=== PATIENT | male | born 1980 | race Caucasian/White ===

== ENCOUNTER → 2017-04-30 | Outpatient (CLI) | payer BC ==
[~2017-04-30] MED LIST: ACHD5005 PO; CEPH500C PO; CLIN-62 PO; CLIN300C3 PO; DOXY-233 PO; DOXY100C2 PO; HYDR-3816 PO; IBUP800T26 PO; NAPR-243 PO; SULF1TAB38 PO; TRM50T PO
== END ==
LOC: LAB 10:46
PROVIDERS: ATTEND Internal Medicine
DX: R07.9 Chest pain, unspecified (principal); R06.02 Shortness of breath
CPT/HCPCS: 36415; 84484; 85379

== ENCOUNTER 2017-05-08 15:02 | Inpatient (IN) | payer BC ==
[~2017-05-08] VITALS: Ht 182.9 cm; Wt 131.1 kg
--- OUTSIDE RECORDS SUMMARY | 2017-05-08 15:08 | XMS REPORT | Continuity of Care Document ---
Author Author [facility] Organization [facility] Address [address] [place] [address] Phone Unavailable Care Team Providers Care Core Maker Helper Name Role Phone SYLVIA MURRIETA COMMUNITY SERVICE TECHNICIAN PCP Unavailable Insurance Providers Guarantor Jos Shields Address [address] [place] [id number] Email NONE Payer [facility] Policy Number [id number] Subscriber's Name Jos Shields Relationship 18 Self / Same As Patient Group Number [id number] Effective Date 16 Advance Directives Directive Response Recorded Date/Time Advance Directives No 04/28/17 2:04pm Advance Directive on File No 04/28/17 1:55pm Durable POA for HC No 04/28/17 1:55pm Power of Spraying Machine Operator No 04/28/17 1:55pm Organ Donor Yes 04/28/17 2:04pm Living Will No 04/28/17 1:55pm Chief Complaint and Reason for Visit Chief Complaint Chest Pain Reason for Visit [id number] Problems Active ProblemsNo active problem information available. Past Problems Medical Problem Onset Date Status Caffeine adverse reaction Unknown Acute Chest pain, non-cardiac Unknown Acute Medications No known medications. Social History Social History Problem Response Recorded Date/Time Onset Date Status Alcohol Use none 04/28/2017 2:16pm Not Applicable Not Applicable Drug Use none 04/28/2017 2:16pm Not Applicable Not Applicable Smoking Status Current every day smoker 04/28/2017 1:59pm Not Applicable Not Applicable Smoked in the last 12 months? Yes 04/28/2017 1:59pm Not Applicable Not Applicable Do you dip or chew tobacco? No 04/28/2017 1:59pm Not Applicable Not Applicable Approx how many cigs per day? 20 04/28/2017 1:59pm Not Applicable Not Applicable Level of Dependence High 04/28/2017 1:59pm Not Applicable Not Applicable Former smoker, last day smoked? TODAY 04/28/2017 1:59pm Not Applicable Not Applicable Smoking Status Start Date Stop Date Current every day smoker Hospital Discharge Instructions No hospital discharge instruction information available. Plan of Care Discharge Date 04/28/17 3:35pm Disposition 01 D/C HOME Condition at Discharge Stable and Improved Instructions/Education Provided Chest Pain (ED) Forms Provided ER Discharge Phone Call Check Prescriptions See Medication Section Referrals SYLVIA MURRIETA APRN Address: [address] [place] [address] Additional Instructions/Education Rest. Stop smoking. Avoid caffeine. Do stress reduction techniques like deep breathing. Follow up with primary care provider regarding possible referral to cosmetics presser for further evaluation and high blood pressure. Return to ER if worsening symptoms, chest pain, shortness of breath, change in symptoms. Reference Links caffeine Functional Status Query Response Date Recorded Activities of Daily Living Performs w/o Assistance April 28, 2017 2:00pm Cognitive Function Intact April 28, 2017 2:00pm Allergies, Adverse Reactions, Alerts No known allergies. Immunizations Query Response on File Recorded Date/Time Hx Influenza Vaccination Y - UNK 04/28/17 2:13pm Hx Pneumococcal Vaccination No 04/28/17 2:13pm Hx Tetanus, Diphtheria Vaccination Y - UNK 04/28/17 2:13pm Vital Signs Acute Vital Signs Vital Response Date/Time Temperature (Fahrenheit) 99.3 degrees F (97.6 - 99.5) 04/28/2017 3:30pm Temperature (Calculated Celsius) 37.08203 degrees C (36.4 - 37.5) 04/28/2017 3:30pm Temperature Source Temporal Artery Scan 04/28/2017 3:30pm Pulse Pulse Ox Pulse Rate (adult) 73 beats per minute (60 - 90) 04/28/2017 3:30pm Pulse Location Modifier Left 04/28/2017 3:30pm Oxygen Saturation Respiratory Rate 16 breaths per minute (12 - 24) 04/28/2017 3:30pm O2 Sat by Pulse Oximetry 96 % (90 - 100) 04/28/2017 3:30pm Blood Pressure 158/69 mm Hg 04/28/2017 3:30pm Blood Pressure Mean 98 mm Hg 04/28/2017 3:30pm Height 6 ft 0 in 04/28/2017 1:51pm Weight 284 lb 04/28/2017 1:51pm Body Mass Index 38.5 kg/m^2 04/28/2017 1:51pm Results Laboratory Results Test Name Result Units Flags Reference Collection Date/Time Result Date/ Time Comments White Blood Count 7.6 x10^3/uL 4.0-11.0 04/28/2017 2:00pm 04/28/2017 2: 03pm Red Blood Count 4.93 10^6/uL 4.50-6.50 04/28/2017 2:00pm 04/28/2017 2: 03pm Hematocrit 44.2 % 40.0-54.0 04/28/2017 2:00pm 04/28/2017 2:03pm Mean Corpuscular Volume 90 fl 76-96 04/28/2017 2:00pm 04/28/2017 2: 03pm Mean Corpuscular Hemoglobin 31.8 pg 27.0-32.0 04/28/2017 2:00pm 2016 2:03pm Mean Corpuscular Hemoglobin Concent 35.5 g/dl H 31.0-35.0 04/28/2017 2: 00pm 04/28/2017 2:03pm Red Cell Distribution Width 14.7 % 11.0-16.0 04/28/2017 2:00pm 2016 2:03pm Platelet Count 265 10^3/uL 150-400 04/28/2017 2:00pm 04/28/2017 2:03pm Mean Platelet Volume 9.3 fl 6.0-10.0 04/28/2017 2:00pm 04/28/2017 2: 03pm Neutrophils (%) (Auto) 47.0 % 45.0-70.0 04/28/2017 2:00pm 04/28/2017 2: 03pm Lymphocytes (%) (Auto) 32.5 % 20.0-40.0 04/28/2017 2:00pm 04/28/2017 2: 03pm Monocytes (%) (Auto) 13.8 % *H 3.0-10.0 04/28/2017 2:00pm 04/28/2017 2: 03pm Eosinophils (%) (Auto) 5.5 % H 1.0-5.0 04/28/2017 2:00pm 04/28/2017 2: 03pm Basophils (%) (Auto) 1.2 % H 0.0-0.5 04/28/2017 2:00pm 04/28/2017 2: 03pm Neutrophils # (Auto) 3.58 x10^3/uL 2.00-7.50 04/28/2017 2:00pm 2016 2:03pm Lymphocytes # (Auto) 2.48 x10^3/uL 1.50-4.00 04/28/2017 2:00pm 2016 2:03pm Monocytes # (Auto) 1.05 x10^3/uL H 0.20-0.80 04/28/2017 2:00pm 2016 2:03pm Eosinophils # (Auto) 0.42 x10^3/uL H 0.04-0.40 04/28/2017 2:00pm 2016 2:03pm Basophils # (Auto) 0.09 x10^3/uL 0.02-0.10 04/28/2017 2:00pm 2016 2:03pm Sodium Level 142 mmol/L 137-145 04/28/2017 2:00pm 04/28/2017 2:27pm Potassium Level 4.1 mmol/L 3.5-5.1 04/28/2017 2:00pm 04/28/2017 2:27pm Carbon Dioxide Level 26.8 mmol/L 22-04/28/2017 2:00pm 04/28/2017 2: 27pm Anion Gap 17.3 mEq/L H 8-16 04/28/2017 2:00pm 04/28/2017 2:27pm Blood Urea Nitrogen 7 mg/dL L 9-04/28/2017 2:00pm 04/28/2017 2:27pm Creatinine 0.87 mg/dl 0.66-1.25 04/28/2017 2:00pm 04/28/2017 2:27pm Est Glomerular Filtrat Rate mL/min > 90.00 04/28/2017 2:00pm 2016 2:27pm GFR NORMALS: Stage I: GFR >90 Stage II GFR 60-89 Stage III GFR 30-60 Stage IV: GFR 15-29 Stage V: GFR <15 BUN/Creatinine Ratio 8.04 04/28/2017 2:00pm 04/28/2017 2:27pm Glucose Level 98 mg/dL 74-106 04/28/2017 2:00pm 04/28/2017 2:27pm Calculated Osmolality 291.5 mosm/kg 273-304 04/28/2017 2:00pm 2016 2:27pm Calcium Level 8.8 mg/dL 8.4-10.2 04/28/2017 2:00pm 04/28/2017 2:27pm Total Bilirubin 0.8 mg/dL 0.2-1.3 04/28/2017 2:00pm 04/28/2017 2:27pm Aspartate Amino Transf (AST/SGOT) 26 U/L 17-59 04/28/2017 2:00pm 2016 2:27pm Alanine Aminotransferase (ALT/SGPT) 24 U/L 21-72 04/28/2017 2:00pm 2:27pm Alkaline Phosphatase 47 U/L 38-126 04/28/2017 2:00pm 04/28/2017 2:27pm Total Creatine Kinase 60 U/L 55-170 04/28/2017 2:00pm 04/28/2017 2: 27pm Troponin < 0.05 mg/mL 0-0.056 04/28/2017 2:00pm 04/28/2017 2:27pm Creatine Kinase MB 0 ng/mL 0-3.6 04/28/2017 2:00pm 04/28/2017 2:27pm Total Protein 8.4 g/dL 6.4-8.4 04/28/2017 2:00pm 04/28/2017 2:27pm Albumin 4.1 g/dL 3.4-5.5 04/28/2017 2:00pm 04/28/2017 2:27pm Globulin 4.3 H 2.3-3.5 04/28/2017 2:00pm 04/28/2017 2:27pm Albumin/Globulin Ratio 0.953 04/28/2017 2:00pm 04/28/2017 2:27pm Procedures Procedure Status Date Provider(s) Cardiac event monitoring Active 04/28/17 JOVANA NICOLE APRN X-ray of chest, PA and lateral views Completed 04/28/17 JOVANA NICOLE APRN Insertion of intravenous saline lock Active 04/28/17 JOVANA NICOLE APRN Encounters Encounter Location Arrival/Admit Date Discharge/Depart Date Attending Provider Departed Emergency Room [facility] 04/28/17 1:40pm 04/28/17 3: 35pm JOVANA NICOLE APRN Recent Diagnosis
[2017-05-08 15:27] LABS: BASOPHILS # (AUTO) 0.1 10^3/uL (0.0-0.1); BASOPHILS % (AUTO) 1 % (0-10); EOSINOPHILS # (AUTO) 0.4 10^3/uL (0.0-0.3); EOSINOPHILS % (AUTO) 4 % (0-10); LYMPHOCYTES # (AUTO) 1.8 X 10^3 (1.0-4.0); LYMPHOCYTES % (AUTO) 23 % (12-44); MEAN CORPUSCULAR HEMOGLOBIN 31 PG (25-34); MEAN CORPUSCULAR HGB CONC 35 G/DL (32-36); MEAN CORPUSCULAR VOLUME 90 FL (80-99); MEAN PLATELET VOLUME 9.8 FL (7.4-10.4); MONOCYTES # (AUTO) 1.1 X 10^3 (0.0-1.0); MONOCYTES % (AUTO) 14 % (0-12); NEUTROPHILS # (AUTO) 4.6 X 10^3 (1.8-7.8); NEUTROPHILS % (AUTO) 58 % (42-75); PLATELET COUNT 275 10^3/uL (130-400); RED BLOOD COUNT 5.15 10^6/uL (4.35-5.85); RED CELL DISTRIBUTION WIDTH 14.3 % (10.0-14.5); WHITE BLOOD COUNT 7.9 10^3/uL (4.3-11.0)
[2017-05-08] MEDS ORDERED: NS IV 1000 ML 1,000 ML IV ONE (15:27)
[2017-05-08] MEDS ORDERED: meTOprolol 5 MG/5 ML (LOPRESSOR) VIAL IV ONE ×2 (15:30→21:30)
--- NOTE | 2017-05-08 15:38 | ED Respiratory ---
General Chief Complaint: Respiratory Problems Stated Complaint: SOB Nursing Triage Note: ARRIVED VIA AMB TO ROOM 09 WITH COMPLAINTS OF SOA WITH CHEST TIGHTNESS STARTING YESTERDAY. STATES HE HAS HAD A NON PRODUCTIVE COUGH. Source: patient, family Exam Limitations: no limitations History of Present Illness Time seen by provider: 15:10 Initial Comments 36 yo male patient presents to the ED with c/o shortness of breath and chest tightness beginning yesterday. Was seen yesterday by Dr. Tsang on 05/01/17 and is scheduled for stress test and Holter monitor. Patient was seen at [place] ED on 04/28/17 for similar complaints. Patient denies aggravating or relieving factors. Denies a h/o heart or lung problems. Patient does state he has been worked up for blood clot in the RLE previously, but all tests were negative. States he does have chronic swelling in the RLE. Patient does report a dry cough. Timing/Duration: yesterday Prior Episodes/Possible Cause: occasional episodes Modifying Factors: Worse With Other (denies modifying factors) Associated Symptoms: No cough, No dizziness, No earache, No facial pain, No fever/chills, No headache, No lightheadedness, shortness of breath, No wheezing Allergies and Home Medications Allergies Coded Allergies: morphine (Unverified Allergy, Unknown, 05/08/17) penicillin G (Verified Allergy, Unknown, 08/04/06) Home Medications No Active Prescriptions or Reported Meds Constitutional: No chills, No diaphoresis, No dizziness, No fever, malaise, other (fatigue) EENTM: no symptoms reported Respiratory: cough, No dyspnea on exertion, No orthopnea, No phlegm, short of breath, No stridor, No wheezing Cardiovascular: see HPI, No chest pain, edema (chronic RLE swelling.), No palpitations, No syncope, other (reports chest tightness) Gastrointestinal: No abdominal pain, No constipation, No diarrhea, No nausea, No vomiting Genitourinary: no symptoms reported Musculoskeletal: no symptoms reported Skin: no symptoms reported Psychiatric/Neurological: No Symptoms Reported All Other Systems Reviewed Negative Unless Noted: Yes (Negative excepted noted.) Past Ffdpwmq-Lwwvnp-Ckuvsm Hx Patient Social History Alcohol Use: Occasionally Uses Recreational Drug Use: No Smoking Status: Never a Smoker Recent Foreign Travel: No Contact w/Someone Who Travel: No Recent Infectious Disease Expo: No Physical Abuse: No Sexual Abuse: No Immunizations Up To Date Tetanus Booster (TDap): Unknown Surgeries History of Surgeries: Yes (LAP BAND, MINI GASTRIC BYPASS) Surgeries: Appendectomy, Gallbladder, Tonsillectomy Respiratory History of Respiratory Disorde: No Cardiovascular History of Cardiac Disorders: Yes Cardiac Disorders: Angina, Hypertension Neurological History of Neurological Disord: No Genitourinary History of Genitourinary Disor: No Gastrointestinal History of Gastrointestinal Di: No Musculoskeletal History of Musculoskeletal Dis: No Endocrine History of Endocrine Disorders: No HEENT History of HEENT Disorders: No Cancer History of Cancer: No Psychosocial History of Psychiatric Problem: Yes Behavioral Health Disorders: Anxiety Suicide Risk Score: 0 Integumentary History of Skin or Integumenta: Yes (CELLULITIS--LEGS) Blood Transfusions History of Blood Disorders: No Reviewed Nursing Assessment Reviewed/Agree w Nursing PMH: Yes Family Medical History Significant Family History: Heart Disease, Hypertension Physical Exam Vital Signs Vital Sign - Last 12Hours 05/08/17 15:05 Temp 98.0 Pulse 134 Resp 18 B/P (MAP) 114/94 Pulse Ox 98 Capillary Refill : Less Than 3 Seconds General Appearance: WD/WN, no apparent distress HEENT: PERRL/EOMI, pharynx normal Neck: supple, normal inspection Respiratory: lungs clear, normal breath sounds, no respiratory distress, no accessory muscle use Cardiovascular: normal peripheral pulses, no murmur, irregularly irregular Gastrointestinal: normal bowel sounds, non tender, soft, no organomegaly, No distended Extremities: no calf tenderness, normal capillary refill, pedal edema ( bilateral 2+ pedal edema to the level of the mid to proximal tibia (R>L)) Neurologic/Psychiatric: scout leaser II-XII nml as tested, no motor/sensory deficits, alert, normal mood/affect, oriented x 3 Skin: normal color, warm/dry, No cyanosis, No cool, No diaphoresis Progress/Results/Core Measures Results/Orders Lab Results Laboratory Tests Test 05/08/17 15:20 Range/Units White Blood Count 7.9 4.3-11.0 10^3/uL Red Blood Count 5.15 4.35-5.85 10^6/uL Hemoglobin 16.0 13.3-17.7 G/DL Hematocrit 46 40-54 % Mean Corpuscular Volume 90 80-99 FL Mean Corpuscular Hemoglobin 31 25-34 PG Mean Corpuscular Hemoglobin Concent 35 32-36 G/DL Red Cell Distribution Width 14.3 10.0-14.5 % Platelet Count 275 130-400 10^3/uL Mean Platelet Volume 9.8 7.4-10.4 FL Neutrophils (%) (Auto) 58 42-75 % Lymphocytes (%) (Auto) 23 12-44 % Monocytes (%) (Auto) 14 H 0-12 % Eosinophils (%) (Auto) 4 0-10 % Basophils (%) (Auto) 1 0-10 % Neutrophils # (Auto) 4.6 1.8-7.8 X 10^3 Lymphocytes # (Auto) 1.8 1.0-4.0 X 10^3 Monocytes # (Auto) 1.1 H 0.0-1.0 X 10^3 Eosinophils # (Auto) 0.4 H 0.0-0.3 10^3/uL Basophils # (Auto) 0.1 0.0-0.1 10^3/uL Prothrombin Time 12.4 12.2-14.7 SEC INR Comment 0.9 0.8-1.4 Activated Partial Thromboplast Time 26 24-35 SEC D-Dimer < 0.27 0.00-0.49 UG/ML Sodium Level 138 135-145 MMOL/L Potassium Level 4.3 3.6-5.0 MMOL/L Chloride Level 101 98-107 MMOL/L Carbon Dioxide Level 27 21-32 MMOL/L Anion Gap 10 5-14 MMOL/L Blood Urea Nitrogen 7 7-18 MG/DL Creatinine 0.95 0.60-1.30 MG/DL Estimat Glomerular Filtration Rate > 60 BUN/Creatinine Ratio 7 Glucose Level 163 H 70-105 MG/DL Calcium Level 9.5 8.5-10.1 MG/DL Magnesium Level 2.2 1.8-2.4 MG/DL Total Bilirubin 1.9 H 0.1-1.0 MG/DL Aspartate Amino Transf (AST/SGOT) 34 5-34 U/L Alanine Aminotransferase (ALT/SGPT) 33 0-55 U/L Alkaline Phosphatase 42 40-136 U/L Total Creatine Kinase 73 30-200 U/L Creatine Kinase MB 0.5 <6.6 NG/ML Troponin I < 0.30 <0.30 NG/ML Total Protein 8.0 6.4-8.2 GM/DL Albumin 4.3 3.2-4.5 GM/DL TSH [place] Testing 1.34 0.35-4.94 UIU/ML My Orders Orders - NIC KNIGHT PA Ekg Tracing (05/08/17 15:14) Chest 1 View, Ap/Pa Only (05/08/17 15:17) Cbc With Automated Diff (05/08/17 15:17) Comprehensive Metabolic Panel (05/08/17 15:17) Creatine Kinase (05/08/17 15:17) Creatine Kinase Mb (05/08/17 15:17) Fibrin Degradation Products (05/08/17 15:17) Magnesium (05/08/17 15:17) Protime With Inr (05/08/17 15:17) Partial Thromboplastin Time (05/08/17 15:17) Thyroid Analyzer (05/08/17 15:17) Troponin I (05/08/17 15:17) Saline Lock/Iv-Start (05/08/17 15:17) Monitor-Rhythm Ecg Trace Only (05/08/17 15:17) Metoprolol Tartrate Injection (Lopressor (05/08/17 15:30) Ns Iv 1000 Ml (Sodium Chloride 0.9%) (05/08/17 15:27) Amiodarone For Bolus (Cordarone Bolus) (05/08/17 16:30) Sodium Chloride (Ad... W/Diltiazem Drip (05/08/17 16:45) Apixaban Tablet (Eliquis Tablet) (05/08/17 16:45) Medications Given in ED Current Medications Medications Dose Ordered Sig/Elijah Route Start Time Stop Time Status Last Admin Dose Admin Apixaban 5 mg ONCE ONCE PO 05/08/17 16:45 05/08/17 16:46 DC 05/08/17 17:02 5 MG Metoprolol Tartrate 5 mg ONCE ONCE IV 05/08/17 15:30 05/08/17 15:31 DC 05/08/17 15:33 5 MG Sodium Chloride 1,000 ml @ 0 mls/hr Q0M ONCE IV 05/08/17 15:27 05/08/17 15:28 DC 05/08/17 15:33 1,000 MLS/HR Vital Signs/I&O Vital Sign - Last 12Hours 05/08/17 05/08/17 15:05 16:51 Temp 98.0 98.0 Pulse 134 120 Resp 18 16 B/P (MAP) 114/94 127/114 Pulse Ox 98 99 Blood Pressure Mean: 101 ECG Initial ECG Impression Date: May 08, 2017 Initial ECG Impression Time: 15:15 Initial ECG Rate: 178 Initial ECG Rhythm: A Fib/Flutter Initial ECG Impression: Atrial Fibrillation w/RVR Initial ECG Comparisson: Changed (ECG compared to [facility] ED records from 04/28/17.) Comment Atrial fibrillation with RVR. ECG reviewed and discussed with Dr. Soriano. Diagnostic Imaging Diagonstic Imaging: Xray Plain Films/CT/US/NM/MRI: chest Comments FINDINGS: This study is less than optimal as the patient is rotated. Allowing for this technical factor, the heart size is within normal limits and stable when compared to 02/21/07. The perihilar markings on the right do seem prominent but this is probably secondary to the rotation. The lungs are generally clear. There is no evidence for failure, pneumonia or for a pleural effusion. The mediastinum is not widened. The osseous structures are intact. IMPRESSION: 1. There is no evidence for an acute cardiopulmonary abnormality on this suboptimal exam. 2. If clinical concern regarding an underlying abnormality persists, then a followup PA and lateral chest would be recommended for further study. Dictated on workstation # [id number] Reviewed: Reviewed by Me (radiology report reviewed by me) Departure Communication (Admissions) Time/Spoke to Admitting Phy: 16:[address] Tsang accepts patient to his cardiology service for IV cardizem, eliquis, and further evaluation. Progress Notes Patient seen and evaluated. Patient was given metoprolol 5 mg IV 1 dose with improved heart rate ranging between 115- 140 bpm. patient onset of symptoms were yesterday at 1830. Initially amiodarone was ordered; however, at Dr. Tsang's request amiodarone order was changed to a Cardizem drip. Dr. Tsang requests patient to be started on Eliquis in the ED and for patient to be admitted to ICU for continued cardizem IV. All laboratory findings, diagnostic study findings, and plan for admission discussed with the patient. Patient voices understanding and agrees with the treatment plan. Patient case discussed with Dr. Soriano, he agrees with the plan of care. Impression Impression: Primary Impression: New onset atrial fibrillation Additional Impression: Shortness of breath Disposition: ADMITTED INPATIENT Condition: Stable Admissions Decision to Admit Reason: Admit from ER (General) Decision to Admit/Date: May 08, 2017 Time/Decision to Admit Time: 16:20 Departure-Patient Inst. Referrals: DON HATFIELD MD (PCP/Family) Primary Care Physician Scripts No Active Prescriptions or Reported Meds NIC KNIGHT May 08, 2017 15:38
[2017-05-08 15:41] LABS: INR 0.9 (0.8-1.4); PARTIAL THROMBOPLASTIN TIME 26 SEC (24-35); PROTHROMBIN TIME PATIENT 12.4 SEC (12.2-14.7)
[2017-05-08 15:49] LABS: ALANINE AMINOTRANSFERASE 33 U/L (0-55); ALBUMIN 4.3 GM/DL (3.2-4.5); ANION GAP 10 MMOL/L (5-14); ASPARTATE AMINO TRANSFERASE 34 U/L (5-34); BILIRUBIN,TOTAL 1.9 MG/DL (0.1-1.0); BLOOD UREA NITROGEN 7 MG/DL (7-18); BUN/CREATININE RATIO 7; CALCIUM 9.5 MG/DL (8.5-10.1); CARBON DIOXIDE 27 MMOL/L (21-32); CHLORIDE 101 MMOL/L (98-107); CREATINE KINASE 73 U/L (30-200); CREATININE SERUM 0.95 MG/DL (0.60-1.30); GFR ESTIMATED > 60; GLUCOSE 163 MG/DL (70-105); MAGNESIUM 2.2 MG/DL (1.8-2.4); POTASSIUM 4.3 MMOL/L (3.6-5.0); SODIUM 138 MMOL/L (135-145)
--- NOTE | 2017-05-08 15:49 | Diagnostic Imaging Report ---
INDICATION: Shortness of breath. EXAMINATION: Portable erect AP chest at 3:33 p.m. FINDINGS: This study is less than optimal as the patient is rotated. Allowing for this technical factor, the heart size is within normal limits and stable when compared to 02/21/07. The perihilar markings on the right do seem prominent but this is probably secondary to the rotation. The lungs are generally clear. There is no evidence for failure, pneumonia or for a pleural effusion. The mediastinum is not widened. The osseous structures are intact. IMPRESSION: 1. There is no evidence for an acute cardiopulmonary abnormality on this suboptimal exam. 2. If clinical concern regarding an underlying abnormality persists, then a followup PA and lateral chest would be recommended for further study. Dictated by: Dictated on workstation # [id number]
[2017-05-08 16:08] LABS: TROPONIN I < 0.30 NG/ML (<0.30)
[2017-05-08] MEDS ORDERED: AMIODARONE FOR BOLUS 150 MG in D5W 100 ML IVPB 100 ML IV ONE (16:30)
[2017-05-08] MEDS ORDERED: APIXABAN 5 MG (ELIQUIS) TABLET PO ONE (16:45)
[2017-05-08] MEDS: DILTIAZEM DRIP 100 MG in SODIUM CHLORIDE (ADD-VANTAGE) 100 ML IV SCH (16:51)
[2017-05-08 18:00] VITALS: BP 124/88
[2017-05-08] MEDS ORDERED: ACETAMINOPHEN 500 MG TAB (TYLENOL) PO PRN (18:00)
[2017-05-08] MEDS ORDERED: ONDANSETRON 4 MG/2 ML (SDV) Z0FRAN IV PRN (18:00)
[2017-05-08] MEDS ORDERED: CATHETER FLUSH 10 ML SYR IV PRN (18:00)
[2017-05-08] MEDS: DILTIAZEM DRIP 100 MG/NS 100 ML IV SCH ×4 (18:24→23:42)
[2017-05-08] MEDS: NS IV 1000 ML 1,000 ML IV SCH (18:56)
[2017-05-08 19:00] VITALS: BP 136/98
[2017-05-08 20:00] VITALS: BP 156/101
[2017-05-08 21:00] VITALS: BP 137/90
[2017-05-08] MEDS ORDERED: TEMAZEPAM 15 MG (RESTORIL) CAP PO PRN (21:00)
[2017-05-08] MEDS ORDERED: APIXABAN 5 MG (ELIQUIS) TABLET PO SCH (21:00)
[2017-05-08] MEDS: meTOprolol 5 MG/5 ML (LOPRESSOR) VIAL IV SCH ×2 (21:00→21:07)
[2017-05-08] MEDS ORDERED: DIAZEPAM INJ 10 MG/2 ML (VALIUM) SYR ONE (21:15)
[2017-05-08] MEDS: DIAZEPAM INJ 10 MG/2 ML (VALIUM) SYR IV ONE ×2 (21:30→21:31)
[2017-05-08 22:00] VITALS: BP 129/91
[2017-05-08 23:00] VITALS: BP 142/97
[2017-05-09] VITALS (13 sets, daily range): BP systolic 111–135; BP diastolic 63–90
[2017-05-09] MEDS: meTOprolol 5 MG/5 ML (LOPRESSOR) VIAL IV SCH ×4 (00:33→09:14)
[2017-05-09] MEDS: NS IV 1000 ML 1,000 ML IV SCH (03:37)
[2017-05-09 05:05] LABS: BASOPHILS # (AUTO) 0.1 10^3/uL (0.0-0.1); BASOPHILS % (AUTO) 1 % (0-10); EOSINOPHILS # (AUTO) 0.2 10^3/uL (0.0-0.3); EOSINOPHILS % (AUTO) 3 % (0-10); LYMPHOCYTES # (AUTO) 1.8 X 10^3 (1.0-4.0); LYMPHOCYTES % (AUTO) 23 % (12-44); MEAN CORPUSCULAR HEMOGLOBIN 31 PG (25-34); MEAN CORPUSCULAR HGB CONC 34 G/DL (32-36); MEAN CORPUSCULAR VOLUME 91 FL (80-99); MEAN PLATELET VOLUME 10.1 FL (7.4-10.4); MONOCYTES # (AUTO) 1.3 X 10^3 (0.0-1.0); MONOCYTES % (AUTO) 17 % (0-12); NEUTROPHILS # (AUTO) 4.5 X 10^3 (1.8-7.8); NEUTROPHILS % (AUTO) 57 % (42-75); PLATELET COUNT 247 10^3/uL (130-400); RED BLOOD COUNT 4.66 10^6/uL (4.35-5.85); RED CELL DISTRIBUTION WIDTH 14.3 % (10.0-14.5); WHITE BLOOD COUNT 7.9 10^3/uL (4.3-11.0)
[2017-05-09 05:26] LABS: ALANINE AMINOTRANSFERASE 26 U/L (0-55); ALBUMIN 3.7 GM/DL (3.2-4.5); ANION GAP 13 MMOL/L (5-14); ASPARTATE AMINO TRANSFERASE 22 U/L (5-34); BILIRUBIN,TOTAL 2.7 MG/DL (0.1-1.0); BLOOD UREA NITROGEN 10 MG/DL (7-18); BUN/CREATININE RATIO 14; CALCIUM 8.8 MG/DL (8.5-10.1); CARBON DIOXIDE 23 MMOL/L (21-32); CHLORIDE 105 MMOL/L (98-107); CREATININE SERUM 0.73 MG/DL (0.60-1.30); GFR ESTIMATED > 60; GLUCOSE 95 MG/DL (70-105); MAGNESIUM 2.1 MG/DL (1.8-2.4); POTASSIUM 3.5 MMOL/L (3.6-5.0); SODIUM 141 MMOL/L (135-145); TOTAL PROTEIN 6.6 GM/DL (6.4-8.2)
[2017-05-09] MEDS ORDERED: POTASSIUM CL 10MEQ/50ML IVPB 50 ML IV SCH (06:00)
[2017-05-09] MEDS ORDERED: KCL 20 MEQ TAB (K-DUR) PO ONE (06:00)
[2017-05-09] MEDS ORDERED: MAGNESIUM 1 GM/100 ML IVPB 100 ML IV SCH (06:00)
[2017-05-09] MEDS ORDERED: APIXABAN 5 MG (ELIQUIS) TABLET PO SCH (06:00)
[2017-05-09] MEDS ORDERED: KCL 20 MEQ TAB (K-DUR) PO SCH (06:00)
--- NOTE | 2017-05-09 08:15 | Consultation-Cardiology ---
HPI-Cardiology Cardiology Consultation: Date of Consultation 05/09/17 Date of Admission Attending Physician Nunu Tsang MD Facp Fac Ccds Admitting Physician Baldev Velasquez MD Consulting Physician SARBJIT RICHMOND Review of Systems-Cardiology All Other Systems Reviewed Negative Unless Noted: Yes (Negative excepted noted.) CWA-Jrwblj-Dkmwzo Hx Patient Social History Alcohol Use: Regular Use Recreational Drug Use: No Smoking Status: Former Smoker Type Used: Cigarettes Recent Foreign Travel: No Recent Infectious Disease Expo: No Physical Abuse Screen: No Sexual Abuse: No Immunizations Up To Date Tetanus Booster (TDap): Unknown Past Medical History PMH As described under Assessment. Family Medical History Family History: Cardiovascular disease 19 FATHER 19 MOTHER Allergies and Home Medications Allergies Coded Allergies: morphine (Unverified Allergy, Unknown, 05/08/17) penicillin G (Verified Allergy, Unknown, 08/04/06) Home Medications Apixaban 5 Mg Tablet, 5 MG PO Q12H for 30 Days, #60 Ref 5 Prescribed by: NUNU TSANG on 05/09/17 0957 Metoprolol Succinate 100 Mg Tab.er.24h, 100 MG PO DAILY for 30 Days, #30 Ref 5 Prescribed by: NUNU TSANG on 05/09/17 0957 Physical Exam-Cardiology Physical Exam Vital Signs/I&O Vital Sign - Last 12Hours 05/08/17 05/08/17 05/08/17 05/08/17 22:00 22:30 23:00 23:42 Pulse 84 82 80 87 Resp 19 11 14 B/P (MAP) 129/91 147/92 142/97 128/84 Pulse Ox 95 100 98 O2 Delivery Room Air Room Air 05/09/17 05/09/17 05/09/17 05/09/17 00:00 00:00 00:00 01:00 Temp 98.6 Pulse 82 82 Resp 12 B/P (MAP) 130/63 Pulse Ox 99 98 O2 Delivery Room Air Room Air 05/09/17 05/09/17 05/09/17 05/09/17 01:00 02:00 03:00 03:43 Pulse 73 80 73 69 Resp 16 20 14 B/P (MAP) 123/71 117/81 111/81 115/83 Pulse Ox 96 97 98 O2 Delivery Room Air Room Air Room Air 05/09/17 05/09/17 05/09/17 05/09/17 04:00 04:00 04:00 04:38 Temp 97.8 Pulse 64 70 Resp 19 B/P (MAP) 125/80 117/83 Pulse Ox 96 99 O2 Delivery Nasal Cannula Room Air 05/09/17 05/09/17 05/09/17 05/09/17 05:00 06:00 07:00 07:55 Temp 98.3 Pulse 77 77 77 Resp 11 23 B/P (MAP) 128/85 126/80 Pulse Ox 100 96 O2 Delivery Room Air Room Air 05/09/17 09:12 Pulse 77 Capillary Refill : Less Than 3 SecondsLess Than 3 Seconds Data Review Labs Laboratory Tests 05/08/17 15:20: White Blood Count 7.9, Red Blood Count 5.15, Hemoglobin 16.0, Hematocrit 46, Mean Corpuscular Volume 90, Mean Corpuscular Hemoglobin 31, Mean Corpuscular Hemoglobin Concent 35, Red Cell Distribution Width 14.3, Platelet Count 275, Mean Platelet Volume 9.8, Neutrophils (%) (Auto) 58, Lymphocytes (%) (Auto) 23, Monocytes (%) (Auto) 14H, Eosinophils (%) (Auto) 4, Basophils (%) (Auto) 1, Neutrophils # (Auto) 4.6, Lymphocytes # (Auto) 1.8, Monocytes # (Auto) 1.1H, Eosinophils # (Auto) 0.4H, Basophils # (Auto) 0.1, Prothrombin Time 12.4, INR Comment 0.9, Activated Partial Thromboplast Time 26, D-Dimer < 0.27, Sodium Level 138, Potassium Level 4.3, Chloride Level 101, Carbon Dioxide Level 27, Anion Gap 10, Blood Urea Nitrogen 7, Creatinine 0.95, Estimat Glomerular Filtration Rate > 60, BUN/Creatinine Ratio 7, Glucose Level 163H, Calcium Level 9.5, Magnesium Level 2.2, Total Bilirubin 1.9H, Aspartate Amino Transf (AST/SGOT ) 34, Alanine Aminotransferase (ALT/SGPT) 33, Alkaline Phosphatase 42, Total Creatine Kinase 73, Creatine Kinase MB 0.5, Troponin I < 0.30, Total Protein 8.0 , Albumin 4.3, TSH [place] Testing 1.34 05/08/17 21:35: Troponin I < 0.30 05/09/17 04:45: White Blood Count 7.9, Red Blood Count 4.66, Hemoglobin 14.5, Hematocrit 42, Mean Corpuscular Volume 91, Mean Corpuscular Hemoglobin 31, Mean Corpuscular Hemoglobin Concent 34, Red Cell Distribution Width 14.3, Platelet Count 247, Mean Platelet Volume 10.1, Neutrophils (%) (Auto) 57, Lymphocytes (%) (Auto) 23 , Monocytes (%) (Auto) 17H, Eosinophils (%) (Auto) 3, Basophils (%) (Auto) 1, Neutrophils # (Auto) 4.5, Lymphocytes # (Auto) 1.8, Monocytes # (Auto) 1.3H, Eosinophils # (Auto) 0.2, Basophils # (Auto) 0.1, Sodium Level 141, Potassium Level 3.5L, Chloride Level 105, Carbon Dioxide Level 23, Anion Gap 13, Blood Urea Nitrogen 10, Creatinine 0.73, Estimat Glomerular Filtration Rate > 60, BUN/ Creatinine Ratio 14, Glucose Level 95, Calcium Level 8.8, Magnesium Level 2.1, Total Bilirubin 2.7H, Aspartate Amino Transf (AST/SGOT) 22, Alanine Aminotransferase (ALT/SGPT) 26, Alkaline Phosphatase 35L, Total Protein 6.6, Albumin 3.7 A/P-Cardiology Assessment/Admission Diagnosis A-fib with RVR OAC with Eliquis Chest discomfort Chronic tobacco use (states quit on 04/30/17) Obesity. S/p gastric bypass in 2008 ([place] [facility]) Hypertension, borderline Bilat leg swelling, more on the R, chronic Bilat varicose veins of the legs Clinical Quality Measures DVT/VTE Risk/Contraindication: Risk Factor Score Per Nursin RFS Level Per Nursing on Admit: 2=Moderate SARBJIT BLACK May 09, 2017 08:15
[2017-05-09] MEDS: DILTIAZEM DRIP 100 MG in SODIUM CHLORIDE (ADD-VANTAGE) 100 ML IV SCH (09:12)
[2017-05-09] MEDS ORDERED: meTOprolol SUCCINATE 100 MG (TOPROL XL) TAB PO NR (09:45)
[2017-05-09] MEDS ORDERED: KCL 20 MEQ TAB (K-DUR) PO NR (09:45)
--- NOTE | 2017-05-09 09:48 | Cardiology History & Physical ---
HPI-Cardiology Cardiology H&P Date of Admission Primary Care Physician Baldev Velasquez MD Attending Physician Nunu Tsang MD, MA FACP [facility] CCDS Consulting Physician TAYLOR CC: Palpitations, dizziness HPI: 36 yo man who was recently seen at our office for eval of an episode of dizziness for which he had gone to [facility] and was not found to have any significant cardiac issues. A cardiac w/u was initiated at our office. He presented last evening with similar dizziness and palp and shortness of breath and feeling vague chest discomfort (that came on all of sudden approx 21 hours prior to presentation) and was diagnosed with A Fib with RVR. He denies syncope. Has also has chronic mild shortness of breath and chronic bilat leg swelling (more on the R). He denies recent fever or chills. He has been treated with dilt and beta-jennyfer. He has not converted but vent rate is controlled and he feels better. He has been put on oral anticoag during this hosp Review of Systems-Cardiology Review of Systems Constitutional: malaise, tiredness Eyes: No vision change Ears/Nose/Throat: No ear discharge, No recent hearing loss Respiratory: As described under HPI Cardiovascular: As described under HPI Gastrointestinal: No constipation, No diarrhea, No nausea, No vomiting Genitourinary: No dysuria, No urine frequency changes Musculoskeletal: No back pain, joint pain (chronic knee pain) Skin: No rash, No ulcerations Psychiatric/Neurological: No seizure, No focal weakness, No syncope Hematologic: No bleeding abnormalities All Other Systems Reviewed Negative Unless Noted: Yes (Negative excepted noted.) PYC-Sihcjs-Vjflez Hx Patient Social History Alcohol Use: Regular Use Recreational Drug Use: No Smoking Status: Former Smoker Type Used: Cigarettes Recent Foreign Travel: No Recent Infectious Disease Expo: No Physical Abuse Screen: No Sexual Abuse: No Immunizations Up To Date Tetanus Booster (TDap): Unknown Past Medical History PMH As described under Assessment. Family Medical History Family History: Cardiovascular disease 19 FATHER 19 MOTHER Allergies and Home Medications Allergies Coded Allergies: morphine (Unverified Allergy, Unknown, 05/08/17) penicillin G (Verified Allergy, Unknown, 08/04/06) Home Medications No Active Prescriptions or Reported Meds Physical Exam-Cardiology Physical Exam Vital Signs/I&O Vital Sign - Last 12Hours 9/6/17 05/08/17 05/08/17 05/08/17 22:00 22:30 23:00 23:42 Pulse 84 82 80 87 Resp 19 11 14 B/P (MAP) 129/91 147/92 142/97 128/84 Pulse Ox 95 100 98 O2 Delivery Room Air Room Air 05/09/17 05/09/17 05/09/17 05/09/17 00:00 00:00 00:00 01:00 Temp 98.6 Pulse 82 82 Resp 12 B/P (MAP) 130/63 Pulse Ox 99 98 O2 Delivery Room Air Room Air 05/09/17 05/09/17 05/09/17 05/09/17 01:00 02:00 03:00 03:43 Pulse 73 80 73 69 Resp 16 20 14 B/P (MAP) 123/71 117/81 111/81 115/83 Pulse Ox 96 97 98 O2 Delivery Room Air Room Air Room Air 05/09/17 05/09/17 05/09/17 05/09/17 04:00 04:00 04:00 04:38 Temp 97.8 Pulse 64 70 Resp 19 B/P (MAP) 125/80 117/83 Pulse Ox 96 99 O2 Delivery Nasal Cannula Room Air 05/09/17 05/09/17 05/09/17 05/09/17 05:00 06:00 07:00 07:55 Temp 98.3 Pulse 77 77 77 Resp 11 23 B/P (MAP) 128/85 126/80 Pulse Ox 100 96 O2 Delivery Room Air Room Air 05/09/17 09:12 Pulse 77 Capillary Refill : Less Than 3 SecondsLess Than 3 Seconds Constitutional: AAO x 3, well-developed, well-nourished HEENT: PERRL, EOMI, hearing is well preserved, No xanthelasmas are seen Neck: carotid pulses are 2 + bilaterally, with good upstrokes Respiratory: No accessory muscle use, lungs clear to percussion, lungs clear to auscultation Cardiovascular: irregularly irregular, S1 and S2, systolic murmur (faint GAYLE at card base) Gastrointestinal: No tender, No guarding, No rebound, audible bowel sounds Extremities: swelling (mild bilat leg swelling, more on the R), No clubbing, No cyanosis Neurologic/Psychiatric: oriented x 3, grossly intact, power is 5/5 both on sides Skin: No rash on exposed areas, No ulcerations on exposed areas Data Review Labs Laboratory Tests 05/08/17 15:20: White Blood Count 7.9, Red Blood Count 5.15, Hemoglobin 16.0, Hematocrit 46, Mean Corpuscular Volume 90, Mean Corpuscular Hemoglobin 31, Mean Corpuscular Hemoglobin Concent 35, Red Cell Distribution Width 14.3, Platelet Count 275, Mean Platelet Volume 9.8, Neutrophils (%) (Auto) 58, Lymphocytes (%) (Auto) 23, Monocytes (%) (Auto) 14H, Eosinophils (%) (Auto) 4, Basophils (%) (Auto) 1, Neutrophils # (Auto) 4.6, Lymphocytes # (Auto) 1.8, Monocytes # (Auto) 1.1H, Eosinophils # (Auto) 0.4H, Basophils # (Auto) 0.1, Prothrombin Time 12.4, INR Comment 0.9, Activated Partial Thromboplast Time 26, D-Dimer < 0.27, Sodium Level 138, Potassium Level 4.3, Chloride Level 101, Carbon Dioxide Level 27, Anion Gap 10, Blood Urea Nitrogen 7, Creatinine 0.95, Estimat Glomerular Filtration Rate > 60, BUN/Creatinine Ratio 7, Glucose Level 163H, Calcium Level 9.5, Magnesium Level 2.2, Total Bilirubin 1.9H, Aspartate Amino Transf (AST/SGOT ) 34, Alanine Aminotransferase (ALT/SGPT) 33, Alkaline Phosphatase 42, Total Creatine Kinase 73, Creatine Kinase MB 0.5, Troponin I < 0.30, Total Protein 8.0 , Albumin 4.3, TSH [place] Testing 1.34 05/08/17 21:35: Troponin I < 0.30 05/09/17 04:45: White Blood Count 7.9, Red Blood Count 4.66, Hemoglobin 14.5, Hematocrit 42, Mean Corpuscular Volume 91, Mean Corpuscular Hemoglobin 31, Mean Corpuscular Hemoglobin Concent 34, Red Cell Distribution Width 14.3, Platelet Count 247, Mean Platelet Volume 10.1, Neutrophils (%) (Auto) 57, Lymphocytes (%) (Auto) 23 , Monocytes (%) (Auto) 17H, Eosinophils (%) (Auto) 3, Basophils (%) (Auto) 1, Neutrophils # (Auto) 4.5, Lymphocytes # (Auto) 1.8, Monocytes # (Auto) 1.3H, Eosinophils # (Auto) 0.2, Basophils # (Auto) 0.1, Sodium Level 141, Potassium Level 3.5L, Chloride Level 105, Carbon Dioxide Level 23, Anion Gap 13, Blood Urea Nitrogen 10, Creatinine 0.73, Estimat Glomerular Filtration Rate > 60, BUN/ Creatinine Ratio 14, Glucose Level 95, Calcium Level 8.8, Magnesium Level 2.1, Total Bilirubin 2.7H, Aspartate Amino Transf (AST/SGOT) 22, Alanine Aminotransferase (ALT/SGPT) 26, Alkaline Phosphatase 35L, Total Protein 6.6, Albumin 3.7 Laboratory Tests 05/08/17 15:20 05/09/17 04:45 A/P-Cardiology Assessment/Admission Diagnosis PAF with RVR first documented on 05/08/17 (onset approx 21 hours prior to presentation, going by history) OAC with Eliquis initiated on 05/08/17 No evidence of acute cor syndrome Chronic tobacco use (states quit on 04/30/17) Obesity. S/p gastric bypass in 2008 ([place]) Hypertension, borderline Bilat leg swelling, more on the R, chronic Bilat varicose veins of the legs Suspected sleep apnea Mild hypokalemia Discussion and Recomendations * Rate control with bb * Avoid CCB, if possible, because they might aggravate chronic leg swelling * Apixaban for stroke prophylaxis * Correct lytes * Close outpatient f/u * Consider elec CV if remains in a fib * Sleep studies advised Clinical Quality Measures DVT/VTE Risk/Contraindication: Risk Factor Score Per Nursin RFS Level Per Nursing on Admit: 2=Moderate NUNU TSANG MD FACP FAC CCDS May 09, 2017 09:48
[2017-05-09] MEDS ORDERED: APIX5TAB PO (09:57)
[2017-05-09] MEDS ORDERED: METO-274 PO (09:57)
--- NOTE | 2017-05-09 09:59 | Discharge Inst-Cardiology ---
Discharge Inst-Cardiac Discharge Medications New Medications: Apixaban (Eliquis) 5 Mg Tablet 5 MG PO Q12H for 30 Days, #60 TAB 5 Refills Metoprolol Succinate (Metoprolol Succinate) 100 Mg Tab.er.24h 100 MG PO DAILY for 30 Days, #30 TAB 5 Refills Patient Instructions Patient Instructions: F/u with Dr Tsang next week Activity as tolerated Activity & Diet Discharge Diet: Cardiac Diet DAISY TSANG MD FACP FAC CCDS May 09, 2017 09:59
--- NOTE | 2017-05-09 10:01 | Cardiology Discharge Summary ---
Diagnosis/Chief Complaint Date of Admission May 08, 2017 at 17:10 Date of Discharge 05/09/17 Final/Discharge Diagnosis PAF with RVR first documented on 05/08/17 (onset approx 21 hours prior to presentation, going by history) OAC with Eliquis initiated on 05/08/17 No evidence of acute cor syndrome Chronic tobacco use (states quit on 04/30/17) Obesity. S/p gastric bypass in 2008 ([place]) Hypertension, borderline Bilat leg swelling, more on the R, chronic Bilat varicose veins of the legs Suspected sleep apnea Mild hypokalemia TSH normal on 05/08/17 (1.34) Chief Complaint/HPI Chief Complaint/HPI CC: Palpitations, dizziness HPI: 36 yo man who was recently seen at our office for eval of an episode of dizziness for which he had gone to [place] [facility] and was not found to have any significant cardiac issues. A cardiac w/u was initiated at our office. He presented last evening with similar dizziness and palp and shortness of breath and feeling vague chest discomfort (that came on all of sudden approx 21 hours prior to presentation) and was diagnosed with A Fib with RVR. He denies syncope. Has also has chronic mild shortness of breath and chronic bilat leg swelling (more on the R). He denies recent fever or chills. He has been treated with dilt and beta-jennyfer. He has not converted but vent rate is controlled and he feels better. He has been put on oral anticoag during this hosp Discharge Summary Procedures None. Hospital Course Pending Labs Laboratory Tests 05/09/17 04:45: White Blood Count 7.9, Red Blood Count 4.66, Hemoglobin 14.5, Hematocrit 42, Mean Corpuscular Volume 91, Mean Corpuscular Hemoglobin 31, Mean Corpuscular Hemoglobin Concent 34, Red Cell Distribution Width 14.3, Platelet Count 247, Mean Platelet Volume 10.1, Neutrophils (%) (Auto) 57, Lymphocytes (%) (Auto) 23 , Monocytes (%) (Auto) 17, Eosinophils (%) (Auto) 3, Basophils (%) (Auto) 1, Neutrophils # (Auto) 4.5, Lymphocytes # (Auto) 1.8, Monocytes # (Auto) 1.3, Eosinophils # (Auto) 0.2, Basophils # (Auto) 0.1, Sodium Level 141, Potassium Level 3.5, Chloride Level 105, Carbon Dioxide Level 23, Anion Gap 13, Blood Urea Nitrogen 10, Creatinine 0.73, Estimat Glomerular Filtration Rate > 60, BUN/ Creatinine Ratio 14, Glucose Level 95, Calcium Level 8.8, Magnesium Level 2.1, Total Bilirubin 2.7, Aspartate Amino Transf (AST/SGOT) 22, Alanine Aminotransferase (ALT/SGPT) 26, Alkaline Phosphatase 35, Total Protein 6.6, Albumin 3.7 Discussion & Recommendations Home Medications Reviewed patient Home Medication Reconciliation Form Discharge Home Medications: Reviewed and agree with Discharge Medication list on patient's Discharge Instruction sheet Clinical Quality Measures DVT/VTE Risk/Contraindication: Risk Factor Score Per Nursin RFS Level Per Nursing on Admit: 2=Moderate DAISY DUMONT MD FACP FAC CCDS May 09, 2017 10:01
[2017-05-10] MEDS ORDERED: meTOprolol SUCCINATE 100 MG (TOPROL XL) TAB PO SCH (09:00)
== END 2017-05-09 12:00 | disposition home or self-care (01) | DRG 310 ==
LOC: EDUNIT# 15:02 → ER 15:04 → ICU 17:10
PROVIDERS: ADMIT Internal Medicine Cardiovascular Disease; ATTEND Internal Medicine Cardiovascular Disease
DX: I48.0 Paroxysmal atrial fibrillation (principal); I10 Essential (primary) hypertension; E87.6 Hypokalemia; G47.30 Sleep apnea, unspecified; E66.9 Obesity, unspecified; Z68.39 Body mass index [BMI] 39.0-39.9, adult; I83.899 Varicose veins of unspecified lower extremity with other complications; Z87.891 Personal history of nicotine dependence; Z79.01 Long term (current) use of anticoagulants
CPT/HCPCS: 36415; 71010; 80053; 82550; 82553; 83735; 84443; 84484; 85025; 85379; 85610; 85730; 87081; 93005; 93041; 93306; 96361; 96374; 96375

== ENCOUNTER → 2017-05-14 | Outpatient (CLI) | payer BC ==
[~2017-05-14] VITALS: Ht 182.9 cm; Wt 132.0 kg
[~2017-05-14] MED LIST changes: +APIX5TAB PO; +METO-274 PO; +REGADENOSON 0.4 MG/5 ML SYR (LEXISCAN) IV ONE
[2017-05-14] MEDS: CATHETER FLUSH 10 ML SYR IV PRN ×2 (08:21→09:33)
[2017-05-14 09:30] VITALS: BP 150/77
== END ==
LOC: CARD 08:08
PROVIDERS: ATTEND Internal Medicine Cardiovascular Disease
DX: M79.89 Other specified soft tissue disorders (principal); E66.09 Other obesity due to excess calories; R07.89 Other chest pain
CPT/HCPCS: 78452; 93017

== ENCOUNTER 2017-06-10 11:58 | Emergency (ER) | payer BC ==
[~2017-06-10] VITALS: Ht 182.9 cm; Wt 132.0 kg
[~2017-06-10 11:58] MED LIST changes: -REGADENOSON 0.4 MG/5 ML SYR (LEXISCAN) IV ONE
[2017-06-10] MEDS ORDERED: ASPIRIN 81 MG CHEW (CHILDREN'S ASA) PO ONE (12:30)
[2017-06-10 12:36] LABS: BASOPHILS # (AUTO) 0.1 10^3/uL (0.0-0.1); BASOPHILS % (AUTO) 1 % (0-10); EOSINOPHILS # (AUTO) 0.3 10^3/uL (0.0-0.3); EOSINOPHILS % (AUTO) 4 % (0-10); LYMPHOCYTES # (AUTO) 1.9 X 10^3 (1.0-4.0); LYMPHOCYTES % (AUTO) 26 % (12-44); MEAN CORPUSCULAR HEMOGLOBIN 31 PG (25-34); MEAN CORPUSCULAR HGB CONC 34 G/DL (32-36); MEAN CORPUSCULAR VOLUME 90 FL (80-99); MEAN PLATELET VOLUME 10.3 FL (7.4-10.4); MONOCYTES # (AUTO) 0.8 X 10^3 (0.0-1.0); MONOCYTES % (AUTO) 11 % (0-12); NEUTROPHILS # (AUTO) 4.4 X 10^3 (1.8-7.8); NEUTROPHILS % (AUTO) 59 % (42-75); PLATELET COUNT 240 10^3/uL (130-400); RED BLOOD COUNT 4.79 10^6/uL (4.35-5.85); RED CELL DISTRIBUTION WIDTH 13.6 % (10.0-14.5); WHITE BLOOD COUNT 7.5 10^3/uL (4.3-11.0)
[2017-06-10 12:43] LABS: PROTHROMBIN TIME PATIENT 13.1 SEC (12.2-14.7)
[2017-06-10 12:51] LABS: ALANINE AMINOTRANSFERASE 20 U/L (0-55); ANION GAP 6 MMOL/L (5-14); ASPARTATE AMINO TRANSFERASE 19 U/L (5-34); BILIRUBIN,TOTAL 0.9 MG/DL (0.1-1.0); BLOOD UREA NITROGEN 12 MG/DL (7-18); BUN/CREATININE RATIO 15; CALCIUM 8.8 MG/DL (8.5-10.1); CARBON DIOXIDE 27 MMOL/L (21-32); CHLORIDE 104 MMOL/L (98-107); CREATININE SERUM 0.82 MG/DL (0.60-1.30); GFR ESTIMATED > 60; GLUCOSE 143 MG/DL (70-105); SODIUM 137 MMOL/L (135-145); TOTAL PROTEIN 7.4 GM/DL (6.4-8.2)
[2017-06-10 12:58] LABS: MYOGLOBIN SERUM 19.8 NG/ML (10.0-92.0)
--- NOTE | 2017-06-10 13:00 | Diagnostic Imaging Report ---
EXAMINATION: Portable upright radiograph of the chest. INDICATION: Chest pain and shortness of breath. FINDINGS: The lungs are clear. The heart size is normal. No effusion or pneumothorax. The mediastinum and dena appear unremarkable. IMPRESSION: Unremarkable exam. Dictated by: Dictated on workstation # [id number]
--- NOTE | 2017-06-10 13:14 | ED Chest Pain ---
General Chief Complaint: Chest Pain Stated Complaint: LIGHT-HEADED,SOB,CHEST TIGHTNESS Nursing Triage Note: PT C/O CHEST PAIN, L ARM NUMBNESS, DYSPNEA, AND LIGHT HEADEDNESS. HE REPORTS HX OF AFIB. HE STATES HE RECENTLY STOPPED TAKING HIS MEDICATIONS PRESCRIBED. Nursing Sepsis Screen: No Definite Risk Source: patient Exam Limitations: no limitations History of Present Illness Time seen by provider: 12:21 Initial Comments This 36 gentleman presents to the emergency room with complaints of 2 episodes of chest tightness, shortness of breath, left arm numbness, and lightheadedness. He had one episode around 09:00. Second episode started around 12:00. Pain at its worst was 6/10. Discomfort is now rated as 2/10. Patient has history of atrial fibrillation. He was previously on metoprolol and Eliquis. He discontinued those medications on his own about 2-3 weeks ago. He did this without consulting with Dr. Shraan lopez. Patient denies any drug use but did drink alcohol last night during the football game. He recently quit tobacco about 3 weeks ago. He is in sinus rhythm on the monitor at this time. Allergies and Home Medications Allergies Coded Allergies: morphine (Unverified Allergy, Unknown, 05/08/17) penicillin G (Verified Allergy, Unknown, 08/04/06) Home Medications Apixaban 5 Mg Tablet, 5 MG PO Q12H for 30 Days, #60 Ref 5 Prescribed by: DAISY TSANG on 05/09/17 0957 Metoprolol Succinate 100 Mg Tab.er.24h, 100 MG PO DAILY for 30 Days, #30 Ref 5 Prescribed by: DAISY TSANG on 05/09/17 0957 Review of Systems Constitutional: no symptoms reported EENTM: No Symptoms Reported Respiratory: See HPI Cardiovascular: See HPI Gastrointestinal: No Symptoms Reported Genitourinary: No Symptoms Reported Musculoskeletal: no symptoms reported Skin: no symptoms reported Psychiatric/Neurological: No Symptoms Reported Endocrine: No Symptoms Reported Hematologic/Lymphatic: No Symptoms Reported Past Kgfbmph-Euadiu-Wqslqj Hx Patient Social History Alcohol Use: Occasionally Uses Number of Drinks Today: AA Alcohol Beverage of Choice: Beer Recreational Drug Use: No Smoking Status: Current Everyday Smoker Type Used: Cigarettes Former Smoker, Quit: Apr 03, 2017 2nd Hand Smoke Exposure: Yes Recent Foreign Travel: No Contact w/Someone Who Travel: No Recent Infectious Disease Expo: No Recent Hopitalizations: No Physical Abuse: No Sexual Abuse: No Immunizations Up To Date Tetanus Booster (TDap): Unknown Seasonal Allergies Seasonal Allergies: No Surgeries History of Surgeries: Yes (LAP BAND, MINI GASTRIC BYPASS) Surgeries: Appendectomy, Gallbladder, Tonsillectomy Respiratory History of Respiratory Disorde: No Cardiovascular History of Cardiac Disorders: Yes (new onset afib 05/08/17) Cardiac Disorders: Atrial Fibrillation, Hypertension Neurological History of Neurological Disord: No Reproductive System Hx Reproductive Disorders: No Genitourinary History of Genitourinary Disor: No Gastrointestinal History of Gastrointestinal Di: No Musculoskeletal History of Musculoskeletal Dis: No Endocrine History of Endocrine Disorders: No HEENT History of HEENT Disorders: No Cancer History of Cancer: No Psychosocial History of Psychiatric Problem: Yes Behavioral Health Disorders: Anxiety Suicide Risk Score: 0 Integumentary History of Skin or Integumenta: Yes (CELLULITIS--LEGS) Blood Transfusions History of Blood Disorders: No Family Medical History Significant Family History: Heart Disease, Hypertension Family Medial History: Cardiovascular disease 19 FATHER 19 MOTHER Physical Exam Vital Signs Vital Sign - Last 12Hours 06/10/17 12:05 Temp 97.9 Pulse 72 Resp 20 B/P (MAP) 146/79 Pulse Ox 98 O2 Delivery Room Air Capillary Refill : Less Than 3 Seconds General Appearance: No Apparent Distress, WD/WN, Obese HEENT: PERRL/EOMI, Normal ENT Inspection Neck: Normal Inspection Respiratory: Lungs Clear, Normal Breath Sounds, No Accessory Muscle Use, No Respiratory Distress Cardiovascular: Regular Rate, Rhythm, No Edema, No Murmur Gastrointestinal: Non Tender, Soft Extremity: Normal Inspection, No Pedal Edema Neurologic/Psychiatric: Alert, Oriented x3, No Motor/Sensory Deficits, Normal Mood/Affect, outcomes manager II-XII Norm as Tested Skin: Normal Color, Warm/Dry Progress/Results/Core Measures Results/Orders Lab Results Laboratory Tests Test 06/10/17 12:25 06/10/17 16:20 Range/Units White Blood Count 7.5 4.3-11.0 10^3/uL Red Blood Count 4.79 4.35-5.85 10^6/uL Hemoglobin 14.7 13.3-17.7 G/DL Hematocrit 43 40-54 % Mean Corpuscular Volume 90 80-99 FL Mean Corpuscular Hemoglobin 31 25-34 PG Mean Corpuscular Hemoglobin Concent 34 32-36 G/DL Red Cell Distribution Width 13.6 10.0-14.5 % Platelet Count 240 130-400 10^3/uL Mean Platelet Volume 10.3 7.4-10.4 FL Neutrophils (%) (Auto) 59 42-75 % Lymphocytes (%) (Auto) 26 12-44 % Monocytes (%) (Auto) 11 0-12 % Eosinophils (%) (Auto) 4 0-10 % Basophils (%) (Auto) 1 0-10 % Neutrophils # (Auto) 4.4 1.8-7.8 X 10^3 Lymphocytes # (Auto) 1.9 1.0-4.0 X 10^3 Monocytes # (Auto) 0.8 0.0-1.0 X 10^3 Eosinophils # (Auto) 0.3 0.0-0.3 10^3/uL Basophils # (Auto) 0.1 0.0-0.1 10^3/uL Prothrombin Time 13.1 12.2-14.7 SEC INR Comment 1.0 0.8-1.4 Activated Partial Thromboplast Time 27 24-35 SEC Sodium Level 137 135-145 MMOL/L Potassium Level 4.0 3.6-5.0 MMOL/L Chloride Level 104 98-107 MMOL/L Carbon Dioxide Level 27 21-32 MMOL/L Anion Gap 6 5-14 MMOL/L Blood Urea Nitrogen 12 7-18 MG/DL Creatinine 0.82 0.60-1.30 MG/DL Estimat Glomerular Filtration Rate > 60 BUN/Creatinine Ratio 15 Glucose Level 143 H 70-105 MG/DL Calcium Level 8.8 8.5-10.1 MG/DL Magnesium Level 2.0 1.8-2.4 MG/DL Total Bilirubin 0.9 0.1-1.0 MG/DL Aspartate Amino Transf (AST/SGOT) 19 5-34 U/L Alanine Aminotransferase (ALT/SGPT) 20 0-55 U/L Alkaline Phosphatase 34 L 40-136 U/L Myoglobin 19.8 10.0-92.0 NG/ML Troponin I < 0.30 < 0.30 <0.30 NG/ML Total Protein 7.4 6.4-8.2 GM/DL Albumin 4.0 3.2-4.5 GM/DL TSH [place] Testing 1.32 0.35-4.94 UIU/ML My Orders Orders - JOSE MIKE MD Cbc With Automated Diff (06/10/17 12:29) Magnesium (06/10/17 12:29) Chest 1 View, Ap/Pa Only (06/10/17 12:29) Ekg Tracing (06/10/17 12:29) Cardiac Profile 1 (06/10/17 12:29) Comprehensive Metabolic Panel (06/10/17 12:29) Myoglobin Serum (06/10/17:29) Protime With Inr (06/10/17:) Partial Thromboplastin Time (06/10/17 12:) O2 (06/10/17:29) Monitor-Rhythm Ecg Trace Only (06/10/17:) Lipid Panel (06/11/17 06:00) Aspirin Chewable Tablet (Baby Aspirin Ch (06/10/17 12:30) Saline Lock/Iv-Start (06/10/17 12:29) Thyroid Analyzer (06/10/17 12:29) Metoprolol Succinate (Xl) Tab (Toprol Xl (06/10/17 13:30) Troponin I (06/10/17 13:23) Medications Given in ED Current Medications Medications Dose Ordered Sig/Elijah Route Start Time Stop Time Status Last Admin Dose Admin Aspirin 324 mg ONCE ONCE PO 06/10/17 12:30 06/10/17 12:31 DC 06/10/17 12:40 324 MG Vital Signs/I&O Vital Sign - Last 12Hours 06/10/17 06/10/17 12:05 12:05 Temp 97.9 Pulse 72 Resp 20 B/P (MAP) 146/79 Pulse Ox 98 O2 Delivery Room Air Room Air Blood Pressure Mean: 101 Progress Note : Progress Note Patient was in sinus rhythm. Symptoms had improved from his prehospital state. I discussed the case with Dr. Tsang after workup was complete. He requested the patient be restarted on his medications. He also requested a 4 hour troponin rule out. Patient is agreeable to this plan. Toprol-XL 100 mg was given in the emergency room. ECG Initial ECG Impression Date: Jun 10, 2017 Initial ECG Impression Time: 12:05 Initial ECG Rate: 82 Initial ECG Rhythm: Normal Sinus Initial ECG Intervals: Normal Initial ECG Impression: Normal Comment Normal sinus rhythm with no ST elevation or depression. No abnormal intervals or axis deviation. Diagnostic Imaging Diagonstic Imaging: Xray Plain Films/CT/US/NM/MRI: chest Comments Chest x-ray viewed by me and report reviewed. See report below: NAME: SHARATH PORRAS [facility] REC#: [id number] PT STATUS: REG ER : 1980 PHYSICIAN: JOSE MIKE MD ADMIT DATE: 06/10/17/ER Signed Date of Exam: 06/10/17 CHEST 1 VIEW, AP/PA ONLY EXAMINATION: Portable upright radiograph of the chest. INDICATION: Chest pain and shortness of breath. FINDINGS: The lungs are clear. The heart size is normal. No effusion or pneumothorax. The mediastinum and dena appear unremarkable. IMPRESSION: Unremarkable exam. Dictated by: Dictated on workstation # [id number] Dict: 06/10/17 1249 Trans: 06/10/17 1301 Interpreted by: CLOVIS LAMAR MD Electronically signed by: CLOVIS LAMAR MD 06/10/17 1301 Departure Impression Impression: Primary Impression: Chest tightness Additional Impression: Paroxysmal atrial fibrillation Disposition: 01 HOME, SELF-CARE Condition: Improved Departure-Patient Inst. Referrals: DON HATFIELD MD (PCP/Family) Primary Care Physician Patient Instructions: Atrial Fibrillation (DC) Add. Discharge Instructions: Resume taking Toprol XL 100 mg daily and Eliquis as previously prescribed. Follow-up with Dr. Tsang as soon as possible. Return to the ER if symptoms worsen again. All discharge instructions reviewed with patient and/or family. Voiced understanding. JOSE MIKE MD Jun 10, 2017 13:14
[2017-06-10] MEDS ORDERED: meTOproloL SUCCINATE 50 MG (TOPROL XL) TAB PO SCH (13:30)
[2017-06-10 17:10] VITALS: BP 138/76
== END 2017-06-10 17:10 | disposition home or self-care (01) ==
LOC: EDUNIT# 11:58 → ER 12:00
DX: R07.89 Other chest pain (principal); I48.0 Paroxysmal atrial fibrillation; I10 Essential (primary) hypertension; F41.9 Anxiety disorder, unspecified; F17.210 Nicotine dependence, cigarettes, uncomplicated; Z90.49 Acquired absence of other specified parts of digestive tract; Z98.84 Bariatric surgery status; Z82.49 Family history of ischemic heart disease and other diseases of the circulatory system; Z79.01 Long term (current) use of anticoagulants
CPT/HCPCS: 36415; 71010; 80053; 83735; 83874; 84443; 84484; 85025; 85610; 85730; 93005; 93041

== ENCOUNTER 2017-06-28 23:16 | Emergency (ER) | payer BC ==
[~2017-06-28] VITALS: Ht 182.9 cm; Wt 131.1 kg
[2017-06-28 23:45] LABS: BASOPHILS # (AUTO) 0.1 10^3/uL (0.0-0.1); BASOPHILS % (AUTO) 1 % (0-10); EOSINOPHILS # (AUTO) 0.8 10^3/uL (0.0-0.3); EOSINOPHILS % (AUTO) 8 % (0-10); LYMPHOCYTES # (AUTO) 2.7 X 10^3 (1.0-4.0); LYMPHOCYTES % (AUTO) 27 % (12-44); MEAN CORPUSCULAR HEMOGLOBIN 31 PG (25-34); MEAN CORPUSCULAR HGB CONC 34 G/DL (32-36); MEAN CORPUSCULAR VOLUME 91 FL (80-99); MEAN PLATELET VOLUME 9.9 FL (7.4-10.4); MONOCYTES # (AUTO) 1.2 X 10^3 (0.0-1.0); MONOCYTES % (AUTO) 13 % (0-12); NEUTROPHILS # (AUTO) 5.1 X 10^3 (1.8-7.8); NEUTROPHILS % (AUTO) 52 % (42-75); PLATELET COUNT 315 10^3/uL (130-400); RED BLOOD COUNT 4.63 10^6/uL (4.35-5.85); RED CELL DISTRIBUTION WIDTH 13.2 % (10.0-14.5); WHITE BLOOD COUNT 9.8 10^3/uL (4.3-11.0)
[2017-06-28] MEDS ORDERED: ASPIRIN 81 MG CHEW (CHILDREN'S ASA) PO ONE (23:45)
[2017-06-28 23:50] LABS: PROTHROMBIN TIME PATIENT 13.3 SEC (12.2-14.7)
[2017-06-29 00:08] LABS: ALANINE AMINOTRANSFERASE 15 U/L (0-55); ALBUMIN 4.1 GM/DL (3.2-4.5); AMYLASE 34 U/L (25-125); ANION GAP 11 MMOL/L (5-14); ASPARTATE AMINO TRANSFERASE 15 U/L (5-34); BILIRUBIN,TOTAL 0.7 MG/DL (0.1-1.0); BLOOD UREA NITROGEN 14 MG/DL (7-18); BUN/CREATININE RATIO 17; CALCIUM 8.8 MG/DL (8.5-10.1); CARBON DIOXIDE 23 MMOL/L (21-32); CHLORIDE 104 MMOL/L (98-107); CREATINE KINASE 57 U/L (30-200); CREATININE SERUM 0.83 MG/DL (0.60-1.30); GFR ESTIMATED > 60; GLUCOSE 105 MG/DL (70-105); LIPASE 30 U/L (8-78); POTASSIUM 3.7 MMOL/L (3.6-5.0); SODIUM 138 MMOL/L (135-145); TOTAL PROTEIN 7.5 GM/DL (6.4-8.2)
[2017-06-29 00:16] LABS: TROPONIN I < 0.30 NG/ML (<0.30)
[2017-06-29] MEDS ORDERED: NS 100 ML (IVPB) BAG IV ONE (00:30)
[2017-06-29] MEDS ORDERED: IOHEXOL 350 MG/ML 150 ML (OMNIPAQUE 350) VIAL IV ONE (00:30)
--- NOTE | 2017-06-29 00:58 | ED Cardiac General ---
History of Present Illness General Chief Complaint: Chest Pain Stated Complaint: POSS A-FIB,CP Nursing Triage Note: PT REPORTS DEVELOPING CP AROUND 2230 WHILE AT REST TONIGHT. SUBSTERNAL REGION CP WITH PAIN INTO LEFT ARM. DESCRIBES SQUEEZING AND FEELING COLD SWEATS AND SOA. PT IS ON BLOOD THINNER TWICE A DAY FOR A FIB Source: patient History of Present Illness Time seen by provider: 23:20 Initial Comments PT ARRIVES VIA POV FROM HOME C/O CHEST PAIN WHICH BEGAN 45 MINUTES AGO WHILE SITTING ON COUCH STATES PAIN WAS 7/10, RATES 3-4/10 ON ARRIVAL + SHORTNESS OF BREATH FELT REALLY SHAKEY HAD "COLD SWEATS" FELT LIKE HIS HEART WAS "FLUTTERING" AND BEATING HARD 10 MINUTES PRIOR TO ARRIVAL AND IS NOW RESOLVED PT HAS HISTORY OF ATRIAL FIBRILLATION, DX APPROXIMATELY 1 1/2 MONTHS AGO --SELF -CONVERTED/CONVERTED WITH MEDICATIONS. PT IS FOLLOWED BY DR. DUMONT. HAS HAD A STRESS TEST, AND WAS SCHEDULED TO HAVE A HOLTER MONITOR AND SLEEP STUDY RECENTLY , BUT COULD NOT KEEP APPOINTMENTS AND HAS NOT RESCHEDULED THEM. HAD AN ROUTINE FOLLOW UP APPOINTMENT WITH DR. DUMONT YESTERDAY 06/27/17, BUT COULD NOT KEEP APPOINTMENT AND HAS NOT ATTEMPTED TO RESCHEDULE PT SEEN HERE IN ER 06/10/17 FOR C/O CHEST TIGHTNESS, SHORTNESS OF BREATH, LIGHTHEADEDNESS. PT HAD QUIT TAKING HIS ELIQUIS AND METOPROLOL 2-3 WEEKS PRIOR, ON HIS OWN WITHOUT DISCUSSING WITH DR. DUMONT. PT STATES HE IS TAKING THEM BOTH NOW. PT WORKED ALL DAY WITHOUT PROBLEMS AND GOT HOME AROUND 1730 --[employer]. MODERATE ACTIVITY--MODERATE AMOUNT OF WALKING, LIFTS NO MORE THAN 30-40 LBS NTG SL [employer]IFTER [employer] MILLER: No ASA po SIFTER [employer] MILLER: No PCP: DR. HATFIELD SENIOR OPERATIONS ANALYST: DR. DUMONT Allergies and Home Medications Allergies Coded Allergies: morphine (Unverified Allergy, Unknown, 05/08/17) penicillin G (Verified Allergy, Unknown, 08/04/06) Home Medications Apixaban 5 Mg Tablet, 5 MG PO Q12H for 30 Days, #60 Ref 5 Prescribed by: DAISY DUMONT on 05/09/17 0957 Metoprolol Succinate 100 Mg Tab.er.24h, 100 MG PO DAILY for 30 Days, #30 Ref 5 Prescribed by: DAISY DUMONT on 05/09/17 0957 Review of Systems Constitutional: no symptoms reported Respiratory: See HPI, Shortness of Air Cardiovascular: See HPI, Chest Pain, Edema (CHRONIC LEG EDEMA / STABLE), Denies Lightheadedness, Palpitations, Denies Syncope Gastrointestinal: No Symptoms Reported Genitourinary: No Symptoms Reported Musculoskeletal: no symptoms reported Skin: no symptoms reported Psychiatric/Neurological: No Symptoms Reported Endocrine: No Symptoms Reported Hematologic/Lymphatic: No Symptoms Reported Past Uotrdyf-Uvncuf-Aidmxu Hx Patient Social History Alcohol Use: Occasionally Uses Number of Drinks Today: AA Alcohol Beverage of Choice: Beer Recreational Drug Use: No Smoking Status: Former Smoker (1 PPD) Type Used: Cigarettes Former Smoker, Quit: Apr 03, 2017 2nd Hand Smoke Exposure: Yes Recent Foreign Travel: No Contact w/Someone Who Travel: No Recent Infectious Disease Expo: No Recent Hopitalizations: No Immunizations Up To Date Tetanus Booster (TDap): Unknown Seasonal Allergies Seasonal Allergies: No Surgeries History of Surgeries: Yes (LAP BAND, MINI GASTRIC BYPASS, PELLET REMOVED FROM LEFT HAND AGE 12) Surgeries: Adenoidectomy, Appendectomy, Gallbladder, Tonsillectomy Respiratory History of Respiratory Disorde: No Cardiovascular History of Cardiac Disorders: Yes (ONSET A FIB 05/08/17) Cardiac Disorders: Atrial Fibrillation, Hypertension Neurological History of Neurological Disord: No Reproductive System Hx Reproductive Disorders: No Genitourinary History of Genitourinary Disor: No Gastrointestinal History of Gastrointestinal Di: No Musculoskeletal History of Musculoskeletal Dis: No Endocrine History of Endocrine Disorders: No (OBESITY) HEENT History of HEENT Disorders: No Cancer History of Cancer: No Psychosocial History of Psychiatric Problem: Yes Behavioral Health Disorders: Anxiety Integumentary History of Skin or Integumenta: Yes (CELLULITIS--LEGS) Blood Transfusions History of Blood Disorders: No Family Medical History Significant Family History: Heart Disease, Hypertension Family Medial History: Cardiovascular disease 19 FATHER 19 MOTHER Physical Exam Vital Signs Vital Sign - Last 12Hours Capillary Refill : Less Than 3 Seconds General Appearance: No Apparent Distress, WD/WN, Obese, Other (MALODOROUS) Neck: Normal Inspection Respiratory: Chest Non Tender, Normal Breath Sounds, No Accessory Muscle Use, No Respiratory Distress Cardiovascular: Regular Rate, Rhythm, No JVD, No Murmur, Normal Peripheral Pulses Gastrointestinal: Non Tender, Soft Extremity: Normal Range of Motion, Non Tender, No Calf Tenderness, Pedal Edema (1+ BILATERALLY, VARICOSE VEINS BILATERALLY) Neurologic/Psychiatric: Alert, Oriented x3, No Motor/Sensory Deficits, Normal 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/Affect, 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 as Tested Skin: Normal Color, Warm/Dry, Tattoos/Piercings (TATTOOS) Progress/Results/Core Measures Results/Orders Lab Results Laboratory Tests Test 06/28/17 23:30 Range/Units White Blood Count 9.8 4.3-11.0 10^3/uL Red Blood Count 4.63 4.35-5.85 10^6/uL Hemoglobin 14.3 13.3-17.7 G/DL Hematocrit 42 40-54 % Mean Corpuscular Volume 91 80-99 FL Mean Corpuscular Hemoglobin 31 25-34 PG Mean Corpuscular Hemoglobin Concent 34 32-36 G/DL Red Cell Distribution Width 13.2 10.0-14.5 % Platelet Count 315 130-400 10^3/uL Mean Platelet Volume 9.9 7.4-10.4 FL Neutrophils (%) (Auto) 52 42-75 % Lymphocytes (%) (Auto) 27 12-44 % Monocytes (%) (Auto) 13 H 0-12 % Eosinophils (%) (Auto) 8 0-10 % Basophils (%) (Auto) 1 0-10 % Neutrophils # (Auto) 5.1 1.8-7.8 X 10^3 Lymphocytes # (Auto) 2.7 1.0-4.0 X 10^3 Monocytes # (Auto) 1.2 H 0.0-1.0 X 10^3 Eosinophils # (Auto) 0.8 H 0.0-0.3 10^3/uL Basophils # (Auto) 0.1 0.0-0.1 10^3/uL Prothrombin Time 13.3 12.2-14.7 SEC INR Comment 1.0 0.8-1.4 Activated Partial Thromboplast Time 31 24-35 SEC Sodium Level 138 135-145 MMOL/L Potassium Level 3.7 3.6-5.0 MMOL/L Chloride Level 104 98-107 MMOL/L Carbon Dioxide Level 23 21-32 MMOL/L Anion Gap 11 5-14 MMOL/L Blood Urea Nitrogen 14 7-18 MG/DL Creatinine 0.83 0.60-1.30 MG/DL Estimat Glomerular Filtration Rate > 60 BUN/Creatinine Ratio 17 Glucose Level 105 70-105 MG/DL Calcium Level 8.8 8.5-10.1 MG/DL Total Bilirubin 0.7 0.1-1.0 MG/DL Aspartate Amino Transf (AST/SGOT) 15 5-34 U/L Alanine Aminotransferase (ALT/SGPT) 15 0-55 U/L Alkaline Phosphatase 40 40-136 U/L Total Creatine Kinase 57 30-200 U/L Creatine Kinase MB 0.6 <6.6 NG/ML Troponin I < 0.30 <0.30 NG/ML B-Type Natriuretic Peptide 82.8 <100.0 PG/ML Total Protein 7.5 6.4-8.2 GM/DL Albumin 4.1 3.2-4.5 GM/DL Amylase Level 34 25-125 U/L Lipase 30 8-78 U/L My Orders Orders - LAURIE SANTIAGO DO Amylase (06/28/17 23:32) Cbc With Automated Diff (06/28/17 23:32) Comprehensive Metabolic Panel (06/28/17 23:32) Creatine Kinase (06/28/17 23:32) Creatine Kinase Mb (06/28/17 23:32) Lipase (06/28/17 23:32) Partial Thromboplastin Time (06/28/17 23:32) Protime With Inr (06/28/17 23:32) Troponin I (06/28/17 23:32) Chest 1 View, Ap/Pa Only (06/28/17 23:32) Ekg Tracing (06/28/17 23:32) Aspirin Chewable Tablet (Baby Aspirin Ch (06/28/17 23:45) BNP (06/28/17 23:32) Monitor-Rhythm Ecg Trace Only (06/28/17 23:32) Ct Angio Chest W (06/29/17 00:25) Iohexol Injection (Omnipaque 350 Mg/Ml 1 (06/29/17 00:30) Ns (Ivpb) (Sodium Chloride 0.9% Ivpb Bag (06/29/17 00:30) Medications Given in ED Current Medications Medications Dose Ordered Sig/Elijah Route Start Time Stop Time Status Last Admin Dose Admin Aspirin 324 mg ONCE ONCE PO 06/28/17 23:45 06/28/17 23:47 DC 06/28/17 23:53 324 MG Iohexol 150 ml ONCE ONCE IV 06/29/17 00:30 06/29/17 02:00 DC 06/29/17 00:54 125 ML Sodium Chloride 100 ml ONCE ONCE IV 06/29/17 00:30 06/29/17 02:00 DC 06/29/17 00:54 80 ML Vital Signs/I&O Vital Sign - Last 12Hours 06/28/17 06/28/17 06/28/17 06/29/17 23:21 23:21 23:53 02:00 Temp 97.7 97.7 97.7 Pulse 64 51 Resp 28 24 B/P (MAP) 145/79 Pulse Ox 100 98 O2 Delivery Room Air Room Air Room Air Blood Pressure Mean: 101 Progress Note : Progress Note ALL SYMPTOMS RESOLVED ON ARRIVAL AND PT SLEPT FOR REMAINDER OF ER STAY PT COMPLETELY SYMPTOM-FREE DURING ENTIRE ER STAY AND STILL SYMPTOM-FREE AT DISMISSAL STRONGLY ADVISED PT TO RESCHEDULE APPOINTMENT WITH DR. DUMONT, AND OUTPATIENT TESTS--HOLTER MONITOR AND SLEEP STUDY ECG Initial ECG Impression Time: 23:19 Initial ECG Rate: 63 Initial ECG Rhythm: Normal Sinus Initial ECG Impression: Normal Diagnostic Imaging Comments CXR-- PROMINENCE OF VASCULATURE ON RIGHT, PENDING RADIOLOGIST REVIEW CT CHEST ANGIOGRAM--SUBOPTIMAL BOLUS, NO EVIDENCE OF P.E. ATELECTASIS VS CONSOLIDATION OF RML. MOSAIC APPEARANCE OF LUNGS, POSSIBLE AIR TRAPPING. OTHERWISE NO ACUTE PROCESS--PER [facility] VIA FAX @ [phone] Reviewed: Reviewed by Me Departure Impression Impression: Primary Impression: CHEST PAIN RESOLVED Additional Impression: PALPITATIONS RESOLVED Disposition: HOME, SELF-CARE Condition: Improved Departure-Patient Inst. Referrals: DON HATFIELD MD (PCP/Family) Primary Care Physician ADISY DUMONT MD FACP FAC CCDS Patient Instructions: Chest Pain (DC), Palpitations (DC) Add. Discharge Instructions: CONTINUE YOUR REGULAR MEDICATIONS PRESCRIBED FOLLOW UP WITH DR BURTON ON SATURDAY RETURN TO ER IF WORSE All discharge instructions reviewed with patient and/or family. Voiced understanding. LAURIE SANTIAGO DO Jun 29, 2017 00:58
[2017-06-29 02:00] VITALS: BP 111/83
--- NOTE | 2017-06-29 07:21 | Diagnostic Imaging Report ---
INDICATION: Chest pain COMPARISON: June 10, 2017 TECHNIQUE: Single frontal radiograph view of the chest dated June 28, 2017. FINDINGS: The cardiac silhouette is within normal limits in size. Borderline central pulmonary vascular congestion. The lungs are clear of focal pulmonary opacity. No pleural effusion. No pneumothorax. No acute osseous abnormality. IMPRESSION: Borderline pulmonary vascular congestion. Dictated by: Dictated on workstation # [id number]
--- NOTE | 2017-06-29 08:54 | Diagnostic Imaging Report ---
PROCEDURE: CT angiography of the chest with contrast. TECHNIQUE: Multiple contiguous axial images were obtained through the chest after uneventful bolus administration of intravenous contrast. Reconstructed CTA MIP acquisitions were also performed. INDICATION: Chest pain. COMPARISON: Radiograph of the chest dated June 28, 2017. FINDINGS: No significant adenopathy within the chest. No aneurysmal dilatation of the thoracic aorta. No pericardial or pleural effusion. Heart is within normal limits in size. No pneumothorax. Minimal background geographic groundglass opacities. These are greatest within the lung bases. 2.3 x 1.9 cm focal nodular density is identified within the right middle lobe. Otherwise, the lungs appear clear. Evaluation for pulmonary emboli is limited secondary to suboptimal contrast bolus timing. No saddle pulmonary embolus. Evaluation of the segmental and subsegmental pulmonary arteries is significantly limited. Postsurgical changes of a gastric bypass. Cholecystectomy. Visualized upper abdomen is otherwise unremarkable. No acute osseous abnormality. IMPRESSION: Evaluation for pulmonary emboli is significantly limited secondary to contrast bolus timing. No large saddle pulmonary embolus identified. Focal opacity within the right middle lobe. This may relate to plate-like atelectasis versus focal infiltrate versus underlying pulmonary nodule. A follow-up CT of the chest is recommended in three months to reevaluate. Additional postsurgical and chronic findings as above. Mild geographic groundglass mosaic attenuation within the lung bases, likely related to hypoventilation. Agree with preliminary interpretation. Dictated by: Dictated on workstation # [id number]
== END 2017-06-29 02:00 | disposition home or self-care (01) ==
LOC: EDUNIT# 23:16 → ER 23:18
DX: R07.2 Precordial pain (principal); R00.2 Palpitations; I48.91 Unspecified atrial fibrillation; I10 Essential (primary) hypertension; F41.9 Anxiety disorder, unspecified; E66.9 Obesity, unspecified; Z82.49 Family history of ischemic heart disease and other diseases of the circulatory system; Z79.01 Long term (current) use of anticoagulants; Z87.891 Personal history of nicotine dependence; Z90.49 Acquired absence of other specified parts of digestive tract; Z90.89 Acquired absence of other organs
CPT/HCPCS: 36415; 71010; 71275; 80053; 82150; 82550; 82553; 83690; 83880; 84484; 85025; 85610; 85730; 93005; 93041

== ENCOUNTER 2017-08-14 16:49 | Emergency (ER) | payer BC ==
[~2017-08-14] VITALS: Ht 182.9 cm; Wt 129.7 kg
[~2017-08-14 16:49] MED LIST changes: -METO-274 PO; +METO-395 PO
[2017-08-14] MEDS ORDERED: ASPIRIN 81 MG CHEW (CHILDREN'S ASA) PO ONE (17:15)
[2017-08-14 17:29] LABS: BASOPHILS # (AUTO) 0.1 10^3/uL (0.0-0.1); BASOPHILS % (AUTO) 1 % (0-10); EOSINOPHILS # (AUTO) 0.2 10^3/uL (0.0-0.3); EOSINOPHILS % (AUTO) 3 % (0-10); LYMPHOCYTES # (AUTO) 2.4 X 10^3 (1.0-4.0); LYMPHOCYTES % (AUTO) 33 % (12-44); MEAN CORPUSCULAR HEMOGLOBIN 31 PG (25-34); MEAN CORPUSCULAR HGB CONC 34 G/DL (32-36); MEAN CORPUSCULAR VOLUME 89 FL (80-99); MEAN PLATELET VOLUME 10.1 FL (7.4-10.4); MONOCYTES # (AUTO) 1.1 X 10^3 (0.0-1.0); MONOCYTES % (AUTO) 14 % (0-12); NEUTROPHILS # (AUTO) 3.6 X 10^3 (1.8-7.8); NEUTROPHILS % (AUTO) 50 % (42-75); PLATELET COUNT 268 10^3/uL (130-400); RED BLOOD COUNT 4.75 10^6/uL (4.35-5.85); RED CELL DISTRIBUTION WIDTH 13.7 % (10.0-14.5); WHITE BLOOD COUNT 7.3 10^3/uL (4.3-11.0)
[2017-08-14 17:33] LABS: INR 1.1 (0.8-1.4); PROTHROMBIN TIME PATIENT 14.1 SEC (12.2-14.7)
[2017-08-14 17:42] LABS: ALANINE AMINOTRANSFERASE 25 U/L (0-55); ALBUMIN 4.3 GM/DL (3.2-4.5); ANION GAP 10 MMOL/L (5-14); ASPARTATE AMINO TRANSFERASE 19 U/L (5-34); BLOOD UREA NITROGEN 12 MG/DL (7-18); BUN/CREATININE RATIO 14; CALCIUM 9.2 MG/DL (8.5-10.1); CARBON DIOXIDE 28 MMOL/L (21-32); CHLORIDE 98 MMOL/L (98-107); CREATININE SERUM 0.86 MG/DL (0.60-1.30); GFR ESTIMATED > 60; GLUCOSE 108 MG/DL (70-105); MAGNESIUM 2.2 MG/DL (1.8-2.4); POTASSIUM 3.9 MMOL/L (3.6-5.0); SODIUM 136 MMOL/L (135-145); TOTAL PROTEIN 7.9 GM/DL (6.4-8.2)
[2017-08-14 17:45] LABS: MYOGLOBIN SERUM 23.3 NG/ML (10.0-92.0)
[2017-08-14] MEDS ORDERED: ONDANSETRON 4 MG/2 ML (SDV) Z0FRAN IVP ONE (17:45)
--- NOTE | 2017-08-14 18:30 | Diagnostic Imaging Report ---
PATIENT HISTORY: Chest pain. TECHNIQUE: Two views of the chest. COMPARISON: 06/28/2017 FINDINGS: The lung volumes are normal. No focal consolidation is seen. No large pleural effusion or pneumothorax is seen. The cardiomediastinal silhouette is normal in size and contour. No acute osseous abnormality is seen. IMPRESSION: No acute pulmonary abnormality seen. Dictated by: Dictated on workstation # [id number]
[2017-08-14 18:36] LABS: BILIRUBIN,URINE NEGATIVE (NEGATIVE); KETONES,URINE NEGATIVE (NEGATIVE); LEUKOCYTE ESTERASE ,URINE 1+ (NEGATIVE); NITRITE,URINE NEGATIVE (NEGATIVE); PH,URINE 6 (5-9); PROTEIN,URINE NEGATIVE (NEGATIVE); UROBILINOGEN,URINE NORMAL (NORMAL)
[2017-08-14 18:49] LABS: WBC,URINE 0-2 /HPF
[2017-08-14 18:50] LABS: SQUAMOUS EPITHELIAL CELL,UR 0-2 /HPF
--- NOTE | 2017-08-14 19:28 | ED Chest Pain ---
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 NO PAIN ON ADMIT. Nursing Sepsis Screen: No Definite Risk Source: patient Exam Limitations: no limitations History of Present Illness Time seen by provider: 16:52 Initial Comments This 36-year-old young man presents to the emergency room with complaints of left upper chest pain, lightheadedness, shortness of air, and facial flushing that started while he was driving about 16:15. The episode of pain lasted about 5 minutes. The pain has improved but he still intermittently feels short of breath and flushed. Patient has a history of atrial fibrillation for which she takes Eliquis and metoprolol. He is presently in sinus rhythm. He also complains of a discomfort in the right arm throughout the day. He denies nausea , vomiting, fever. He does have a little bit of cough and chills. Patient occasionally smokes. He reports drinking beer yesterday but none today. He denies any drug use. Dr. Tsang is his chief medical officer. Patient had a negative stress test performed in May of this month. Echocardiogram showed an EF of 50 percent with cardiomegaly. Allergies and Home Medications Allergies Coded Allergies: morphine (Unverified Allergy, Unknown, 05/08/17) penicillin G (Verified Allergy, Unknown, 08/04/06) Home Medications Apixaban 5 Mg Tablet, 5 MG PO Q12H for 30 Days, #60 Ref 5 Prescribed by: DAISY TSANG on 05/09/17 0957 Metoprolol Succinate 100 Mg Tab.er.24h, 100 MG PO DAILY for 30 Days, #30 Ref 5 Prescribed by: DAISY TSANG on 05/09/17 0957 Review of Systems Constitutional: see HPI, chills EENTM: No Symptoms Reported Respiratory: See HPI Cardiovascular: See HPI Gastrointestinal: No Symptoms Reported Genitourinary: No Symptoms Reported Musculoskeletal: see HPI Skin: no symptoms reported Psychiatric/Neurological: No Symptoms Reported Endocrine: No Symptoms Reported Past Gokmhdl-Wjohnm-Qbjakx Hx Patient Social History Alcohol Use: Occasionally Uses Number of Drinks Today: AA Alcohol Beverage of Choice: Beer Recreational Drug Use: Yes (tobacco, etoh ) Smoking Status: Former Smoker Type Used: Cigarettes Former Smoker, Quit: Apr 03, 2017 2nd Hand Smoke Exposure: Yes Recent Foreign Travel: No Contact w/Someone Who Travel: No Recent Infectious Disease Expo: No Recent Hopitalizations: No Immunizations Up To Date Tetanus Booster (TDap): Unknown Seasonal Allergies Seasonal Allergies: No Surgeries History of Surgeries: Yes (LAP BAND, MINI GASTRIC BYPASS, PELLET REMOVED FROM LEFT HAND AGE 12) Surgeries: Adenoidectomy, Appendectomy, Gallbladder, Tonsillectomy Respiratory History of Respiratory Disorde: No Cardiovascular History of Cardiac Disorders: Yes (ONSET A FIB 05/08/17) Cardiac Disorders: Atrial Fibrillation (paroxysmal), Hypertension Neurological History of Neurological Disord: No Reproductive System Hx Reproductive Disorders: No Genitourinary History of Genitourinary Disor: No Gastrointestinal History of Gastrointestinal Di: No Musculoskeletal History of Musculoskeletal Dis: No Endocrine History of Endocrine Disorders: No (OBESITY) HEENT History of HEENT Disorders: No Cancer History of Cancer: No Psychosocial History of Psychiatric Problem: Yes Behavioral Health Disorders: Anxiety Integumentary History of Skin or Integumenta: Yes (CELLULITIS--LEGS) Blood Transfusions History of Blood Disorders: No Family Medical History Significant Family History: Heart Disease, Hypertension Family Medial History: Cardiovascular disease 19 FATHER 19 MOTHER Physical Exam Vital Signs Vital Sign - Last 12Hours 08/14/17 16:49 Temp 99.0 Pulse 79 Resp 18 B/P (MAP) 160/91 (114) Pulse Ox 100 O2 Delivery Room Air Capillary Refill : Less Than 3 Seconds General Appearance: WD/WN, Mild Distress (appears chilled and uncomfortable) HEENT: PERRL/EOMI, Normal ENT Inspection, Pharynx Normal Neck: Normal Inspection Respiratory: Chest Non Tender, Lungs Clear, Normal Breath Sounds, No Accessory Muscle Use, No Respiratory Distress Cardiovascular: Regular Rate, Rhythm, No Edema, No Murmur Gastrointestinal: Normal Bowel Sounds, Non Tender, Soft Extremity: Normal Capillary Refill, Normal Inspection, No Calf Tenderness Neurologic/Psychiatric: Alert, Oriented x3, No Motor/Sensory Deficits, Normal 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, 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 as Tested Skin: Normal Color, Warm/Dry Progress/Results/Core Measures Results/Orders Lab Results Laboratory Tests Test 08/14/17 17:06 08/14/17 17:53 Range/Units White Blood Count 7.3 4.3-11.0 10^3/uL Red Blood Count 4.75 4.35-5.85 10^6/uL Hemoglobin 14.5 13.3-17.7 G/DL Hematocrit 42 40-54 % Mean Corpuscular Volume 89 80-99 FL Mean Corpuscular Hemoglobin 31 25-34 PG Mean Corpuscular Hemoglobin Concent 34 32-36 G/DL Red Cell Distribution Width 13.7 10.0-14.5 % Platelet Count 268 130-400 10^3/uL Mean Platelet Volume 10.1 7.4-10.4 FL Neutrophils (%) (Auto) 50 42-75 % Lymphocytes (%) (Auto) 33 12-44 % Monocytes (%) (Auto) 14 H 0-12 % Eosinophils (%) (Auto) 3 0-10 % Basophils (%) (Auto) 1 0-10 % Neutrophils # (Auto) 3.6 1.8-7.8 X 10^3 Lymphocytes # (Auto) 2.4 1.0-4.0 X 10^3 Monocytes # (Auto) 1.1 H 0.0-1.0 X 10^3 Eosinophils # (Auto) 0.2 0.0-0.3 10^3/uL Basophils # (Auto) 0.1 0.0-0.1 10^3/uL Prothrombin Time 14.1 12.2-14.7 SEC INR Comment 1.1 0.8-1.4 Activated Partial Thromboplast Time 30 24-35 SEC Sodium Level 136 135-145 MMOL/L Potassium Level 3.9 3.6-5.0 MMOL/L Chloride Level 98 98-107 MMOL/L Carbon Dioxide Level 28 21-32 MMOL/L Anion Gap 10 5-14 MMOL/L Blood Urea Nitrogen 12 7-18 MG/DL Creatinine 0.86 0.60-1.30 MG/DL Estimat Glomerular Filtration Rate > 60 BUN/Creatinine Ratio 14 Glucose Level 108 H 70-105 MG/DL Calcium Level 9.2 8.5-10.1 MG/DL Magnesium Level 2.2 1.8-2.4 MG/DL Total Bilirubin 1.0 0.1-1.0 MG/DL Aspartate Amino Transf (AST/SGOT) 19 5-34 U/L Alanine Aminotransferase (ALT/SGPT) 25 0-55 U/L Alkaline Phosphatase 41 40-136 U/L Myoglobin 23.3 10.0-92.0 NG/ML Troponin I < 0.30 <0.30 NG/ML C-Reactive Protein High Sensitivity 0.08 0.00-0.50 MG/DL Total Protein 7.9 6.4-8.2 GM/DL Albumin 4.3 3.2-4.5 GM/DL Urine Color YELLOW Urine Clarity CLEAR Urine pH 6 5-9 Urine Specific [place] 1.015 L 1.016-1.022 Urine Protein NEGATIVE NEGATIVE Urine Glucose (UA) NEGATIVE NEGATIVE Urine Ketones NEGATIVE NEGATIVE Urine Nitrite NEGATIVE NEGATIVE Urine Bilirubin NEGATIVE NEGATIVE Urine Urobilinogen NORMAL NORMAL MG/DL Urine Leukocyte Esterase 1+ H NEGATIVE Urine RBC (Auto) NEGATIVE NEGATIVE Urine RBC NONE /HPF Urine WBC 0-2 /HPF Urine Squamous Epithelial Cells 0-2 /HPF Urine Crystals NONE /LPF Urine Bacteria NONE /HPF Urine Casts NONE /LPF Urine Mucus NEGATIVE /LPF Urine Culture Indicated NO Micro Results Microbiology 08/14/17 Influenza Types A,B Antigen (LAKISHA) - Final, Complete My Orders Orders - JOSE MIKE MD Ekg Tracing (08/14/17 16:53) Cbc With Automated Diff (08/14/17 17:15) Magnesium (08/14/17 17:15) Cardiac Profile 1 (08/14/17 17:15) Comprehensive Metabolic Panel (08/14/17 17:15) Myoglobin Serum (08/14/17 17:15) Protime With Inr (08/14/17 17:15) Partial Thromboplastin Time (08/14/17 17:15) O2 (08/14/17 17:15) Monitor-Rhythm Ecg Trace Only (08/14/17 17:15) Aspirin Chewable Tablet (Baby Aspirin Ch (08/14/17 17:15) Saline Lock/Iv-Start (08/14/17 17:15) Chest Pa/Lat (2 View) (08/14/17 17:25) Influenza A And B Antigens (08/14/17 17:26) Ondansetron Injection (Zofran Injectio (08/14/17 17:45) Ua Culture If Indicated (08/14/17 17:47) Hs C Reactive Protein (08/14/17 17:49) Medications Given in ED Vital Signs/I&O Vital Sign - Last 12Hours 12/13/17 12/13/17 12/13/17 16:49 16:55 19:36 Temp 99.0 99.0 Pulse 79 79 Resp 18 18 B/P (MAP) 160/91 (114) Pulse Ox 100 100 O2 Delivery Room Air Room Air Room Air Blood Pressure Mean: 114 Progress Note : Time: 19:27 Progress Note Workup was unremarkable. Patient's pain resolved without any treatment other than aspirin. Case was reviewed with Dr. Beckham who agrees that patient can be safely dismissed home from a cardiac perspective with having had a recent negative stress test and a negative workup in the ER. He remained in sinus rhythm. I suspect patient's chills and discomfort are related to an impending viral illness. He was advised to take Tylenol at home and return if symptoms worsen. Chills and pain resolved with nothing more than aspirin. ECG Initial ECG Impression Date: Aug 14, 2017 Initial ECG Impression Time: 16:52 Initial ECG Rate: 71 Initial ECG Rhythm: Normal Sinus Initial ECG Intervals: Normal Initial ECG Impression: Normal Comment Normal sinus rhythm with no ST elevation or depression. No abnormal intervals or axis deviation. Diagnostic Imaging Diagonstic Imaging: Xray Plain Films/CT/US/NM/MRI: chest Comments NAME: SHARATH PORRAS [facility] REC#: [id number] PT STATUS: DEP ER : 1980 PHYSICIAN: JOSE MIKE MD ADMIT DATE: 08/14/17/ER Signed Date of Exam: 08/14/17 CHEST PA/LAT (2 VIEW) PATIENT HISTORY: Chest pain. TECHNIQUE: Two views of the chest. COMPARISON: 06/28/2017 FINDINGS: The lung volumes are normal. No focal consolidation is seen. No large pleural effusion or pneumothorax is seen. The cardiomediastinal silhouette is normal in size and contour. No acute osseous abnormality is seen. IMPRESSION: No acute pulmonary abnormality seen. Dictated by: Dictated on workstation # [id number] Dict: 08/14/171826 Trans: 08/14/172241 Interpreted by: ALETHEA BORDEN MD Electronically signed by: ALETHEA BORDEN MD 08/14/172241 Departure Impression Impression: Primary Impression: Atypical chest pain Additional Impressions: Shortness of breath Chills Disposition: 01 HOME, SELF-CARE Condition: Improved Departure-Patient Inst. Decision time for Depature: 19:20 Referrals: DON HATFIELD MD (PCP/Family) Primary Care Physician Patient Instructions: Chest Pain That Is Not Caused by the Heart (DC) Add. Discharge Instructions: Drink plenty of clear liquids. Take Tylenol (acetaminophen) up to 1000 mg every 6 hours as needed for chills or pain. Return to care if symptoms worsen. Follow up with your primary care provider soon as possible. You with your home medications as previously prescribed. All discharge instructions reviewed with patient and/or family. Voiced understanding. Copy Copies To 1: DAISY TSANG MD FACP FACC CCDS JOSE MIKE MD Aug 14, 2017 19:28
[2017-08-14 19:36] VITALS: BP 160/91
== END 2017-08-14 19:37 | disposition home or self-care (01) ==
LOC: EDUNIT# 16:49 → ER 16:50
DX: R07.89 Other chest pain (principal); R06.02 Shortness of breath; R68.83 Chills (without fever); I48.91 Unspecified atrial fibrillation; I10 Essential (primary) hypertension; E66.9 Obesity, unspecified; F41.9 Anxiety disorder, unspecified; Z82.49 Family history of ischemic heart disease and other diseases of the circulatory system; Z98.84 Bariatric surgery status; Z90.49 Acquired absence of other specified parts of digestive tract; Z90.89 Acquired absence of other organs; Z87.891 Personal history of nicotine dependence; Z79.01 Long term (current) use of anticoagulants
CPT/HCPCS: 36415; 71020; 80053; 81000; 83735; 83874; 84484; 85025; 85610; 85730; 86141; 87804; 93005; 93041

== ENCOUNTER 2017-10-25 18:58 | Emergency (ER) | payer BC ==
[~2017-10-25] VITALS: Ht 182.9 cm; Wt 140.2 kg
--- NOTE | 2017-10-25 19:12 | ED Chest Pain ---
General Chief Complaint: Chest Pain Stated Complaint: FEVER/CP Source: patient Exam Limitations: no limitations History of Present Illness Date Seen by Provider: Oct 25, 2017 Time Seen by Provider: 19:09 Initial Comments To ER with reports of fever and chest pain. This began yesterday with a toothache. He took an Ultram in that tooth ache went away. Last night and this morning he developed a fever up to 102 max. He has sharp central chest pain and sharp left arm pain described as needles. This pain has been intermittent since last night and is not present currently. He does not have shortness of breath. He does report runny nose and sore throat and cough all week however. He does have a history of paroxysmal atrial fibrillation managed with metoprolol and liquids. He is status post gastric bypass. He was admitted in May 2017 for atrial fibrillation with rapid ventricular response and at that time he was started on the Eliquis and metoprolol. He had a stress test showing no ischemia , mild cardiomegaly and an ejection fraction of 50%. He denies any palpitations , syncope or near syncope with this episode of chest pain today. Timing/Duration: 1-2 days Severity/Quality: moderate, sharp Location: central Radiation: no radiation Activities at Onset: none Allergies and Home Medications Allergies Coded Allergies: morphine (Unverified Allergy, Unknown, 05/08/17) penicillin G (Verified Allergy, Unknown, 08/04/06) Home Medications Apixaban 5 Mg Tablet, 5 MG PO Q12H Prescribed by: DAISY DUMONT on 05/09/17 0957 Metoprolol Succinate 100 Mg Tab.er.24h, 100 MG PO DAILY Prescribed by: DAISY DUMONT on 05/09/17 0957 Review of Systems Constitutional: see HPI, chills, fever EENTM: No Symptoms Reported Respiratory: See HPI, Cough, Denies Shortness of Air, Denies Wheezing Cardiovascular: See HPI, Chest Pain, Denies Edema, Denies Irregular Heart Rate , Denies Lightheadedness, Denies Palpitations, Denies Syncope Gastrointestinal: See HPI, Denies Diarrhea, Denies Nausea Genitourinary: No Symptoms Reported Musculoskeletal: no symptoms reported Skin: no symptoms reported Psychiatric/Neurological: No Symptoms Reported Endocrine: No Symptoms Reported Hematologic/Lymphatic: No Symptoms Reported Past Hytxdox-Qhjlvx-Nwbvwb Hx Patient Social History Alcohol Beverage of Choice: Beer Type Used: Cigarettes Former Smoker, Quit: Apr 03, 2017 2nd Hand Smoke Exposure: Yes Recent Foreign Travel: No Contact w/Someone Who Travel: No Recent Hopitalizations: No Immunizations Up To Date Tetanus Booster (TDap): Unknown Seasonal Allergies Seasonal Allergies: No Surgeries History of Surgeries: Yes (LAP BAND, MINI GASTRIC BYPASS, PELLET REMOVED FROM LEFT HAND AGE 12) Surgeries: Adenoidectomy, Appendectomy, Gallbladder, Tonsillectomy Respiratory History of Respiratory Disorde: No Cardiovascular History of Cardiac Disorders: Yes (ONSET A FIB 05/08/17) Cardiac Disorders: Atrial Fibrillation, Hypertension Neurological History of Neurological Disord: No Reproductive System Hx Reproductive Disorders: No Genitourinary History of Genitourinary Disor: No Gastrointestinal History of Gastrointestinal Di: No Musculoskeletal History of Musculoskeletal Dis: No Endocrine History of Endocrine Disorders: No (OBESITY) HEENT History of HEENT Disorders: No Cancer History of Cancer: No Psychosocial History of Psychiatric Problem: Yes Behavioral Health Disorders: Anxiety Integumentary History of Skin or Integumenta: Yes (CELLULITIS--LEGS) Blood Transfusions History of Blood Disorders: No Family Medical History Significant Family History: Heart Disease, Hypertension Family Medial History: Cardiovascular disease 19 FATHER 19 MOTHER Physical Exam Vital Signs Vital Signs - First Documented 10/25/17 10/25/17 19:00 19:05 Temp 98.6 Pulse 60 Resp 20 B/P (MAP) 152/90 (110) Pulse Ox 99 O2 Delivery Nasal Cannula O2 Flow Rate 2.00 Capillary Refill : General Appearance: No Apparent Distress, WD/WN HEENT: PERRL/EOMI, TMs Normal Neck: Full Range of Motion, Normal Inspection Respiratory: Lungs Clear, Normal Breath Sounds, No Accessory Muscle Use, No Respiratory Distress Cardiovascular: Regular Rate, Rhythm, Normal Peripheral Pulses Gastrointestinal: Normal Bowel Sounds, Non Tender, Soft Extremity: Normal Capillary Refill, Normal Inspection Neurologic/Psychiatric: Alert, Oriented x3, No Motor/Sensory Deficits Skin: Normal Color, Warm/Dry Progress/Results/Core Measures Results/Orders Lab Results Laboratory Tests Test 10/25/17 19:11 Range/Units White Blood Count 8.3 4.3-11.0 10^3/uL Red Blood Count 5.00 4.35-5.85 10^6/uL Hemoglobin 14.9 13.3-17.7 G/DL Hematocrit 44 40-54 % Mean Corpuscular Volume 89 80-99 FL Mean Corpuscular Hemoglobin 30 25-34 PG Mean Corpuscular Hemoglobin Concent 34 32-36 G/DL Red Cell Distribution Width 14.0 10.0-14.5 % Platelet Count 289 130-400 10^3/uL Mean Platelet Volume 9.7 7.4-10.4 FL Neutrophils (%) (Auto) 55 42-75 % Lymphocytes (%) (Auto) 26 12-44 % Monocytes (%) (Auto) 12 0-12 % Eosinophils (%) (Auto) 5 0-10 % Basophils (%) (Auto) 1 0-10 % Neutrophils # (Auto) 4.6 1.8-7.8 X 10^3 Lymphocytes # (Auto) 2.2 1.0-4.0 X 10^3 Monocytes # (Auto) 1.0 0.0-1.0 X 10^3 Eosinophils # (Auto) 0.4 H 0.0-0.3 10^3/uL Basophils # (Auto) 0.1 0.0-0.1 10^3/uL Erythrocyte Sedimentation Rate 1 0-15 MM/HR Prothrombin Time 13.8 12.2-14.7 SEC INR Comment 1.1 0.8-1.4 Activated Partial Thromboplast Time 27 24-35 SEC Sodium Level 139 135-145 MMOL/L Potassium Level 4.1 3.6-5.0 MMOL/L Chloride Level 106 98-107 MMOL/L Carbon Dioxide Level 22 21-32 MMOL/L Anion Gap 11 5-14 MMOL/L Blood Urea Nitrogen 12 7-18 MG/DL Creatinine 0.88 0.60-1.30 MG/DL Estimat Glomerular Filtration Rate > 60 BUN/Creatinine Ratio 14 Glucose Level 58 *L 70-105 MG/DL Calcium Level 8.8 8.5-10.1 MG/DL Magnesium Level 2.3 1.8-2.4 MG/DL Total Bilirubin 0.9 0.1-1.0 MG/DL Aspartate Amino Transf (AST/SGOT) 12 5-34 U/L Alanine Aminotransferase (ALT/SGPT) 12 0-55 U/L Alkaline Phosphatase 49 40-136 U/L Myoglobin 18.6 10.0-92.0 NG/ML Troponin I < 0.30 <0.30 NG/ML C-Reactive Protein High Sensitivity 0.04 0.00-0.50 MG/DL B-Type Natriuretic Peptide 58.4 <100.0 PG/ML Total Protein 7.7 6.4-8.2 GM/DL Albumin 4.1 3.2-4.5 GM/DL Micro Results Microbiology 10/25/17 Influenza Types A,B Antigen (LAKISHA) - Final, Complete My Orders Orders - NATHAN VILLEGAS STAIN SPRAYER Cbc With Automated Diff (10/25/17 19:04) Magnesium (10/25/17 19:04) Chest 1 View, Ap/Pa Only (10/25/17 19:04) Ekg Tracing (10/25/17 19:04) Cardiac Profile 1 (10/25/17 19:04) Comprehensive Metabolic Panel (10/25/17 19:04) Myoglobin Serum (10/25/17 19:04) Protime With Inr (10/25/17 19:04) Partial Thromboplastin Time (10/25/17 19:04) O2 (10/25/17 19:04) Monitor-Rhythm Ecg Trace Only (10/25/17 19:04) Lipid Panel (10/26/17 06:00) Aspirin Chewable Tablet (Baby Aspirin Ch (10/25/17 19:15) Saline Lock/Iv-Start (10/25/17 19:04) BNP (10/25/17 19:04) Erythrocyte Sedimentation Rate (10/25/17 19:13) Hs C Reactive Protein (10/25/17 19:13) Influenza A And B Antigens (10/25/17 19:46) D50w (Emergency) Syringe (Dextrose 50% 5 (10/25/17 20:15) Medications Given in ED Current Medications Medications Dose Ordered Sig/Elijah Route Start Time Stop Time Status Last Admin Dose Admin Aspirin 324 mg ONCE ONCE PO 10/25/17 19:15 10/25/17 19:16 DC 10/25/17 19:12 324 MG Dextrose 25 ml ONCE ONCE IV 10/25/17 20:15 10/25/17 20:16 DC 10/25/17 20:21 25 ML Vital Signs/I&O Vital Sign - Last 12Hours 10/25/17 10/25/17 10/25/17 19:00 19:05 19:22 Temp 98.6 Pulse 60 Resp 20 B/P (MAP) 152/90 (110) Pulse Ox 99 100 O2 Delivery Nasal Cannula Nasal Cannula O2 Flow Rate 2.00 2.0 Progress Note : Progress Note NAME: SHARATH PORRAS [facility] REC#: [id number] PT STATUS: REG ER : 1980 PHYSICIAN: NATHAN VILLEGAS APRN ADMIT DATE: 10/25/17/ER Draft Date of Exam:10/25/17 CHEST 1 VIEW, AP/PA ONLY EXAMINATION: Chest radiograph, portable AP view. DATE: 10/25/2017 at 1956 hours. INDICATION: 37-year-old male, chest pain. COMPARISON: 08/14/2017. FINDINGS: Stable overall appearance of the cardiomediastinal silhouette. There is no identified pneumothorax. There is no large pleural effusion. Streaky bilateral parahilar opacities appear unchanged since 08/14/2017. There is no identified interval focal airspace consolidation. There is a nodular opacity in the right middle lobe seen on comparison CT chest of 06/29/2017 which is not well seen radiographically. IMPRESSION: 1. No radiographically apparent acute cardiopulmonary abnormality. 2. Previously noted nodular opacity in the right middle lobe on prior CT chest of 06/29/2017 not well seen radiographically. Followup CT chest is recommended to evaluate this previously noted potential nodule more optimally. Dictated on workstation # [id number] Dict: 10/25/171956 Trans: 10/25/172002 CLARI [id number] Interpreted by: ROSIE VEGA MD Electronically signed by: Departure Communication (Admissions) Progress Notes 2019-blood glucose from lab draw is 38. Patient has no history of diabetes or insulin use. He will be given a half an amp of D50 and a meal tray. If his sugar comes up and states that we will then discharge to home. I do not see any evidence of acute coronary syndrome and I do not believe his chest pain to be anginal. We will have him follow-up with Dr. eVlasquez. I did mention to the patient that he should discuss with Dr. Velasquez having a repeat chest CT in the upcoming few weeks to reevaluate the nodule previously seen on the chest CT. He is comforted knowing that his chest pain tonight does not appear to represent a cardiac issue. He does seem to have a viral syndrome evidenced by his fever and pleuritic chest pain. However he reported to me that his symptoms began yesterday evening so it would be within the 48 hour timeframe required to see benefit from Tamiflu so I will put him on Tamiflu for influenza-like illness. Impression Impression: Primary Impression: Pleuritic chest pain Additional Impression: Influenza-like illness Disposition: 01 HOME, SELF-CARE Condition: Stable Departure-Patient Inst. Decision time for Depature: 20:23 Referrals: DON VELASQUEZ MD (PCP/Family) Primary Care Physician Patient Instructions: Chest Pain That Is Not Caused by the Heart (DC) Copy Copies To 1: DON VELASQUEZ MD, PETER J APRN Oct 25, 2017 19:12
[2017-10-25] MEDS ORDERED: ASPIRIN 81 MG CHEW (CHILDREN'S ASA) PO ONE (19:15)
[2017-10-25 19:20] LABS: BASOPHILS # (AUTO) 0.1 10^3/uL (0.0-0.1); BASOPHILS % (AUTO) 1 % (0-10); EOSINOPHILS # (AUTO) 0.4 10^3/uL (0.0-0.3); EOSINOPHILS % (AUTO) 5 % (0-10); HEMATOCRIT 44 % (40-54); HEMOGLOBIN 14.9 G/DL (13.3-17.7); LYMPHOCYTES # (AUTO) 2.2 X 10^3 (1.0-4.0); LYMPHOCYTES % (AUTO) 26 % (12-44); MEAN CORPUSCULAR HEMOGLOBIN 30 PG (25-34); MEAN CORPUSCULAR HGB CONC 34 G/DL (32-36); MEAN CORPUSCULAR VOLUME 89 FL (80-99); MEAN PLATELET VOLUME 9.7 FL (7.4-10.4); MONOCYTES % (AUTO) 12 % (0-12); NEUTROPHILS # (AUTO) 4.6 X 10^3 (1.8-7.8); NEUTROPHILS % (AUTO) 55 % (42-75); PLATELET COUNT 289 10^3/uL (130-400); WHITE BLOOD COUNT 8.3 10^3/uL (4.3-11.0)
[2017-10-25 19:29] LABS: INR 1.1 (0.8-1.4); PROTHROMBIN TIME PATIENT 13.8 SEC (12.2-14.7)
[2017-10-25 19:49] LABS: ALANINE AMINOTRANSFERASE 12 U/L (0-55); ALBUMIN 4.1 GM/DL (3.2-4.5); ALKALINE PHOSPHATASE 49 U/L (40-136); BILIRUBIN,TOTAL 0.9 MG/DL (0.1-1.0); BUN/CREATININE RATIO 14; CALCIUM 8.8 MG/DL (8.5-10.1); CARBON DIOXIDE 22 MMOL/L (21-32); CHLORIDE 106 MMOL/L (98-107); CREATININE SERUM 0.88 MG/DL (0.60-1.30); GFR ESTIMATED > 60; MAGNESIUM 2.3 MG/DL (1.8-2.4); POTASSIUM 4.1 MMOL/L (3.6-5.0); SODIUM 139 MMOL/L (135-145); TOTAL PROTEIN 7.7 GM/DL (6.4-8.2)
[2017-10-25 19:56] LABS: MYOGLOBIN SERUM 18.6 NG/ML (10.0-92.0)
--- NOTE | 2017-10-25 20:03 | Diagnostic Imaging Report ---
EXAMINATION: Chest radiograph, portable AP view. DATE: 10/25/2017 at 1956 hours. INDICATION: 37-year-old male, chest pain. COMPARISON: 08/14/2017. FINDINGS: Stable overall appearance of the cardiomediastinal silhouette. There is no identified pneumothorax. There is no large pleural effusion. Streaky bilateral parahilar opacities appear unchanged since 08/14/2017. There is no identified interval focal airspace consolidation. There is a nodular opacity in the right middle lobe seen on comparison CT chest of 06/29/2017 which is not well seen radiographically. IMPRESSION: 1. No radiographically apparent acute cardiopulmonary abnormality. 2. Previously noted nodular opacity in the right middle lobe on prior CT chest of 06/29/2017 not well seen radiographically. Followup CT chest is recommended to evaluate this previously noted potential nodule more optimally. Dictated by: Dictated on workstation # [id number]
[2017-10-25 20:14] LABS: GLUCOSE 58 MG/DL (70-105)
[2017-10-25] MEDS ORDERED: DEXTROSE 50% 50 ML (IMS) SYR IV ONE (20:15)
[2017-10-25] MEDS ORDERED: RX-OSELTAMIVIR 75 MG (TAMIFLU) BOX OF 10 PO STA (20:35)
[2017-10-25 20:47] VITALS: BP 152/90
== END 2017-10-25 20:52 | disposition home or self-care (01) ==
LOC: EDUNIT# 18:58 → ER 18:59
DX: R07.81 Pleurodynia (principal); J11.1 Influenza due to unidentified influenza virus with other respiratory manifestations; I48.0 Paroxysmal atrial fibrillation; I10 Essential (primary) hypertension; E66.9 Obesity, unspecified; Z82.49 Family history of ischemic heart disease and other diseases of the circulatory system; Z88.5 Allergy status to narcotic agent; Z88.0 Allergy status to penicillin; Z79.01 Long term (current) use of anticoagulants; Z87.891 Personal history of nicotine dependence; Z90.89 Acquired absence of other organs; Z90.49 Acquired absence of other specified parts of digestive tract; Z98.84 Bariatric surgery status
CPT/HCPCS: 36415; 71045; 80053; 82962; 83735; 83874; 83880; 84484; 85025; 85610; 85652; 85730; 86141; 87804; 93005; 93041; 96374

== ENCOUNTER → 2017-11-11 | Outpatient (CLI) | payer BC ==
[~2017-11-11] MED LIST changes: +IOHEXOL 350 MG/ML 100 ML (OMNIPAQUE 350) VIAL IV ONE; +NS 250 ML (IVPB) BAG IV ONE
--- NOTE | 2017-11-11 09:30 | Diagnostic Imaging Report ---
PROCEDURE: CT chest with contrast only. TECHNIQUE: Multiple contiguous axial images were obtained through the chest after administration of intravenous contrast. INDICATION: Followup abnormal parenchymal density. FINDINGS: The CTA chest exam performed on 06/29/2017 noted a focal opacity within the right middle lobe. It was not certain whether this was secondary to atelectasis/pneumonia or to an underlying neoplastic process. On this exam, the abnormal parenchymal density in the right middle lobe has resolved. I do suspect that it was indeed related to pneumonia/atelectasis. The lungs are otherwise clear. The heart is stable in size. The aorta is not abnormally dilated and there is no sign of a dissection. There is no defect within the pulmonary arteries to indicate a pulmonary embolus. There is no mediastinal or hilar adenopathy. The thyroid gland, where visualized, is unremarkable. The sections through the upper abdomen show the gallbladder to be surgically absent. There also appear to be surgical sutures about the stomach. Bone windows show no sign of a fracture or destructive lesion. IMPRESSION: 1. The appearance of the chest has improved since the prior exam as the abnormal parenchymal density in the right middle lobe seen previously has resolved. 2. There is no acute cardiopulmonary abnormality identified. Dictated by: Dictated on workstation # [id number]
== END ==
LOC: RAD 07:33
PROVIDERS: ATTEND Internal Medicine
DX: R91.8 Other nonspecific abnormal finding of lung field (principal)
CPT/HCPCS: 71260

== ENCOUNTER 2017-11-27 15:43 | Emergency (ER) | payer BC ==
[~2017-11-27] VITALS: Ht 182.9 cm; Wt 135.2 kg
[~2017-11-27 15:43] MED LIST changes: -IOHEXOL 350 MG/ML 100 ML (OMNIPAQUE 350) VIAL IV ONE; -NS 250 ML (IVPB) BAG IV ONE
[2017-11-27] MEDS ORDERED: ASPIRIN 81 MG CHEW (CHILDREN'S ASA) PO ONE (16:45)
--- NOTE | 2017-11-27 16:50 | Diagnostic Imaging Report ---
Indication: Chest pain. Procedure: Frontal chest obtained at 4:40 hours p.m. Findings: Heart is normal in size. There is mild central vascular congestion which appears similar to the prior study of 10/25/2017. There is no new consolidation or pneumothorax or pleural fluid. Impression: Mild central vascular congestion, appearing similar to 10/25/2017. No new consolidation or pleural fluid. Dictated by: Dictated on workstation # [id number]
[2017-11-27 17:03] LABS: BASOPHILS # (AUTO) 0.1 10^3/uL (0.0-0.1); BASOPHILS % (AUTO) 1 % (0-10); EOSINOPHILS # (AUTO) 0.2 10^3/uL (0.0-0.3); EOSINOPHILS % (AUTO) 3 % (0-10); HEMATOCRIT 40 % (40-54); HEMOGLOBIN 13.7 G/DL (13.3-17.7); LYMPHOCYTES # (AUTO) 1.7 X 10^3 (1.0-4.0); LYMPHOCYTES % (AUTO) 26 % (12-44); MEAN CORPUSCULAR HEMOGLOBIN 30 PG (25-34); MEAN CORPUSCULAR HGB CONC 34 G/DL (32-36); MEAN CORPUSCULAR VOLUME 88 FL (80-99); MEAN PLATELET VOLUME 9.3 FL (7.4-10.4); MONOCYTES # (AUTO) 0.8 X 10^3 (0.0-1.0); MONOCYTES % (AUTO) 12 % (0-12); NEUTROPHILS # (AUTO) 3.7 X 10^3 (1.8-7.8); NEUTROPHILS % (AUTO) 58 % (42-75); PLATELET COUNT 307 10^3/uL (130-400); WHITE BLOOD COUNT 6.4 10^3/uL (4.3-11.0)
--- NOTE | 2017-11-27 17:12 | ED Chest Pain ---
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 Nursing Sepsis Screen: No Definite Risk Source: patient Exam Limitations: no limitations (ALVIN DANGELO MD) History of Present Illness Date Seen by Provider: Nov 27, 2017 Time Seen by Provider: 16:25 Initial Comments Here with report of chest pain that started about 45 minutes prior to arrival. Does have history of atrial fibrillation. States the pain was burning and pressure to the center of his chest and radiated to his left shoulder. Overall better now. This occurred while he was at work. Does take oral anticoagulants. Denies vomiting but did have nausea. Denies weakness and sweating. Timing/Duration: 1 hour, changing over time Severity/Quality: moderate, severe, burning, pressure Location: central Radiation: shoulders (left) Prior CP/Workup: stress test Modifying Factors: worse with exercise ASA po SUPERVISOR JOINERS: No NTG SL SUPERVISOR JOINERS: No Associated Symptoms: No abdominal pain, No back pain, nausea/vomiting, No shortness of breath, No weakness (ALVIN DANGELO MD) Allergies and Home Medications Allergies Coded Allergies: morphine (Unverified Allergy, Unknown, 05/08/17) penicillin G (Verified Allergy, Unknown, 08/04/06) Home Medications Apixaban 5 Mg Tablet, 5 MG PO Q12H Prescribed by: DAISY TSANG on 05/09/17 0957 Metoprolol Succinate 100 Mg Tab.er.24h, 100 MG PO DAILY Prescribed by: DAISY TSANG on 05/09/17 0957 Patient Home Medication List Home Medication List Reviewed: Yes (ALVIN DANGELO MD) Home Medication List Reviewed: Yes (MAYRA DONAHUE) Review of Systems Constitutional: see HPI, No chills, No fever EENTM: No Symptoms Reported Respiratory: Denies Cough, Denies Shortness of Air Cardiovascular: Chest Pain, Denies Edema Gastrointestinal: Nausea, Denies Vomiting Genitourinary: No Symptoms Reported Musculoskeletal: no symptoms reported Skin: no symptoms reported (ALVIN DANGELO MD) All Other Systems Reviewed Negative Unless Noted: Yes (ALVIN DANGELO MD) Past Umbxbuh-Xpjiuf-Rfjkqp Hx Patient Social History Alcohol Use: Denies Use Number of Drinks Today: AA Alcohol Beverage of Choice: Beer Recreational Drug Use: Yes (tobacco, etoh ) Smoking Status: Current Someday Smoker Type Used: Cigarettes Former Smoker, Quit: Apr 03, 2017 2nd Hand Smoke Exposure: Yes Recent Foreign Travel: No Contact w/Someone Who Travel: No Recent Infectious Disease Expo: No Recent Hopitalizations: No (ALVIN DANGELO MD) Immunizations Up To Date Tetanus Booster (TDap): Unknown (ALVIN DANGELO MD) Seasonal Allergies Seasonal Allergies: No (ALVIN DANGELO MD) Surgeries History of Surgeries: Yes (LAP BAND, MINI GASTRIC BYPASS, PELLET REMOVED FROM LEFT HAND AGE 12) Surgeries: Adenoidectomy, Appendectomy, Gallbladder, Tonsillectomy (ALVIN DANGELO MD) Respiratory History of Respiratory Disorde: No (ALVIN DANGELO MD) Cardiovascular History of Cardiac Disorders: Yes (ONSET A FIB 05/08/17) Cardiac Disorders: Atrial Fibrillation, Hypertension (ALVIN DANGELO MD) Neurological History of Neurological Disord: No (ALVIN DANGELO MD) Reproductive System Hx Reproductive Disorders: No (ALVIN DANGELO MD) Genitourinary History of Genitourinary Disor: No (ALVIN DANGELO MD) Gastrointestinal History of Gastrointestinal Di: No (ALVIN DANGELO MD) Musculoskeletal History of Musculoskeletal Dis: No (ALVIN DANGELO MD) Endocrine History of Endocrine Disorders: No (OBESITY) (ALVIN DANGELO MD) HEENT History of HEENT Disorders: No (ALVIN DANGELO MD) Cancer History of Cancer: No (ALVIN DANGELO MD) Psychosocial History of Psychiatric Problem: Yes Behavioral Health Disorders: Anxiety (ALVIN DANGELO MD) Integumentary History of Skin or Integumenta: Yes (CELLULITIS--LEGS) (ALVIN DANGELO MD) Blood Transfusions History of Blood Disorders: No (ALVIN DANGELO MD) Reviewed Nursing Assessment Reviewed/Agree w Nursing PMH: Yes (ALVIN DANGELO MD) Family Medical History Significant Family History: Heart Disease, Hypertension Family Medial History: Cardiovascular disease 19 FATHER 19 MOTHER (ALVIN DANGELO MD) Family Medial History: Cardiovascular disease 19 FATHER 19 MOTHER (MAYRA DONAHUE) Physical Exam Vital Signs Vital Signs - First Documented 11/27/17 15:50 Temp 98.5 Pulse 60 B/P (MAP) 139/78 (98) O2 Delivery Room Air (MAYRA DONAHUE) Vital Signs Capillary Refill : Less Than 3 Seconds (ALVIN DANGELO MD) General Appearance: No Apparent Distress, WD/WN, Obese HEENT: PERRL/EOMI, Pharynx Normal Neck: Non Tender, Supple Respiratory: Lungs Clear, Normal Breath Sounds Cardiovascular: Regular Rate, Rhythm, No Murmur Gastrointestinal: Non Tender, Soft Extremity: Normal Range of Motion, Non Tender Neurologic/Psychiatric: Alert, Oriented x3 Skin: Normal Color, Warm/Dry (ALVIN DANGELO MD) Progress/Results/Core Measures Results/Orders Lab Results Laboratory Tests Test 11/27/17 16:55 11/27/17 20:50 Range/Units White Blood Count 6.4 4.3-11.0 10^3/uL Red Blood Count 4.50 4.35-5.85 10^6/uL Hemoglobin 13.7 13.3-17.7 G/DL Hematocrit 40 40-54 % Mean Corpuscular Volume 88 80-99 FL Mean Corpuscular Hemoglobin 30 25-34 PG Mean Corpuscular Hemoglobin Concent 34 32-36 G/DL Red Cell Distribution Width 15.0 H 10.0-14.5 % Platelet Count 307 130-400 10^3/uL Mean Platelet Volume 9.3 7.4-10.4 FL Neutrophils (%) (Auto) 58 42-75 % Lymphocytes (%) (Auto) 26 12-44 % Monocytes (%) (Auto) 12 0-12 % Eosinophils (%) (Auto) 3 0-10 % Basophils (%) (Auto) 1 0-10 % Neutrophils # (Auto) 3.7 1.8-7.8 X 10^3 Lymphocytes # (Auto) 1.7 1.0-4.0 X 10^3 Monocytes # (Auto) 0.8 0.0-1.0 X 10^3 Eosinophils # (Auto) 0.2 0.0-0.3 10^3/uL Basophils # (Auto) 0.1 0.0-0.1 10^3/uL Prothrombin Time 14.3 12.2-14.7 SEC INR Comment 1.1 0.8-1.4 Activated Partial Thromboplast Time 29 24-35 SEC D-Dimer < 0.27 0.00-0.49 UG/ML Sodium Level 136 135-145 MMOL/L Potassium Level 4.0 3.6-5.0 MMOL/L Chloride Level 103 98-107 MMOL/L Carbon Dioxide Level 28 21-32 MMOL/L Anion Gap 5 5-14 MMOL/L Blood Urea Nitrogen 12 7-18 MG/DL Creatinine 0.88 0.60-1.30 MG/DL Estimat Glomerular Filtration Rate > 60 BUN/Creatinine Ratio 14 Glucose Level 101 70-105 MG/DL Calcium Level 8.8 8.5-10.1 MG/DL Magnesium Level 2.2 1.8-2.4 MG/DL Total Bilirubin 0.9 0.1-1.0 MG/DL Aspartate Amino Transf (AST/SGOT) 14 5-34 U/L Alanine Aminotransferase (ALT/SGPT) 12 0-55 U/L Alkaline Phosphatase 47 40-136 U/L Myoglobin 17.9 10.0-92.0 NG/ML Troponin I < 0.30 < 0.30 <0.30 NG/ML Total Protein 7.2 6.4-8.2 GM/DL Albumin 4.0 3.2-4.5 GM/DL Amylase Level 32 25-125 U/L Lipase 26 8-78 U/L (MAYRA DONAHUE) My Orders Orders - MAYRA DONAHUE Troponin I (11/27/17 20:43) Ekg Tracing (11/27/17 20:43) (MAYRA DONAHUE) Medications Given in ED Current Medications Medications Dose Ordered Sig/Elijah Route Start Time Stop Time Status Last Admin Dose Admin Aspirin 324 mg ONCE ONCE PO 11/27/17 16:45 11/27/17 16:46 DC 11/27/17 17:02 324 MG (MAYRA DONAHUE) Vital Signs/I&O Vital Sign - Last 12Hours 11/27/17 11/27/17 15:50 17:02 Temp 98.5 98.5 Pulse 60 B/P (MAP) 139/78 (98) O2 Delivery Room Air (MAYRA DONAHUE) Blood Pressure Mean: 98 Progress Note : Progress Note Seen and evaluated. IV, labs, EKG and chest x-ray ordered. ASA 324 mg by mouth ordered. Patient is without pain currently so no nitroglycerin. Monitor patient. 1738: Labs reviewed. I discussed the case with Dr. Hardwick, patient's primary jig hand. He would like to do the rule out in the ED with follow- up tomorrow in his clinic. We will evaluate repeat troponin and EKG at about 8 p.m. and if they remain negative he can go home to call Dr. Tsang tomorrow morning for appointment tomorrow afternoon. If there is any changes in the EKG , troponin or if the patient has chest pain, he will need to be admitted. This was discussed with the patient who agrees. (ALVIN DANGELO MD) ECG Initial ECG Impression Date: Nov 27, 2017 Initial ECG Impression Time: 15:54 Initial ECG Rate: 59 Initial ECG Rhythm: Normal Sinus Initial ECG Intervals: Normal Initial ECG Comparisson: Unchanged Comment Eyes rhythm with left atrial abnormality. Normal axis. No evidence of ST elevation PA. Similar to previous of 10/25/17. Interpreted by me. (ALVIN DANGELO MD) EKG : EKG Time: 20:54 Rate: 55 Rhythm: Normal Sinus Intervals: Normal ECG Comparisson: Unchanged ECG Impression: Normal Comment No ST segment elevation or depression (MAYRA DONAHUE) Diagnostic Imaging Diagonstic Imaging: Xray Plain Films/CT/US/NM/MRI: chest Comments NAME: SHARATH PORRAS [facility] REC#: [id number] PT STATUS: REG ER : 1980 PHYSICIAN: ALVIN DANGELO MD ADMIT DATE: 11/27/17/ER Signed Date of Exam: 11/27/17 CHEST 1 VIEW, AP/PA ONLY Indication: Chest pain. Procedure: Frontal chest obtained at 4:40 hours p.m. Findings: Heart is normal in size. There is mild central vascular congestion which appears similar to the prior study of 10/25/2017. There is no new consolidation or pneumothorax or pleural fluid. Impression: Mild central vascular congestion, appearing similar to 10/25/2017. No new consolidation or pleural fluid. Dictated by: Dictated on workstation # [id number] Dict: 11/27/17 1644 Trans: 03/28/18 1704 Interpreted by: MORENA POOL MD Electronically signed by: MORENA POOL MD 11/27/171703 (ALVIN DANGELO MD) Departure Impression Impression: Primary Impression: Chest pain Qualified Codes: R07.9 - Chest pain, unspecified Disposition: 01 HOME, SELF-CARE Condition: Stable Departure-Patient Inst. Decision time for Depature: 21:38 (MAYRA DONAHUE) Referrals: DON HATFIELD MD (PCP/Family) Primary Care Physician Patient Instructions: Chest Pain (DC) Add. Discharge Instructions: All discharge instructions reviewed with patient and/or family. Voiced understanding. Call Dr. Tsang's office in the morning for appointment in the afternoon. [phone] It is very important that he make this appointment. Return for worse pain , fever, vomiting, weakness, breathing problems or other concerns as needed. Copy Copies To 1: DON HATFIELD MD; DAISY TSANG MD FACP FACC CCDS ALVIN DANGELO MD Nov 27, 2017 17:12 MAYRA DONAHUE Nov 27, 2017 21:39
[2017-11-27 17:13] LABS: INR 1.1 (0.8-1.4); PROTHROMBIN TIME PATIENT 14.3 SEC (12.2-14.7)
[2017-11-27 17:22] LABS: ALANINE AMINOTRANSFERASE 12 U/L (0-55); ALKALINE PHOSPHATASE 47 U/L (40-136); AMYLASE 32 U/L (25-125); BILIRUBIN,TOTAL 0.9 MG/DL (0.1-1.0); BUN/CREATININE RATIO 14; CALCIUM 8.8 MG/DL (8.5-10.1); CARBON DIOXIDE 28 MMOL/L (21-32); CHLORIDE 103 MMOL/L (98-107); CREATININE SERUM 0.88 MG/DL (0.60-1.30); GFR ESTIMATED > 60; GLUCOSE 101 MG/DL (70-105); LIPASE 26 U/L (8-78); MAGNESIUM 2.2 MG/DL (1.8-2.4); SODIUM 136 MMOL/L (135-145); TOTAL PROTEIN 7.2 GM/DL (6.4-8.2)
[2017-11-27 17:28] LABS: MYOGLOBIN SERUM 17.9 NG/ML (10.0-92.0)
[2017-11-27 21:43] VITALS: BP 153/89
== END 2017-11-27 21:45 | disposition home or self-care (01) ==
LOC: EDUNIT# 15:43 → ER 15:44
DX: R07.89 Other chest pain (principal); I48.91 Unspecified atrial fibrillation; I10 Essential (primary) hypertension; E66.9 Obesity, unspecified; F41.9 Anxiety disorder, unspecified; Z82.49 Family history of ischemic heart disease and other diseases of the circulatory system; Z87.891 Personal history of nicotine dependence; Z98.84 Bariatric surgery status; Z90.49 Acquired absence of other specified parts of digestive tract; Z90.89 Acquired absence of other organs; Z88.5 Allergy status to narcotic agent; Z88.0 Allergy status to penicillin; Z79.01 Long term (current) use of anticoagulants; Z68.41 Body mass index [BMI] 40.0-44.9, adult
CPT/HCPCS: 36415; 71045; 80053; 82150; 83690; 83735; 83874; 84484; 85025; 85379; 85610; 85730; 93005; 93041

== ENCOUNTER 2017-12-03 06:51 | Day surgery (SDC) | payer BC ==
[2017-12-03] VITALS (9 sets, daily range): BP systolic 129–147; BP diastolic 80–99
[~2017-12-03] VITALS: Ht 182.9 cm; Wt 142.9 kg
[2017-12-03] MEDS ORDERED: NS IV 1000 ML 1,000 ML ONE (06:55)
[2017-12-03] MEDS ORDERED: HEParin (CATH LAB) 2,000 ML IV ONE (06:55)
--- OUTSIDE RECORDS SUMMARY | 2017-12-03 06:57 | XMS REPORT | Continuity of Care Document ---
Author Author [facility] Organization [facility] Address Unknown Phone Unavailable Allergies Active Description Code Type Severity Reaction Onset Reported/Identified Relationship to Patient Clinical Status Yes penicillin G [id number] Drug Allergy Unknown N/A 08/04/2006 Yes No Known Allergies [id number] Drug Allergy Unknown N/A 04/28/2017 Yes morphine [id number] Drug Allergy Unknown N/A 05/08/2017 Medications There is no data. Problems Date Dx Coded Attending Type Code Diagnosis Diagnosed By 08/01/1601 ALYSIA HAQ, DON Jackson Ot I87.2 VENOUS INSUFFICIENCY (CHRONIC) (PERIPHER 03/04/2010 Ot 682.7 03/04/2010 Ot 729.5 05/20/2011 Ot 523.10 05/20/2011 Ot 525.9 05/07/2013 ALYSIA HAQ, DON Jackson Ot 276.1 05/07/2013 ALYSIA HAQ, DON Jackson Ot 276.8 05/07/2013 ALYSIA HAQ, DON Jackson Ot 278.00 05/07/2013 ALYSIA HAQ, DON Jackson Ot 305.1 05/07/2013 ALYSIA HAQ, DON Jackson Ot 682.6 05/07/2013 ALYSIA HAQ, DON Jackson Ot 692.9 05/07/2013 ALYSIA HAQ, DON Jackson Ot V85.41 06/16/2013 ARIANA SANTIAGO DOA Nida Ot 682.6 06/16/2013 PAMELA ACUNA LAURIE K Ot 729.81 12/01/2014 ANTOLIN HAQ, ALVIN Jackson Ot 682.6 12/01/2014 ANTOLIN HAQ, ALVIN Jackson Ot 729.5 02/23/2016 ALYSIA HAQ, DON Jackson Ot I87.2 VENOUS INSUFFICIENCY (CHRONIC) (PERIPHER 04/28/2017 JOVANA NICOLE APRN Other F17.210 NICOTINE DEPENDENCE, CIGARETTES, UNCOMPLICATED 04/28/2017 JOVANA NICOLE APRN Other R07.89 OTHER CHEST PAIN 04/28/2017 JOVANA NICOLE ALEXEY Other R42 DIZZINESS AND GIDDINESS 04/28/2017 JOVANA NICOLE ALEXEY Other R45.0 NERVOUSNESS 04/28/2017 JOVANA NICOLE ALEXEY Other T43.615A ADVERSE EFFECT OF CAFFEINE, INITIAL ENCOUNTER 05/09/2017 JULIA HAQ FACC, DAISY FACP CCDS Ot E66.9 OBESITY, UNSPECIFIED 05/09/2017 JULIA HAQ FACC, ALI FACP CCDS Ot E87.6 HYPOKALEMIA 05/09/2017 JULIA HAQ FACC, ALI FACP CCDS Ot G47.30 SLEEP APNEA, UNSPECIFIED 05/09/2017 JULAI HAQ FACC, ALI FACP CCDS Ot I10 ESSENTIAL (PRIMARY) HYPERTENSION 05/09/2017 JULIA HAQ FACC, DAISY FACP CCDS Ot I48.0 PAROXYSMAL ATRIAL FIBRILLATION 05/09/2017 JULIA HAQ FACC, ALI FACP CCDS Ot 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 05/09/2017 JULIA HAQ FACC, ALI FACP CCDS Ot I83.899 VARICOSE VEINS OF UNSP LOWER EXTREMITIES 05/09/2017 JULIA HAQ FACC, ALI FACP CCDS Ot Z68.39 BODY MASS INDEX (BMI) 39.0-39.9, ADULT 05/09/2017 JULIA HAQ FACC, ALI FACP CCDS Ot Z79.01 SKILLED NURSING (CURRENT) USE OF ANTICOAGULANT 05/09/2017 JULIA HAQ FACC, ALI FACP CCDS Ot Z87.891 PERSONAL HISTORY OF NICOTINE DEPENDENCE 05/23/2017 ALYSIA HAQ, DON Jackson Ot R06.02 SHORTNESS OF BREATH 05/23/2017 DON HATFIELD MD Ot R07.9 CHEST PAIN, UNSPECIFIED 06/10/2017 JOSE MIKE MD Ot F17.210 NICOTINE DEPENDENCE, CIGARETTES, UNCOMPL 06/10/2017 JOSE MIKE MD Ot F41.9 ANXIETY DISORDER, UNSPECIFIED 06/10/2017 JOSE MIKE MD Ot I10 ESSENTIAL (PRIMARY) HYPERTENSION 06/10/2017 JOSE MIKE MD Ot I48.0 PAROXYSMAL ATRIAL FIBRILLATION 06/10/2017 JOSE MIKE MD Ot R07.89 OTHER CHEST PAIN 06/10/2017 JOSE MIKE MD Ot Z79.01 MACHINIST BRAKE (CURRENT) USE OF ANTICOAGULANT 06/10/2017 JOSE MIKE MD Ot Z82.49 FAMILY HX OF ISCHEM HEART DIS AND OTH DI 06/10/2017 JOSE MIKE MD Ot Z90.49 ACQUIRED ABSENCE OF OTHER SPECIFIED PART 06/10/2017 JOSE MIKE MD Ot Z98.84 BARIATRIC SURGERY STATUS 06/12/2017 JULIA HAQ FAC, ALI FACP CCDS Ot E66.09 OTHER OBESITY DUE TO EXCESS CALORIES 06/12/2017 JULIA HAQ FAC, ALI FACP CCDS Ot M79.89 OTHER SPECIFIED SOFT TISSUE DISORDERS 06/12/2017 JULIA HAQ FAC, ALI FACP CCDS Ot R07.89 OTHER CHEST PAIN 06/29/2017 PAMELA DO, LAURIE K Ot E66.9 OBESITY, UNSPECIFIED 06/29/2017 PAMELA DO, LAURIE K Ot F41.9 ANXIETY DISORDER, UNSPECIFIED 06/29/2017 PAMELA DO, LAURIE K Ot I10 ESSENTIAL (PRIMARY) HYPERTENSION 06/29/2017 PAMELA DO, LAURIE K Ot I48.91 UNSPECIFIED ATRIAL FIBRILLATION 06/29/2017 PAMELA DO LAURIE K Ot R00.2 PALPITATIONS 06/29/2017 PAMELA DO LAURIE K Ot R07.2 PRECORDIAL PAIN 06/29/2017 PAMELA DO LAURIE K Ot Z79.01 MACHINIST BRAKE (CURRENT) USE OF ANTICOAGULANT 06/29/2017 PAMELA ACUNA LAURIE K Ot Z82.49 FAMILY HX OF ISCHEM HEART DIS AND OTH DI 06/29/2017 PAMELA DO, LAURIE K Ot Z87.891 PERSONAL HISTORY OF NICOTINE DEPENDENCE 06/29/2017 PAMELA DO LAURIE K Ot Z90.49 ACQUIRED ABSENCE OF OTHER SPECIFIED PART 06/29/2017 PAMELA DO, LAURIE K Ot Z90.89 ACQUIRED ABSENCE OF OTHER ORGANS 07/01/2017 PAMELA DO, LAURIE K Ot E66.9 OBESITY, UNSPECIFIED 07/01/2017 PAMELA DO, LAURIE K Ot F41.9 ANXIETY DISORDER, UNSPECIFIED 07/01/2017 PAMELA DO, LAURIE K Ot I10 ESSENTIAL (PRIMARY) HYPERTENSION 07/01/2017 ARIANA SANTIAGO DOA K Ot I48.91 UNSPECIFIED ATRIAL FIBRILLATION 07/01/2017 ARIANA SANTIAGO DOA K Ot R00.2 PALPITATIONS 07/01/2017 ARIANA SANTIAGO DOA K Ot R07.2 PRECORDIAL PAIN 07/01/2017 PAMELAARIANA Barr DOA K Ot Z79.01 SKILLED NURSING (CURRENT) USE OF ANTICOAGULANT 07/01/2017 ARIANA SANTIAGO DOA K Ot Z82.49 FAMILY HX OF ISCHEM HEART DIS AND OTH DI 07/01/2017 ARIANA SANTIAGO DOA K Ot Z87.891 PERSONAL HISTORY OF NICOTINE DEPENDENCE 07/01/2017 PAMELAARIANA Barr DOA K Ot Z90.49 ACQUIRED ABSENCE OF OTHER SPECIFIED PART 07/01/2017 ARIANA SANTIAGO DOA K Ot Z90.89 ACQUIRED ABSENCE OF OTHER ORGANS 08/14/2017 JOSE MIKE MD Ot E66.9 OBESITY, UNSPECIFIED 08/14/2017 JOSE MIKE MD Ot F41.9 ANXIETY DISORDER, UNSPECIFIED 08/14/2017 JOSE MIKE MD Ot I10 ESSENTIAL (PRIMARY) HYPERTENSION 08/14/2017 JOSE MIKE MD Ot I48.91 UNSPECIFIED ATRIAL FIBRILLATION 08/14/2017 JOSE MIKE MD Ot R06.02 SHORTNESS OF BREATH 08/14/2017 JOSE MIKE MD Ot R07.89 OTHER CHEST PAIN 08/14/2017 JOSE MIKE MD Ot R68.83 CHILLS (WITHOUT FEVER) 08/14/2017 JOSE MIKE MD Ot Z79.01 MACHINIST BRAKE (CURRENT) USE OF ANTICOAGULANT 08/14/2017 JOSE MIKE MD Ot Z82.49 FAMILY HX OF ISCHEM HEART DIS AND OTH DI 08/14/2017 JOSE MIKE MD Ot Z87.891 PERSONAL HISTORY OF NICOTINE DEPENDENCE 08/14/2017 JOSE MIKE MD Ot Z90.49 ACQUIRED ABSENCE OF OTHER SPECIFIED PART 08/14/2017 JOSE MIKE MD Ot Z90.89 ACQUIRED ABSENCE OF OTHER ORGANS 08/14/2017 JOSE MIKE MD Ot Z98.84 BARIATRIC SURGERY STATUS 10/25/2017 NATHAN VILLEGAS APRN Ot E66.9 OBESITY, UNSPECIFIED 10/25/2017 NATHAN VILLEGAS APRN Ot I10 ESSENTIAL (PRIMARY) HYPERTENSION 10/25/2017 NATHAN VILLEGAS APRN Ot I48.0 PAROXYSMAL ATRIAL FIBRILLATION 10/25/2017 NATHAN VILLEGAS APRN Ot J11.1 FLU DUE TO UNIDENTIFIED INFLUENZA VIRUS 10/25/2017 NATHAN VILLEGAS APRN Ot R07.81 PLEURODYNIA 10/25/2017 NATHAN VILLEGAS APRN Ot R50.9 FEVER, UNSPECIFIED 10/25/2017 NATHAN VILLEGAS APRN Ot Z79.01 MACHINIST BRAKE (CURRENT) USE OF ANTICOAGULANT 10/25/2017 NATHAN VILLEGAS APRN Ot Z82.49 FAMILY HX OF ISCHEM HEART DIS AND OTH DI 10/25/2017 NATHAN VILLEGAS APRN Ot Z87.891 PERSONAL HISTORY OF NICOTINE DEPENDENCE 10/25/2017 NATHAN VILLEGAS APRN Ot Z88.0 ALLERGY STATUS TO PENICILLIN 10/25/2017 NATHAN VILLEGAS APRN Ot Z88.5 ALLERGY STATUS TO NARCOTIC AGENT STATUS 10/25/2017 NATHAN VILLEGAS APRN Ot Z90.49 ACQUIRED ABSENCE OF OTHER SPECIFIED PART 10/25/2017 NATHAN VILLEGAS APRN Ot Z90.89 ACQUIRED ABSENCE OF OTHER ORGANS 10/25/2017 NATHAN VILLEGAS APRN Ot Z98.84 BARIATRIC SURGERY STATUS 10/28/2017 NAHTAN VILLEGAS APRN Ot E66.9 OBESITY, UNSPECIFIED 10/28/2017 NATHAN VILLEGAS APRN Ot I10 ESSENTIAL (PRIMARY) HYPERTENSION 10/28/2017 NATHAN VILLEGAS APRN Ot I48.0 PAROXYSMAL ATRIAL FIBRILLATION 10/28/2017 NATHAN VILLEGAS APRN Ot J11.1 FLU DUE TO UNIDENTIFIED INFLUENZA VIRUS 10/28/2017 NATHAN VILLEGAS APRN Ot R07.81 PLEURODYNIA 10/28/2017 NATHAN VILLEGAS APRN Ot R50.9 FEVER, UNSPECIFIED 10/28/2017 NATHAN VILLEGAS APRN Ot Z79.01 SKILLED NURSING (CURRENT) USE OF ANTICOAGULANT 10/28/2017 NATHAN VILLEGAS APRN Ot Z82.49 FAMILY HX OF ISCHEM HEART DIS AND OTH DI 10/28/2017 NATHAN VILLEGAS APRN Ot Z87.891 PERSONAL HISTORY OF NICOTINE DEPENDENCE 10/28/2017 NATHAN VILLEGAS APRN Ot Z88.0 ALLERGY STATUS TO PENICILLIN 10/28/2017 NATHAN VILLEGAS APRN Ot Z88.5 ALLERGY STATUS TO NARCOTIC AGENT STATUS 10/28/2017 NATHAN VILLEGAS APRN Ot Z90.49 ACQUIRED ABSENCE OF OTHER SPECIFIED PART 10/28/2017 NATHAN VILLEGAS APRN Ot Z90.89 ACQUIRED ABSENCE OF OTHER ORGANS 10/28/2017 NATHAN VILLEGAS APRN Ot Z98.84 BARIATRIC SURGERY STATUS 10/31/2017 NATHAN VILLEGAS APRN Ot E66.9 OBESITY, UNSPECIFIED 10/31/2017 NATHAN VILLEGAS APRN Ot I10 ESSENTIAL (PRIMARY) HYPERTENSION 10/31/2017 NATHAN VILLEGAS APRN Ot I48.0 PAROXYSMAL ATRIAL FIBRILLATION 10/31/2017 NATHAN VILLEGAS APRN Ot J11.1 FLU DUE TO UNIDENTIFIED INFLUENZA VIRUS 10/31/2017 NATHAN VILLEGAS APRN Ot R07.81 PLEURODYNIA 10/31/2017 NATHAN VILLEGAS APRN Ot R50.9 FEVER, UNSPECIFIED 10/31/2017 NATHAN VILLEGAS APRN Ot Z79.01 SKILLED NURSING (CURRENT) USE OF ANTICOAGULANT 10/31/2017 NATHAN VILLEGAS APRN Ot Z82.49 FAMILY HX OF ISCHEM HEART DIS AND OTH DI 10/31/2017 NATHAN VILLEGAS APRN Ot Z87.891 PERSONAL HISTORY OF NICOTINE DEPENDENCE 10/31/2017 NATHAN VILLEGAS APRN Ot Z88.0 ALLERGY STATUS TO PENICILLIN 10/31/2017 NATHAN VILLEGAS APRN Ot Z88.5 ALLERGY STATUS TO NARCOTIC AGENT STATUS 10/31/2017 NATHAN VILLEGAS APRN Ot Z90.49 ACQUIRED ABSENCE OF OTHER SPECIFIED PART 10/31/2017 NATHAN VILLEGAS APRN Ot Z90.89 ACQUIRED ABSENCE OF OTHER ORGANS 10/31/2017 NATHAN VILLEGAS APRN Ot Z98.84 BARIATRIC SURGERY STATUS 11/12/2017 DON HATFIELD MD Ot R91.8 OTHER NONSPECIFIC ABNORMAL FINDING OF CYNDY 11/17/2017 DON HATFIELD MD Ot R91.8 OTHER NONSPECIFIC ABNORMAL FINDING OF CYNDY Procedures There is no data. Results Test Result Range Fibrin D-dimer FEU measurement in platelet poor plasma (mass/volume) - 11:13 Fibrin D-dimer FEU measurement in platelet poor plasma (mass/volume) < ug/mL 0.00-0.49 Serum or plasma troponin i.cardiac measurement (mass/volume) - 04/30/17 11:13 Serum or plasma troponin i.cardiac measurement (mass/volume) < ng/ mL <0.30 Complete blood count (CBC) with automated white blood cell (WBC) differential - 05/08/17 15:20 Blood leukocytes automated count (number/volume) 7.9 10*3/uL 4.3-11.0 Blood erythrocytes automated count (number/volume) 5.15 10*6/uL 4.35-5.85 Venous blood hemoglobin measurement (mass/volume) 16.0 g/dL 13.3-17.7 Blood hematocrit (volume fraction) 46 % 40-54 Automated erythrocyte mean corpuscular volume 90 [foz_us] 80-99 Automated erythrocyte mean corpuscular hemoglobin (mass per erythrocyte) 31 pg 25-34 Automated erythrocyte mean corpuscular hemoglobin concentration measurement ( mass/volume) 35 g/dL 32-36 Automated erythrocyte distribution width ratio 14.3 % 10.0-14.5 Automated blood platelet count (count/volume) 275 10*3/uL 130-400 Automated blood platelet mean volume measurement 9.8 [foz_us] 7.4-10.4 Automated blood neutrophils/100 leukocytes 58 % 42-75 Automated blood lymphocytes/100 leukocytes 23 % 12-44 Blood monocytes/100 leukocytes 14 % 0-12 Automated blood eosinophils/100 leukocytes 4 % 0-10 Automated blood basophils/100 leukocytes 1 % 0-10 Blood neutrophils automated count (number/volume) 4.6 10*3 1.8-7.8 Blood lymphocytes automated count (number/volume) 1.8 10*3 1.0-4.0 Blood monocytes automated count (number/volume) 1.1 10*3 0.0-1.0 Automated eosinophil count 0.4 10*3/uL 0.0-0.3 Automated blood basophil count (count/volume) 0.1 10*3/uL 0.0-0.1 PT panel in platelet poor plasma by coagulation assay - 05/08/17 15:20 Prothrombin time (PT) in platelet poor plasma by coagulation assay 12.4 s 12.2-14.7 INR in platelet poor plasma or blood by coagulation assay 0.9 0.8-1.4 Activated partial thromboplastin time (aPTT) in platelet poor plasma bycoagulation assay - 05/08/17 15:20 Activated partial thromboplastin time (aPTT) in platelet poor plasma bycoagulation assay 26 s 24-35 Fibrin D-dimer FEU measurement in platelet poor plasma (mass/volume) - 15:20 Fibrin D-dimer FEU measurement in platelet poor plasma (mass/volume) < ug/mL 0.00-0.49 Comprehensive metabolic panel - 05/08/17 15:20 Serum or plasma sodium measurement (moles/volume) 138 mmol/L 135-145 Serum or plasma potassium measurement (moles/volume) 4.3 mmol/L 3.6-5.0 Serum or plasma chloride measurement (moles/volume) 101 mmol/L 98-107 Carbon dioxide 27 mmol/L 21-32 Serum or plasma anion gap determination (moles/volume) 10 mmol/L 5-14 Serum or plasma urea nitrogen measurement (mass/volume) 7 mg/dL 7-18 Serum or plasma creatinine measurement (mass/volume) 0.95 mg/dL 0.60-1.30 Serum or plasma urea nitrogen/creatinine mass ratio 7 NRG Serum or plasma creatinine measurement with calculation of estimated glomerular filtration rate > NRG Serum or plasma glucose measurement (mass/volume) 163 mg/dL 70-105 Serum or plasma calcium measurement (mass/volume) 9.5 mg/dL 8.5-10.1 Serum or plasma total bilirubin measurement (mass/volume) 1.9 mg/dL 0.1-1.0 Serum or plasma alkaline phosphatase measurement (enzymatic activity/volume) 42 U/L 40-136 Serum or plasma aspartate aminotransferase measurement (enzymatic activity/ volume) 34 U/L 5-34 Serum or plasma alanine aminotransferase measurement (enzymatic activity/volume ) 33 U/L 0-55 Serum or plasma protein measurement (mass/volume) 8.0 g/dL 6.4-8.2 Serum or plasma albumin measurement (mass/volume) 4.3 g/dL 3.2-4.5 Magnesium - 05/08/17 15:20 Magnesium 2.2 mg/dL 1.8-2.4 Serum or plasma creatine kinase measurement (enzymatic activity/volume) - 05/08 15:20 Serum or plasma creatine kinase measurement (enzymatic activity/volume) 73 U/L 30-200 Serum or plasma creatine kinase MB measurement (enzymatic activity/volume) - 15:20 Serum or plasma creatine kinase MB measurement (enzymatic activity/volume) 0.5 ng/mL <6.6 Serum or plasma troponin i.cardiac measurement (mass/volume) - 05/08/17 15:20 Serum or plasma troponin i.cardiac measurement (mass/volume) < ng/ mL <0.30 Serum or plasma thyrotropin measurement by detection limit <=0.05 miu/l (units/ volume) - 05/08/17 15:20 Serum or plasma thyrotropin measurement by detection limit <=0.05 miu/l (units/ volume) 1.34 u[iU]/mL 0.35-4.94 Serum or plasma troponin i.cardiac measurement (mass/volume) - 05/08/17 21:35 Serum or plasma troponin i.cardiac measurement (mass/volume) < ng/ mL <0.30 Complete blood count (CBC) with automated white blood cell (WBC) differential - 05/09/17 04:45 Blood leukocytes automated count (number/volume) 7.9 10*3/uL 4.3-11.0 Blood erythrocytes automated count (number/volume) 4.66 10*6/uL 4.35-5.85 Venous blood hemoglobin measurement (mass/volume) 14.5 g/dL 13.3-17.7 Blood hematocrit (volume fraction) 42 % 40-54 Automated erythrocyte mean corpuscular volume 91 [foz_us] 80-99 Automated erythrocyte mean corpuscular hemoglobin (mass per erythrocyte) 31 pg 25-34 Automated erythrocyte mean corpuscular hemoglobin concentration measurement ( mass/volume) 34 g/dL 32-36 Automated erythrocyte distribution width ratio 14.3 % 10.0-14.5 Automated blood platelet count (count/volume) 247 10*3/uL 130-400 Automated blood platelet mean volume measurement 10.1 [foz_us] 7.4-10.4 Automated blood neutrophils/100 leukocytes 57 % 42-75 Automated blood lymphocytes/100 leukocytes 23 % 12-44 Blood monocytes/100 leukocytes 17 % 0-12 Automated blood eosinophils/100 leukocytes 3 % 0-10 Automated blood basophils/100 leukocytes 1 % 0-10 Blood neutrophils automated count (number/volume) 4.5 10*3 1.8-7.8 Blood lymphocytes automated count (number/volume) 1.8 10*3 1.0-4.0 Blood monocytes automated count (number/volume) 1.3 10*3 0.0-1.0 Automated eosinophil count 0.2 10*3/uL 0.0-0.3 Automated blood basophil count (count/volume) 0.1 10*3/uL 0.0-0.1 Comprehensive metabolic panel - 05/09/17 04:45 Serum or plasma sodium measurement (moles/volume) 141 mmol/L 135-145 Serum or plasma potassium measurement (moles/volume) 3.5 mmol/L 3.6-5.0 Serum or plasma chloride measurement (moles/volume) 105 mmol/L 98-107 Carbon dioxide 23 mmol/L 21-32 Serum or plasma anion gap determination (moles/volume) 13 mmol/L 5-14 Serum or plasma urea nitrogen measurement (mass/volume) 10 mg/dL 7-18 Serum or plasma creatinine measurement (mass/volume) 0.73 mg/dL 0.60-1.30 Serum or plasma urea nitrogen/creatinine mass ratio 14 NRG Serum or plasma creatinine measurement with calculation of estimated glomerular filtration rate > NRG Serum or plasma glucose measurement (mass/volume) 95 mg/dL 70-105 Serum or plasma calcium measurement (mass/volume) 8.8 mg/dL 8.5-10.1 Serum or plasma total bilirubin measurement (mass/volume) 2.7 mg/dL 0.1-1.0 Serum or plasma alkaline phosphatase measurement (enzymatic activity/volume) 35 U/L 40-136 Serum or plasma aspartate aminotransferase measurement (enzymatic activity/ volume) 22 U/L 5-34 Serum or plasma alanine aminotransferase measurement (enzymatic activity/volume ) 26 U/L 0-55 Serum or plasma protein measurement (mass/volume) 6.6 g/dL 6.4-8.2 Serum or plasma albumin measurement (mass/volume) 3.7 g/dL 3.2-4.5 Magnesium - 05/09/17 04:45 Magnesium 2.1 mg/dL 1.8-2.4 Complete blood count (CBC) with automated white blood cell (WBC) differential - 06/10/17 12:25 Blood leukocytes automated count (number/volume) 7.5 10*3/uL 4.3-11.0 Blood erythrocytes automated count (number/volume) 4.79 10*6/uL 4.35-5.85 Venous blood hemoglobin measurement (mass/volume) 14.7 g/dL 13.3-17.7 Blood hematocrit (volume fraction) 43 % 40-54 Automated erythrocyte mean corpuscular volume 90 [foz_us] 80-99 Automated erythrocyte mean corpuscular hemoglobin (mass per erythrocyte) 31 pg 25-34 Automated erythrocyte mean corpuscular hemoglobin concentration measurement ( mass/volume) 34 g/dL 32-36 Automated erythrocyte distribution width ratio 13.6 % 10.0-14.5 Automated blood platelet count (count/volume) 240 10*3/uL 130-400 Automated blood platelet mean volume measurement 10.3 [foz_us] 7.4-10.4 Automated blood neutrophils/100 leukocytes 59 % 42-75 Automated blood lymphocytes/100 leukocytes 26 % 12-44 Blood monocytes/100 leukocytes 11 % 0-12 Automated blood eosinophils/100 leukocytes 4 % 0-10 Automated blood basophils/100 leukocytes 1 % 0-10 Blood neutrophils automated count (number/volume) 4.4 10*3 1.8-7.8 Blood lymphocytes automated count (number/volume) 1.9 10*3 1.0-4.0 Blood monocytes automated count (number/volume) 0.8 10*3 0.0-1.0 Automated eosinophil count 0.3 10*3/uL 0.0-0.3 Automated blood basophil count (count/volume) 0.1 10*3/uL 0.0-0.1 PT panel in platelet poor plasma by coagulation assay - 06/10/17 12:25 Prothrombin time (PT) in platelet poor plasma by coagulation assay 13.1 s 12.2-14.7 INR in platelet poor plasma or blood by coagulation assay 1.0 0.8-1.4 Activated partial thromboplastin time (aPTT) in platelet poor plasma bycoagulation assay - 06/10/17 12:25 Activated partial thromboplastin time (aPTT) in platelet poor plasma bycoagulation assay 27 s 24-35 Comprehensive metabolic panel - 06/10/17 12:25 Serum or plasma sodium measurement (moles/volume) 137 mmol/L 135-145 Serum or plasma potassium measurement (moles/volume) 4.0 mmol/L 3.6-5.0 Serum or plasma chloride measurement (moles/volume) 104 mmol/L 98-107 Carbon dioxide 27 mmol/L 21-32 Serum or plasma anion gap determination (moles/volume) 6 mmol/L 5-14 Serum or plasma urea nitrogen measurement (mass/volume) 12 mg/dL 7-18 Serum or plasma creatinine measurement (mass/volume) 0.82 mg/dL 0.60-1.30 Serum or plasma urea nitrogen/creatinine mass ratio 15 NRG Serum or plasma creatinine measurement with calculation of estimated glomerular filtration rate > NRG Serum or plasma glucose measurement (mass/volume) 143 mg/dL 70-105 Serum or plasma calcium measurement (mass/volume) 8.8 mg/dL 8.5-10.1 Serum or plasma total bilirubin measurement (mass/volume) 0.9 mg/dL 0.1-1.0 Serum or plasma alkaline phosphatase measurement (enzymatic activity/volume) 34 U/L 40-136 Serum or plasma aspartate aminotransferase measurement (enzymatic activity/ volume) 19 U/L 5-34 Serum or plasma alanine aminotransferase measurement (enzymatic activity/volume ) 20 U/L 0-55 Serum or plasma protein measurement (mass/volume) 7.4 g/dL 6.4-8.2 Serum or plasma albumin measurement (mass/volume) 4.0 g/dL 3.2-4.5 Magnesium - 06/10/17 12:25 Magnesium 2.0 mg/dL 1.8-2.4 Serum or plasma troponin i.cardiac measurement (mass/volume) - 06/10/17 12:25 Serum or plasma troponin i.cardiac measurement (mass/volume) < ng/ mL <0.30 Myoglobin, serum - 06/10/17 12:25 Myoglobin, serum 19.8 ng/mL 10.0-92.0 Serum or plasma thyrotropin measurement by detection limit <=0.05 miu/l (units/ volume) - 06/10/17 12:25 Serum or plasma thyrotropin measurement by detection limit <=0.05 miu/l (units/ volume) 1.32 u[iU]/mL 0.35-4.94 Serum or plasma troponin i.cardiac measurement (mass/volume) - 06/10/17 16:20 Serum or plasma troponin i.cardiac measurement (mass/volume) < ng/ mL <0.30 Complete blood count (CBC) with automated white blood cell (WBC) differential - 06/28/17 23:30 Blood leukocytes automated count (number/volume) 9.8 10*3/uL 4.3-11.0 Blood erythrocytes automated count (number/volume) 4.63 10*6/uL 4.35-5.85 Venous blood hemoglobin measurement (mass/volume) 14.3 g/dL 13.3-17.7 Blood hematocrit (volume fraction) 42 % 40-54 Automated erythrocyte mean corpuscular volume 91 [foz_us] 80-99 Automated erythrocyte mean corpuscular hemoglobin (mass per erythrocyte) 31 pg 25-34 Automated erythrocyte mean corpuscular hemoglobin concentration measurement ( mass/volume) 34 g/dL 32-36 Automated erythrocyte distribution width ratio 13.2 % 10.0-14.5 Automated blood platelet count (count/volume) 315 10*3/uL 130-400 Automated blood platelet mean volume measurement 9.9 [foz_us] 7.4-10.4 Automated blood neutrophils/100 leukocytes 52 % 42-75 Automated blood lymphocytes/100 leukocytes 27 % 12-44 Blood monocytes/100 leukocytes 13 % 0-12 Automated blood eosinophils/100 leukocytes 8 % 0-10 Automated blood basophils/100 leukocytes 1 % 0-10 Blood neutrophils automated count (number/volume) 5.1 10*3 1.8-7.8 Blood lymphocytes automated count (number/volume) 2.7 10*3 1.0-4.0 Blood monocytes automated count (number/volume) 1.2 10*3 0.0-1.0 Automated eosinophil count 0.8 10*3/uL 0.0-0.3 Automated blood basophil count (count/volume) 0.1 10*3/uL 0.0-0.1 PT panel in platelet poor plasma by coagulation assay - 06/28/17 23:30 Prothrombin time (PT) in platelet poor plasma by coagulation assay 13.3 s 12.2-14.7 INR in platelet poor plasma or blood by coagulation assay 1.0 0.8-1.4 Activated partial thromboplastin time (aPTT) in platelet poor plasma bycoagulation assay - 06/28/17 23:30 Activated partial thromboplastin time (aPTT) in platelet poor plasma bycoagulation assay 31 s 24-35 Comprehensive metabolic panel - 06/28/17 23:30 Serum or plasma sodium measurement (moles/volume) 138 mmol/L 135-145 Serum or plasma potassium measurement (moles/volume) 3.7 mmol/L 3.6-5.0 Serum or plasma chloride measurement (moles/volume) 104 mmol/L 98-107 Carbon dioxide 23 mmol/L 21-32 Serum or plasma anion gap determination (moles/volume) 11 mmol/L 5-14 Serum or plasma urea nitrogen measurement (mass/volume) 14 mg/dL 7-18 Serum or plasma creatinine measurement (mass/volume) 0.83 mg/dL 0.60-1.30 Serum or plasma urea nitrogen/creatinine mass ratio 17 NRG Serum or plasma creatinine measurement with calculation of estimated glomerular filtration rate > NRG Serum or plasma glucose measurement (mass/volume) 105 mg/dL 70-105 Serum or plasma calcium measurement (mass/volume) 8.8 mg/dL 8.5-10.1 Serum or plasma total bilirubin measurement (mass/volume) 0.7 mg/dL 0.1-1.0 Serum or plasma alkaline phosphatase measurement (enzymatic activity/volume) 40 U/L 40-136 Serum or plasma aspartate aminotransferase measurement (enzymatic activity/ volume) 15 U/L 5-34 Serum or plasma alanine aminotransferase measurement (enzymatic activity/volume ) 15 U/L 0-55 Serum or plasma protein measurement (mass/volume) 7.5 g/dL 6.4-8.2 Serum or plasma albumin measurement (mass/volume) 4.1 g/dL 3.2-4.5 Serum or plasma creatine kinase measurement (enzymatic activity/volume) - 06/28 23:30 Serum or plasma creatine kinase measurement (enzymatic activity/volume) 57 U/L 30-200 Serum or plasma creatine kinase MB measurement (enzymatic activity/volume) - 23:30 Serum or plasma creatine kinase MB measurement (enzymatic activity/volume) 0.6 ng/mL <6.6 Serum or plasma troponin i.cardiac measurement (mass/volume) - 06/28/17 23:30 Serum or plasma troponin i.cardiac measurement (mass/volume) < ng/ mL <0.30 Serum or plasma lithium measurement (moles/volume) - 06/28/17 23:30 BNP level 82.8 pg/mL <100.0 Serum or plasma amylase measurement (enzymatic activity/volume) - 06/28/17 23: 30 Serum or plasma amylase measurement (enzymatic activity/volume) 34 U /L 25-125 Lipase - 06/28/17 23:30 Lipase 30 U/L 8-78 Complete blood count (CBC) with automated white blood cell (WBC) differential - 08/14/17 17:06 Blood leukocytes automated count (number/volume) 7.3 10*3/uL 4.3-11.0 Blood erythrocytes automated count (number/volume) 4.75 10*6/uL 4.35-5.85 Venous blood hemoglobin measurement (mass/volume) 14.5 g/dL 13.3-17.7 Blood hematocrit (volume fraction) 42 % 40-54 Automated erythrocyte mean corpuscular volume 89 [foz_us] 80-99 Automated erythrocyte mean corpuscular hemoglobin (mass per erythrocyte) 31 pg 25-34 Automated erythrocyte mean corpuscular hemoglobin concentration measurement ( mass/volume) 34 g/dL 32-36 Automated erythrocyte distribution width ratio 13.7 % 10.0-14.5 Automated blood platelet count (count/volume) 268 10*3/uL 130-400 Automated blood platelet mean volume measurement 10.1 [foz_us] 7.4-10.4 Automated blood neutrophils/100 leukocytes 50 % 42-75 Automated blood lymphocytes/100 leukocytes 33 % 12-44 Blood monocytes/100 leukocytes 14 % 0-12 Automated blood eosinophils/100 leukocytes 3 % 0-10 Automated blood basophils/100 leukocytes 1 % 0-10 Blood neutrophils automated count (number/volume) 3.6 10*3 1.8-7.8 Blood lymphocytes automated count (number/volume) 2.4 10*3 1.0-4.0 Blood monocytes automated count (number/volume) 1.1 10*3 0.0-1.0 Automated eosinophil count 0.2 10*3/uL 0.0-0.3 Automated blood basophil count (count/volume) 0.1 10*3/uL 0.0-0.1 PT panel in platelet poor plasma by coagulation assay - 08/14/17 17:06 Prothrombin time (PT) in platelet poor plasma by coagulation assay 14.1 s 12.2-14.7 INR in platelet poor plasma or blood by coagulation assay 1.1 0.8-1.4 Activated partial thromboplastin time (aPTT) in platelet poor plasma bycoagulation assay - 08/14/17 17:06 Activated partial thromboplastin time (aPTT) in platelet poor plasma bycoagulation assay 30 s 24-35 Comprehensive metabolic panel - 08/14/17 17:06 Serum or plasma sodium measurement (moles/volume) 136 mmol/L 135-145 Serum or plasma potassium measurement (moles/volume) 3.9 mmol/L 3.6-5.0 Serum or plasma chloride measurement (moles/volume) 98 mmol/L 98-107 Carbon dioxide 28 mmol/L 21-32 Serum or plasma anion gap determination (moles/volume) 10 mmol/L 5-14 Serum or plasma urea nitrogen measurement (mass/volume) 12 mg/dL 7-18 Serum or plasma creatinine measurement (mass/volume) 0.86 mg/dL 0.60-1.30 Serum or plasma urea nitrogen/creatinine mass ratio 14 NRG Serum or plasma creatinine measurement with calculation of estimated glomerular filtration rate > NRG Serum or plasma glucose measurement (mass/volume) 108 mg/dL 70-105 Serum or plasma calcium measurement (mass/volume) 9.2 mg/dL 8.5-10.1 Serum or plasma total bilirubin measurement (mass/volume) 1.0 mg/dL 0.1-1.0 Serum or plasma alkaline phosphatase measurement (enzymatic activity/volume) 41 U/L 40-136 Serum or plasma aspartate aminotransferase measurement (enzymatic activity/ volume) 19 U/L 5-34 Serum or plasma alanine aminotransferase measurement (enzymatic activity/volume ) 25 U/L 0-55 Serum or plasma protein measurement (mass/volume) 7.9 g/dL 6.4-8.2 Serum or plasma albumin measurement (mass/volume) 4.3 g/dL 3.2-4.5 Magnesium - 08/14/17 17:06 Magnesium 2.2 mg/dL 1.8-2.4 Serum or plasma troponin i.cardiac measurement (mass/volume) - 08/14/17 17:06 Serum or plasma troponin i.cardiac measurement (mass/volume) < ng/ mL <0.30 Myoglobin, serum - 08/14/17 17:06 Myoglobin, serum 23.3 ng/mL 10.0-92.0 Serum or plasma C reactive protein measurement (mass/volume) - 08/14/17 17:06 Serum or plasma C reactive protein measurement (mass/volume) 0.08 mg /dL 0.00-0.50 Influenza virus A and B antigen detection - 08/14/17 17:35 FLU RESULT NEGATIVE FOR INFLUENZA A AND B ANTIGENS BY IA NRG Complete urinalysis with reflex to culture - 08/14/17 17:53 Urine color determination YELLOW NRG Urine clarity determination CLEAR NRG Urine pH measurement by test strip 6 5-9 Specific gravity of urine by test strip 1.015 1.016- 1.022 Urine protein assay by test strip, semi-quantitative NEGATIVE NEGATIVE Urine glucose detection by automated test strip NEGATIVE NEGATIVE Erythrocytes detection in urine sediment by light microscopy NEGATIVE NEGATIVE Urine ketones detection by automated test strip NEGATIVE NEGATIVE Urine nitrite detection by test strip NEGATIVE NEGATIVE Urine total bilirubin detection by test strip NEGATIVE NEGATIVE Urine urobilinogen measurement by automated test strip (mass/volume) NORMAL NORMAL Urine leukocyte esterase detection by dipstick 1+ NEGATIVE Automated urine sediment erythrocyte count by microscopy (number/high power field) NONE NRG Automated urine sediment leukocyte count by microscopy (number/high power field ) [HPF] NRG Bacteria detection in urine sediment by light microscopy NONE NRG Squamous epithelial cells detection in urine sediment by light microscopy 0-2 NRG Crystals detection in urine sediment by light microscopy NONE NRG Casts detection in urine sediment by light microscopy NONE NRG Mucus detection in urine sediment by light microscopy NEGATIVE NRG Complete urinalysis with reflex to culture NO NRG Influenza virus A and B antigen detection - 10/25/17 19:03 FLU RESULT NEGATIVE FOR INFLUENZA A AND B ANTIGENS BY IA NRG Complete blood count (CBC) with automated white blood cell (WBC) differential - 10/25/17 19:11 Blood leukocytes automated count (number/volume) 8.3 10*3/uL 4.3-11.0 Blood erythrocytes automated count (number/volume) 5.00 10*6/uL 4.35-5.85 Venous blood hemoglobin measurement (mass/volume) 14.9 g/dL 13.3-17.7 Blood hematocrit (volume fraction) 44 % 40-54 Automated erythrocyte mean corpuscular volume 89 [foz_us] 80-99 Automated erythrocyte mean corpuscular hemoglobin (mass per erythrocyte) 30 pg 25-34 Automated erythrocyte mean corpuscular hemoglobin concentration measurement ( mass/volume) 34 g/dL 32-36 Automated erythrocyte distribution width ratio 14.0 % 10.0-14.5 Automated blood platelet count (count/volume) 289 10*3/uL 130-400 Automated blood platelet mean volume measurement 9.7 [foz_us] 7.4-10.4 Automated blood neutrophils/100 leukocytes 55 % 42-75 Automated blood lymphocytes/100 leukocytes 26 % 12-44 Blood monocytes/100 leukocytes 12 % 0-12 Automated blood eosinophils/100 leukocytes 5 % 0-10 Automated blood basophils/100 leukocytes 1 % 0-10 Blood neutrophils automated count (number/volume) 4.6 10*3 1.8-7.8 Blood lymphocytes automated count (number/volume) 2.2 10*3 1.0-4.0 Blood monocytes automated count (number/volume) 1.0 10*3 0.0-1.0 Automated eosinophil count 0.4 10*3/uL 0.0-0.3 Automated blood basophil count (count/volume) 0.1 10*3/uL 0.0-0.1 PT panel in platelet poor plasma by coagulation assay - 10/25/17 19:11 Prothrombin time (PT) in platelet poor plasma by coagulation assay 13.8 s 12.2-14.7 INR in platelet poor plasma or blood by coagulation assay 1.1 0.8-1.4 Activated partial thromboplastin time (aPTT) in platelet poor plasma bycoagulation assay - 10/25/17 19:11 Activated partial thromboplastin time (aPTT) in platelet poor plasma bycoagulation assay 27 s 24-35 Erythrocyte sedimentation rate by westergren method - 10/25/17 19:11 Erythrocyte sedimentation rate by westergren method 1 mm 0-15 Comprehensive metabolic panel - 10/25/17 19:11 Serum or plasma sodium measurement (moles/volume) 139 mmol/L 135-145 Serum or plasma potassium measurement (moles/volume) 4.1 mmol/L 3.6-5.0 Serum or plasma chloride measurement (moles/volume) 106 mmol/L 98-107 Carbon dioxide 22 mmol/L 21-32 Serum or plasma anion gap determination (moles/volume) 11 mmol/L 5-14 Serum or plasma urea nitrogen measurement (mass/volume) 12 mg/dL 7-18 Serum or plasma creatinine measurement (mass/volume) 0.88 mg/dL 0.60-1.30 Serum or plasma urea nitrogen/creatinine mass ratio 14 NRG Serum or plasma creatinine measurement with calculation of estimated glomerular filtration rate > NRG Serum or plasma glucose measurement (mass/volume) 58 mg/dL 70-105 Serum or plasma calcium measurement (mass/volume) 8.8 mg/dL 8.5-10.1 Serum or plasma total bilirubin measurement (mass/volume) 0.9 mg/dL 0.1-1.0 Serum or plasma alkaline phosphatase measurement (enzymatic activity/volume) 49 U/L 40-136 Serum or plasma aspartate aminotransferase measurement (enzymatic activity/ volume) 12 U/L 5-34 Serum or plasma alanine aminotransferase measurement (enzymatic activity/volume ) 12 U/L 0-55 Serum or plasma protein measurement (mass/volume) 7.7 g/dL 6.4-8.2 Serum or plasma albumin measurement (mass/volume) 4.1 g/dL 3.2-4.5 Magnesium - 10/25/17 19:11 Magnesium 2.3 mg/dL 1.8-2.4 Serum or plasma troponin i.cardiac measurement (mass/volume) - 10/25/17 19:11 Serum or plasma troponin i.cardiac measurement (mass/volume) < ng/ mL <0.30 Serum or plasma lithium measurement (moles/volume) - 10/25/17 19:11 BNP level 58.4 pg/mL <100.0 Serum or plasma C reactive protein measurement (mass/volume) - 10/25/17 19:11 Serum or plasma C reactive protein measurement (mass/volume) 0.04 mg /dL 0.00-0.50 Myoglobin, serum - 10/25/17 19:11 Myoglobin, serum 18.6 ng/mL 10.0-92.0 Capillary blood glucose measurement by glucometer (mass/volume) - 10/25/17 20: 45 Capillary blood glucose measurement by glucometer (mass/volume) 133 mg/dL 70-110 Complete blood count (CBC) with automated white blood cell (WBC) differential - 11/27/17 16:55 Blood leukocytes automated count (number/volume) 6.4 10*3/uL 4.3-11.0 Blood erythrocytes automated count (number/volume) 4.50 10*6/uL 4.35-5.85 Venous blood hemoglobin measurement (mass/volume) 13.7 g/dL 13.3-17.7 Blood hematocrit (volume fraction) 40 % 40-54 Automated erythrocyte mean corpuscular volume 88 [foz_us] 80-99 Automated erythrocyte mean corpuscular hemoglobin (mass per erythrocyte) 30 pg 25-34 Automated erythrocyte mean corpuscular hemoglobin concentration measurement ( mass/volume) 34 g/dL 32-36 Automated erythrocyte distribution width ratio 15.0 % 10.0-14.5 Automated blood platelet count (count/volume) 307 10*3/uL 130-400 Automated blood platelet mean volume measurement 9.3 [foz_us] 7.4-10.4 Automated blood neutrophils/100 leukocytes 58 % 42-75 Automated blood lymphocytes/100 leukocytes 26 % 12-44 Blood monocytes/100 leukocytes 12 % 0-12 Automated blood eosinophils/100 leukocytes 3 % 0-10 Automated blood basophils/100 leukocytes 1 % 0-10 Blood neutrophils automated count (number/volume) 3.7 10*3 1.8-7.8 Blood lymphocytes automated count (number/volume) 1.7 10*3 1.0-4.0 Blood monocytes automated count (number/volume) 0.8 10*3 0.0-1.0 Automated eosinophil count 0.2 10*3/uL 0.0-0.3 Automated blood basophil count (count/volume) 0.1 10*3/uL 0.0-0.1 PT panel in platelet poor plasma by coagulation assay - 11/27/17 16:55 Prothrombin time (PT) in platelet poor plasma by coagulation assay 14.3 s 12.2-14.7 INR in platelet poor plasma or blood by coagulation assay 1.1 0.8-1.4 Activated partial thromboplastin time (aPTT) in platelet poor plasma bycoagulation assay - 11/27/17 16:55 Activated partial thromboplastin time (aPTT) in platelet poor plasma bycoagulation assay 29 s 24-35 Fibrin D-dimer FEU measurement in platelet poor plasma (mass/volume) - 16:55 Fibrin D-dimer FEU measurement in platelet poor plasma (mass/volume) < ug/mL 0.00-0.49 Comprehensive metabolic panel - 11/27/17 16:55 Serum or plasma sodium measurement (moles/volume) 136 mmol/L 135-145 Serum or plasma potassium measurement (moles/volume) 4.0 mmol/L 3.6-5.0 Serum or plasma chloride measurement (moles/volume) 103 mmol/L 98-107 Carbon dioxide 28 mmol/L 21-32 Serum or plasma anion gap determination (moles/volume) 5 mmol/L 5-14 Serum or plasma urea nitrogen measurement (mass/volume) 12 mg/dL 7-18 Serum or plasma creatinine measurement (mass/volume) 0.88 mg/dL 0.60-1.30 Serum or plasma urea nitrogen/creatinine mass ratio 14 NRG Serum or plasma creatinine measurement with calculation of estimated glomerular filtration rate > NRG Serum or plasma glucose measurement (mass/volume) 101 mg/dL 70-105 Serum or plasma calcium measurement (mass/volume) 8.8 mg/dL 8.5-10.1 Serum or plasma total bilirubin measurement (mass/volume) 0.9 mg/dL 0.1-1.0 Serum or plasma alkaline phosphatase measurement (enzymatic activity/volume) 47 U/L 40-136 Serum or plasma aspartate aminotransferase measurement (enzymatic activity/ volume) 14 U/L 5-34 Serum or plasma alanine aminotransferase measurement (enzymatic activity/volume ) 12 U/L 0-55 Serum or plasma protein measurement (mass/volume) 7.2 g/dL 6.4-8.2 Serum or plasma albumin measurement (mass/volume) 4.0 g/dL 3.2-4.5 Magnesium - 11/27/17 16:55 Magnesium 2.2 mg/dL 1.8-2.4 Serum or plasma troponin i.cardiac measurement (mass/volume) - 11/27/17 16:55 Serum or plasma troponin i.cardiac measurement (mass/volume) < ng/ mL <0.30 Myoglobin, serum - 11/27/17 16:55 Myoglobin, serum 17.9 ng/mL 10.0-92.0 Serum or plasma amylase measurement (enzymatic activity/volume) - 11/27/17 16: 55 Serum or plasma amylase measurement (enzymatic activity/volume) 32 U /L 25-125 Lipase - 11/27/17 16:55 Lipase 26 U/L 8-78 Serum or plasma troponin i.cardiac measurement (mass/volume) - 11/27/17 20:50 Serum or plasma troponin i.cardiac measurement (mass/volume) < ng/ mL <0.30 Encounters ACCT No. Visit Date/Time Discharge Status Pt. Type Provider Facility Loc./Unit Complaint [id number] 11/11/2017 07:33:00 11/11/2017 23:59:59 CLS Outpatient DON HATFIELD MD [facility] RAD F/U PULM NODULE [id number] 10/25/2017 18:59:00 10/25/2017 20:52:00 DIS Emergency NATHAN VILLEGAS APRN [facility] ER FEVER/CP [id number] 08/14/2017 16:50:00 08/14/2017 19:37:00 DIS Emergency JOSE MIKE MD [facility] ER CHEST PAIN [id number] 07/01/2017 10:30:00 07/01/2017 23:59:59 CLS Preadmit DAISY DUMONT MD, FACC, FACP CCDS [facility] CARD CHEST DISCOMFORT [id number] 06/28/2017 23:18:00 06/29/2017 02:00:00 DIS Emergency PAMELA DOLAURIE K [facility] ER POSS A-FIB,CP [id number] 06/10/2017 12:00:00 06/10/2017 17:10:00 DIS Emergency JOSE MIKE MD [facility] ER LIGHT-HEADED,SOB, CHEST TIGHTNESS [id number] 05/30/2017 20:00:00 05/30/2017 23:59:59 CLS Preadmit ROBINSON YA APRN [facility] SLEEP AFIB I48.91,ODALYS G47.33 [id number] 05/20/2017 12:00:00 05/20/2017 23:59:59 CLS Preadmit DAISY DUMONT MD, FACC FACP CCDS [facility] CARD CHEST DISCOMFORT [id number] 05/14/2017 08:08:00 05/14/2017 23:59:59 CLS Outpatient DAISY DUMONT MD, FACC FACP CCDS [facility] CARD CHEST DISCOMFORT [id number] 05/08/2017 17:10:00 05/09/2017 12:00:00 DIS Inpatient JULIA HAQ FACC ALI FACP CCDS [facility] ICU NEW ONSET AFIB; SOA [id number] 04/30/2017 10:46:00 04/30/2017 23:59:59 CLS Outpatient DON HATFIELD MD [facility] LAB CHEST PAIN,SOB [id number] 01/26/2016 10:37:00 02/22/2016 16:02:00 DIS Outpatient DON HATFIELD MD [facility] REHAB [id number] 11/30/2014 22:31:00 12/01/2014 00:45:00 DIS Emergency ALVIN DANGELO MD [facility] ER [id number] 06/16/2013 08:40:00 06/16/2013 11:01:00 DIS Emergency LAURIE SANTIAGO DO [facility] ER [id number] 05/05/2013 11:45:00 05/07/2013 10:00:00 DIS Inpatient DON HATFIELD MD [facility] SURGICAL [id number] 11/27/2017 17:04:00 Document Registration [id number] 05/20/2011 10:28:00 Document Registration [id number] 03/04/2010 00:29:00 Document Registration [id number] 04/28/2017 13:40:00 04/28/2017 15:35:00 DIS Emergency JOVANA NICOLE APRN [facility] ER CHEST PAIN
[2017-12-03] MEDS ORDERED: NS IV 1000 ML 1,000 ML IV SCH ×2 (07:00→09:32)
[2017-12-03] MEDS ORDERED: ASPI325T32 PO (07:23)
[2017-12-03] MEDS ORDERED: METO-395 PO (07:23)
[2017-12-03] MEDS ORDERED: APIX5TAB PO (07:23)
[2017-12-03 07:25] LABS: MEAN PLATELET VOLUME 10.1 FL (7.4-10.4); RED BLOOD COUNT 4.62 10^6/uL (4.35-5.85); WHITE BLOOD COUNT 6.5 10^3/uL (4.3-11.0)
[2017-12-03] MEDS ORDERED: CLIN150C17 PO (07:25)
[2017-12-03 07:37] LABS: PROTHROMBIN TIME PATIENT 13.4 SEC (12.2-14.7)
[2017-12-03] MEDS ORDERED: LIDOCAINE 1% INJ 50 ML (XYLOCAINE) VIAL ONE (07:45)
[2017-12-03] MEDS ORDERED: RECEIVED CONTRAST (Hold Metformin) IV SCH (07:45)
[2017-12-03 08:04] LABS: ALANINE AMINOTRANSFERASE 12 U/L (0-55); ALKALINE PHOSPHATASE 43 U/L (40-136); BILIRUBIN,TOTAL 1.2 MG/DL (0.1-1.0); BUN/CREATININE RATIO 11; CALCIUM 8.8 MG/DL (8.5-10.1); CARBON DIOXIDE 24 MMOL/L (21-32); CHLORIDE 104 MMOL/L (98-107); CHOLESTEROL 132 MG/DL (< 200); GFR ESTIMATED > 60; GLUCOSE 97 MG/DL (70-105); HDL CHOLESTEROL 52 MG/DL (40-60); POTASSIUM 3.6 MMOL/L (3.6-5.0); SODIUM 138 MMOL/L (135-145); TRIGLYCERIDES 55 MG/DL (<150); VLDL CHOLESTEROL 11 MG/DL (5-40)
[2017-12-03] MEDS ORDERED: MIDAZOLAM 5 MG/5 ML (VERSED) VIAL ONE (08:41)
[2017-12-03] MEDS ORDERED: diphenhydrAMINE 50 MG/ML INJ (BENADRYL) ONE (08:41)
[2017-12-03] MEDS ORDERED: fentaNYL INJECTION 100 MCG/2 ML AMP ONE (08:41)
--- NOTE | 2017-12-03 08:44 | Cardiac Procedure Note-CS/ASA ---
Pre-Procedure Note Pre-Op Procedure Note H&P Reviewed The H&P was reviewed, patient examined and no changes noted. Date H&P Reviewed: Dec 03, 2017 Time H&P Reviewed: 08:44 Conscious Sedation Pre-Proced Time Reviewed: 08:44 ASA Class: 3 Airway Mallampati Classification: ([place] appropriate class) I. II. III, IV Lungs Heart ASA score ASA 1: a normal healthy patient ASA 2: a patient with a mild systemic disease (mid diabetes, controlled hypertension, obesity ASA 3: a patient with a severe systemic disease that limits activity (angina , COPD, prior Myocardial infarction) ASA 4: a patient with an incapacitating disease that is a constant threat to life (CHF, renal failure) ASA 5: a moribund patient not expected to survive 24 hrs. (ruptured aneurysm) ASA 6: a declared brain patient whose organs are being harvested. For emergent operations, add the letter E after the classification Grade 3 Sedation Plan: Analgesia, Amnesia, Plan communicated to team members, Discussed options with patient/fam, Discussed risks with patient/fam Note The patient is an appropriate candidate to undergo the planned procedure, sedation, and anesthesia. The patient immediately re-assessed prior to indication. DAISY DUMONT MD FACP FAC CCDS Dec 03, 2017 08:44
--- NOTE | 2017-12-03 09:33 | Discharge Inst-Cardiology ---
Discharge Inst-Cardiac Discharge Medications Continued Medications: Apixaban (Eliquis) 5 Mg Tablet 5 MG PO BID, TAB Aspirin (Aspirin EC) 325 Mg Tablet.dr 162.5 MG PO DAILY, TAB Clindamycin HCl (Clindamycin HCl) 150 Mg Capsule 150 MG PO TID, CAP Metoprolol Succinate (Metoprolol Succinate) 100 Mg Tab.er.24h 100 MG PO DAILY, TAB Orders-Post D/C & Referrals Pneu Vac Indicated: Yes DAISY DUMONT MD FACP FACC CCDS Dec 03, 2017 09:33
--- NOTE | 2017-12-03 09:33 | Discharge Inst-Post CATH ---
Discharge Inst-CATH Post Cardiac Cath D/C Inst Follow Up/Plan F/u with Dr Tsang in 2 weeks CARDIAC CATH DISCHARGE INSTRUCTIONS *Hold Metformin for 48 hours post heart cath. ACTIVITY * Go Home directly and rest. * Limit activity of the leg (or wrist if it was used) for 7 days including aerobics, swimming, jogging, bicycling, etc. * Restrict stair-climbing for 7 days if possible, if not, climb up with your non -cath leg, then bring together on the same step. * Avoid lifting, pushing, pulling or excessive movement of the affected extremity for 7 days. * Customary sexual activity may be resumed after 2 days-use caution not to use a position that strains or causes pain to the affected extremity. * No driving for 24 hours. * NO SMOKING. * Avoid straining for bowel movements for 7 days. * Gentle walking on level ground is allowed. * Returning to work will depend on the type of procedure and the results. Your doctor will discuss this with you. CALL YOUR DOCTOR FOR ANY OF THE FOLLOWING: *If bleeding from the puncture site occurs- Apply gentle pressure to site with clean cloth and call your doctor or EMS. * If a knot or lump forms under the skin, increases in size, or causes pain. * If bruising appears to be worsening or moving further down your leg instead of disappearing. * Temperature above 101 F. CARE OF YOUR GROIN INCISION; * Bruising or purple discoloration of the skin near the puncture site is common. * You may shower only, no bathtub bathing for 5 days. Be careful to avoid slipping as your leg may feel stiff. * If a closure device was used on your femoral artery, please see the attached guide regarding care of the device and your leg. * REMOVE the dressing from your groin the next day after your procedure in the shower. CARE OF YOUR WRIST INCISION; * Bruising or purple discoloration of the skin near the puncture site is common. * You may shower. * DO NOT submerge wrist. * Remove dressing in 24 hours. DAISY TSANG MD [facility] CCDS Dec 03, 2017 09:33
[2017-12-03] MEDS ORDERED: PATIENT MAY USE OWN MEDS, ALL PO SCH (09:45)
--- NOTE | 2017-12-03 09:58 | CARDIAC CATHETERIZATION ---
DATE OF SERVICE: 12/03/2017 CATHETERIZATION REPORT INDICATIONS FOR THE PROCEDURE: The patient is a 37-year-old man, who has a prior history of cardiomegaly. He has coronary artery disease risk factors including a history of chronic tobacco use, obesity, and hypertension. He has been experiencing chest discomfort, suggestive of new onset angina. Cardiac catheterization was carried out today after having obtained an informed consent. DESCRIPTION OF PROCEDURE: He was brought to the cardiac catheterization laboratory in a fasting state. Right groin was prepared and draped in the usual sterile fashion. Lidocaine 1% was used for local anesthesia. Modified Seldinger technique was used to advance a 5-Kyrgyz sheath into the right femoral artery, 5-Kyrgyz JL4 catheter for left coronary angiography, 5-[place] JR4 catheter for right coronary angiography, 5-[place]yr[place]z pigtail catheter was used for left heart catheterization and left ventricular angiography. At the end of the procedure, angiography of the right femoral artery was carried out through the sheath and Mynx was used to achieve hemostasis. He tolerated the procedure well. HEMODYNAMICS: Left ventricular end-diastolic pressure following coronary angiography was 21 mmHg. There was no significant pressure gradient on pullback across the aortic valve. Ascending aortic pressure was 135/77 with a mean of 103 mmHg. CORONARY ANGIOGRAPHY: Left main coronary artery is very short. There is a side by side, " double barrel" origin of the left anterior descending and left circumflex arteries. They do not exhibit any angiographically significant obstructive disease. Left circumflex artery is dominant. Right coronary artery is small and nondominant and does not exhibit significant obstructive disease. LEFT VENTRICULAR ANGIOGRAPHY: Left ventricular angiography was carried out in the right anterior oblique projection. Global left ventricular systolic function is within normal limits. Left ventricular ejection fraction is 50-55%. There does not appear to be significant mitral regurgitation. CONCLUSIONS: 1. No angiographically significant coronary artery disease. 2. Well-preserved global left ventricular systolic function with ejection fraction of 50-55%. 3. Elevated left ventricular end diastolic pressure. 4. No significant mitral regurgitation. DISCUSSION AND RECOMMENDATIONS: Based on results of the study, it appears appropriate to continue a conservative approach. Risk factor modification has again been advised. Weight loss is advised. Outpatient followup is advised. Job ID: [id number] DocumentID: [id number] Dictated Date: 12/03/2017 09:27:34 Advertising Operations Manager Date: 12/03/2017 09:57:43 Dictated By: DAISY DUMONT MD, MA, FACP, FACC,
== END 2017-12-03 12:35 | disposition home or self-care (01) ==
LOC: CATH 06:51 → SURG 09:44 → CATH 12:35
PROVIDERS: ATTEND Nurse Practitioner Family
DX: R07.89 Other chest pain (principal); I10 Essential (primary) hypertension; I48.91 Unspecified atrial fibrillation; G47.33 Obstructive sleep apnea (adult) (pediatric); I83.93 Asymptomatic varicose veins of bilateral lower extremities; M79.89 Other specified soft tissue disorders; E66.9 Obesity, unspecified; Z68.41 Body mass index [BMI] 40.0-44.9, adult; Z79.01 Long term (current) use of anticoagulants; Z79.82 Long term (current) use of aspirin; Z79.899 Other long term (current) drug therapy; Z87.891 Personal history of nicotine dependence; Z98.84 Bariatric surgery status
CPT/HCPCS: 36415; 80053; 80061; 85027; 85610; 85730; 87081; 93458

== ENCOUNTER 2018-05-12 01:13 | Emergency (ER) | payer BC ==
[~2018-05-12] VITALS: Ht 182.9 cm; Wt 131.5 kg
[~2018-05-12 01:13] MED LIST changes: +ASPI325T32 PO; +CLIN150C17 PO
[2018-05-12] MEDS ORDERED: HYDROcodone/APAP 5 MG/325 MG (LORTAB) TAB PO ONE (04:00)
[2018-05-12] MEDS ORDERED: HYDR-3812 PO (04:18)
--- NOTE | 2018-05-12 04:18 | ED Fall/Injury ---
General Chief Complaint: Lower Extremity Stated Complaint: FALL, L ANKLE PAIN Nursing Triage Note: PT PRESENTS TO ER WITH COMPLAINT OF LEFT ANKLE PAIN. STATES HE STEPPED OUT OF THE SHOWER ONTO THE FLOOR AND SLIPPED. STATES HE HEARD POPPING IN HIS ANKLE. DENIES ANY OTHER INJURY. Source: patient Exam Limitations: no limitations History of Present Illness Date Seen by Provider: May 12, 2018 Time Seen by Provider: 02:30 Initial Comments This 37-year-old gentleman presents to the emergency room with a left ankle injury. He slipped getting out of the shower and heard a popping sound followed by pain in the left ankle and foot. He denies any other injuries. He has had difficulty bearing weight. Occurred: this evening Allergies and Home Medications Allergies Coded Allergies: morphine (Unverified Allergy, Unknown, 05/08/17) penicillin G (Verified Allergy, Unknown, 08/04/06) Home Medications Apixaban 5 Mg Tablet, 5 MG PO BID, (Reported) Aspirin 325 Mg Tablet.dr, 162.5 MG PO DAILY, (Reported) Clindamycin HCl 150 Mg Capsule, 150 MG PO TID, (Reported) Hydrocodone/Acetaminophen 1 Each Tablet, 1 EACH PO Q6H PRN for PAIN-MODERATE TO SEVERE Prescribed by: JOSE PIERRE on 05/12/18 0418 Metoprolol Succinate 100 Mg Tab.er.24h, 100 MG PO DAILY, (Reported) Patient Home Medication List Home Medication List Reviewed: Yes Review of Systems Review of Systems Constitutional: no symptoms reported Eyes: No Symptoms Reported Ears, Nose, Mouth, Throat: no symptoms reported Respiratory: no symptoms reported Cardiovascular: no symptoms reported Gastrointestinal: no symptoms reported Genitourinary: no symptoms reported Musculoskeletal: see HPI Skin: no symptoms reported Psychiatric/Neurological: No Symptoms Reported Past Ddgvugh-Cvrfub-Levlvv Hx Patient Social History Alcohol Use: Occasionally Uses Number of Drinks Today: AA Alcohol Beverage of Choice: Beer Recreational Drug Use: Yes (tobacco, etoh ) Type Used: Cigarettes Former Smoker, Quit: Apr 03, 2017 2nd Hand Smoke Exposure: Yes Recent Foreign Travel: No Contact w/Someone Who Travel: No Recent Infectious Disease Expo: No Recent Hopitalizations: No Immunizations Up To Date Tetanus Booster (TDap): Unknown Seasonal Allergies Seasonal Allergies: No Past Medical History Surgeries: Yes (LAP BAND, MINI GASTRIC BYPASS, PELLET REMOVED FROM LEFT HAND AGE 12) Adenoidectomy, Appendectomy, Gallbladder, Tonsillectomy Respiratory: No Cardiac: Yes (ONSET A FIB 05/08/17) Atrial Fibrillation, Hypertension Neurological: No Reproductive Disorders: No Genitourinary: No Gastrointestinal: Yes Gall Bladder Disease Musculoskeletal: No Endocrine: Yes (OBESITY) HEENT: No Cancer: No Psychosocial: Yes Anxiety Integumentary: Yes (CELLULITIS--LEGS) Blood Disorders: No Family Medical History Cardiovascular disease 19 FATHER 19 MOTHER Heart Disease, Hypertension Physical Exam Vital Signs Vital Signs - First Documented 05/12/18 01:51 Temp 98.0 Pulse 76 Resp 20 B/P (MAP) 145/84 (104) Pulse Ox 96 O2 Delivery Room Air Capillary Refill : Less Than 3 Seconds Height, Weight, BMI Height: 6'0" Weight: 290lbs. 0.0oz. 131.961375cm; 42.7 BMI Method:Stated General Appearance: WD/WN, mild distress HEENT: normal ENT inspection Neck: normal inspection Cardiovascular: regular rate, rhythm, no edema, no murmur Respiratory: lungs clear, normal breath sounds, no respiratory distress, no accessory muscle use Extremities: swelling, other (tenderness and swelling over the lateral malleolus and the left lateral foot. 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, no motor/sensory deficits, alert, normal mood/affect, oriented x 3 Skin: normal color, warm/dry Jayashree Coma Score Best Eye Response: (4) Open Spontaneously Best Verbal Response: (5) Oriented Best Motor Response: (6) Obeys Commands Jayashree Total: 15 Progress/Results/Core Measures Results/Orders My Orders Orders - JOSE MIKE MD Ankle, Left, 3 Views (05/12/18 02:36) Foot, Left, 3 Views (05/12/18 03:46) Hydrocodone/Apap 5/325 Tablet (Lortab 5 (05/12/18 04:00) Crutches (05/12/18 03:58) Nilson Bandage (05/12/18 03:59) Medications Given in ED Vital Signs/I&O 05/12/18 05/12/18 01:51 04:30 Temp 98.0 98.0 Pulse 76 76 Resp 20 20 B/P (MAP) 145/84 (104) 145/84 (104) Pulse Ox 96 96 O2 Delivery Room Air Blood Pressure Mean: 104 Progress Progress Note #1: Time: 07:59 Progress Note X-ray reports were reviewed. Questionable avulsion fracture of the foot was noted. Patient was updated with these findings and was advised to see an orthopedic doctor within the next week. Progress Note #2: Time: 07:08 Progress Note May 15, 2018 - official radiologist reports were reviewed. There is additional concern for an avulsion fracture around the midfoot. Patient was contacted by phone and notified of this additional concern. I advised him to follow-up with an orthopedic surgeon and contact his primary care provider if a referral as needed. Diagnostic Imaging Diagonstic Imaging: Xray Plain Films/CT/US/NM/MRI: ankle, other (Foot) Comments X-rays of the ankle and foot were reviewed by me. Report is not yet available. There is a questionable avulsion fracture at the lateral malleolus. Departure Impression Primary Impression: Left ankle sprain Qualified Codes: S93.402A - Sprain of unspecified ligament of left ankle, initial encounter Additional Impressions: Fall on same level from slipping as cause of accidental injury Avulsion fracture of left ankle Qualified Codes: S82.892A - Other fracture of left lower leg, initial encounter for closed fracture Disposition: 01 HOME, SELF-CARE Condition: Improved Departure-Patient Inst. Decision time for Depature: 04:14 Referrals: DON HATFIELD MD (PCP/Family) Primary Care Physician Patient Instructions: Ankle Sprain (DC) Add. Discharge Instructions: Rest, elevation, compressive wrapping, and icing in 20 minute intervals should help with pain and swelling. Use crutches as needed and gradually increase level of activity as pain allows. Wear a supportive ankle brace (Velcro or lace up) whenever active for the next 6 weeks. If not improving rapidly, follow-up with your primary care provider or an orthopedic provider as soon as possible. All discharge instructions reviewed with patient and/or family. Voiced understanding. Scripts Hydrocodone/Acetaminophen (Hydrocodone-Acetamin 5-325 mg) 1 Each Tablet 1 EACH PO Q6H PRN for PAIN-MODERATE TO SEVERE, #10 TAB Prov: JOSE MIKE MD 05/12/18 Work/School Note: Work Release Form Date Seen in the Emergency Department: May 12, 2018 Return to Work: May 13, 2018 Other Restrictions Listed Below: Gradually increase weightbearing and walking as tolerated. Restrictions: May need to rest and elevate frequently for the first week. Weak a brace. JOSE MIKE MD May 12, 2018 04:18
[2018-05-12 04:30] VITALS: BP 145/84
--- NOTE | 2018-05-12 06:58 | Diagnostic Imaging Report ---
Clinical indication: Patient with foot pain. Exam: X-ray of the left foot, 3 views. Comparison: X-ray of the left ankle dated 05/12/2018. Findings and impression: 1: There is a small area of slight increased density seen laterally adjacent to the talus on the AP view. This may represent the area of calcification seen on the AP view of the left ankle. Considerations may include an avulsion injury. Clinical correlation for pain in this region would better evaluate. 2: The area distal to the lateral malleolus on the ankle x-rays are not visualized on this exam and may be obscured. 3: Stable hypertrophic calcaneal spur at the plantar attachment. 4: The remainder of the left foot is unremarkable. Dictated by: Dictated on workstation # [id number]
--- NOTE | 2018-05-12 06:59 | Diagnostic Imaging Report ---
Clinical indication: Patient with left ankle pain. Exam: X-ray of the left ankle, 3 views. Comparison: None. Findings and impression: 1: There is a small jefe of calcification seen laterally adjacent to the mid foot seen on the AP view concerning for avulsion injury. Clinical correlation for point tenderness would help better evaluate. 2: There is a possible curvilinear calcification seen distal to the lateral malleolus on the AP view versus shadow of the distal malleolar region. Correlation for pain in this region would also better evaluate. 3: Hypertrophic calcaneal spur at the plantar attachment. 4: The remainder of this exam shows no other significant abnormality. Dictated by: Dictated on workstation # [id number]
== END 2018-05-12 04:29 | disposition home or self-care (01) ==
LOC: EDUNIT# 01:13 → ER 01:14
DX: S82.892A Other fracture of left lower leg, initial encounter for closed fracture (principal); I48.91 Unspecified atrial fibrillation; I10 Essential (primary) hypertension; E66.9 Obesity, unspecified; F41.9 Anxiety disorder, unspecified; Z82.49 Family history of ischemic heart disease and other diseases of the circulatory system; Z68.41 Body mass index [BMI] 40.0-44.9, adult; Z87.448 Personal history of other diseases of urinary system; Z90.89 Acquired absence of other organs; Z98.84 Bariatric surgery status; Z88.5 Allergy status to narcotic agent; Z88.0 Allergy status to penicillin; Z79.82 Long term (current) use of aspirin; Z79.01 Long term (current) use of anticoagulants; Z87.891 Personal history of nicotine dependence; W01.0XXA Fall on same level from slipping, tripping and stumbling without subsequent striking against object, initial encounter; X50.1XXA Overexertion from prolonged static or awkward postures, initial encounter; Y92.002 Bathroom of unspecified non-institutional (private) residence as the place of occurrence of the external cause
CPT/HCPCS: 73610; 73630

== ENCOUNTER → 2018-10-16 | Outpatient (CLI) | payer BC ==
[~2018-10-16] MED LIST changes: +HYDR-3812 PO
--- NOTE | 2018-10-16 13:43 | Diagnostic Imaging Report ---
PROCEDURE: US left lower extremity venous. TECHNIQUE: Multiple real-time grayscale images were obtained over the left lower extremity in various projections. Additional duplex Doppler and color Doppler images were also obtained. INDICATION: Left lower extremity swelling. There is no evidence for left lower extremity DVT. Left lower extremity venous system shows normal compressibility with normal response to augmentation and Valsalva. No fluid collection is seen. There appears to be an enlarged lymph node in the left groin measuring approximately 4.3 x 1.0 cm. This does not exhibit typical lymph node architecture. IMPRESSION: 1. No evidence of left lower extremity DVT. 2. Enlarged left groin lymph node, indeterminate. Dictated by: Dictated on workstation # [id number]
== END ==
LOC: RAD 12:45
PROVIDERS: ATTEND Family Medicine
DX: M79.89 Other specified soft tissue disorders (principal); R59.0 Localized enlarged lymph nodes

== ENCOUNTER 2018-10-27 19:16 | Emergency (ER) | payer BC ==
[~2018-10-27] VITALS: Ht 182.9 cm; Wt 141.5 kg
[2018-10-27] MEDS ORDERED: NS IV 1000 ML 1,000 ML IV SCH (19:30)
[2018-10-27] MEDS ORDERED: ASPIRIN 81 MG CHEW (CHILDREN'S ASA) PO ONE (19:30)
[2018-10-27 19:40] LABS: BASOPHILS # (AUTO) 0.1 10^3/uL (0.0-0.1); BASOPHILS % (AUTO) 1 % (0-10); EOSINOPHILS # (AUTO) 0.1 10^3/uL (0.0-0.3); EOSINOPHILS % (AUTO) 2 % (0-10); HEMATOCRIT 41 % (40-54); HEMOGLOBIN 13.7 G/DL (13.3-17.7); LYMPHOCYTES # (AUTO) 1.9 X 10^3 (1.0-4.0); LYMPHOCYTES % (AUTO) 27 % (12-44); MEAN CORPUSCULAR HEMOGLOBIN 30 PG (25-34); MEAN CORPUSCULAR HGB CONC 34 G/DL (32-36); MEAN CORPUSCULAR VOLUME 89 FL (80-99); MEAN PLATELET VOLUME 8.7 FL (7.4-10.4); MONOCYTES # (AUTO) 0.9 X 10^3 (0.0-1.0); MONOCYTES % (AUTO) 13 % (0-12); NEUTROPHILS % (AUTO) 58 % (42-75); PLATELET COUNT 449 10^3/uL (130-400); RED CELL DISTRIBUTION WIDTH 14.4 % (10.0-14.5)
[2018-10-27] MEDS: NITROGLYCERIN 0.4 MG SL TABS BTL 25'S SL PRN ×3 (19:41→20:12)
--- NOTE | 2018-10-27 19:42 | ED Chest Pain ---
General Stated Complaint: TIGHTNESS, SWELLING IN LEFT LEG Source: patient, old records Exam Limitations: no limitations History of Present Illness Date Seen by Provider: Oct 27, 2018 Time Seen by Provider: 19:22 Initial Comments Patient presents to ER by private conveyance with chief complaint 45 minutes prior to arrival he started expressing some tightness across the front of his chest. It does not radiate anywhere. He is not having any specific pain says at worst it was about a 7 out of 10 but now it's 5 out of 10. He has not taken anything for it. He's also noticed today after seeing his primary care doctor that his left lower extremity that was red hot swollen tight has worsened. He was being treated with 10 day course of doxycycline followed by another week of doxycycline and when he saw the primary care provider today he stopped the antibiotics and told them that the staff was taking care of and it was looking much better. Couple days ago he had an ultrasound looking for DVT was negative. He is on Eliquis with a history of paroxysmal atrial fibrillation. He has not felt any palpitations for almost a year. He used to be on medicines to prevent tachycardia but he says he does not take those anymore because his family law specialist to come off those. He is known to Dr. Tasng. He says since stopping the antibiotics today his leg has become very tight more swollen more red and more hot.. No cough shortness of breath. He does smoke cigarettes half pack to a pack per day. He drinks alcohol had about 2 drinks today. He denies any recreational drug use. He has no thyroid disorder. He does have a history of hypercholesterolemia and hypertension but no history of PR. No familial history of early-onset coronary disease. Allergies and Home Medications Allergies Coded Allergies: morphine (Unverified Allergy, Unknown, 05/08/17) penicillin G (Verified Allergy, Unknown, 08/04/06) Home Medications Apixaban 5 Mg Tablet, 5 MG PO BID, (Reported) Aspirin 325 Mg Tablet., 162.5 MG PO DAILY, (Reported) Cephalexin 500 Mg Tablet, 500 MG PO QID Prescribed by: MAYRA DONAHUE on 10/27/182047 Clindamycin HCl 150 Mg Capsule, 150 MG PO TID, (Reported) Hydrocodone/Acetaminophen 1 Each Tablet, 1 EACH PO Q6H PRN for PAIN-MODERATE TO SEVERE Prescribed by: JOSE PIERRE on 05/12/18 0418 Metoprolol Succinate 100 Mg Tab.er.24h, 100 MG PO DAILY, (Reported) Patient Home Medication List Home Medication List Reviewed: Yes Review of Systems Review of Systems Constitutional: No chills, No fever, No malaise EENTM: No Blurred Vision, No Double Vision Respiratory: Denies Cough, Denies Shortness of Air Cardiovascular: See HPI, Chest Pain; Denies Edema, Denies Irregular Heart Rate , Denies Palpitations Gastrointestinal: Denies Abdominal Pain, Denies Constipated, Denies Diarrhea, Denies Nausea Genitourinary: Denies Burning, Denies Discharge Musculoskeletal: No back pain, No joint pain Skin: see HPI; No pruritus; rash Past Utngcjc-Hgxopw-Eypbiv Hx Patient Social History Alcohol Use: Regular Use Alcohol Beverage of Choice: Beer Recreational Drug Use: No Smoking Status: Current Everyday Smoker Type Used: Cigarettes 2nd Hand Smoke Exposure: Yes Recent Foreign Travel: No Contact w/Someone Who Travel: No Recent Hopitalizations: No Immunizations Up To Date Tetanus Booster (TDap): Unknown Seasonal Allergies Seasonal Allergies: No Past Medical History Surgeries: Yes (LAP BAND, MINI GASTRIC BYPASS, PELLET REMOVED FROM LEFT HAND AGE 12) Adenoidectomy, Appendectomy, Gallbladder, Tonsillectomy Respiratory: No Cardiac: Yes (ONSET A FIB 05/08/17) Atrial Fibrillation, Hypertension Neurological: No Reproductive Disorders: No Genitourinary: No Gastrointestinal: Yes Gall Bladder Disease Musculoskeletal: No Endocrine: Yes (OBESITY) HEENT: No Cancer: No Psychosocial: Yes Anxiety Integumentary: Yes (CELLULITIS--LEGS) Blood Disorders: No Family Medical History Cardiovascular disease 19 FATHER 19 MOTHER Heart Disease, Hypertension Physical Exam Vital Signs Vital Signs - First Documented Capillary Refill : Height, Weight, BMI Height: 6'0" Weight: 290lbs. 0.0oz. 131.140125ex; 42.7 BMI Method:Stated General Appearance: No Apparent Distress, Obese HEENT: PERRL/EOMI, Moist Mucous Membranes Respiratory: Chest Non Tender, Lungs Clear, Normal Breath Sounds, No Accessory Muscle Use, No Respiratory Distress Cardiovascular: Regular Rate, Rhythm, No Murmur, Normal Peripheral Pulses Gastrointestinal: Non Tender, Soft Extremity: Normal Capillary Refill, Inflammation, Swelling (Left lower extremity is warm, swollen, erythematous blanching) Neurologic/Psychiatric: Alert, Oriented x3, No Motor/Sensory Deficits Skin: Warm/Dry, Erythema Progress/Results/Core Measures Results/Orders Lab Results Laboratory Tests Test 10/27/18 19:33 10/27/18 20:54 Range/Units White Blood Count 7.0 4.3-11.0 10^3/uL Red Blood Count 4.59 4.35-5.85 10^6/uL Hemoglobin 13.7 13.3-17.7 G/DL Hematocrit 41 40-54 % Mean Corpuscular Volume 89 80-99 FL Mean Corpuscular Hemoglobin 30 25-34 PG Mean Corpuscular Hemoglobin Concent 34 32-36 G/DL Red Cell Distribution Width 14.4 10.0-14.5 % Platelet Count 449 H 130-400 10^3/uL Mean Platelet Volume 8.7 7.4-10.4 FL Neutrophils (%) (Auto) 58 42-75 % Lymphocytes (%) (Auto) 27 12-44 % Monocytes (%) (Auto) 13 H 0-12 % Eosinophils (%) (Auto) 2 0-10 % Basophils (%) (Auto) 1 0-10 % Neutrophils # (Auto) 4.0 1.8-7.8 X 10^3 Lymphocytes # (Auto) 1.9 1.0-4.0 X 10^3 Monocytes # (Auto) 0.9 0.0-1.0 X 10^3 Eosinophils # (Auto) 0.1 0.0-0.3 10^3/uL Basophils # (Auto) 0.1 0.0-0.1 10^3/uL Prothrombin Time 13.6 12.2-14.7 SEC INR Comment 1.0 0.8-1.4 Activated Partial Thromboplast Time 29 24-35 SEC Sodium Level 136 135-145 MMOL/L Potassium Level 4.0 3.6-5.0 MMOL/L Chloride Level 104 98-107 MMOL/L Carbon Dioxide Level 23 21-32 MMOL/L Anion Gap 9 5-14 MMOL/L Blood Urea Nitrogen 12 7-18 MG/DL Creatinine 0.76 0.60-1.30 MG/DL Estimat Glomerular Filtration Rate > 60 BUN/Creatinine Ratio 16 Glucose Level 99 70-105 MG/DL Calcium Level 8.8 8.5-10.1 MG/DL Corrected Calcium 9.1 8.5-10.1 MG/DL Magnesium Level 2.5 H 1.8-2.4 MG/DL Total Bilirubin 0.5 0.1-1.0 MG/DL Aspartate Amino Transf (AST/SGOT) 41 H 5-34 U/L Alanine Aminotransferase (ALT/SGPT) 55 0-55 U/L Alkaline Phosphatase 52 40-136 U/L Myoglobin 13.2 10.0-92.0 NG/ML Troponin I < 0.028 < 0.028 <0.028 NG/ML B-Type Natriuretic Peptide 85.6 <100.0 PG/ML Total Protein 7.3 6.4-8.2 GM/DL Albumin 3.6 3.2-4.5 GM/DL My Orders Orders - MAYRA DONAHUE Cbc With Automated Diff (10/27/18 19:30) Magnesium (10/27/18:30) Ekg Tracing (10/27/18:30) Cardiac Profile 1 (10/27/18) Comprehensive Metabolic Panel (10/27/1830) Myoglobin Serum (10/27/18:30) Protime With Inr (10/27/18:30) Partial Thromboplastin Time (10/27/18:30) O2 (10/27/18:30) Monitor-Rhythm Ecg Trace Only (10/27/18:30) Lipid Panel (10/28/18 06:00) Aspirin Chewable Tablet (Baby Aspirin Ch (10/27/18:30) Nitroglycerin 0.4 Mg Btl 25's (Nitrostat (10/27/18:30) Saline Lock/Iv-Start (10/27/18 19:30) BNP (10/27/18:30) Saline Lock/Iv-Start (10/27/18 19:30) Ns Iv 1000 Ml (Sodium Chloride 0.9%) (10/27/18:30) Chest Pa/Lat (2 View) (10/27/18 19:30) Ceftriaxone For Iv Use (Rocephin For I (10/27/18 19:45) Troponin I (10/27/18 20:50) Medications Given in ED Current Medications Medications Dose Ordered Sig/Elijah Route Start Time Stop Time Status Last Admin Dose Admin Aspirin 324 mg ONCE ONCE PO 10/27/18 19:30 10/27/18 19:35 DC 10/27/18 19:40 324 MG Ceftriaxone Sodium 1000 mg/ Sterile Water 10 ml @ 200 mls/hr ONCE ONCE IV 10/27/18 19:45 10/27/18 19:47 DC 10/27/18 20:19 200 MLS/HR Nitroglycerin 0.4 mg UD PRN SL 10/27/18 19:30 10/27/18 20:12 DC 10/27/18 20:12 0.4 MG Vital Signs/I&O 10/27/18 10/27/18 19:22 19:22 Temp 98.3 Pulse 68 Resp 19 B/P (MAP) 154/79 (104) Pulse Ox 98 O2 Delivery Room Air Room Air Progress Progress Note : Time: 19:40 Progress Note Despite 17 days of doxycycline and having just stopped today taking the antibiotics the patient's leg does still appear to have a cellulitic appearance. He does not know what happens if he Takes penicillin. We'll trial some Rocephin. He is an aseptic vital signs and a septic appearance so I don't think he necessarily requires antibiotics. He's had a recent ultrasound done looking for DVT in the left lower extremity and is on Eliquis which he says he takes routinely so a DVT is fairly unlikely at this point. He says it was improving on the doxycycline and when Dr. Velasquez saw this morning even thought that it had resolved and that is why he stopped the antibiotics. No evidence of trauma and no evidence of any abscess or fluid collection. Apparently the next step in the plan was to get some leg wraps done to try and help with his chronic lymphedema. His contralateral leg is not as big although it does definitely have chronic lymphedema. There is no erythema warmth or tenderness in it either. His chest tightness is not reproducible on deep inspiration or direct palpation however he had a recent catheterization that was unremarkable. We'll give him some aspirin trial some nitroglycerin and obtain labs and EKG. Chest x-ray two- view. Cardiac catheterization December [address] Tsang: No angiographically significant coronary artery disease with an EF of 50-55%. Elevated left ventricular end-diastolic pressure. No mitral regurgitation. Echocardiogram 2016 demonstrates a cavity size upper limits of normal wall thickness being normal. EF of 60-65%. Mildly dilated atrium. Initial ECG Impression Date: Oct 27, 2018 Initial ECG Impression Time: 19:25 Initial ECG Rate: 65 Initial ECG Rhythm: Normal Sinus Initial ECG Intervals: Normal Initial ECG Impression: Normal Initial ECG Comparisson: Unchanged Comment Normal sinus rhythm without ST elevation or depression. Diagnostic Imaging Diagonstic Imaging: Xray Plain Films/CT/US/NM/MRI: chest (2v) Comments [facility] [place], [place] NAME: SHARATH PORRAS [facility] REC#: [id number] PT STATUS: REG ER : 1980 PHYSICIAN: MAYRA DONAHUE MD ADMIT DATE: 10/27/18/ER Draft Date of Exam:10/27/18 CHEST PA/LAT (2 VIEW) EXAMINATION: CHEST (PA AND LATERAL) CLINICAL INDICATION: 38-year-old male, chest tightness, shortness of breath. COMPARISON: November 27, 2017. FINDINGS: Heart size and mediastinal contours are unremarkable. There is no identified pneumothorax. There is no pleural effusion. There is no identified focal airspace consolidation. IMPRESSION: No identified acute cardiopulmonary abnormality. Dictated on workstation # [id number] Dict: 10/27/182002 Trans: 10/27/182004 [facility] [id number] Interpreted by: ROSIE VEGA MD Electronically signed by: Reviewed: Reviewed by Me Departure Communication (PCP) Discussed the case with Dr. Velasquez who is from there with him and he agrees that he thinks it's between phlebitis versus sialitis. Did seem to get better on the antibiotics but he has an appointment to follow up at the lymphedema clinic to get some support stockings fitted. He is okay with resuming Keflex and keeping the appointment at the clinic. Labs are unremarkable. Impression Primary Impression: Left leg cellulitis Additional Impressions: Phlebitis Chest discomfort Disposition: 01 HOME, SELF-CARE Condition: Stable Departure-Patient Inst. Decision time for Depature: 21:20 Referrals: DON VELASQUEZ MD (PCP) Primary Care Physician Patient Instructions: Chest Pain That Is Not Caused by the Heart (DC), Phlebitis (DC) Add. Discharge Instructions: medical support assistant the Keflex and start taking it 4 times a day for the next week. Keep your follow-up appointment with the lymphedema clinic to get fitted for the compression stockings. Follow-up with primary care. It is very possible that the redness swelling and tightness in your leg is not caused by an infection but rather by phlebitis. If he does not respond to the Keflex then we would not probably consider more antibiotics as it is not a cellulitis. You can use Naprosyn 1 capsules twice a day for the discomfort in your leg. Call your family law specialist Dr. Tsang and discuss set up a follow-up appointment this week to discuss your chest tightness. Scripts Cephalexin (Cephalexin) 500 Mg Tablet 500 MG PO QID for 7 Days, #28 TAB 0 Refills Prov: MAYRA DONAHUE 10/27/18 MAYRA DONAHUE Oct 27, 2018 19:41
[2018-10-27] MEDS ORDERED: cefTRIAXone FOR IV USE 1,000 MG in WATER (STERILE) FOR INJECTION 10 ML IV ONE (19:45)
[2018-10-27 19:50] LABS: PROTHROMBIN TIME PATIENT 13.6 SEC (12.2-14.7)
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
[2018-10-27 20:00] LABS: ALANINE AMINOTRANSFERASE 55 U/L (0-55); ALBUMIN 3.6 GM/DL (3.2-4.5); ALKALINE PHOSPHATASE 52 U/L (40-136); BILIRUBIN,TOTAL 0.5 MG/DL (0.1-1.0); BUN/CREATININE RATIO 16; CALCIUM 8.8 MG/DL (8.5-10.1); CARBON DIOXIDE 23 MMOL/L (21-32); CHLORIDE 104 MMOL/L (98-107); CREATININE SERUM 0.76 MG/DL (0.60-1.30); GFR ESTIMATED > 60; GLUCOSE 99 MG/DL (70-105); MAGNESIUM 2.5 MG/DL (1.8-2.4); SODIUM 136 MMOL/L (135-145); TOTAL PROTEIN 7.3 GM/DL (6.4-8.2)
[2018-10-27 20:02] LABS: MYOGLOBIN SERUM 13.2 NG/ML (10.0-92.0)
--- NOTE | 2018-10-27 20:06 | Diagnostic Imaging Report ---
EXAMINATION: CHEST (PA AND LATERAL) CLINICAL INDICATION: 38-year-old male, chest tightness, shortness of breath. COMPARISON: November 27, 2017. FINDINGS: Heart size and mediastinal contours are unremarkable. There is no identified pneumothorax. There is no pleural effusion. There is no identified focal airspace consolidation. IMPRESSION: No identified acute cardiopulmonary abnormality. Dictated by: Dictated on workstation # [id number]
--- NOTE | 2018-10-27 20:10 | NUR ---
Pt rating pain 3/10 after second nitro.
--- NOTE | 2018-10-27 20:17 | NUR ---
Pt rating pain 0/10 after third nitro.
--- NOTE | 2018-10-27 20:25 | NUR ---
Pt rating pain 5/10 after first nitro.
[2018-10-27] MEDS ORDERED: CEPH500T PO (20:48)
[2018-10-27 21:50] VITALS: BP 144/87
== END 2018-10-27 21:50 | disposition home or self-care (01) ==
LOC: EDUNIT# 19:16 → ER 19:18
DX: L03.116 Cellulitis of left lower limb (principal); I80.3 Phlebitis and thrombophlebitis of lower extremities, unspecified; R07.89 Other chest pain; I48.0 Paroxysmal atrial fibrillation; E78.00 Pure hypercholesterolemia, unspecified; E66.9 Obesity, unspecified; F41.9 Anxiety disorder, unspecified; I10 Essential (primary) hypertension; F17.210 Nicotine dependence, cigarettes, uncomplicated; Z98.890 Other specified postprocedural states; Z90.89 Acquired absence of other organs; Z82.49 Family history of ischemic heart disease and other diseases of the circulatory system; Z87.19 Personal history of other diseases of the digestive system; Z90.49 Acquired absence of other specified parts of digestive tract; Z98.84 Bariatric surgery status; Z88.5 Allergy status to narcotic agent; Z88.0 Allergy status to penicillin; Z79.01 Long term (current) use of anticoagulants; Z79.82 Long term (current) use of aspirin
CPT/HCPCS: 36415; 71046; 80053; 83735; 83874; 83880; 84484; 85025; 85610; 85730; 93005; 93041; 96361; 96365

== ENCOUNTER 2018-11-04 13:58 | Outpatient (RCR) | payer BC ==
[~2018-11-04 13:58] MED LIST changes: +CEPH500T PO
== END 2019-02-02 | disposition home or self-care (01) ==
PROVIDERS: ATTEND Internal Medicine
DX: I89.0 Lymphedema, not elsewhere classified (principal)

== ENCOUNTER 2019-04-29 18:07 | Emergency (ER) | payer BC ==
[~2019-04-29] VITALS: Ht 182.9 cm; Wt 144.2 kg
[~2019-04-29 18:07] MED LIST changes: +ASPIRIN 81 MG CHEW (CHILDREN'S ASA) ONE
[2019-04-29 18:30] LABS: BASOPHILS # (AUTO) 0.1 10^3/uL (0.0-0.1); BASOPHILS % (AUTO) 1 % (0-10); EOSINOPHILS # (AUTO) 0.2 10^3/uL (0.0-0.3); EOSINOPHILS % (AUTO) 2 % (0-10); HEMATOCRIT 40 % (40-54); HEMOGLOBIN 13.9 G/DL (13.3-17.7); LYMPHOCYTES # (AUTO) 1.9 X 10^3 (1.0-4.0); LYMPHOCYTES % (AUTO) 25 % (12-44); MEAN CORPUSCULAR HEMOGLOBIN 29 PG (25-34); MEAN CORPUSCULAR HGB CONC 34 G/DL (32-36); MEAN CORPUSCULAR VOLUME 86 FL (80-99); MEAN PLATELET VOLUME 9.7 FL (7.4-10.4); MONOCYTES # (AUTO) 1.2 X 10^3 (0.0-1.0); MONOCYTES % (AUTO) 17 % (0-12); NEUTROPHILS # (AUTO) 4.2 X 10^3 (1.8-7.8); NEUTROPHILS % (AUTO) 56 % (42-75); PLATELET COUNT 257 10^3/uL (130-400); WHITE BLOOD COUNT 7.5 10^3/uL (4.3-11.0)
--- NOTE | 2019-04-29 18:30 | NUR ---
chest pain re-assessed after ASA admin, pt reports pain is unrelieved at this time.
[2019-04-29 18:36] LABS: PROTHROMBIN TIME PATIENT 13.7 SEC (12.2-14.7)
[2019-04-29] MEDS ORDERED: ASPIRIN 81 MG CHEW (CHILDREN'S ASA) PO ONE (18:45)
[2019-04-29] MEDS ORDERED: ONDANSETRON 4 MG/2 ML (SDV) Z0FRAN IVP ONE (18:45)
[2019-04-29] MEDS ORDERED: NITROGLYCERIN 0.4 MG SL TABS BTL 25'S SL PRN (18:45)
[2019-04-29 18:46] LABS: ALANINE AMINOTRANSFERASE 31 U/L (0-55); ALBUMIN 4.4 GM/DL (3.2-4.5); ALKALINE PHOSPHATASE 44 U/L (40-136); BUN/CREATININE RATIO 10; CALCIUM 8.9 MG/DL (8.5-10.1); CARBON DIOXIDE 26 MMOL/L (21-32); CHLORIDE 99 MMOL/L (98-107); CREATININE SERUM 0.82 MG/DL (0.60-1.30); GFR ESTIMATED > 60; GLUCOSE 108 MG/DL (70-105); MAGNESIUM 2.2 MG/DL (1.6-2.4); SODIUM 134 MMOL/L (135-145)
--- NOTE | 2019-04-29 18:50 | ED Chest Pain ---
General Chief Complaint: Chest Pain Stated Complaint: CHEST TIGHTNESS,SOB Nursing Triage Note: Pt ambulates to ED with complaints of medial chest pain that started approx 1730. Pt rates pain 4/10 with tightness, denies any shortness of air at this time. Pt is A&O x 4. Pt has a cardiac Hx of Afib. Nursing Sepsis Screen: No Definite Risk Source: patient Exam Limitations: no limitations History of Present Illness Date Seen by Provider: Apr 29, 2019 Time Seen by Provider: 18:23 Initial Comments This 38-year-old gentleman with known paroxysmal atrial fibrillation presents to the emergency room with complaints of abrupt onset of chest tightness and pain and numbness in the left arm. He had associated shortness of breath and vomiting. He has been intermittently nauseated since then. Pain onset was about 8 out of 10. He now complains of some persistent chest tightness rated as 4 out of 10. He is on Eliquis for stroke prophylaxis but he did not take his dose this morning. He denies any alleviating or exacerbating factors. He continues to smoke despite his heart problems. 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 His primary care providers Dr. Velasquez. He is in sinus rhythm on the monitor at the time of assessment. Allergies and Home Medications Allergies Coded Allergies: morphine (Unverified Allergy, Unknown, 05/08/17) penicillin G (Verified Allergy, Unknown, 08/04/06) Home Medications Apixaban 5 Mg Tablet, 5 MG PO BID, (Reported) Aspirin 325 Mg Tablet.dr, 162.5 MG PO DAILY, (Reported) Cephalexin 500 Mg Tablet, 500 MG PO QID Prescribed by: MAYRA DONAHUE on 10/27/182047 Clindamycin HCl 150 Mg Capsule, 150 MG PO TID, (Reported) Hydrocodone/Acetaminophen 1 Each Tablet, 1 EACH PO Q6H PRN for PAIN-MODERATE TO SEVERE Prescribed by: JOSE PIERRE on 05/12/18 0418 Metoprolol Succinate 100 Mg Tab.er.24h, 100 MG PO DAILY, (Reported) Metoprolol Succinate 100 Mg Tab.er.24h, 100 MG PO DAILY Prescribed by: JOSE PIERRE on 04/29/193 Patient Home Medication List Home Medication List Reviewed: Yes Review of Systems Review of Systems Constitutional: no symptoms reported EENTM: No Symptoms Reported Respiratory: See HPI, Shortness of Air Cardiovascular: See HPI Gastrointestinal: See HPI Genitourinary: No Symptoms Reported Musculoskeletal: no symptoms reported Skin: no symptoms reported Psychiatric/Neurological: No Symptoms Reported Endocrine: No Symptoms Reported Past Wtjlhvy-Etkzue-Bqdezs Hx Past Med/Social Hx: Reviewed and Corrections made Patient Social History Alcohol Use: Rarely Uses Number of Drinks Today: AA Alcohol Beverage of Choice: Beer Recreational Drug Use: Yes (tobacco, etoh ) Smoking Status: Current Everyday Smoker Type Used: Cigarettes 2nd Hand Smoke Exposure: Yes Recent Foreign Travel: No Contact w/Someone Who Travel: No Recent Infectious Disease Expo: No Recent Hopitalizations: No Physical Abuse: No Sexual Abuse: No Mistreated: No Fear: No Immunizations Up To Date Tetanus Booster (TDap): Unknown Seasonal Allergies Seasonal Allergies: No Past Medical History Surgeries: Yes (LAP BAND, MINI GASTRIC BYPASS, PELLET REMOVED FROM LEFT HAND AGE 12) Adenoidectomy, Appendectomy, Gallbladder, Tonsillectomy Respiratory: No Cardiac: Yes (ONSET A FIB 05/08/17) Atrial Fibrillation (paroxysmal), Hypertension Neurological: No Reproductive Disorders: No Genitourinary: No Gastrointestinal: Yes Gall Bladder Disease Musculoskeletal: No Endocrine: Yes (OBESITY) HEENT: No Cancer: No Psychosocial: Yes Anxiety Integumentary: Yes (CELLULITIS--LEGS) Blood Disorders: No Family Medical History Cardiovascular disease 19 FATHER 19 MOTHER Heart Disease, Hypertension Physical Exam Vital Signs Vital Signs - First Documented 04/29/19 04/29/19 18:07 18:13 Temp 99.2 Pulse 66 Resp 11 B/P (MAP) 166/90 (115) Pulse Ox 98 O2 Delivery Room Air Capillary Refill : Less Than 3 Seconds Height, Weight, BMI Height: 6'0" Weight: 318lbs. 0.0oz. 144.736092hj; 42.7 BMI Method:Stated General Appearance: No Apparent Distress, WD/WN, Obese HEENT: PERRL/EOMI, Normal ENT Inspection Neck: Normal Inspection Respiratory: Chest Non Tender, Lungs Clear, Normal Breath Sounds, No Accessory Muscle Use, No Respiratory Distress Cardiovascular: Regular Rate, Rhythm, No Edema, No Murmur, Normal Peripheral Pulses Gastrointestinal: Normal Bowel Sounds, Non Tender, Soft Extremity: Normal Inspection, Non Tender, No Pedal Edema Neurologic/Psychiatric: Alert, Oriented x3, No Motor/Sensory Deficits, Normal Mood/Affect, thermostat maker II-XII Norm as Tested Skin: Normal Color, Warm/Dry Progress/Results/Core Measures Results/Orders Lab Results Laboratory Tests Test 04/29/19 18:15 04/29/19 20:10 Range/Units White Blood Count 7.5 4.3-11.0 10^3/uL Red Blood Count 4.72 4.35-5.85 10^6/uL Hemoglobin 13.9 13.3-17.7 G/DL Hematocrit 40 40-54 % Mean Corpuscular Volume 86 80-99 FL Mean Corpuscular Hemoglobin 29 25-34 PG Mean Corpuscular Hemoglobin Concent 34 32-36 G/DL Red Cell Distribution Width 15.0 H 10.0-14.5 % Platelet Count 257 130-400 10^3/uL Mean Platelet Volume 9.7 7.4-10.4 FL Neutrophils (%) (Auto) 56 42-75 % Lymphocytes (%) (Auto) 25 12-44 % Monocytes (%) (Auto) 17 H 0-12 % Eosinophils (%) (Auto) 2 0-10 % Basophils (%) (Auto) 1 0-10 % Neutrophils # (Auto) 4.2 1.8-7.8 X 10^3 Lymphocytes # (Auto) 1.9 1.0-4.0 X 10^3 Monocytes # (Auto) 1.2 H 0.0-1.0 X 10^3 Eosinophils # (Auto) 0.2 0.0-0.3 10^3/uL Basophils # (Auto) 0.1 0.0-0.1 10^3/uL Prothrombin Time 13.7 12.2-14.7 SEC INR Comment 1.0 0.8-1.4 Activated Partial Thromboplast Time 29 24-35 SEC Sodium Level 134 L 135-145 MMOL/L Potassium Level 4.0 3.6-5.0 MMOL/L Chloride Level 99 98-107 MMOL/L Carbon Dioxide Level 26 21-32 MMOL/L Anion Gap 9 5-14 MMOL/L Blood Urea Nitrogen 8 7-18 MG/DL Creatinine 0.82 0.60-1.30 MG/DL Estimat Glomerular Filtration Rate > 60 BUN/Creatinine Ratio 10 Glucose Level 108 H 70-105 MG/DL Calcium Level 8.9 8.5-10.1 MG/DL Corrected Calcium 8.6 8.5-10.1 MG/DL Magnesium Level 2.2 1.6-2.4 MG/DL Total Bilirubin 1.0 0.1-1.0 MG/DL Aspartate Amino Transf (AST/SGOT) 35 H 5-34 U/L Alanine Aminotransferase (ALT/SGPT) 31 0-55 U/L Alkaline Phosphatase 44 40-136 U/L Myoglobin 25.8 10.0-92.0 NG/ML Troponin I < 0.028 < 0.028 <0.028 NG/ML Total Protein 8.0 6.4-8.2 GM/DL Albumin 4.4 3.2-4.5 GM/DL My Orders Orders - JOSE MIKE MD Cbc With Automated Diff (04/29/19 18:24) Magnesium (04/29/19 18:24) Chest 1 View, Ap/Pa Only (04/29/19 18:24) Ekg Tracing (04/29/19 18:24) Cardiac Profile 1 (04/29/19 18:24) Comprehensive Metabolic Panel (04/29/19 18:24) Myoglobin Serum (04/29/19 18:24) Protime With Inr (04/29/19 18:24) Partial Thromboplastin Time (04/29/19 18:24) O2 (04/29/19 18:24) Monitor-Rhythm Ecg Trace Only (04/29/19 18:24) Lipid Panel (04/30/19 06:00) Ed Iv/Invasive Line Start (04/29/19 18:24) Nitroglycerin 0.4 Mg Btl 25's (Nitrostat (04/29/19 18:45) Aspirin Chewable Tablet (Baby Aspirin Ch (04/29/19 18:45) Ondansetron Injection (Zofran Injectio (04/29/19 18:45) Troponin I (04/29/19 20:15) Apixaban Tablet (Eliquis Tablet) (04/29/19 19:15) Metoprolol Succinate (Xl) Tab (Toprol Xl (04/29/19 21:15) Medications Given in ED Current Medications Medications Dose Ordered Sig/Elijah Route Start Time Stop Time Status Last Admin Dose Admin Apixaban 5 mg ONCE ONCE PO 04/29/19 19:15 04/29/19 19:16 DC 04/29/19 19:12 5 MG Aspirin 324 mg ONCE ONCE PO 04/29/19 18:45 04/29/19 18:46 DC 04/29/19 18:08 324 MG Nitroglycerin 0.4 mg UD PRN SL 04/29/19 18:45 04/29/19 18:42 0.4 MG Ondansetron HCl 8 mg ONCE ONCE IVP 04/29/19 18:45 04/29/19 18:46 DC 04/29/19 18:41 8 MG Vital Signs/I&O 04/29/19 04/29/19 18:07 18:13 Temp 99.2 Pulse 66 Resp 11 B/P (MAP) 166/90 (115) Pulse Ox 98 O2 Delivery Room Air Room Air Blood Pressure Mean: 115 Progress Progress Note #1: Time: 19:08 Progress Note Patient received 324 mg of aspirin chewed. Pain was 4/10 at the time of presentation. After one nitroglycerin pain is a 1 or 2 out of 10. Chart was reviewed. Patient had a stress test in 2016 that was negative for ischemia. He also had cardiac angiography in December 2017 demonstrating no significant coronary artery disease. His ejection fraction was 50-55 percent. He had elevated left ventricular end-diastolic pressure. We will administer the evening dose of Eliquis since he missed his morning dose. I discussed the importance of compliance with his Eliquis and smoking cessation. Cost seems to be a barrier to compliance. We will address this at the time of discharge if he is dismissed. A 2 hour troponin is pending. Progress Note #2: Time: 21:10 Progress Note Patient's pain eventually dissipated. He is now pain free. Repeat troponin was negative. I stressed the importance of compliance with his medications for stroke prophylaxis as well as the importance of smoking cessation. He has been out of his Toprol-XL. A dose was given in the ER. He states he has some Eliquis in his truck and he will resume taking Eliquis. Case was discussed with Dr. Benito. Given the negative troponin, absence of pain at present, and clean heart catheter a year ago, we feel the patient is safe to return home for outpatient follow-up. Initial ECG Impression Date: Apr 29, 2019 Initial ECG Impression Time: 18:11 Initial ECG Rate: 68 Initial ECG Rhythm: Normal Sinus Initial ECG Intervals: Normal Initial ECG Impression: Normal Comment Normal sinus rhythm with no ST elevation or depression. No abnormal intervals or axis deviation. Diagnostic Imaging Diagonstic Imaging: Xray Plain Films/CT/US/NM/MRI: chest Comments Chest x-ray viewed by me and report reviewed. See report below: NAME: SHARATH PORRAS [facility] REC#: [id number] PT STATUS: REG ER : 1980 PHYSICIAN: JOSE MIKE MD ADMIT DATE: 04/29/19/ER Signed Date of Exam:04/29/19 CHEST 1 VIEW, AP/PA ONLY EXAM: CHEST 1 VIEW, AP/PA ONLY. INDICATION: Shortness of breath. Chest tightness. COMPARISON: 10/27/2018. FINDINGS: Normal heart size and pulmonary vascularity. No dense consolidation, pleural effusion or pneumothorax. No acute osseous findings. No significant change. IMPRESSION: No acute cardiopulmonary findings. Dictated by: Dictated on workstation # [id number] Dict: 04/29/191900 Trans: 04/29/191940 [id number] Interpreted by: SHER SLOAN MD Electronically signed by: SHER SLOAN MD 04/29/191940 Departure Impression Primary Impression: Chest pain Qualified Codes: R07.9 - Chest pain, unspecified Additional Impressions: Nausea and vomiting Qualified Codes: R11.2 - Nausea with vomiting, unspecified Paroxysmal atrial fibrillation Disposition: 01 HOME, SELF-CARE Condition: Improved Departure-Patient Inst. Decision time for Depature: 21:15 Referrals: DON VELASQUEZ MD (PCP/Family) Primary Care Physician Patient Instructions: Atrial Fibrillation (DC), Chest Pain (DC) Add. Discharge Instructions: Resume your metoprolol (Toprol-XL) and Eliquis as soon as possible. Follow-up with Dr. Tsang as soon as possible. Please call his office tomorrow morning for an appointment. Return to the emergency room if you have worsening symptoms. Please work toward quitting smoking as rapidly as possible. Quitting smoking will greatly reduce your overall health risks. Please discuss this with your primary care provider. Strict compliance with your heart medications is very important to reduce your risk for stroke and other complications. Please take your medications exactly as prescribed. All discharge instructions reviewed with patient and/or family. Voiced understanding. Scripts Metoprolol Succinate (Toprol Xl) 100 Mg Tab.er.24h 100 MG PO DAILY, #30 TAB Prov: JOSE MIKE MD 04/29/19 Copy Copies To 1: DAISY TSANG MD [facility] CCDS Copies To 2: DON VELASQUEZ MD, JOSHUA T MD Apr 29, 2019 18:50
--- NOTE | 2019-04-29 18:53 | NUR ---
report given to LOUIS Louis to resume care of pt
[2019-04-29] MEDS ORDERED: APIXABAN 5 MG (ELIQUIS) TABLET PO ONE (19:15)
--- NOTE | 2019-04-29 19:20 | Diagnostic Imaging Report ---
EXAM: CHEST 1 VIEW, AP/PA ONLY. INDICATION: Shortness of breath. Chest tightness. COMPARISON: 10/27/2018. FINDINGS: Normal heart size and pulmonary vascularity. No dense consolidation, pleural effusion or pneumothorax. No acute osseous findings. No significant change. IMPRESSION: No acute cardiopulmonary findings. Dictated by: Dictated on workstation # [id number]
[2019-04-29] MEDS ORDERED: METO100T6 PO (21:13)
[2019-04-29] MEDS ORDERED: meTOproloL SUCCINATE 50 MG (TOPROL XL) TAB PO SCH (21:15)
[2019-04-29 21:25] VITALS: BP 166/90
== END 2019-04-29 21:24 | disposition home or self-care (01) ==
LOC: EDUNIT# 18:07 → ER 18:09
DX: R07.9 Chest pain, unspecified (principal); R11.2 Nausea with vomiting, unspecified; I48.0 Paroxysmal atrial fibrillation; I10 Essential (primary) hypertension; E66.9 Obesity, unspecified; F41.9 Anxiety disorder, unspecified; F17.210 Nicotine dependence, cigarettes, uncomplicated; Z95.1 Presence of aortocoronary bypass graft; Z79.01 Long term (current) use of anticoagulants; Z90.89 Acquired absence of other organs; Z90.49 Acquired absence of other specified parts of digestive tract; Z88.5 Allergy status to narcotic agent; Z88.0 Allergy status to penicillin; Z79.82 Long term (current) use of aspirin; Z82.49 Family history of ischemic heart disease and other diseases of the circulatory system
CPT/HCPCS: 36415; 71045; 80053; 83735; 83874; 84484; 85025; 85610; 85730; 93005; 93041

== ENCOUNTER 2019-05-25 19:01 | Emergency (ER) | payer BC ==
[~2019-05-25] VITALS: Ht 182 cm; Wt 118.0 kg
[~2019-05-25 19:01] MED LIST changes: -ASPIRIN 81 MG CHEW (CHILDREN'S ASA) ONE; +METO100T6 PO
[2019-05-25] MEDS ORDERED: ASPIRIN 81 MG CHEW (CHILDREN'S ASA) PO ONE (19:15)
[2019-05-25] MEDS: NITROGLYCERIN 0.4 MG SL TABS BTL 25'S SL PRN ×2 (19:18→19:26)
[2019-05-25 19:20] LABS: BASOPHILS # (AUTO) 0.1 10^3/uL (0.0-0.1); BASOPHILS % (AUTO) 1 % (0-10); EOSINOPHILS # (AUTO) 0.2 10^3/uL (0.0-0.3); EOSINOPHILS % (AUTO) 3 % (0-10); HEMATOCRIT 43 % (40-54); HEMOGLOBIN 14.2 G/DL (13.3-17.7); LYMPHOCYTES # (AUTO) 1.9 X 10^3 (1.0-4.0); LYMPHOCYTES % (AUTO) 26 % (12-44); MEAN CORPUSCULAR HEMOGLOBIN 29 PG (25-34); MEAN CORPUSCULAR HGB CONC 33 G/DL (32-36); MEAN CORPUSCULAR VOLUME 88 FL (80-99); MEAN PLATELET VOLUME 9.7 FL (7.4-10.4); MONOCYTES # (AUTO) 0.9 X 10^3 (0.0-1.0); MONOCYTES % (AUTO) 12 % (0-12); NEUTROPHILS # (AUTO) 4.2 X 10^3 (1.8-7.8); NEUTROPHILS % (AUTO) 57 % (42-75); PLATELET COUNT 306 10^3/uL (130-400); RED CELL DISTRIBUTION WIDTH 14.5 % (10.0-14.5); WHITE BLOOD COUNT 7.4 10^3/uL (4.3-11.0)
--- NOTE | 2019-05-25 19:34 | ED Chest Pain ---
General Chief Complaint: Chest Pain Stated Complaint: CHEST PAIN,L ARM NUMBNESS Source: patient History of Present Illness Date Seen by Provider: May 25, 2019 Time Seen by Provider: 19:06 Initial Comments PT ARRIVES VIA POV FROM HOME C/O CHEST PAIN OFF AND ON ALL DAY, WORSE X 45 MINUTES WHILE SITTING AND WATCHING TV STATES 45 MINUTES AGO, HIS CHEST STARTED FEELING REAL TIGHT AND HIS LEFT ARM STARTED FEELING NUMB NO PAIN NOW, LEFT ARM STILL FEELS A LITTLE NUMB NO SHORTNESS OF BREATH NO SWEATS NO NAUSEA NO PALPITATIONS NO SWELLING IN LEGS/FEET WAS DIZZY AN HOUR AGO--NOT DIZZY NOW. STATES HE TOOK "AN OLD LEFT OVER XANAX" 45 MINUTES AGO, AND IT HELPED ALL OF HIS SYMPTOMS HAS HISTORY OF THE SAME HAS HAD CARDIAC CATH--NO INTERVENTION PT HAS HISTORY OF ATRIAL FIBRILLATION AND IS ON ELIQUIS AND METOPROLOL ALSO HAS HISTORY OF HTN PT HAS BEEN IN [place], [place] FOR THE LAST 3 WEEKS, AND DROVE HOME ON Saturday05/23/19 LOSS PREVENTION ASSOCIATE: DR. DUMONT Allergies and Home Medications Allergies Coded Allergies: morphine (Unverified Allergy, Unknown, 05/08/17) penicillin G (Verified Allergy, Unknown, 08/04/06) Home Medications Apixaban 5 Mg Tablet, 5 MG PO BID, (Reported) Aspirin 325 Mg Tablet., 162.5 MG PO DAILY, (Reported) Cephalexin 500 Mg Tablet, 500 MG PO QID Prescribed by: MAYRA DONAHUE on 10/27/182047 Clindamycin HCl 150 Mg Capsule, 150 MG PO TID, (Reported) Hydrocodone/Acetaminophen 1 Each Tablet, 1 EACH PO Q6H PRN for PAIN-MODERATE TO SEVERE Prescribed by: JOSE PIERRE on 05/12/188 Metoprolol Succinate 100 Mg Tab.er.24h, 100 MG PO DAILY, (Reported) Metoprolol Succinate 100 Mg Tab.er.24h, 100 MG PO DAILY Prescribed by: JOSE PIERRE on 04/29/192112 Review of Systems Review of Systems Constitutional: see HPI; No diaphoresis; dizziness; No malaise EENTM: No Symptoms Reported Respiratory: No Symptoms Reported; Denies Orthopnea, Denies Shortness of Air Cardiovascular: See HPI, Chest Pain; Denies Edema, Denies Irregular Heart Rate; Lightheadedness; Denies Palpitations, Denies Syncope Gastrointestinal: No Symptoms Reported; Denies Abdominal Pain, Denies Nausea, D enies Vomiting Genitourinary: No Symptoms Reported Musculoskeletal: no symptoms reported Skin: no symptoms reported Psychiatric/Neurological: See HPI, Anxiety; Denies Headache; Numbness, Tingling; Denies Weakness Endocrine: No Symptoms Reported Hematologic/Lymphatic: No Symptoms Reported Past Afmeazp-Eqesco-Isyhls Hx Past Med/Social Hx: Reviewed and Corrections made Patient Social History Alcohol Use: Regular Use (DRINKS AT LEAST 4-6 BEERS/DAY) Number of Drinks Today: AA Alcohol Beverage of Choice: Beer Recreational Drug Use: Yes (THC) Drug of Choice: THC Smoking Status: Current Everyday Smoker (1 1/2 PPPD) Type Used: Cigarettes (1 1/2 PPD) 2nd Hand Smoke Exposure: Yes Recent Foreign Travel: No Contact w/Someone Who Travel: No Recent Hopitalizations: No Immunizations Up To Date Tetanus Booster (TDap): Unknown Seasonal Allergies Seasonal Allergies: No Past Medical History Surgeries: Yes (LAP BAND, MINI GASTRIC BYPASS, PELLET REMOVED FROM LEFT HAND AGE 12) Adenoidectomy, Appendectomy, Gallbladder, Tonsillectomy Respiratory: No Cardiac: Yes (ONSET A FIB 05/08/17) Atrial Fibrillation, Hypertension Neurological: No Reproductive Disorders: No Genitourinary: No Gastrointestinal: Yes Gall Bladder Disease Musculoskeletal: No Endocrine: Yes (OBESITY) HEENT: No Cancer: No Psychosocial: Yes Anxiety Integumentary: Yes (CELLULITIS--LEGS) Blood Disorders: No Family Medical History Cardiovascular disease 19 FATHER 19 MOTHER Heart Disease, Hypertension Physical Exam Vital Signs Vital Signs - First Documented 05/25/19 19:01 Temp 37.8 Pulse 63 Resp 20 B/P (MAP) 170/99 (122) Capillary Refill : Less Than 3 Seconds Height, Weight, BMI Height: 6'0" Weight: 318lbs. 0.0oz. 144.108214py; 42.7 BMI Method:Stated General Appearance: No Apparent Distress (AMBULATES WITHOUT DIFFICULTY. DOES NOT APPEAR TO BE IN ANY DISCOMFORT OR DISTRESS. STRONG ODOR OF CIGARETTES. ), Obese HEENT: PERRL/EOMI Neck: Full Range of Motion, Normal Inspection, Non Tender, Supple; No Carotid Bruit, No JVD Respiratory: Chest Non Tender, Normal Breath Sounds, No Accessory Muscle Use, No Respiratory Distress Cardiovascular: Regular Rate, Rhythm, No JVD, No Murmur Gastrointestinal: Non Tender, Soft Extremity: Normal Capillary Refill, Normal Range of Motion, Non Tender, No Calf Tenderness, Other (UNABLE TO DETERMINE IF EDEMA IS PRESENT DUE TO BODY HABITUS) Neurologic/Psychiatric: Alert, Oriented x3, No Motor/Sensory Deficits, Normal Mood/Affect, pharmaceutical physician II-XII Norm as Tested Skin: Normal Color, Warm/Dry, Tattoos/Piercings Progress/Results/Core Measures Results/Orders Lab Results Laboratory Tests Test 05/25/19 19:04 Range/Units White Blood Count 7.4 4.3-11.0 10^3/uL Red Blood Count 4.83 4.35-5.85 10^6/uL Hemoglobin 14.2 13.3-17.7 G/DL Hematocrit 43 40-54 % Mean Corpuscular Volume 88 80-99 FL Mean Corpuscular Hemoglobin 29 25-34 PG Mean Corpuscular Hemoglobin Concent 33 32-36 G/DL Red Cell Distribution Width 14.5 10.0-14.5 % Platelet Count 306 130-400 10^3/uL Mean Platelet Volume 9.7 7.4-10.4 FL Neutrophils (%) (Auto) 57 42-75 % Lymphocytes (%) (Auto) 26 12-44 % Monocytes (%) (Auto) 12 0-12 % Eosinophils (%) (Auto) 3 0-10 % Basophils (%) (Auto) 1 0-10 % Neutrophils # (Auto) 4.2 1.8-7.8 X 10^3 Lymphocytes # (Auto) 1.9 1.0-4.0 X 10^3 Monocytes # (Auto) 0.9 0.0-1.0 X 10^3 Eosinophils # (Auto) 0.2 0.0-0.3 10^3/uL Basophils # (Auto) 0.1 0.0-0.1 10^3/uL Prothrombin Time 14.2 12.2-14.7 SEC INR Comment 1.1 0.8-1.4 Activated Partial Thromboplast Time 29 24-35 SEC Sodium Level 134 L 135-145 MMOL/L Potassium Level 3.8 3.6-5.0 MMOL/L Chloride Level 100 98-107 MMOL/L Carbon Dioxide Level 26 21-32 MMOL/L Anion Gap 8 5-14 MMOL/L Blood Urea Nitrogen 11 7-18 MG/DL Creatinine 0.79 0.60-1.30 MG/DL Estimat Glomerular Filtration Rate > 60 BUN/Creatinine Ratio 14 Glucose Level 96 70-105 MG/DL Calcium Level 8.8 8.5-10.1 MG/DL Corrected Calcium 8.7 8.5-10.1 MG/DL Magnesium Level 2.0 1.6-2.4 MG/DL Total Bilirubin 0.9 0.1-1.0 MG/DL Aspartate Amino Transf (AST/SGOT) 17 5-34 U/L Alanine Aminotransferase (ALT/SGPT) 16 0-55 U/L Alkaline Phosphatase 39 L 40-136 U/L Total Creatine Kinase 47 30-200 U/L Creatine Kinase MB 0.3 <6.6 NG/ML Myoglobin 20.9 10.0-92.0 NG/ML Troponin I < 0.028 <0.028 NG/ML B-Type Natriuretic Peptide 112.9 H <100.0 PG/ML Total Protein 7.5 6.4-8.2 GM/DL Albumin 4.1 3.2-4.5 GM/DL Amylase Level 36 25-125 U/L Lipase 22 8-78 U/L Serum Alcohol < 10 <10 MG/DL My Orders Orders - LAURIE SANTIAGO DO Cbc With Automated Diff (05/25/19 19:11) Magnesium (05/25/19 19:11) Chest 1 View, Ap/Pa Only (05/25/19 19:11) Ekg Tracing (05/25/19 19:11) Cardiac Profile 1 (05/25/19 19:11) Comprehensive Metabolic Panel (05/25/19 19:11) Myoglobin Serum (05/25/19 19:11) Protime With Inr (05/25/19 19:11) Partial Thromboplastin Time (05/25/19 19:11) O2 (05/25/19 19:11) Monitor-Rhythm Ecg Trace Only (05/25/19 19:11) Lipid Panel (05/26/19 06:00) Ed Iv/Invasive Line Start (05/25/19 19:11) Creatine Kinase (05/25/19 19:11) Creatine Kinase Mb (05/25/19 19:11) Lipase (05/25/19 19:11) Amylase (05/25/19 19:11) BNP (05/25/19 19:11) Nitroglycerin 0.4 Mg Btl 25's (Nitrostat (05/25/19 19:15) Aspirin Chewable Tablet (Baby Aspirin Ch (05/25/19 19:15) Alcohol (05/25/19 19:11) Drug Screen Stat (Urine) (05/25/19 19:11) Thyroid Analyzer (05/25/19 19:11) Ua Culture If Indicated (05/25/19 19:11) Ct Angio Chest W (05/25/19 19:48) Iohexol Injection (Omnipaque 350 Mg/Ml 1 (05/25/19 20:00) Received Contrast (Hold Metformin- Contr (05/25/19 20:00) Ns (Ivpb) (Sodium Chloride 0.9% Ivpb Bag (05/25/19 20:00) Medications Given in ED Current Medications Medications Dose Ordered Sig/Elijah Route Start Time Stop Time Status Last Admin Dose Admin Aspirin 324 mg ONCE ONCE PO 05/25/19 19:15 05/25/19 19:16 DC 05/25/19 19:18 324 MG Nitroglycerin 0.4 mg UD PRN SL 05/25/19 19:15 05/25/19 19:26 0.4 MG Vital Signs/I&O 05/25/19 05/25/19 05/25/19 19:01 19:01 19:01 Temp 37.8 Pulse 63 Resp 20 B/P (MAP) 170/99 (122) Pulse Ox 100 100 O2 Delivery Room Air Room Air Room Air Initial ECG Impression Date: May 25, 2019 Initial ECG Impression Time: 19:12 Initial ECG Rate: 55 Initial ECG Rhythm: Normal Sinus Initial ECG Impression: Normal Diagnostic Imaging Comments CXR--NO ACUTE PROCESS, PER RADIOLOGIST REVIEW CT CHEST ANGIOGRAM-- Reviewed: Reviewed by Me Departure Departure-Patient Inst. Referrals: DON HATFIELD MD (PCP/Family) Primary Care Physician LAURIE SANTIAGO DO May 25, 2019 19:34
--- NOTE | 2019-05-25 19:36 | Diagnostic Imaging Report ---
INDICATION: Chest pain. COMPARISON: 04/29/2019 FINDINGS: A single view of chest demonstrates stable minimal cardiac enlargement. The lungs are clear. There is no pneumothorax. Osseous structures are normal. IMPRESSION: Cardiac enlargement without pulmonary edema or infiltrate. No interval change from prior exam. Dictated by: Dictated on workstation # [id number]
[2019-05-25 19:41] LABS: ALANINE AMINOTRANSFERASE 16 U/L (0-55); ALBUMIN 4.1 GM/DL (3.2-4.5); ALKALINE PHOSPHATASE 39 U/L (40-136); AMYLASE 36 U/L (25-125); BILIRUBIN,TOTAL 0.9 MG/DL (0.1-1.0); BUN/CREATININE RATIO 14; CALCIUM 8.8 MG/DL (8.5-10.1); CARBON DIOXIDE 26 MMOL/L (21-32); CHLORIDE 100 MMOL/L (98-107); CREATINE KINASE 47 U/L (30-200); CREATININE SERUM 0.79 MG/DL (0.60-1.30); GFR ESTIMATED > 60; GLUCOSE 96 MG/DL (70-105); LIPASE 22 U/L (8-78); POTASSIUM 3.8 MMOL/L (3.6-5.0); SODIUM 134 MMOL/L (135-145); TOTAL PROTEIN 7.5 GM/DL (6.4-8.2)
[2019-05-25 19:46] LABS: INR 1.1 (0.8-1.4); PROTHROMBIN TIME PATIENT 14.2 SEC (12.2-14.7)
[2019-05-25 19:50] LABS: CREATINE KINASE MB 0.3 NG/ML (<6.6)
[2019-05-25] MEDS ORDERED: HOLD METFORMIN - RECEIVED CONTRAST 20 ML VIAL IV SCH (20:00)
[2019-05-25] MEDS ORDERED: IOHEXOL 350 MG/ML 100 ML (OMNIPAQUE 350) VIAL IV ONE (20:00)
[2019-05-25] MEDS ORDERED: NS 100 ML (IVPB) BAG IV ONE (20:00)
[2019-05-25 21:03] LABS: BILIRUBIN,URINE NEGATIVE (NEGATIVE); CLARITY,URINE CLEAR; COLOR,URINE YELLOW; GLUCOSE, URINE (UA) NEGATIVE (NEGATIVE); KETONES,URINE NEGATIVE (NEGATIVE); LEUKOCYTE ESTERASE ,URINE NEGATIVE (NEGATIVE); NITRITE,URINE NEGATIVE (NEGATIVE); PH,URINE 6.5 (5-9); PROTEIN,URINE NEGATIVE (NEGATIVE); UROBILINOGEN,URINE NORMAL (NORMAL)
[2019-05-25 21:21] LABS: BACTERIA,URINE TRACE /HPF; WBC,URINE RARE /HPF
[2019-05-25 21:24] LABS: AMPHETAMINE SCREEN, URINE NEGATIVE (NEGATIVE); BARBITURATE SCREEN URINE NEGATIVE (NEGATIVE); BENZODIAZEPINES SCREEN URINE NEGATIVE (NEGATIVE); CANNABINOID SCREEN, URINE NEGATIVE (NEGATIVE); COCAINE SCREEN URINE NEGATIVE (NEGATIVE); METHADONE STAT NEGATIVE (NEGATIVE); METHAMPHETAMINE SCREEN URINE S NEGATIVE (NEGATIVE); OPIATE SCREEN URINE NEGATIVE (NEGATIVE); OXYCODONE STAT NEGATIVE (NEGATIVE); PROPOXYPHENE STAT NEGATIVE (NEGATIVE); TRICYCLIC ANTIDEPRESSANTS SCRE NEGATIVE (NEGATIVE)
[2019-05-25 22:00] VITALS: BP 170/99
--- NOTE | 2019-05-26 07:01 | Diagnostic Imaging Report ---
PROCEDURE: CT angiography of the chest with contrast. TECHNIQUE: Multiple contiguous axial images were obtained through the chest after uneventful bolus administration of intravenous contrast. 3D reconstructed CTA MIP acquisitions were also performed. Auto Exposure Controls were utilized during the CT exam to meet ALARA standards for radiation dose reduction. INDICATION: Chest pain and shortness of breath FINDINGS: The heart size is normal. There are scattered bilateral groundglass infiltrates. There is no pleural or pericardial fluid. There is no pneumothorax. The thorax aorta is normal in caliber without evidence of dissection. There is no pathologically enlarged adenopathy in the chest. Examination is somewhat limited due to suboptimal bolus timing and respiratory motion. There are no central or proximal filling defects seen within the pulmonary arteries to suggest pulmonary embolism. The visualized intra-abdominal structures are unremarkable. There are mild degenerative changes in the spine. IMPRESSION: Bilateral groundglass opacities which are nonspecific. No evidence of pulmonary embolism however subsegmental branch in the lower lobes is suboptimally opacified and degraded by motion artifact. Small embolus to lower lobe cannot be entirely excluded. Recommend clinical correlation. No other acute abnormality of the chest. Dictated by: Dictated on workstation # [id number]
== END 2019-05-25 22:00 | disposition left against medical advice (07) ==
LOC: EDUNIT# 19:01 → ER 19:02
DX: R07.9 Chest pain, unspecified (principal); I48.91 Unspecified atrial fibrillation; I10 Essential (primary) hypertension; F41.9 Anxiety disorder, unspecified; E66.9 Obesity, unspecified; F17.210 Nicotine dependence, cigarettes, uncomplicated; Z79.01 Long term (current) use of anticoagulants; Z88.5 Allergy status to narcotic agent; Z88.0 Allergy status to penicillin; Z79.82 Long term (current) use of aspirin; Z98.84 Bariatric surgery status; Z90.49 Acquired absence of other specified parts of digestive tract; Z90.89 Acquired absence of other organs; Z82.49 Family history of ischemic heart disease and other diseases of the circulatory system
CPT/HCPCS: 36415; 71045; 71275; 80053; 80306; 80320; 81000; 82150; 82550; 82553; 83690; 83735; 83874; 83880; 84443; 84484; 85025; 85610; 85730; 93005; 93041

== ENCOUNTER 2019-06-10 23:40 | Emergency (ER) | payer BC ==
[~2019-06-10] VITALS: Ht 182.8 cm; Wt 143.0 kg
[2019-06-11 00:12] LABS: BASOPHILS # (AUTO) 0.1 10^3/uL (0.0-0.1); BASOPHILS % (AUTO) 1 % (0-10); EOSINOPHILS # (AUTO) 0.2 10^3/uL (0.0-0.3); EOSINOPHILS % (AUTO) 3 % (0-10); HEMATOCRIT 41 % (40-54); HEMOGLOBIN 13.9 G/DL (13.3-17.7); LYMPHOCYTES # (AUTO) 1.9 X 10^3 (1.0-4.0); LYMPHOCYTES % (AUTO) 26 % (12-44); MEAN CORPUSCULAR HEMOGLOBIN 30 PG (25-34); MEAN CORPUSCULAR HGB CONC 34 G/DL (32-36); MEAN CORPUSCULAR VOLUME 88 FL (80-99); MEAN PLATELET VOLUME 9.7 FL (7.4-10.4); MONOCYTES # (AUTO) 1.1 X 10^3 (0.0-1.0); MONOCYTES % (AUTO) 15 % (0-12); NEUTROPHILS # (AUTO) 4.1 X 10^3 (1.8-7.8); NEUTROPHILS % (AUTO) 56 % (42-75); PLATELET COUNT 274 10^3/uL (130-400); RED CELL DISTRIBUTION WIDTH 14.1 % (10.0-14.5); WHITE BLOOD COUNT 7.4 10^3/uL (4.3-11.0)
[2019-06-11 00:20] LABS: INR 1.1 (0.8-1.4); PROTHROMBIN TIME PATIENT 14.8 SEC (12.2-14.7)
[2019-06-11 00:28] LABS: ALANINE AMINOTRANSFERASE 36 U/L (0-55); ALBUMIN 4.1 GM/DL (3.2-4.5); ALKALINE PHOSPHATASE 39 U/L (40-136); BUN/CREATININE RATIO 14; CALCIUM 9.1 MG/DL (8.5-10.1); CARBON DIOXIDE 26 MMOL/L (21-32); CHLORIDE 103 MMOL/L (98-107); CREATININE SERUM 0.87 MG/DL (0.60-1.30); GFR ESTIMATED > 60; GLUCOSE 99 MG/DL (70-105); MAGNESIUM 2.2 MG/DL (1.6-2.4); POTASSIUM 3.9 MMOL/L (3.6-5.0); SODIUM 137 MMOL/L (135-145); TOTAL PROTEIN 7.5 GM/DL (6.4-8.2)
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
[2019-06-11 01:15] VITALS: BP 123/95
--- NOTE | 2019-06-11 07:00 | Diagnostic Imaging Report ---
INDICATION: Shortness of breath. Comparison made with prior examination from 05/25/2019. PA and lateral views were obtained. FINDINGS: The heart size, mediastinal configuration, and pulmonary vascularity are within normal limits. There is no pleural effusion, pneumothorax, or pneumonia. The osseous structures are unremarkable. IMPRESSION: No acute cardiopulmonary abnormality. Dictated by: Dictated on workstation # [id number]
== END 2019-06-11 01:16 | disposition home or self-care (01) ==
LOC: EDUNIT# 23:40 → ER 23:43
DX: R09.89 Other specified symptoms and signs involving the circulatory and respiratory systems (principal); R07.89 Other chest pain; I48.91 Unspecified atrial fibrillation; I10 Essential (primary) hypertension; F41.9 Anxiety disorder, unspecified; E66.9 Obesity, unspecified; F17.210 Nicotine dependence, cigarettes, uncomplicated; Z95.9 Presence of cardiac and vascular implant and graft, unspecified; Z79.01 Long term (current) use of anticoagulants; Z79.82 Long term (current) use of aspirin; Z88.5 Allergy status to narcotic agent; Z88.0 Allergy status to penicillin; Z90.49 Acquired absence of other specified parts of digestive tract; Z90.89 Acquired absence of other organs; Z68.41 Body mass index [BMI] 40.0-44.9, adult; Z82.49 Family history of ischemic heart disease and other diseases of the circulatory system
CPT/HCPCS: 36415; 71046; 80053; 83735; 83874; 84484; 85025; 85610; 85730; 87804; 93005; 93041

== ENCOUNTER 2019-06-23 13:21 | Emergency (ER) | payer BC ==
[~2019-06-23] VITALS: Ht 182.8 cm; Wt 103.0 kg
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
[2019-06-23 13:49] LABS: BASOPHILS % (AUTO) 1 % (0-10); EOSINOPHILS # (AUTO) 0.2 10^3/uL (0.0-0.3); EOSINOPHILS % (AUTO) 2 % (0-10); HEMATOCRIT 43 % (40-54); HEMOGLOBIN 14.6 G/DL (13.3-17.7); LYMPHOCYTES # (AUTO) 1.6 X 10^3 (1.0-4.0); LYMPHOCYTES % (AUTO) 22 % (12-44); MEAN CORPUSCULAR HEMOGLOBIN 30 PG (25-34); MEAN CORPUSCULAR HGB CONC 34 G/DL (32-36); MEAN CORPUSCULAR VOLUME 88 FL (80-99); MEAN PLATELET VOLUME 9.5 FL (7.4-10.4); MONOCYTES % (AUTO) 13 % (0-12); NEUTROPHILS # (AUTO) 4.5 X 10^3 (1.8-7.8); NEUTROPHILS % (AUTO) 62 % (42-75); PLATELET COUNT 269 10^3/uL (130-400); RED CELL DISTRIBUTION WIDTH 14.2 % (10.0-14.5); WHITE BLOOD COUNT 7.3 10^3/uL (4.3-11.0)
[2019-06-23 14:18] LABS: PROTHROMBIN TIME PATIENT 14.1 SEC (12.2-14.7)
--- NOTE | 2019-06-23 14:28 | Diagnostic Imaging Report ---
PATIENT HISTORY: Chest pain. TECHNIQUE: Single frontal view of the chest. COMPARISON: 06/11/2019. FINDINGS: The lung volumes are normal. No focal consolidation is seen. No large pleural effusion or pneumothorax is seen. The cardiomediastinal silhouette is normal in size and contour. No acute osseous abnormality is seen. IMPRESSION: No acute pulmonary abnormality seen. Dictated by: Dictated on workstation # [id number]
[2019-06-23 14:37] LABS: ALANINE AMINOTRANSFERASE 41 U/L (0-55); ALBUMIN 4.4 GM/DL (3.2-4.5); ALKALINE PHOSPHATASE 40 U/L (40-136); BILIRUBIN,TOTAL 1.2 MG/DL (0.1-1.0); BUN/CREATININE RATIO 10; CALCIUM 9.4 MG/DL (8.5-10.1); CARBON DIOXIDE 27 MMOL/L (21-32); CHLORIDE 100 MMOL/L (98-107); GFR ESTIMATED > 60; GLUCOSE 105 MG/DL (70-105); MAGNESIUM 2.1 MG/DL (1.6-2.4); POTASSIUM 4.2 MMOL/L (3.6-5.0); SODIUM 138 MMOL/L (135-145)
[2019-06-23] MEDS ORDERED: ALPR0.5T PO (15:11)
[2019-06-23] MEDS ORDERED: KETOROLAC 30 MG/ML VIAL IVP ONE (15:15)
[2019-06-23 15:45] VITALS: BP 143/83
== END 2019-06-23 15:45 | disposition home or self-care (01) ==
LOC: EDUNIT# 13:21 → ER 13:22
DX: R07.89 Other chest pain (principal); F41.9 Anxiety disorder, unspecified; I10 Essential (primary) hypertension; I48.91 Unspecified atrial fibrillation; E66.9 Obesity, unspecified; F17.210 Nicotine dependence, cigarettes, uncomplicated; Z90.89 Acquired absence of other organs; Z90.49 Acquired absence of other specified parts of digestive tract; Z79.01 Long term (current) use of anticoagulants; Z88.5 Allergy status to narcotic agent; Z88.0 Allergy status to penicillin; Z68.30 Body mass index [BMI] 30.0-30.9, adult; Z82.49 Family history of ischemic heart disease and other diseases of the circulatory system
CPT/HCPCS: 36415; 71045; 80053; 83735; 83874; 84484; 85025; 85610; 85730; 93005; 93041

== ENCOUNTER 2019-08-31 14:11 | Emergency (ER) | payer BC ==
[~2019-08-31] VITALS: Ht 182 cm; Wt 140.5 kg
[~2019-08-31 14:11] MED LIST changes: +ALPR0.5T PO
[2019-08-31] MEDS ORDERED: ASPIRIN 81 MG CHEW (CHILDREN'S ASA) PO ONE (14:30)
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
[2019-08-31 14:33] LABS: BASOPHILS # (AUTO) 0.1 10^3/uL (0.0-0.1); BASOPHILS % (AUTO) 2 % (0-10); EOSINOPHILS # (AUTO) 0.2 10^3/uL (0.0-0.3); EOSINOPHILS % (AUTO) 3 % (0-10); HEMATOCRIT 44 % (40-54); HEMOGLOBIN 14.7 G/DL (13.3-17.7); LYMPHOCYTES # (AUTO) 1.9 X 10^3 (1.0-4.0); LYMPHOCYTES % (AUTO) 41 % (12-44); MEAN CORPUSCULAR HEMOGLOBIN 29 PG (25-34); MEAN CORPUSCULAR HGB CONC 34 G/DL (32-36); MEAN CORPUSCULAR VOLUME 85 FL (80-99); MEAN PLATELET VOLUME 9.7 FL (7.4-10.4); MONOCYTES % (AUTO) 22 % (0-12); NEUTROPHILS # (AUTO) 1.4 X 10^3 (1.8-7.8); NEUTROPHILS % (AUTO) 32 % (42-75); PLATELET COUNT 235 10^3/uL (130-400); WHITE BLOOD COUNT 4.5 10^3/uL (4.3-11.0)
[2019-08-31 14:44] LABS: INR 1.1 (0.8-1.4); PROTHROMBIN TIME PATIENT 14.6 SEC (12.2-14.7)
[2019-08-31 14:47] LABS: CREATINE KINASE 65 U/L (30-200)
[2019-08-31 14:49] LABS: ALANINE AMINOTRANSFERASE 24 U/L (0-55); ALBUMIN 4.3 GM/DL (3.2-4.5); ALKALINE PHOSPHATASE 47 U/L (40-136); BILIRUBIN,TOTAL 0.9 MG/DL (0.1-1.0); BUN/CREATININE RATIO 8; CARBON DIOXIDE 24 MMOL/L (21-32); CHLORIDE 99 MMOL/L (98-107); GFR ESTIMATED > 60; GLUCOSE 93 MG/DL (70-105); MAGNESIUM 2.1 MG/DL (1.6-2.4); POTASSIUM 4.5 MMOL/L (3.6-5.0); SODIUM 134 MMOL/L (135-145); TOTAL PROTEIN 7.7 GM/DL (6.4-8.2)
[2019-08-31 15:10] LABS: NEUTROPHILS % (MANUAL) 32 %
[2019-08-31 15:11] LABS: BASOPHILS % (MANUAL) 0 %; EOSINOPHILS % (MANUAL) 3 %; LYMPHOCYTES % (MANUAL) 46 %; MONOCYTES % (MANUAL) 15 %; RBC MORPH NORMAL; REACTIVE LYMPHOCYTES 4 %
--- NOTE | 2019-08-31 16:06 | Diagnostic Imaging Report ---
INDICATION: Right-sided chest pain. EXAMINATION: Portable chest at 3:24 p.m. FINDINGS: Heart size and pulmonary vascularity are normal. Lungs are clear. There are no effusions or pneumothoraces. IMPRESSION: Negative chest. Dictated by: Dictated on workstation # [id number]
[2019-08-31 17:30] VITALS: BP 143/94
== END 2019-08-31 17:15 | disposition home or self-care (01) ==
LOC: EDUNIT# 14:11 → ER 14:12
DX: R07.89 Other chest pain (principal); R00.2 Palpitations; I10 Essential (primary) hypertension; F41.9 Anxiety disorder, unspecified; I48.91 Unspecified atrial fibrillation; E66.9 Obesity, unspecified; Z79.01 Long term (current) use of anticoagulants; Z88.5 Allergy status to narcotic agent; Z88.0 Allergy status to penicillin; Z79.82 Long term (current) use of aspirin; Z87.891 Personal history of nicotine dependence; Z77.22 Contact with and (suspected) exposure to environmental tobacco smoke (acute) (chronic); Z90.89 Acquired absence of other organs; Z90.49 Acquired absence of other specified parts of digestive tract; Z68.41 Body mass index [BMI] 40.0-44.9, adult; Z82.49 Family history of ischemic heart disease and other diseases of the circulatory system
CPT/HCPCS: 36415; 71045; 80053; 82550; 83735; 83874; 83880; 84484; 85007; 85027; 85610; 85730; 93005

== ENCOUNTER → 2020-07-18 | Outpatient (CLI) | payer OTHER ==
[~2020-07-18] MED LIST changes: -HYDR-3812 PO; -METO-395 PO; +MTP100TCR PO
--- NOTE | 2020-07-18 11:40 | Diagnostic Imaging Report ---
EXAMINATION: Magnetic resonance imaging of the right knee without intravenous contrast DATE: July 18, 2020. COMPARISON: None. INDICATION: 39-year-old male, right knee pain. TECHNIQUE: Multiplanar, multisequence non contrast enhanced MR imaging was accomplished. FINDINGS: MENISCI: There is 3 mm medial meniscal extrusion without an appreciable tear of the medial meniscus. The lateral meniscus is intact. LIGAMENTS AND TENDONS: The anterior and posterior cruciate ligaments are intact. The medial collateral ligament is intact. The iliotibial band, mid third lateral capsular ligament, fibular collateral ligament, biceps femoris tendon and conjoined tendon are intact. The quadriceps tendon and patella ligament are intact. JOINT: There is abnormal signal in the cartilage of the median patellar ridge with slight surface irregularity. This most likely reflects chondromalacia. There is very low level marrow edema underlying the lateral femoral trochlea. The medial and lateral compartment cartilage is grossly intact. There is a small knee joint effusion without identified intra-articular body or prominent synovitis. BONE: There is no acute fracture, bone contusion, or evidence of osteonecrosis. BURSAE AND SOFT TISSUES: There is no Bakers cyst. There is fairly diffuse subcutaneous edema most notable anteriorly. IMPRESSION: 1. 3 mm medial meniscal extrusion without an appreciable medial meniscal tear. Intact lateral meniscus. 2. Intact anterior and posterior cruciate ligaments. Additional ligaments and tendons are intact. 3. No acute fracture or bone contusion. 4. Mild patellofemoral compartment osteoarthritis. Small knee joint effusion without identified intra-articular body or prominent synovitis. Dictated by: Dictated on workstation # [id number]
== END ==
LOC: RAD 09:30
PROVIDERS: ATTEND Nurse Practitioner
DX: S83.231A Complex tear of medial meniscus, current injury, right knee, initial encounter (principal); M17.11 Unilateral primary osteoarthritis, right knee; M25.461 Effusion, right knee; X58.XXXA Exposure to other specified factors, initial encounter
CPT/HCPCS: 73721

== ENCOUNTER 2020-08-15 05:35 | Outpatient (RCR) | payer OTHER ==
[~2020-08-15] VITALS: Ht 182 cm; Wt 143.0 kg
== END 2020-08-15 09:56 | disposition home or self-care (01) ==
LOC: PREOP 05:35
PROVIDERS: ATTEND Orthopaedic Surgery
DX: Z01.812 Encounter for preprocedural laboratory examination (principal); M23.203 Derangement of unspecified medial meniscus due to old tear or injury, right knee; Z20.828 Contact with and (suspected) exposure to other viral communicable diseases
CPT/HCPCS: 87635

== ENCOUNTER 2020-08-17 07:41 | Day surgery (SDC) | payer OTHER ==
--- NOTE | 2020-08-12 08:23 | HISTORY AND PHYSICAL ---
DATE OF SERVICE: ADMISSION HISTORY AND PHYSICAL DATE OF ADMISSION: 08/17/2020. This will be for outpatient surgery for right knee arthroscopy on 08/17/2020. HISTORY OF PRESENT ILLNESS: The patient is a 39-year-old gentleman with complaints of progressively worsening right knee pain. He has undergone treatment with an injection, which provided only temporary relief of the symptoms. An MRI revealed a medial meniscus tear. He has tried rest, activity modification as well, but due to functional impairment and failure to improve with conservative measures, the patient elected to proceed with surgical intervention. REVIEW OF SYSTEMS: No chest pain, no shortness of breath and no dysuria. PAST MEDICAL HISTORY: Atrial fibrillation. PAST SURGICAL HISTORY: Gastric bypass, appendectomy, laparoscopic band and cholecystectomy. FAMILY HISTORY: Significant for hypertension and diabetes. PRIMARY CARE PROVIDER: Dr. Velasquez. MEDICATIONS: Hydrocodone, metoprolol and Eliquis. ALLERGIES: PENICILLIN and MORPHINE. SOCIAL HISTORY: The patient drinks alcohol socially, smokes one pack of cigarettes per day. PHYSICAL EXAMINATION: GENERAL: The patient is well-developed, well-nourished, in no acute distress. HEENT: Normocephalic and atraumatic. Pupils are equal, round and reactive to light. Oropharynx is clear. NECK: Supple, no lymphadenopathy. LUNGS: Clear to auscultation bilaterally. HEART: Regular rate and rhythm. ABDOMEN: Soft, nontender and nondistended. EXTREMITIES: The right knee demonstrates tenderness along his medial joint line, has pain medially with Lisa's. There is a moderate effusion. He ambulates with an antalgic gait. Range of motion is 0/2/130. He has patellofemoral crepitus noted as well. 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 PLAN: Right knee arthroscopy with chondroplasty. We discussed the risks, benefits, options, ramifications and recovery. He understands and wished to proceed. Job ID: [id number] DocumentID: [id number] Dictated Date: 08/11/2020 11:04:55 Airport Planner Date: 08/11/2020 11:43:28 Dictated By: LUBA THOMAS MD
[2020-08-17] VITALS (10 sets, daily range): BP systolic 107–145; BP diastolic 52–80
[~2020-08-17] VITALS: Ht 182 cm; Wt 146.0 kg
[2020-08-17] MEDS ORDERED: HYDROcodone/APAP 7.5 MG/325 MG (LORTAB, LORCET PLUS) TABLET PO PRN (07:45)
--- NOTE | 2020-08-17 08:25 | Progress Note-Pre Operative ---
Pre-Operative Progress Note H&P Reviewed The H&P was reviewed, patient examined and no changes noted. Date Seen by Provider: Aug 17, 2020 Time Seen by Provider: 08:24 Date H&P Reviewed: Aug 17, 2020 Time H&P Reviewed: 08:24 Pre-Operative Diagnosis: right medial meniscus tear and chondromalacia LUBA THOMAS MD Aug 17, 2020 08:24
[2020-08-17] MEDS: LACTATED RINGERS 1,000 ML IV PRN ×2 (08:26→10:02)
--- NOTE | 2020-08-17 08:26 | Progress Note-Post Operative ---
Post-Operative Progess Note Surgeon (s)/Supervisor Cemetery Workers (s) Surgeon LUBA THOMAS MD Supervisor Cemetery Workers: Burke Rose Pre-Operative Diagnosis right medial meniscus tear and chondromalacia Post-Operative Diagnosis right chondral defect of the medial femoral condyle and chondromalacia of the trochlea and patella Procedure & Operative Findings Date of Procedure 08/17/20 Procedure Performed/Findings right knee arthroscopic micraofracture of medial femoral condyle and chondroplasty of the patella and trochlea Anesthesia Type GETA Estimated Blood Loss Estimated blood loss (mL): minimal Specimens/Packing Specimens Removed none Packing: none LUBA THOMAS MD Aug 17, 2020 08:26
[2020-08-17] MEDS ORDERED: CLINDAMYCIN 600 MG/50 ML IVPB 50 ML IV ONE (08:30)
[2020-08-17] MEDS ORDERED: morphine PF (DURAMORPH) 10 MG/10 ML AMP ONE (08:48)
[2020-08-17] MEDS ORDERED: BUPIVACAINE 0.5% 30 ML (SENSORCAINE) VIAL ONE (08:48)
[2020-08-17] MEDS ORDERED: fentaNYL INJECTION 100 MCG/2 ML AMP ONE (08:51)
[2020-08-17] MEDS ORDERED: MIDAZOLAM 2 MG/2 ML (VERSED) VIAL ONE (08:51)
[2020-08-17] MEDS ORDERED: CATHETER FLUSH 10 ML SYR IV PRN (09:00)
[2020-08-17] MEDS ORDERED: SEVOFLURANE (ULTANE) 15 ML INHAL SOLN ONE (09:28)
[2020-08-17] MEDS ORDERED: LIDOCAINE PF 2% 5 ML (XYLOCAINE) VIAL ONE (09:28)
[2020-08-17] MEDS ORDERED: ONDANSETRON 4 MG/2 ML (SDV) Z0FRAN ONE (09:28)
[2020-08-17] MEDS ORDERED: HYDROmorphone 2 MG/ML VIAL (DILAUDID) ONE (09:28)
[2020-08-17] MEDS ORDERED: proPOfol 200 MG/20 ML (DIPRIVAN) VIAL IV ONE (09:28)
[2020-08-17] MEDS ORDERED: fentaNYL INJECTION 100 MCG/2 ML AMP IVP ONE (10:00)
[2020-08-17] MEDS ORDERED: ONDANSETRON 4 MG/2 ML (SDV) Z0FRAN IVP PRN (10:00)
[2020-08-17] MEDS ORDERED: HYDROmorphone 2 MG/ML VIAL (DILAUDID) IV ONE (10:00)
[2020-08-17] MEDS ORDERED: HYDR-3817 PO (11:14)
--- NOTE | 2020-08-17 12:36 | Anesthesia-General Post-Op ---
General Patient Condition Mental Status/LOC: Same as Preop Cardiovascular: Satisfactory Nausea/Vomiting: Absent Respiratory: Satisfactory Pain: Controlled Complications: Absent Post Op Complications Complications None Follow Up Care/Instructions Patient Instructions None needed. Anesthesia/Patient Condition Patient Condition Patient is doing well, no complaints, stable vital signs, no apparent adverse anesthesia problems. DAMION WALTER DO Aug 17, 2020 12:35
--- NOTE | 2020-08-17 16:23 | OPERATIVE REPORT ---
DATE OF SERVICE: 08/17/2020 PREOPERATIVE DIAGNOSIS: Right knee medial meniscus tear. POSTOPERATIVE DIAGNOSES: 1. Right knee chondral defect of the medial femoral condyle. 2. Right knee chondromalacia of the patella. 3. Right knee chondromalacia of the trochlea. PROCEDURES: 1. Right knee arthroscopic microfracture of the medial femoral condyle. 2. Right knee arthroscopic chondroplasty of the patella. 3. Right knee arthroscopic chondroplasty of the trochlea. SURGEON: Abelardo Thomas MD COIN TELLER: Burke Rose, who assisted throughout the procedure and closed the incisions. ANESTHESIA: General endotracheal by Dr. Hall. TOURNIQUET TIME: Not applicable. ESTIMATED BLOOD LOSS: Minimal. DRAINS: None. COMPLICATIONS: None. POSTOPERATIVE PLAN: Routine arthroscopy protocol. The patient was transferred to the recovery room awake and in stable condition. STATEMENT OF MEDICAL NECESSITY: The patient is a 39-year-old gentleman with complaints of right medial knee pain, catching, locking and swelling. He was tender along his medial joint line and large effusion. He has undergone treatment with injections and activity modifications without relief and due to functional impairment and failure to improve with conservative measures, the patient elected to proceed with surgical intervention. Examination under anesthesia revealed range of motion of 0/0/130 with negative Temi, negative anterior and posterior drawer. No varus valgus laxity, negative pivot shift. ARTHROSCOPIC FINDINGS: The patella demonstrated grade II chondral flaps inferiorly in a 10 x 10 area. Trochlea demonstrated grade II chondral flap superiorly in an 8 x 8 area. The medial and lateral gutters were clear. Lateral compartment demonstrated no meniscal or chondral pathology. The ACL and PCL were intact. The medial compartment demonstrated grade IV chondral defect in a 15 x 20 area on the weightbearing portion of the femoral condyle. No meniscal pathology was noted. PROCEDURE: After risks and benefits of procedure were discussed and questions were answered, informed consent was signed and placed on chart. The operative site was confirmed in the preoperative holding area and initialed by the surgeon. The patient was transferred to the operating room and after adequate levels of general endotracheal anesthetic were obtained, a timeout was called, confirming the operative site. Examination under anesthesia was performed with above findings noted. The right lower extremity was prepped and draped in the usual sterile fashion. Knee joint was injected with 60 mL of fluid and standard inferolateral portal was placed with the arthroscope under direct visualization, inferior medial portal was created. The menisci and cruciates carefully probed with the above findings noted. The unstable chondral flaps in the patella and trochlea were debrided with a shaver back to a stable edge. Scope was redirected into the medial compartment where the unstable chondral flaps at the periphery of the medial condyle defect were debrided back to a stable edge. This was a well-shouldered lesion. A microfracture was performed with a curved awl in 3 mm increments with good blood return noted. The knee was copiously irrigated. The portal sites were closed with 4-0 nylon in simple interrupted fashion. Knee was injected with Duramorph. The port sites were again infiltrated with plain Marcaine. A soft dressing was applied. The patient was transferred to the recovery room awake and in stable condition. Job ID: [id number] DocumentID: [id number] Dictated Date: 08/17/2020 09:59:25 Waist Cutter Date: 08/17/2020 16:22:23 Dictated By: ABELARDO THOMAS MD
== END 2020-08-17 12:00 ==
LOC: SDC 07:41
PROVIDERS: ATTEND Orthopaedic Surgery
DX: S83.241A Other tear of medial meniscus, current injury, right knee, initial encounter (principal); M22.41 Chondromalacia patellae, right knee; I10 Essential (primary) hypertension; I48.91 Unspecified atrial fibrillation; F41.9 Anxiety disorder, unspecified; E66.01 Morbid (severe) obesity due to excess calories; Z68.41 Body mass index [BMI] 40.0-44.9, adult; Z79.01 Long term (current) use of anticoagulants; Z79.899 Other long term (current) drug therapy; Z88.0 Allergy status to penicillin; Z88.5 Allergy status to narcotic agent; Z90.49 Acquired absence of other specified parts of digestive tract
CPT/HCPCS: 87081

== ENCOUNTER 2020-09-29 21:38 | Emergency (ER) | payer OTHER ==
[~2020-09-29] VITALS: Ht 182 cm; Wt 147.0 kg
[~2020-09-29 21:38] MED LIST changes: -CLIN150C17 PO; +CLIN150C18 PO; +HYDR-3817 PO
[2020-09-29] MEDS ORDERED: NITROGLYCERIN 0.4 MG SL TABS BTL 25'S SL ONE (21:56)
[2020-09-29] MEDS ORDERED: ASPIRIN 81 MG CHEW (CHILDREN'S ASA) ONE (21:56)
[2020-09-29] MEDS: NITROGLYCERIN 0.4 MG SL TABS BTL 25'S SL PRN ×2 (22:06→22:11)
[2020-09-29 22:09] LABS: BASOPHILS # (AUTO) 0.1 10^3/uL (0.0-0.1); BASOPHILS % (AUTO) 1 % (0-10); EOSINOPHILS # (AUTO) 0.2 10^3/uL (0.0-0.3); EOSINOPHILS % (AUTO) 4 % (0-10); HEMATOCRIT 38 % (40-54); HEMOGLOBIN 12.4 g/dL (13.3-17.7); LYMPHOCYTES # (AUTO) 2.3 10^3/uL (1.0-4.0); LYMPHOCYTES % (AUTO) 36 % (12-44); MEAN CORPUSCULAR HEMOGLOBIN 29 pg (25-34); MEAN CORPUSCULAR HGB CONC 33 g/dL (32-36); MEAN CORPUSCULAR VOLUME 88 fL (80-99); MONOCYTES # (AUTO) 0.7 10^3/uL (0.0-1.0); MONOCYTES % (AUTO) 11 % (0-12); NEUTROPHILS # (AUTO) 3.2 10^3/uL (1.8-7.8); NEUTROPHILS % (AUTO) 48 % (42-75); PLATELET COUNT 310 10^3/uL (130-400); WHITE BLOOD COUNT 6.6 10^3/uL (4.3-11.0)
[2020-09-29] MEDS ORDERED: ASPIRIN 81 MG CHEW (CHILDREN'S ASA) PO ONE (22:15)
[2020-09-29 22:20] LABS: INR 0.9 (0.8-1.4); PROTHROMBIN TIME PATIENT 12.9 SEC (12.2-14.7)
[2020-09-29 22:21] LABS: ALBUMIN 4.2 GM/DL (3.2-4.5); CHLORIDE 95 MMOL/L (98-107); POTASSIUM 3.6 MMOL/L (3.6-5.0); SODIUM 129 MMOL/L (135-145)
[2020-09-29 22:23] LABS: CALCIUM 8.5 MG/DL (8.5-10.1)
[2020-09-29 22:24] LABS: GLUCOSE 88 MG/DL (70-105); TOTAL PROTEIN 7.7 GM/DL (6.4-8.2)
[2020-09-29 22:25] LABS: CARBON DIOXIDE 20 MMOL/L (21-32)
[2020-09-29 22:26] LABS: BILIRUBIN,TOTAL 0.6 MG/DL (0.1-1.0)
[2020-09-29 22:27] LABS: ALKALINE PHOSPHATASE 51 U/L (40-136); CREATININE SERUM 0.82 MG/DL (0.60-1.30); GFR ESTIMATED > 60
[2020-09-29 22:30] LABS: ALANINE AMINOTRANSFERASE 148 U/L (0-55); BUN/CREATININE RATIO 12; MAGNESIUM 2.5 MG/DL (1.6-2.4)
--- NOTE | 2020-09-29 23:56 | ED Chest Pain ---
General Chief Complaint: Chest Pain Stated Complaint: HIGH BP, SOB, CHEST PAIN, PAIN DOWN LEFT ARM Nursing Triage Note: INTERMITTANT CHEST PAIN TODAY. Nursing Sepsis Screen: No Definite Risk Source: patient, old records Exam Limitations: no limitations History of Present Illness Date Seen by Provider: Sep 29, 2020 Time Seen by Provider: 21:52 Initial Comments This 40-year-old gentleman presents to the emergency room with chest pain that radiates into his left shoulder and left arm. This pain has been present throughout the day. He went to the clinic earlier today and decided to come to the ER tonight when his pain did not subside. He is also notably hypertensive with an initial blood pressure of 179/114. Review of chart notes he had a angiography in 2018 showing no significant coronary artery disease. He does drink alcohol nearly daily. He reports drinking about 6 beers today. Allergies and Home Medications Allergies Coded Allergies: morphine (Verified Allergy, Severe, SYNCOPE, 08/17/20) penicillin G (Verified Allergy, Unknown, FROM CHILDHOOD, 08/17/20) Home Medications Apixaban 5 Mg Tablet, 5 MG PO BID, (Reported) Hydrocodone/Acetaminophen 1 Each Tablet, 1 EACH PO Q4H PRN for PAIN-SEVERE (8- 10) Prescribed by: DA HOFFMANN on 08/17/20 1114 Metoprolol Succinate 100 Mg Tab.er.24h, 100 MG PO DAILY, (Reported) Patient Home Medication List Home Medication List Reviewed: Yes Review of Systems Review of Systems Constitutional: no symptoms reported EENTM: No Symptoms Reported Respiratory: No Symptoms Reported Cardiovascular: See HPI Gastrointestinal: No Symptoms Reported Genitourinary: No Symptoms Reported Musculoskeletal: other (Tenderness in the left chest and axilla) Skin: no symptoms reported Psychiatric/Neurological: No Symptoms Reported Endocrine: No Symptoms Reported Hematologic/Lymphatic: No Symptoms Reported Past Hqrosdh-Xthcjb-Olfsrg Hx Past Med/Social Hx: Reviewed Nursing Past Med/Soc Hx Patient Social History Alcohol Use: Regular Use Number of Drinks Today: 7 Alcohol Beverage of Choice: Beer Drug of Choice: DENIES Smoking Status: Current Everyday Smoker Type Used: Cigarettes Former Smoker, Quit: Apr 03, 2017 2nd Hand Smoke Exposure: Yes Recent Infectious Disease Expo: No Recent Hopitalizations: No Immunizations Up To Date Tetanus Booster (TDap): Unknown Date of Influenza Vaccine: Jun 06, 2020 Seasonal Allergies Seasonal Allergies: Yes Past Medical History Surgeries: Yes (LAP BAND, MINI GASTRIC BYPASS, PELLET REMOVED FROM LEFT HAND AGE 12) Appendectomy, Gallbladder, Tonsillectomy Respiratory: No Cardiac: Yes (ONSET A FIB 05/08/17; HEART CATH-NO INTERVENTIONS) Atrial Fibrillation, Hypertension Neurological: No Reproductive Disorders: No Sexually Transmitted Disease: No HIV/AIDS: No Genitourinary: No Gastrointestinal: No Gall Bladder Disease Musculoskeletal: No Endocrine: No HEENT: No Cancer: No Psychosocial: Yes Anxiety Integumentary: Yes (CELLULITIS--LEGS) Blood Disorders: No Adverse Reaction/Blood Tranf: No (N/A) Family Medical History Cardiovascular disease 19 FATHER 19 MOTHER Heart Disease, Hypertension Physical Exam Vital Signs Vital Signs - First Documented Capillary Refill : Less Than 3 Seconds Height, Weight, BMI Height: 6'0" Weight: 318lbs. 0.0oz. 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 II-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 Norm as Tested Skin: Normal Color, Warm/Dry Progress/Results/Core Measures Results/Orders Lab Results Laboratory Tests Test 09/29/20 22:00 09/30/20 00:01 Range/Units White Blood Count 6.6 4.3-11.0 10^3/uL Red Blood Count 4.29 L 4.30-5.52 10^6/uL Hemoglobin 12.4 L 13.3-17.7 g/dL Hematocrit 38 L 40-54 % Mean Corpuscular Volume 88 80-99 fL Mean Corpuscular Hemoglobin 29 25-34 pg Mean Corpuscular Hemoglobin Concent 33 32-36 g/dL Red Cell Distribution Width 13.0 10.0-14.5 % Platelet Count 310 130-400 10^3/uL Mean Platelet Volume 9.0 9.0-12.2 fL Immature Granulocyte % (Auto) 0 % Neutrophils (%) (Auto) 48 42-75 % Lymphocytes (%) (Auto) 36 12-44 % Monocytes (%) (Auto) 11 0-12 % Eosinophils (%) (Auto) 4 0-10 % Basophils (%) (Auto) 1 0-10 % Neutrophils # (Auto) 3.2 1.8-7.8 10^3/uL Lymphocytes # (Auto) 2.3 1.0-4.0 10^3/uL Monocytes # (Auto) 0.7 0.0-1.0 10^3/uL Eosinophils # (Auto) 0.2 0.0-0.3 10^3/uL Basophils # (Auto) 0.1 0.0-0.1 10^3/uL Immature Granulocyte # (Auto) 0.0 0.0-0.1 10^3/uL Prothrombin Time 12.9 12.2-14.7 SEC INR Comment 0.9 0.8-1.4 Activated Partial Thromboplast Time 30 24-35 SEC Sodium Level 129 L 135-145 MMOL/L Potassium Level 3.6 3.6-5.0 MMOL/L Chloride Level 95 L 98-107 MMOL/L Carbon Dioxide Level 20 L 21-32 MMOL/L Anion Gap 14 5-14 MMOL/L Blood Urea Nitrogen 10 7-18 MG/DL Creatinine 0.82 0.60-1.30 MG/DL Estimat Glomerular Filtration Rate > 60 BUN/Creatinine Ratio 12 Glucose Level 88 70-105 MG/DL Calcium Level 8.5 8.5-10.1 MG/DL Corrected Calcium 8.3 L 8.5-10.1 MG/DL Magnesium Level 2.5 H 1.6-2.4 MG/DL Total Bilirubin 0.6 0.1-1.0 MG/DL Aspartate Amino Transf (AST/SGOT) 534 H 5-34 U/L Alanine Aminotransferase (ALT/SGPT) 148 H 0-55 U/L Alkaline Phosphatase 51 40-136 U/L Myoglobin 17.3 10.0-92.0 NG/ML Troponin I < 0.028 < 0.028 <0.028 NG/ML Total Protein 7.7 6.4-8.2 GM/DL Albumin 4.2 3.2-4.5 GM/DL Serum Alcohol 177 H <10 MG/DL My Orders Orders - BRUEGGEMANN,JOSE T MD Cbc With Automated Diff (09/29/20 21:48) Magnesium (09/29/20 21:48) Chest 1 View, Ap/Pa Only (09/29/20 21:48) Ekg Tracing (09/29/20 21:48) Comprehensive Metabolic Panel (09/29/20 21:48) Myoglobin Serum (09/29/20 21:48) Protime With Inr (09/29/20 21:48) Partial Thromboplastin Time (09/29/20 21:48) O2 (09/29/20 21:48) Monitor-Rhythm Ecg Trace Only (09/29/20 21:48) Ed Iv/Invasive Line Start (09/29/20 21:48) Troponin I (09/29/20 21:48) Nitroglycerin 0.4 Mg Btl 25's (Nitrostat (09/29/20 21:56) Aspirin Chewable Tablet (Baby Aspirin Ch (09/29/20 21:56) Nitroglycerin 0.4 Mg Btl 25's (Nitrostat (09/29/20 22:15) Aspirin Chewable Tablet (Baby Aspirin Ch (09/29/20 22:15) Alcohol (09/29/20 22:04) Troponin I (09/29/20 23:59) Medications Given in ED Current Medications Medications Dose Ordered Sig/Elijah Route Start Time Stop Time Status Last Admin Dose Admin Aspirin 81 mg STK-MED ONCE .ROUTE 09/29/20 21:56 09/29/20 22:00 DC 09/29/20 22:01 324 MG Nitroglycerin 0.4 mg STK-MED ONCE SL 09/29/20 21:56 09/29/20 22:00 DC 09/29/20 22:01 0.4 MG Nitroglycerin 0.4 mg UD PRN SL 09/29/20 22:15 09/30/20 00:51 DC 09/29/20 22:11 0.4 MG Vital Signs/I&O 09/29/20 09/29/20 09/29/20 09/30/20 21:45 21:45 21:45 00:50 Temp 36.5 36.4 Pulse 62 51 Resp 22 12 B/P (MAP) 179/114 (135) 121/78 (135) Pulse Ox 98 98 99 O2 Delivery Room Air Room Air Room Air Room Air Blood Pressure Mean: 135 Progress Progress Note #1: Time: 23:58 Progress Note Patient received aspirin and nitroglycerin. Blood pressure improved and has stayed improved long after the effect of nitroglycerin should have worn off. Work-up is unremarkable. We will repeat troponin at the 2-hour jolanta. On reexamination his chest pain has improved except for some pain with palpation in the left axilla. We discussed his alcohol use and elevated transaminases. Strategies for alcohol reduction and cessation were discussed. Patient has not felt the time was right to quit as he is going through terminal cancer with his mother. He plans to enroll in treatment when those issues have passed. Progress Note #2: Progress Note BP stayed down in an acceptable range. We discussed his elevated lever enzymes and need for alcohol cessation. Repeat troponin was negative and patient was dismissed to op follow-up. Initial ECG Impression Date: Sep 29, 2020 Initial ECG Impression Time: 21:54 Initial ECG Rate: 59 Initial ECG Rhythm: Normal Sinus Initial ECG Intervals: Normal Initial ECG Impression: Normal Comment Normal sinus rhythm with no ST elevation or depression. No abnormal intervals or axis deviation. Diagnostic Imaging Diagonstic Imaging: Xray Plain Films/CT/US/NM/MRI: chest Comments Chest x-ray viewed by me and compared with prior. Report not yet available. No acute abnormalities appreciated. Departure Impression Primary Impression: Atypical chest pain Additional Impressions: Hypertension Qualified Codes: I10 - Essential (primary) hypertension Elevated liver enzymes Alcohol dependence Qualified Codes: F10.29 - Alcohol dependence with unspecified alcohol- induced disorder Disposition: 01 HOME, SELF-CARE Condition: Improved Admissions Decision to Admit Reason: Admit from ER (General) Decision to Admit/Date: Sep 30, 2020 Time/Decision to Admit Time: 00:00 Departure-Patient Inst. Decision time for Depature: 00:42 Referrals: JOLANTA HATFIELD MD (PCP/Family) Primary Care Physician Patient Instructions: Alcohol Use Disorder ED, Alcohol Withdrawal, Cirrhosis Add. Discharge Instructions: Follow-up with your doctor soon as possible. Review your labs and liver function with your doctor. Gradually decrease your alcohol consumption and work toward quitting. Avoid abruptly stopping alcohol as this may cause life-threatening seizures. Call with questions or concerns. Return to the ER with worsening condition. All discharge instructions reviewed with patient and/or family. Voiced understanding. Copy Copies To 1: JOLANTA HATFIELD MD, JOSHUA T MD Sep 29, 2020 23:56
[2020-09-30 00:50] VITALS: BP 121/78
--- NOTE | 2020-09-30 05:03 | Diagnostic Imaging Report ---
INDICATION: Chest pain Portable chest 10:16 PM Heart size and pulmonary vascularity are normal. Lungs are clear. There are no effusions or pneumothoraces. IMPRESSION: Negative chest Dictated by: Dictated on workstation # [id number]
== END 2020-09-30 00:51 | disposition home or self-care (01) ==
LOC: EDUNIT# 21:38 → ER 21:41
DX: R07.89 Other chest pain (principal); I10 Essential (primary) hypertension; R74.8 Abnormal levels of other serum enzymes; F10.20 Alcohol dependence, uncomplicated; E66.9 Obesity, unspecified; I48.91 Unspecified atrial fibrillation; F17.210 Nicotine dependence, cigarettes, uncomplicated; Z68.41 Body mass index [BMI] 40.0-44.9, adult; Z82.49 Family history of ischemic heart disease and other diseases of the circulatory system; Z88.0 Allergy status to penicillin; Z88.5 Allergy status to narcotic agent; Z79.01 Long term (current) use of anticoagulants
CPT/HCPCS: 71045; 80053; 83735; 83874; 84484; 85025; 85610; 85730; 93005; 93041; 99284; G0480; 36415; 80320

== ENCOUNTER 2021-02-26 01:29 | Emergency (ER) | payer BC ==
[~2021-02-26] VITALS: Ht 183 cm; Wt 147.4 kg
[2021-02-26 01:59] LABS: BASOPHILS # (AUTO) 0.1 10^3/uL (0.0-0.1); BASOPHILS % (AUTO) 1 % (0-10); EOSINOPHILS # (AUTO) 0.2 10^3/uL (0.0-0.3); EOSINOPHILS % (AUTO) 2 % (0-10); HEMATOCRIT 39 % (40-54); HEMOGLOBIN 13.3 g/dL (13.3-17.7); LYMPHOCYTES # (AUTO) 1.9 10^3/uL (1.0-4.0); LYMPHOCYTES % (AUTO) 15 % (12-44); MEAN CORPUSCULAR HEMOGLOBIN 29 pg (25-34); MEAN CORPUSCULAR HGB CONC 34 g/dL (32-36); MEAN CORPUSCULAR VOLUME 87 fL (80-99); MEAN PLATELET VOLUME 9.3 fL (9.0-12.2); MONOCYTES # (AUTO) 1.7 10^3/uL (0.0-1.0); MONOCYTES % (AUTO) 13 % (0-12); NEUTROPHILS # (AUTO) 8.4 10^3/uL (1.8-7.8); NEUTROPHILS % (AUTO) 68 % (42-75); PLATELET COUNT 268 10^3/uL (130-400); WHITE BLOOD COUNT 12.3 10^3/uL (4.3-11.0)
--- NOTE | 2021-02-26 01:59 | ED GU-Male ---
General Chief Complaint: Male Reproductive Stated Complaint: R TESTICAL ENLARGED Nursing Triage Note: PT ARRIVES TO ER WITH C/O R TESTICAL PAIN AND SWELLING. PT STATES THERE IS A LUMP BELOW R TESTICAL AND HE NOTICED THE SWELLING AND LUMP YESTERDAY Source: patient Exam Limitations: no limitations History of Present Illness Date Seen by Provider: Feb 26, 2021 Time Seen by Provider: 01:44 Initial Comments Patient to the ER by private conveyance with chief complaint of 1 to 2 days of discomfort in his right testicle and then in about 7:00, 7 hours ago he started to experience increasing swelling in his right testicle and in the perineal area behind the testicle. He is not had fever nausea vomiting. He rates his pain as a 5 out of 10 and has not taken anything nor does he want anything for it. He is not having dysuria discharge or diarrhea. Has not had this before nor has he had STDs. He denies diabetes. Allergies and Home Medications Allergies Coded Allergies: morphine (Verified Allergy, Severe, SYNCOPE, 08/17/20) penicillin G (Verified Allergy, Unknown, FROM CHILDHOOD, 08/17/20) Home Medications Apixaban 5 Mg Tablet, 5 MG PO BID, (Reported) Doxycycline Hyclate 100 Mg Tablet, 100 MG PO BID Prescribed by: MAYRA DONAHUE on 02/26/21 0334 Hydrocodone/Acetaminophen 1 Each Tablet, 1 EACH PO Q4H PRN for PAIN-SEVERE (8- 10) Prescribed by: DA HOFFMANN on 08/17/20 1114 Hydrocodone/Acetaminophen 1 Each Tablet, 1 TAB PO Q6H PRN for PAIN-MODERATE (5- 7) Prescribed by: MAYRA DONAHUE on 02/26/21 0334 Metoprolol Succinate 100 Mg Tab.er.24h, 100 MG PO DAILY, (Reported) Patient Home Medication List Home Medication List Reviewed: Yes Review of Systems Review of Systems Constitutional: No chills, No diaphoresis EENTM: No ear discharge, No ear pain Respiratory: No cough, No short of breath Cardiovascular: No chest pain, No edema Gastrointestinal: No abdominal pain, No nausea, No vomiting Genitourinary: denies burning, denies discharge, denies dysuria Musculoskeletal: No back pain, No joint pain All Other Systemes Reviewed Negative Unless Noted: Yes Past Wgtmmwx-Fciaxj-Pxdzjp Hx Patient Social History Alcohol Use: Occasionally Uses Alcohol Beverage of Choice: Beer Drug of Choice: DENIES Smoking Status: Former Smoker Type Used: Cigarettes Former Smoker, Quit: Apr 03, 2017 2nd Hand Smoke Exposure: Yes Recent Infectious Disease Expo: No Recent Hopitalizations: No Immunizations Up To Date Tetanus Booster (TDap): Unknown Date of Influenza Vaccine: Jun 06, 2020 Seasonal Allergies Seasonal Allergies: Yes Past Medical History Surgeries: Yes (LAP BAND, MINI GASTRIC BYPASS, PELLET REMOVED FROM LEFT HAND AGE 12) Appendectomy, Gallbladder, Tonsillectomy Respiratory: No Cardiac: Yes (ONSET A FIB 05/08/17; HEART CATH-NO INTERVENTIONS) Atrial Fibrillation, Hypertension Neurological: No Reproductive Disorders: No Sexually Transmitted Disease: No HIV/AIDS: No Genitourinary: No Gastrointestinal: No Gall Bladder Disease Musculoskeletal: No Endocrine: No HEENT: No Cancer: No Psychosocial: Yes Anxiety Integumentary: Yes (CELLULITIS--LEGS) Blood Disorders: No Adverse Reaction/Blood Tranf: No (N/A) Family Medical History Cardiovascular disease 19 FATHER 19 MOTHER Heart Disease, Hypertension Physical Exam Vital Signs Vital Signs - First Documented 02/26/21 02/26/21 01:40 03:51 Temp 36.2 Pulse 73 Resp 18 B/P (MAP) 147/77 (100) Pulse Ox 97 O2 Delivery Room Air Capillary Refill : Less Than 3 Seconds Height, Weight, BMI Height: 6'0" Weight: 318lbs. 0.0oz. 144.020667af; 44.00 BMI Method:Stated General Appearance: WD/WN, mild distress HEENT: PERRL/EOMI, pharynx normal Neck: full range of motion, normal inspection Cardiovascular: normal peripheral pulses, regular rate, rhythm Respiratory: no respiratory distress, no accessory muscle use Gastrointestinal: non tender, soft Genital/Rectal: other (Penis unremarkable. Left testicle nontender, right testicle is swollen tender erythematous and the perineal tissue directly adjacent to the right testicle is erythematous, indurated, swollen and quite tender to palpation.) Neurologic/Psychiatric: alert, normal mood/affect, oriented x 3 Progress/Results/Core Measures Suspected Sepsis Recent Fever Within 48 Hours: No Infection Criteria Present: Suspected New Infection New/Unexplained Altered Menta: No Sepsis Screen: No Definite Risk SIRS Temperature: Pulse: 73 Respiratory Rate: Laboratory Tests 02/26/21 01:55: White Blood Count 12.3H Blood Pressure 147 /77 Mean: 100 Laboratory Tests 02/26/21 01:55: Creatinine 0.76, Platelet Count 268, Total Bilirubin 0.9 Results/Orders Lab Results Laboratory Tests Test 02/26/21 01:41 02/26/21 01:55 Range/Units Urine Color YELLOW Urine Clarity CLEAR Urine pH 6.0 5-9 Urine Specific [place] <=1.005 1.016-1.022 Urine Protein NEGATIVE NEGATIVE Urine Glucose (UA) NEGATIVE NEGATIVE Urine Ketones NEGATIVE NEGATIVE Urine Nitrite NEGATIVE NEGATIVE Urine Bilirubin NEGATIVE NEGATIVE Urine Urobilinogen 0.2 < = 1.0 MG/DL Urine Leukocyte Esterase TRACE H NEGATIVE Urine RBC (Auto) NEGATIVE NEGATIVE Urine RBC NONE /HPF Urine WBC NONE /HPF Urine Squamous Epithelial Cells 2-5 /HPF Urine Crystals NONE /LPF Urine Bacteria NEGATIVE /HPF Urine Casts NONE /LPF Urine Mucus SMALL H /LPF Urine Culture Indicated NO White Blood Count 12.3 H 4.3-11.0 10^3/uL Red Blood Count 4.54 4.30-5.52 10^6/uL Hemoglobin 13.3 13.3-17.7 g/dL Hematocrit 39 L 40-54 % Mean Corpuscular Volume 87 80-99 fL Mean Corpuscular Hemoglobin 29 25-34 pg Mean Corpuscular Hemoglobin Concent 34 32-36 g/dL Red Cell Distribution Width 14.3 10.0-14.5 % Platelet Count 268 130-400 10^3/uL Mean Platelet Volume 9.3 9.0-12.2 fL Immature Granulocyte % (Auto) 1 % Neutrophils (%) (Auto) 68 42-75 % Lymphocytes (%) (Auto) 15 12-44 % Monocytes (%) (Auto) 13 H 0-12 % Eosinophils (%) (Auto) 2 0-10 % Basophils (%) (Auto) 1 0-10 % Neutrophils # (Auto) 8.4 H 1.8-7.8 10^3/uL Lymphocytes # (Auto) 1.9 1.0-4.0 10^3/uL Monocytes # (Auto) 1.7 H 0.0-1.0 10^3/uL Eosinophils # (Auto) 0.2 0.0-0.3 10^3/uL Basophils # (Auto) 0.1 0.0-0.1 10^3/uL Immature Granulocyte # (Auto) 0.1 0.0-0.1 10^3/uL Sodium Level 126 L 135-145 MMOL/L Potassium Level 4.0 3.6-5.0 MMOL/L Chloride Level 90 L 98-107 MMOL/L Carbon Dioxide Level 21 21-32 MMOL/L Anion Gap 14 5-14 MMOL/L Blood Urea Nitrogen 4 L 7-18 MG/DL Creatinine 0.76 0.60-1.30 MG/DL Estimat Glomerular Filtration Rate > 60 BUN/Creatinine Ratio 5 Glucose Level 101 70-105 MG/DL Calcium Level 8.7 8.5-10.1 MG/DL Corrected Calcium 8.7 8.5-10.1 MG/DL Total Bilirubin 0.9 0.1-1.0 MG/DL Aspartate Amino Transf (AST/SGOT) 32 5-34 U/L Alanine Aminotransferase (ALT/SGPT) 46 0-55 U/L Alkaline Phosphatase 48 40-136 U/L C-Reactive Protein High Sensitivity 1.61 H 0.00-0.50 MG/DL Total Protein 7.9 6.4-8.2 GM/DL Albumin 4.0 3.2-4.5 GM/DL Micro Results Microbiology 02/26/21 Blood Culture - Preliminary, Resulted No growth My Orders Orders - MAYRA DONAHUE Cbc With Automated Diff (02/26/21 01:49) Comprehensive Metabolic Panel (02/26/21 01:49) Hs C Reactive Protein (02/26/21 01:49) Ua Culture If Indicated (02/26/21 01:49) Neis Renard Dna Urine Test (02/26/21 01:49) Chlamydia Trachomatis Urine (02/26/21 01:49) Syphilis Antibody Screen (02/26/21 01:49) Ed Iv/Invasive Line Start (02/26/21 01:49) Lactated Ringers (Lr 1000 Ml Iv Solution (02/26/21 02:00) Ct Abdomen/Pelvis W (02/26/21 01:49) Us Scrotum (Testicle) [id number] (02/26/21 01:49) Blood Culture (02/26/21 01:49) Iohexol Injection (Omnipaque 350 Mg/Ml 1 (02/26/21 02:00) Received Contrast (Hold Metformin- Contr (02/26/21 02:00) Ns (Ivpb) (Sodium Chloride 0.9% Ivpb Bag (02/26/21 02:00) Ceftriaxone (Rocephin) (02/26/21 02:30) Doxycycline Hyclate Tablet (Vibramycin T (02/26/21 02:16) Rx-Hydrocodone/Apap 5-325 Mg (Rx-Vicodin (02/26/21 03:45) Medications Given in ED Vital Signs/I&O 02/26/21 02/26/21 01:40 03:51 Temp 36.2 36.2 Pulse 73 70 Resp 18 B/P (MAP) 147/77 (100) 126/78 (100) Pulse Ox 97 O2 Delivery Room Air Capillary Refill : Less Than 3 Seconds Blood Pressure Mean: 100 Progress Note : Time: 01:58 Progress Note Orchitis versus torsion. Because of the perineal edema if it is infection then I am concerned about a Neel's gangrene and will get a CT to examine the area for drainable abscess. Ultrasound to examine the testicle for good blood flow. He declined anything for pain. We will get some blood cultures and give him Rocephin and azithromycin. Aseptic vital signs. We will check some labs. Bloo d cultures. GC/chlamydia/syphilis. Diagnostic Imaging Diagonstic Imaging: CT Plain Films/CT/US/NM/MRI: abdomen, pelvis Comments Local cellulitis surrounding the scrotum and soft tissues in the region. No abscess or Neel's gangrene. [facility], [place] NAME: SHARATH PORRAS [facility] REC#: [id number] PT STATUS: DEP ER : 1980 PHYSICIAN: MAYRA DONAHUE MD ADMIT DATE: 02/26/21/ER Signed Date of Exam:02/26/21 CT ABDOMEN/PELVIS W EXAMINATION: CT abdomen and pelvis with intravenous contrast. TECHNIQUE: Multiple contiguous axial images were obtained through the abdomen and pelvis after the uneventful administration of intravenous contrast. All CT scans use one or more of the following dose optimizing techniques: automated exposure control, MA and/or KvP adjustment based on patient size and exam type or iterative reconstruction. HISTORY: Right testicular swelling COMPARISON: None available. FINDINGS: Lung bases: The lung bases are clear. Solid organs: There is diffuse hypoattenuation of the liver compatible with hepatic steatosis. The gallbladder is surgically absent. There is no biliary ductal dilation. Pancreas is normal. Spleen is normal. Adrenal glands are normal. The kidneys are normal without hydronephrosis. Bowel: Surgical changes of the stomach and small bowel. No bowel obstruction. The colon and appendix are normal. Peritoneum: There is no intraperitoneal free fluid or free air. No suspicious lymphadenopathy. Vasculature: Normal without aneurysm. Musculoskeletal: Degenerative changes of the spine without suspicious osseous lesion or compression fracture. There is significant edema and fat stranding seen within the scrotal soft tissues and visualized peritoneum. No subcutaneous emphysema or loculated fluid collection. There are a few likely reactive right inguinal lymph nodes. Pelvis: The prostate gland is normal. The urinary bladder is normal. IMPRESSION: 1. Significant scrotal and perineal skin thickening and inflammatory stranding which can be seen with cellulitis. No subcutaneous emphysema or loculated fluid collection. 2. Hepatic steatosis. 3. Agree with preliminary interpretation. Dictated by: Dictated on workstation # [id number] Dict: 02/26/2151 Trans: 02/26/21915 [facility] [id number] Interpreted by: SOLEDAD MONK DO Electronically signed by: SOLEDAD MONK DO 02/26/2116 Reviewed: Reviewed Night Jamal Study, Reviewed by [place] Diagonstic Imaging: Ultrasound Plain Films/CT/US/NM/MRI: other (Scrotum) Comments Good blood flow to the testicles. No free fluid. Inflammation of the epididymis on the right testicle. [facility] [place] [place] NAME: CHIQUITASHARATH [facility] REC#: [id number] PT STATUS: DEP ER : 1980 PHYSICIAN: MAYRA DONAHUE MD ADMIT DATE: 02/26/21/ER Signed Date of Exam:02/26/21 US SCROTUM (Testicle) [id number] PROCEDURE: US Scrotum. TECHNIQUE: Multiple real-time grayscale images were obtained over the scrotum in various projections bilaterally. INDICATION: Testicular pain and swelling. COMPARISON: None available. FINDINGS: Right: The right testis is normal in size measuring 4.3 x 2.2 x 3.1 cm. It has homogenous echogenicity without mass or microcalcification. Blood flow is present in the right testis by color doppler imaging, and low resistance waveforms are present. The right epididymis is heterogeneously thickened and enlarged. Epididymal head cyst is present measuring 1.0 x 0.9 cm. No hydrocele or varicole. Left: The left testis is normal in size measuring 3.8 x 2.8 x 2.7 cm. It has homogenous echogenicity without mass or microcalcification. Blood flow is present in the left testis by color doppler imaging, and low resistance waveforms are present. The epididymis is normal. No hydrocele or varicole. IMPRESSION: 1. Marked asymmetric enlargement of the right epididymis is most suggestive of acute epididymitis. 2. No testicular torsion. Dictated by: Dictated on workstation # [id number] Dict: 02/26/21 0639 Trans: 02/26/2115 [facility] [id number] Interpreted by: LIZZ JAIN MD Electronically signed by: LIZZ JAIN MD 02/26/2115 Reviewed: Reviewed Night [facility] Study, Reviewed by [place] Departure Impression Primary Impression: Epididymitis with no abscess Additional Impression: Cellulitis of perineum Disposition: 01 HOME, SELF-CARE Condition: Stable Departure-Patient Inst. Decision time for Depature: 03:32 Referrals: DON HATFIELD MD (PCP/Family) Primary Care Physician Patient Instructions: Epididymitis (DC), Cellulitis and Erysipelas (Skin Infections) Add. Discharge Instructions: Keep the skin clean with regular soap and water. Tylenol 650 mg every 8 hours as necessary for pain. Ibuprofen 8 mg every 8 hours necessary for pain. Warm moist compresses applied to the scrotum as necessary for pain control. Hydrocodone 1 tablet every 6 hours as necessary for severe breakthrough pain. Doxycycline 1 capsule with food twice a day for the next 10 days. Follow-up with your primary care doctor next week for reexamination and management. Return to the ER promptly for intractable vomiting, fever above 102.5 or severe pain uncontrolled by the medications provided. All discharge instructions reviewed with patient and/or family. Voiced understanding. Scripts Doxycycline Hyclate (Doxycycline Hyclate) 100 Mg Tablet 100 MG PO BID, #20 TAB 0 Refills Prov: MAYRA DONAHUE 02/26/21 Hydrocodone/Acetaminophen (Hydrocodone-Acetamin 5-325 mg) 1 Each Tablet 1 TAB PO Q6H PRN for PAIN-MODERATE (5-7), #12 TAB 0 Refills Prov: MAYRA DONAHUE 02/26/21 Work/School Note: Work Release Form Date Seen in the Emergency Department: Feb 26, 2021 Return to Work: Mar 01, 2021 Restrictions: No Restrictions Copy Copies To 1: DON HATFIELD MD, TITUS J Feb 26, 2021 01:59
[2021-02-26] MEDS ORDERED: HOLD METFORMIN - RECEIVED CONTRAST 20 ML VIAL IV SCH (02:00)
[2021-02-26] MEDS ORDERED: LACTATED RINGERS 1,000 ML IV ONE (02:00)
[2021-02-26] MEDS ORDERED: IOHEXOL 350 MG/ML 100 ML (OMNIPAQUE 350) VIAL IV ONE (02:00)
[2021-02-26] MEDS ORDERED: NS 100 ML (IVPB) BAG IV ONE (02:00)
[2021-02-26 02:06] LABS: BILIRUBIN,URINE NEGATIVE (NEGATIVE); CLARITY,URINE CLEAR; COLOR,URINE YELLOW; GLUCOSE, URINE (UA) NEGATIVE (NEGATIVE); KETONES,URINE NEGATIVE (NEGATIVE); LEUKOCYTE ESTERASE ,URINE TRACE (NEGATIVE); NITRITE,URINE NEGATIVE (NEGATIVE); PROTEIN,URINE NEGATIVE (NEGATIVE)
[2021-02-26 02:12] LABS: CHLORIDE 90 MMOL/L (98-107)
[2021-02-26 02:13] LABS: CALCIUM 8.7 MG/DL (8.5-10.1)
[2021-02-26 02:14] LABS: GLUCOSE 101 MG/DL (70-105)
[2021-02-26 02:15] LABS: TOTAL PROTEIN 7.9 GM/DL (6.4-8.2)
[2021-02-26 02:16] LABS: BILIRUBIN,TOTAL 0.9 MG/DL (0.1-1.0); CARBON DIOXIDE 21 MMOL/L (21-32)
[2021-02-26] MEDS ORDERED: DOXYCYCLINE 100 MG (VIBRAMYCIN) TABLET PO STA (02:16)
[2021-02-26 02:18] LABS: ALKALINE PHOSPHATASE 48 U/L (40-136); CREATININE SERUM 0.76 MG/DL (0.60-1.30); GFR ESTIMATED > 60
[2021-02-26 02:19] LABS: BUN/CREATININE RATIO 5
[2021-02-26 02:20] LABS: BACTERIA,URINE NEGATIVE /HPF
[2021-02-26 02:21] LABS: ALANINE AMINOTRANSFERASE 46 U/L (0-55); SODIUM 126 MMOL/L (135-145)
[2021-02-26] MEDS ORDERED: cefTRIAXone 1,000 MG in WATER (STERILE) FOR INJECTION 10 ML IV ONE (02:30)
[2021-02-26] MEDS ORDERED: ACHD5005 PO (03:34)
[2021-02-26] MEDS ORDERED: DOXY100T2 PO (03:34)
[2021-02-26 03:51] VITALS: BP 126/78
--- NOTE | 2021-02-26 06:51 | Diagnostic Imaging Report ---
PROCEDURE: US Scrotum. TECHNIQUE: Multiple real-time grayscale images were obtained over the scrotum in various projections bilaterally. INDICATION: Testicular pain and swelling. COMPARISON: None available. FINDINGS: Right: The right testis is normal in size measuring 4.3 x 2.2 x 3.1 cm. It has homogenous echogenicity without mass or microcalcification. Blood flow is present in the right testis by color doppler imaging, and low resistance waveforms are present. The right epididymis is heterogeneously thickened and enlarged. Epididymal head cyst is present measuring 1.0 x 0.9 cm. No hydrocele or varicole. Left: The left testis is normal in size measuring 3.8 x 2.8 x 2.7 cm. It has homogenous echogenicity without mass or microcalcification. Blood flow is present in the left testis by color doppler imaging, and low resistance waveforms are present. The epididymis is normal. No hydrocele or varicole. IMPRESSION: 1. Marked asymmetric enlargement of the right epididymis is most suggestive of acute epididymitis. 2. No testicular torsion. Dictated by: Dictated on workstation # [id number]
--- NOTE | 2021-02-26 07:01 | Diagnostic Imaging Report ---
EXAMINATION: CT abdomen and pelvis with intravenous contrast. TECHNIQUE: Multiple contiguous axial images were obtained through the abdomen and pelvis after the uneventful administration of intravenous contrast. All CT scans use one or more of the following dose optimizing techniques: automated exposure control, MA and/or KvP adjustment based on patient size and exam type or iterative reconstruction. HISTORY: Right testicular swelling COMPARISON: None available. FINDINGS: Lung bases: The lung bases are clear. Solid organs: There is diffuse hypoattenuation of the liver compatible with hepatic steatosis. The gallbladder is surgically absent. There is no biliary ductal dilation. Pancreas is normal. Spleen is normal. Adrenal glands are normal. The kidneys are normal without hydronephrosis. Bowel: Surgical changes of the stomach and small bowel. No bowel obstruction. The colon and appendix are normal. Peritoneum: There is no intraperitoneal free fluid or free air. No suspicious lymphadenopathy. Vasculature: Normal without aneurysm. Musculoskeletal: Degenerative changes of the spine without suspicious osseous lesion or compression fracture. There is significant edema and fat stranding seen within the scrotal soft tissues and visualized peritoneum. No subcutaneous emphysema or loculated fluid collection. There are a few likely reactive right inguinal lymph nodes. Pelvis: The prostate gland is normal. The urinary bladder is normal. IMPRESSION: 1. Significant scrotal and perineal skin thickening and inflammatory stranding which can be seen with cellulitis. No subcutaneous emphysema or loculated fluid collection. 2. Hepatic steatosis. 3. Agree with preliminary interpretation. Dictated by: Dictated on workstation # [id number]
== END 2021-02-26 03:50 | disposition home or self-care (01) ==
LOC: EDUNIT# 01:29 → ER 01:32
DX: N45.1 Epididymitis (principal); L03.315 Cellulitis of perineum; I10 Essential (primary) hypertension; I48.91 Unspecified atrial fibrillation; Z87.891 Personal history of nicotine dependence; Z79.01 Long term (current) use of anticoagulants
CPT/HCPCS: 36415; 74177; 76870; 80053; 81000; 85025; 86141; 86780; 87040; 87491; 87591; 96361; 96374

== ENCOUNTER 2021-04-29 08:06 | Emergency (ER) | payer BC ==
[~2021-04-29] VITALS: Ht 182.8 cm; Wt 145.0 kg
[~2021-04-29 08:06] MED LIST changes: +DOXY100T2 PO
--- NOTE | 2021-04-29 08:26 | ED Lower Extremity ---
General Chief Complaint: Lower Extremity Stated Complaint: CHILLS, SWEATS, R LEG INFECTION Source: patient Exam Limitations: no limitations History of Present Illness Date Seen by Provider: Apr 29, 2021 Time Seen by Provider: 08:15 Initial Comments Patient is a 40-year-old male who presents to the emergency department today with a chief complaint of right lower extremity pain, and redness. Patient states that he woke up about 1:00 this morning with significant pain, subjective fevers and chills. Patient states that he gets this about once or twice a year related to a staph infection. Patient denies any shortness of breath, cough or URI symptoms. He is Covid vaccinated. Patient denies any GI or complaints. States it hurts to walk on his right lower extremity. Patient has a history of atrial fibrillation diagnosed about 2 years ago follows with Dr. Velasquez and Dr. Tsang. Patient states that he is on Eliquis and metoprolol. Has not taken his medications this morning. He states he is not a diabetic. No trauma is reported. All other review of systems reviewed and negative except as stated. Onset: this morning (1am) Severity: moderate Pain/Injury Location: right leg Method of Injury: unknown Modifying Factors: Worse With Movement Allergies and Home Medications Allergies Coded Allergies: morphine (Verified Allergy, Severe, SYNCOPE, 08/17/20) penicillin G (Verified Allergy, Unknown, FROM CHILDHOOD, 08/17/20) Home Medications Apixaban 5 Mg Tablet, 5 MG PO BID, (Reported) Clindamycin HCl 300 Mg Capsule, 300 MG PO QID Prescribed by: RODRIGUEZ MENDOZA on 04/29/21 0931 Doxycycline Hyclate 100 Mg Tablet, 100 MG PO BID Prescribed by: MAYRA DONAHUE on 02/26/21 0334 Hydrocodone/Acetaminophen 1 Each Tablet, 1 EACH PO Q4H PRN for PAIN-SEVERE (8- 10) Prescribed by: DA HOFFMANN on 08/17/20 1114 Hydrocodone/Acetaminophen 1 Each Tablet, 1 TAB PO Q6H PRN for PAIN-MODERATE (5- 7) Prescribed by: MAYRA DONAHUE on 02/26/21 0334 Hydrocodone/Acetaminophen 1 Each Tablet, 1 TAB PO Q6H PRN for PAIN-MODERATE (5- 7) Prescribed by: RODRIGUEZ MENDOZA on 04/29/21 0932 Metoprolol Succinate 100 Mg Tab.er.24h, 100 MG PO DAILY, (Reported) Patient Home Medication List Home Medication List Reviewed: Yes Review of Systems Constitutional: see HPI, chills, fever EENTM: no symptoms reported Respiratory: no symptoms reported Cardiovascular: no symptoms reported Gastrointestinal: no symptoms reported Genitourinary: no symptoms reported Musculoskeletal: other (Right LE pain) Skin: other (redness) All Other Systems Reviewed Negative Unless Noted: Yes Past Tdvfnah-Wlwtvv-Socnef Hx Immunizations Up To Date Tetanus Booster (TDap): Unknown Seasonal Allergies Seasonal Allergies: Yes Past Medical History Surgeries: Yes (LAP BAND, MINI GASTRIC BYPASS, PELLET REMOVED FROM LEFT HAND AGE 12) Appendectomy, Gallbladder, Orthopedic, Tonsillectomy Respiratory: No Cardiac: Yes (ONSET A FIB 05/08/17; HEART CATH-NO INTERVENTIONS) Atrial Fibrillation, Hypertension Neurological: No Reproductive Disorders: No Sexually Transmitted Disease: No HIV/AIDS: No Genitourinary: No Gastrointestinal: No Gall Bladder Disease Musculoskeletal: No Endocrine: No HEENT: No Cancer: No Psychosocial: Yes Anxiety Integumentary: Yes (CELLULITIS--LEGS) Blood Disorders: No Adverse Reaction/Blood Tranf: No (N/A) Family Medical History Cardiovascular disease 19 FATHER 19 MOTHER Heart Disease, Hypertension Physical Exam Vital Signs Vital Signs - First Documented 04/29/21 04/29/21 08:13 11:23 Temp 36.8 Pulse 98 Resp 18 B/P (MAP) 122/74 (90) Pulse Ox 98 O2 Delivery Room Air Capillary Refill : Height, Weight, BMI Height: 6'0" Weight: 318lbs. 0.0oz. 144.593304ot; 44.00 BMI Method:Stated General Appearance: WD/WN, mild distress HEENT: PERRL/EOMI Cardiovascular: regular rate, rhythm, other (distal pulses intact) Respiratory: lungs clear, normal breath sounds, no respiratory distress, no accessory muscle use Gastrointestinal: normal bowel sounds, non tender, soft Hips: bilateral hip non-tender, bilateral hip normal inspection, bilateral hip normal range of motion, bilateral hip no evidence of injury Legs: right leg pain, right leg soft tissue tenderness, right leg other (redness over lying the dorum of the RLE from knee to mid leg. tender to palpation, invreased warmth) Knees: bilateral knee non-tender, bilateral knee normal inspection, bilateral knee normal range of motion, bilateral knee no evidence of injury Ankles: bilateral ankle non-tender, bilateral ankle normal inspection, bilateral ankle normal range of motion, bilateral ankle no evidence of injury Feet: bilateral foot non-tender, bilateral foot normal inspection, bilateral foot normal range of motion, bilateral foot no evidence of injury Neurologic/Psychiatric: alert, normal mood/affect, oriented x 3 Skin: other (redness to RLE with increased warmth) Progress/Results/Core Measures Results/Orders Lab Results Laboratory Tests Test 04/29/21 08:30 04/29/21 10:40 Range/Units White Blood Count 11.8 H 4.3-11.0 10^3/uL Red Blood Count 4.90 4.30-5.52 10^6/uL Hemoglobin 14.2 13.3-17.7 g/dL Hematocrit 42 40-54 % Mean Corpuscular Volume 85 80-99 fL Mean Corpuscular Hemoglobin 29 25-34 pg Mean Corpuscular Hemoglobin Concent 34 32-36 g/dL Red Cell Distribution Width 14.1 10.0-14.5 % Platelet Count 232 130-400 10^3/uL Mean Platelet Volume 9.6 9.0-12.2 fL Immature Granulocyte % (Auto) 1 % Neutrophils (%) (Auto) 90 H 42-75 % Lymphocytes (%) (Auto) 3 L 12-44 % Monocytes (%) (Auto) 6 0-12 % Eosinophils (%) (Auto) 0 0-10 % Basophils (%) (Auto) 0 0-10 % Neutrophils # (Auto) 10.6 H 1.8-7.8 10^3/uL Lymphocytes # (Auto) 0.4 L 1.0-4.0 10^3/uL Monocytes # (Auto) 0.7 0.0-1.0 10^3/uL Eosinophils # (Auto) 0.0 0.0-0.3 10^3/uL Basophils # (Auto) 0.0 0.0-0.1 10^3/uL Immature Granulocyte # (Auto) 0.1 0.0-0.1 10^3/uL Neutrophils % (Manual) 73 % Lymphocytes % (Manual) 5 % Monocytes % (Manual) 6 % Band Neutrophils 16 % Blood Morphology Comment NORMAL Prothrombin Time 14.4 12.2-14.7 SEC INR Comment 1.1 0.8-1.4 Activated Partial Thromboplast Time 29 24-35 SEC Sodium Level 130 L 135-145 MMOL/L Potassium Level 3.5 L 3.6-5.0 MMOL/L Chloride Level 95 L 98-107 MMOL/L Carbon Dioxide Level 22 21-32 MMOL/L Anion Gap 13 5-14 MMOL/L Blood Urea Nitrogen 10 7-18 MG/DL Creatinine 1.23 0.60-1.30 MG/DL Estimat Glomerular Filtration Rate 66 BUN/Creatinine Ratio 8 Glucose Level 125 H 70-105 MG/DL Lactic Acid Level 2.89 *H 1.61 0.50-2.00 MMOL/L Calcium Level 8.9 8.5-10.1 MG/DL Corrected Calcium 9.0 8.5-10.1 MG/DL Total Bilirubin 1.9 H 0.1-1.0 MG/DL Aspartate Amino Transf (AST/SGOT) 30 5-34 U/L Alanine Aminotransferase (ALT/SGPT) 44 0-55 U/L Alkaline Phosphatase 31 L 40-136 U/L Total Protein 7.4 6.4-8.2 GM/DL Albumin 3.9 3.2-4.5 GM/DL My Orders Orders - RODRIGUEZ MENDOZA MD Cbc With Automated Diff (04/29/21 08:21) Comprehensive Metabolic Panel (04/29/21 08:21) Blood Culture (04/29/21 08:21) Protime With Inr (04/29/21 08:21) Partial Thromboplastin Time (04/29/21 08:21) Ed Iv/Invasive Line Start (04/29/21 08:21) Ed Iv/Invasive Line Start (04/29/21 08:21) Vital Signs Adult Sepsis Patie Q15M (04/29/21 08:21) O2 (04/29/21 08:21) Remove Rings In Anticipation O (04/29/21 08:21) Lactic Acid Analyzer (04/29/21 08:21) Ketorolac Injection (Toradol Injection) (04/29/21 08:30) Manual Differential (04/29/21 08:30) Clindamycin 600 Mg/50 Ml Ivpb (Cleocin P (04/29/21 09:15) Ns Iv 1000 Ml (Sodium Chloride 0.9%) (04/29/21 09:15) Hydrocodone/Apap 5/325 Tablet (Lortab 5 (04/29/21 10:15) Medications Given in ED Vital Signs/I&O 04/29/21 04/29/21 08:13 11:23 Temp 36.8 Pulse 98 89 Resp 18 18 B/P (MAP) 122/74 (90) 113/71 Pulse Ox 98 O2 Delivery Room Air Room Air Progress Progress Note : Time: 09:33 Progress Note Patient seen and examined, 40-year-old male with a chief complaint of right lower extremity redness and pain. Subjective fevers and chills. Evaluation today includes a physical exam, CBC, chemistry, lactic acid and blood culture. Patient has mildly elevated heart rate at 98 on presentation with a normal blood pressure. Mildly elevated white blood cell with a 90% left shift. Chemistries are mostly normal. Lactic acid is elevated at 2.89. Patient is treated in the emergency department with a little Toradol as well as 600 mg of clindamycin and a liter of fluids. He will be given a hydrocodone p.o. for pain and started on p.o. clindamycin. Patient is encouraged to follow-up with his primary care doctor this week to ensure that he is improving. He is given good return precautions, he verbalized understanding. All questions are sought and answered. Patient is stable for discharge. Departure Impression Primary Impression: Cellulitis of right leg Disposition: 01 HOME, SELF-CARE Condition: Stable Departure-Patient Inst. Decision time for Depature: 09:30 Referrals: DON VELASQUEZ MD (PCP/Family) Primary Care Physician Patient Instructions: Cellulitis and Erysipelas (Skin Infections) Add. Discharge Instructions: Use the hydrocodone as needed for severe pain. You can also take voov-dhf-ddqczww ibuprofen or Tylenol as needed for pain. Drink lots of fluids to stay well-hydrated. Take the clindamycin, antibiotic, 300 mg 4 times a day for the next week. Touch base with your primary care physician on Saturday to schedule an appointment for follow-up to ensure that you are improving. If you have worsening redness, swelling, fever or any other worsening symptoms please come back to the emergency department for reevaluation. Scripts Hydrocodone/Acetaminophen (Hydrocodone-Acetamin 5-325 mg) 1 Each Tablet 1 TAB PO Q6H PRN for PAIN-MODERATE (5-7), #12 TAB Prov: RODRIGUEZ MENDOZA MD 04/29/21 Clindamycin HCl (Clindamycin HCl) 300 Mg Capsule 300 MG PO QID for 7 Days, #28 CAP Prov: RODRIGUEZ MENDOZA MD 04/29/21 RODRIGUEZ MENDOZA MD Apr 29, 2021 08:26
[2021-04-29] MEDS ORDERED: KETOROLAC 30 MG/ML VIAL IVP ONE (08:30)
[2021-04-29 08:45] LABS: BASOPHILS % (AUTO) 0 % (0-10); EOSINOPHILS % (AUTO) 0 % (0-10); HEMATOCRIT 42 % (40-54); HEMOGLOBIN 14.2 g/dL (13.3-17.7); LYMPHOCYTES # (AUTO) 0.4 10^3/uL (1.0-4.0); LYMPHOCYTES % (AUTO) 3 % (12-44); MEAN CORPUSCULAR HEMOGLOBIN 29 pg (25-34); MEAN CORPUSCULAR HGB CONC 34 g/dL (32-36); MEAN CORPUSCULAR VOLUME 85 fL (80-99); MEAN PLATELET VOLUME 9.6 fL (9.0-12.2); MONOCYTES # (AUTO) 0.7 10^3/uL (0.0-1.0); MONOCYTES % (AUTO) 6 % (0-12); NEUTROPHILS # (AUTO) 10.6 10^3/uL (1.8-7.8); NEUTROPHILS % (AUTO) 90 % (42-75); PLATELET COUNT 232 10^3/uL (130-400); WHITE BLOOD COUNT 11.8 10^3/uL (4.3-11.0)
[2021-04-29 08:57] LABS: ALBUMIN 3.9 GM/DL (3.2-4.5); POTASSIUM 3.5 MMOL/L (3.6-5.0)
[2021-04-29 08:58] LABS: INR 1.1 (0.8-1.4); PROTHROMBIN TIME PATIENT 14.4 SEC (12.2-14.7)
[2021-04-29 08:59] LABS: CALCIUM 8.9 MG/DL (8.5-10.1)
[2021-04-29 09:00] LABS: BAND NEUTROPHILS 16 %; LYMPHOCYTES % (MANUAL) 5 %; MONOCYTES % (MANUAL) 6 %; NEUTROPHILS % (MANUAL) 73 %; RBC MORPH NORMAL; TOTAL PROTEIN 7.4 GM/DL (6.4-8.2)
[2021-04-29 09:02] LABS: BILIRUBIN,TOTAL 1.9 MG/DL (0.1-1.0)
[2021-04-29 09:04] LABS: CREATININE SERUM 1.23 MG/DL (0.60-1.30)
[2021-04-29] MEDS ORDERED: CLINDAMYCIN 600 MG/50 ML IVPB 50 ML IV ONE (09:15)
[2021-04-29] MEDS ORDERED: NS IV 1000 ML 1,000 ML IV SCH (09:15)
[2021-04-29] MEDS ORDERED: CLIN300C12 PO (09:31)
[2021-04-29] MEDS ORDERED: ACHD5005 PO (09:31)
[2021-04-29] MEDS ORDERED: HYDROcodone/APAP 5 MG/325 MG (LORTAB) TAB PO ONE (10:15)
[2021-04-29 11:23] VITALS: BP 113/71
== END 2021-04-29 11:23 | disposition home or self-care (01) ==
LOC: EDUNIT# 08:06 → ER 08:08
DX: L03.115 Cellulitis of right lower limb (principal); I10 Essential (primary) hypertension; I48.91 Unspecified atrial fibrillation; Z79.01 Long term (current) use of anticoagulants; Z79.899 Other long term (current) drug therapy
CPT/HCPCS: 36415; 80053; 83605; 85007; 85027; 85610; 85730; 87040

== ENCOUNTER 2021-05-01 13:51 | Inpatient (IN) | payer BC ==
[~2021-05-01] VITALS: Ht 182.9 cm; Wt 160.5 kg
[~2021-05-01 13:51] MED LIST changes: +CLIN300C12 PO
--- NOTE | 2021-05-01 14:59 | Diagnostic Imaging Report ---
INDICATION: Fever. COMPARISON: 09/29/2020 FINDINGS: Frontal and lateral views of the chest demonstrate normal heart size and pulmonary vascularity. The lungs are clear. There are no signs of infiltrate, pleural effusions or pneumothoraces. The visualized osseous structures show no acute abnormalities. IMPRESSION: 1. No acute process. No signs of infiltrates, effusions or pneumothoraces. Dictated by: Dictated on workstation # [id number]
[2021-05-01] MEDS ORDERED: IBUP-2473 PO (15:05)
[2021-05-01] MEDS ORDERED: ACHD5005 PO (15:05)
[2021-05-01] MEDS ORDERED: CLIN300C12 PO (15:05)
[2021-05-01 15:08] LABS: BASOPHILS % (AUTO) 0 % (0-10); EOSINOPHILS % (AUTO) 0 % (0-10); HEMATOCRIT 41 % (40-54); LYMPHOCYTES # (AUTO) 0.7 10^3/uL (1.0-4.0); LYMPHOCYTES % (AUTO) 6 % (12-44); MEAN CORPUSCULAR HEMOGLOBIN 29 pg (25-34); MEAN CORPUSCULAR HGB CONC 34 g/dL (32-36); MEAN CORPUSCULAR VOLUME 85 fL (80-99); MEAN PLATELET VOLUME 10.1 fL (9.0-12.2); MONOCYTES # (AUTO) 0.4 10^3/uL (0.0-1.0); MONOCYTES % (AUTO) 4 % (0-12); NEUTROPHILS # (AUTO) 9.3 10^3/uL (1.8-7.8); NEUTROPHILS % (AUTO) 88 % (42-75); PLATELET COUNT 171 10^3/uL (130-400); WHITE BLOOD COUNT 10.6 10^3/uL (4.3-11.0)
[2021-05-01 15:20] LABS: ALBUMIN 3.5 GM/DL (3.2-4.5); POTASSIUM 3.3 MMOL/L (3.6-5.0)
[2021-05-01 15:21] LABS: CALCIUM 9.3 MG/DL (8.5-10.1)
[2021-05-01 15:22] LABS: TOTAL PROTEIN 7.7 GM/DL (6.4-8.2)
[2021-05-01 15:24] LABS: BILIRUBIN,TOTAL 0.8 MG/DL (0.1-1.0)
[2021-05-01 15:26] LABS: CREATININE SERUM 0.93 MG/DL (0.60-1.30)
[2021-05-01] MEDS ORDERED: VANCOMYCIN 2000 MG/NS 500 ML IVPB IV NR ×2 (16:00)
[2021-05-01] MEDS ORDERED: LACTATED RINGERS 2,000 ML IV SCH (16:00)
[2021-05-01 16:17] VITALS: BP 150/85
[2021-05-01] MEDS ORDERED: KCL 8 MEQ (MICRO K) TABLET PO ONE (16:30)
[2021-05-01] MEDS: HYDROcodone/APAP 5 MG/325 MG (LORTAB) TAB PO PRN ×2 (16:32→23:04)
[2021-05-01] MEDS: MEROPENEM 500 MG/SWFI 10 ML IV PUSH IV SCH ×4 (16:50→23:05)
[2021-05-01 19:18] VITALS: BP 141/73
[2021-05-01] MEDS: LACTATED RINGERS 1,000 ML IV SCH (20:48)
[2021-05-02] MEDS: VANCOMYCIN 1 GM/NS 250 ML IVPB IV SCH ×8 (00:21→22:46)
[2021-05-02 00:30] VITALS: BP 119/73
[2021-05-02 03:50] VITALS: BP 128/64
[2021-05-02] MEDS: LACTATED RINGERS 1,000 ML IV SCH ×3 (04:35→18:38)
[2021-05-02] MEDS: MEROPENEM 500 MG/SWFI 10 ML IV PUSH IV SCH ×8 (04:35→22:41)
[2021-05-02] MEDS: KCL 8 MEQ (MICRO K) TABLET PO SCH (06:35)
[2021-05-02 06:57] LABS: BASOPHILS % (AUTO) 0 % (0-10); EOSINOPHILS # (AUTO) 0.1 10^3/uL (0.0-0.3); EOSINOPHILS % (AUTO) 1 % (0-10); HEMATOCRIT 38 % (40-54); HEMOGLOBIN 12.6 g/dL (13.3-17.7); LYMPHOCYTES # (AUTO) 0.6 10^3/uL (1.0-4.0); LYMPHOCYTES % (AUTO) 6 % (12-44); MEAN CORPUSCULAR HEMOGLOBIN 28 pg (25-34); MEAN CORPUSCULAR HGB CONC 34 g/dL (32-36); MEAN CORPUSCULAR VOLUME 85 fL (80-99); MEAN PLATELET VOLUME 10.5 fL (9.0-12.2); MONOCYTES % (AUTO) 9 % (0-12); NEUTROPHILS % (AUTO) 83 % (42-75); PLATELET COUNT 165 10^3/uL (130-400); WHITE BLOOD COUNT 10.9 10^3/uL (4.3-11.0)
[2021-05-02 07:24] LABS: BILIRUBIN,TOTAL 0.6 MG/DL (0.1-1.0); CALCIUM 8.8 MG/DL (8.5-10.1); CREATININE SERUM 0.79 MG/DL (0.60-1.30); POTASSIUM 3.2 MMOL/L (3.6-5.0); TOTAL PROTEIN 6.5 GM/DL (6.4-8.2)
[2021-05-02 08:00] VITALS: BP 125/64
[2021-05-02] MEDS: HYDROcodone/APAP 5 MG/325 MG (LORTAB) TAB PO PRN ×4 (08:19→22:41)
[2021-05-02] MEDS ORDERED: ENOXAPARIN 40 MG/0.4 ML (LOVENOX) SYR SC SCH (10:00)
--- NOTE | 2021-05-02 11:43 | Consultation - Surgery ---
ANJELICA HERNANDEZ 05/02/21 1143: History of Present Illness History of Present Illness Patient Consulted On(hermes/time) 05/02/21 11:35 Date Seen by Provider: May 02, 2021 Time Seen by Provider: 11:35 History of Present Illness Patient is a consult for Dr. Velasquez: Patient is a 40 year old male that was admitted to the hospital for cellulitis of the right lower extremity. Patient states the cellulitis began Saturday afternoon. Patient went to the ER and was given Clindamycin and pain medication. Patient states leg continued to get worse so he went to see Dr. Velasquez on Saturday, who admitted him to the hospital. Patient describes the pain as a sharp pain that comes and goes from his knee to his ankle. Patient states that elevated his leg makes it better and putting weight on the leg makes it worse. Patient rates the pain a 4/10 currently, but it can get worse if not managed with pain medication. Extremity has erythema from tibial tuberosity to ~3 cm above the ankle and is hot to the touch. Cellulitis has been outlined with marker. Patient currently waiting for doppler of lower extremity. Allergies and Home Medications Allergies Coded Allergies: morphine (Verified Allergy, Severe, SYNCOPE, 08/17/20) penicillin G (Verified Allergy, Unknown, FROM CHILDHOOD, 08/17/20) Home Medications Apixaban 5 Mg Tablet, 5 MG PO BID, (Reported) LAST FILLED 02-10-2021 #60/30 DAY SUPPLY Last Action: Continued Clindamycin HCl 300 Mg Capsule, 300 MG PO QID, (Reported) FILLED 04-29-2021 #28/7 DAY SUPPLY Last Action: Held Hydrocodone/Acetaminophen 1 Each Tablet, 1 TAB PO Q6H PRN for PAIN-MODERATE (5- 7), (Reported) Last Action: Continued Ibuprofen 200 Mg Tablet, 400-600 MG PO Q8H PRN for PAIN-MILD (1-4) OR TEMPATURE, (Reported) Last Action: Held Metoprolol Succinate 100 Mg Tab.er.24h, 100 MG PO HS, (Reported) Last Action: Continued Past Dsvcquq-Rzlyky-Rayzzy Hx Patient Social History Drug of Choice: DENIES Smoking Status: Current Everyday Smoker Former Smoker, Quit: Apr 03, 2017 Type Used: Cigarettes 2nd Hand Smoke Exposure: Yes Recent Hopitalizations: No Alcohol Use?: Yes Have you traveled recently?: No Immunizations Up To Date Tetanus Booster (TDap): Unknown Date of Influenza Vaccine: Jun 06, 2020 Seasonal Allergies Seasonal Allergies: Yes Surgeries History of Surgeries: Yes (LAP BAND, MINI GASTRIC BYPASS, PELLET REMOVED FROM LEFT HAND AGE 12) Surgeries: Appendectomy, Gallbladder, Orthopedic, Tonsillectomy Respiratory History of Respiratory Disorde: No Cardiovascular History of Cardiac Disorders: Yes (ONSET A FIB 05/08/17; HEART CATH-NO INTERVENTIONS) Cardiac Disorders: Atrial Fibrillation, Hypertension Neurological History of Neurological Disord: No Reproductive System Hx Reproductive Disorders: No Sexually Transmitted Disease: No HIV/AIDS: No Genitourinary History of Genitourinary Disor: No Gastrointestinal History of Gastrointestinal Di: No Gastrointestinal Disorders: Gall Bladder Disease Musculoskeletal History of Musculoskeletal Dis: No Endocrine History of Endocrine Disorders: No HEENT History of HEENT Disorders: No Cancer History of Cancer: No Psychosocial History of Psychiatric Problem: Yes Behavioral Health Disorders: Anxiety Integumentary History of Skin or Integumenta: Yes (CELLULITIS--LEGS) Blood Transfusions History of Blood Disorders: No Adverse Reaction to a Blood Tr: No (N/A) Family Medical History Significant Family History: Heart Disease, Hypertension Family Medial History: Cardiovascular disease 19 FATHER 19 MOTHER Review of Systems-General Constitutional: No chills, No fever Respiratory: No cough, No short of breath Gastrointestinal: No abdominal pain, No nausea, No vomiting Musculoskeletal: other (RLE pain) Skin: other (Erythema RLE) Physical Exam-General Problems Physical Exam Vital Signs Vital Signs - First Documented 05/01/21 05/01/21 15:23 16:17 Temp 36.7 Pulse 81 Resp 20 B/P (MAP) 150/85 (106) Pulse Ox 97 O2 Delivery Room Air Capillary Refill : General Appearance: WD/WN, no apparent distress HEENT: PERRL/EOMI Neck: non-tender, supple Respiratory: normal breath sounds, no respiratory distress, no accessory muscle use Cardiovascular: normal peripheral pulses, regular rate, rhythm Gastrointestinal: non tender, soft Extremities: inflammation (RLE), swelling (RLE) Neurologic/Psychiatric: alert, normal mood/affect, oriented x 3 Skin: normal color, warm/dry Lymphatic: no adenopathy Data Review Labs Laboratory Tests 05/01/21 15:00: White Blood Count 10.6, Red Blood Count 4.88, Hemoglobin 14.0, Hematocrit 41, Mean Corpuscular Volume 85, Mean Corpuscular Hemoglobin 29, Mean Corpuscular Hem oglobin Concent 34, Red Cell Distribution Width 14.1, Platelet Count 171, Mean Platelet Volume 10.1, Immature Granulocyte % (Auto) 1, Neutrophils (%) (Auto) 88H, Lymphocytes (%) (Auto) 6L, Monocytes (%) (Auto) 4, Eosinophils (%) (Auto) 0, Basophils (%) (Auto) 0, Neutrophils # (Auto) 9.3H, Lymphocytes # (Auto) 0.7L, Monocytes # (Auto) 0.4, Eosinophils # (Auto) 0.0, Basophils # (Auto) 0.0, Immature Granulocyte # (Auto) 0.1, Sodium Level 128L, Potassium Level 3.3L, Chloride Level 97L, Carbon Dioxide Level 22, Anion Gap 9, Blood Urea Nitrogen 14, Creatinine 0.93, Estimat Glomerular Filtration Rate 91, BUN/Creatinine Ratio 15, Glucose Level 116H, Lactic Acid Level 1.50, Calcium Level 9.3, Corrected Calcium 9.7, Total Bilirubin 0.8, Aspartate Amino Transf (AST/SGOT) 44H, Alanine Aminotransferase (ALT/SGPT) 46, Alkaline Phosphatase 45, Total Protein 7.7, Albumin 3.5 05/02/21 06:24: White Blood Count 10.9, Red Blood Count 4.43, Hemoglobin 12.6L, Hematocrit 38L, Mean Corpuscular Volume 85, Mean Corpuscular Hemoglobin 28, Mean Corpuscular Hemoglobin Concent 34, Red Cell Distribution Width 14.3, Platelet Count 165, Mean Platelet Volume 10.5, Immature Granulocyte % (Auto) 1, Neutrophils (%) (Auto) 83H, Lymphocytes (%) (Auto) 6L, Monocytes (%) (Auto) 9, Eosinophils (%) (Auto) 1, Basophils (%) (Auto) 0, Neutrophils # (Auto) 9.0H, Lymphocytes # (Auto) 0.6L, Monocytes # (Auto) 1.0, Eosinophils # (Auto) 0.1, Basophils # (Auto) 0.0, Immature Granulocyte # (Auto) 0.1, Sodium Level 132L, Potassium Level 3.2L, Chloride Level 100, Carbon Dioxide Level 21, Anion Gap 11, Blood Urea Nitrogen 10, Creatinine 0.79, Estimat Glomerular Filtration Rate 110, BUN/Creatinine Ratio 13, Glucose Level 127H, Calcium Level 8.8, Corrected Calcium 9.6, Total Bilirubin 0.6, Aspartate Amino Transf (AST/SGOT) 38H, Alanine Aminotransferase (ALT/SGPT) 43, Alkaline Phosphatase 48, Total Protein 6.5, Albumin 3.0L Assessment/Plan Assessment/Plan Assessment/Plan Assessment: Cellulitis RLE Plan: Continue Vancomycin Culture from RLE - make switch to appropriate Abx after results Monitor extremity for increased swelling/migration erythema Continue pain management Continue medical management IV fluids SCHMIDTBHARGAV Renetta DO 05/03/21 2203: History of Present Illness History of Present Illness History of Present Illness 40-year-old male who is been having issues on and off for 4 years with cellulitis of the lower extremities. Patient started a around 2:30 AM started having problems with his leg. He started becoming swollen and hurting. He started having redness. He went to the emergency department for further evaluation. He was started on antibiotics. It worsened and he saw Dr. Velasquez on Saturday who had him admitted. He has 4 out of 10 sharp pain without radiation. He states that medications and movement make better but standing makes the leg pain worse on the right. Patient denies any nausea vomiting fever sweats chills shortness of breath or chest pain at this time. Allergies and Home Medications Allergies Coded Allergies: morphine (Verified Allergy, Severe, SYNCOPE, 08/17/20) penicillin G (Verified Allergy, Unknown, FROM CHILDHOOD, 08/17/20) Home Medications Apixaban 5 Mg Tablet, 5 MG PO BID, (Reported) LAST FILLED 02-10-2021 #60/30 DAY SUPPLY Last Action: Continued Clindamycin HCl 300 Mg Capsule, 300 MG PO QID, (Reported) FILLED 04-29-2021 #28/7 DAY SUPPLY Last Action: Held Hydrocodone/Acetaminophen 1 Each Tablet, 1 TAB PO Q6H PRN for PAIN-MODERATE (5- 7), (Reported) Last Action: Continued Ibuprofen 200 Mg Tablet, 400-600 MG PO Q8H PRN for PAIN-MILD (1-4) OR TEMPATURE, (Reported) Last Action: Held Metoprolol Succinate 100 Mg Tab.er.24h, 100 MG PO HS, (Reported) Last Action: Continued Patient Home Medication List Home Medication List Reviewed: Yes Past Djjxeqh-Cjfnel-Ymyosj Hx Reviewed Nursing Assessment Reviewed/Agree w Nursing PMH: Yes Family Medical History Significant Family History: No Pertinent Family Hx Family Medial History: Cardiovascular disease 19 FATHER 19 MOTHER Review of Systems-General Constitutional: No chills, No fever EENTM: No blurred vision, No double vision Respiratory: No cough, No short of breath Gastrointestinal: No abdominal pain, No nausea, No vomiting Genitourinary: No decreased output, No discharge Musculoskeletal: No back pain; other (RLE pain) Skin: other (Erythema RLE) Psychiatric/Neurological: Denies Anxiety, Denies Depressed, Denies Emotional Problems All Other Systems Reviewed Negative Unless Noted: Yes (Negative excepted noted.) Physical Exam-General Problems Physical Exam General Appearance: WD/WN, no apparent distress HEENT: PERRL/EOMI, normal ENT inspection Neck: non-tender, supple Respiratory: chest non-tender, no respiratory distress, no accessory muscle use Cardiovascular: regular rate, rhythm, no JVD Gastrointestinal: non tender, soft Rectal: deferred Back: no CVA tenderness, no vertebral tenderness Extremities: inflammation (RLE), swelling (RLE) Neurologic/Psychiatric: alert, normal mood/affect, oriented x 3 Skin: warm/dry (Erythema) Lymphatic: no adenopathy Assessment/Plan Assessment/Plan Assessment/Plan Cellulitis RLE [employer] lab[employer] anticoagulation ABX Outline for monitoring extremity Continue pain management Continue medical management IV fluids Supervisory-Addendum Brief Verification & Attestation Participated in pt care: history, MDM, physical Personally performed: exam, history, MDM, supervision of care Care discussed with: Medical Student Procedures: n/a Results interpretation: Verified all documentation Verification and Attestation of Medical Student E/M Service A medical student performed and documented this service in my presence. I revi ewed and verified all information documented by the medical student and made modifications to such information, when appropriate. I personally performed the physical exam and medical decision making. Bhargav Schmdit, May 02, 2021,22:05 ANJELICA HERNANDEZ May 02, 2021 11:43 BHARGAV SCHMIDT DO May 03, 2021 22:03
[2021-05-02 12:00] VITALS: BP 143/79
--- NOTE | 2021-05-02 12:14 | History & Physical ---
GUSTAVO PEARL Aguila 05/02/21 1214: History of Present Illness History of Present Illness Reason for visit/HPI Jos Shields is a 40yo M with PMH of afib, HTN, tobacco and alcohol use, gastric bypass, and ODALYS who was admitted 05/01 for right leg cellulits Pt has had 3-4 episodes of right leg cellulitis in the past 4 years. Normally 6in diameter, superficial, RLE, and managed outpt with antibiotics. New episode 04/29: infection is more diffuse and 8/10 in severity. Pt went to ED but was discharged that day with antibiotics. On 04/30, pt reported fever of 104 and severe worsening of pain. As symptoms were much worse, pt called PCP who recommended admission 05/01 to [place]. On admission pt was afebrile with no SIRS criteria. Lactic acid 1.5. Given history of recent infection, pt was started on Vanc and meropenem. Today, pt reports that pain has improved with hydrocodone to 6/10 in severity. Believes that redness has improved. Denies fevers, chills, SOB. Denies chestpain, palpitations. Denies nausea, vomiting, diarrhea. Date of Admission May 01, 2021 at 14:18 Date Seen by a Provider: May 02, 2021 Time Seen by a Provider: 09:45 I consulted on this patient on 05/02/21 12:03 Attending Physician Nicolette Anglin MD Admitting Physician Baldev Velasquez MD Consult Allergies and Home Medications Allergies Coded Allergies: morphine (Verified Allergy, Severe, SYNCOPE, 08/17/20) penicillin G (Verified Allergy, Unknown, FROM CHILDHOOD, 08/17/20) Home Medications Apixaban 5 Mg Tablet, 5 MG PO BID, (Reported) LAST FILLED 02-10-2021 #60/30 DAY SUPPLY Last Action: Continued Clindamycin HCl 300 Mg Capsule, 300 MG PO QID, (Reported) FILLED 04-29-2021 #28/7 DAY SUPPLY Last Action: Held Hydrocodone/Acetaminophen 1 Each Tablet, 1 TAB PO Q6H PRN for PAIN-MODERATE (5- 7), (Reported) Last Action: Continued Ibuprofen 200 Mg Tablet, 400-600 MG PO Q8H PRN for PAIN-MILD (1-4) OR TEMPATURE, (Reported) Last Action: Held Metoprolol Succinate 100 Mg Tab.er.24h, 100 MG PO HS, (Reported) Last Action: Continued Past Czkcifg-[id number]-Vfjqzb Hx Patient Social History Employed/Student: employed Tobacco Use?: Yes Tobacco type used: Cigarettes Smoking Status: Current Everyday Smoker Use of E-Cig and/or Vaping dev: No Substance use?: No Alcohol Use?: Yes Alcohol type: Beer Alcohol Frequency: Daily Pt feels they are or have been: No Immunizations Up To Date Date of Influenza Vaccine: Jun 06, 2020 First/Initial COVID19 Vaccinat: OCTOBER Second COVID19 Vaccination Sai: DECEMBER Tetanus Booster (TDap): Unknown Hepatitis A: No Hepatitis B: No Seasonal Allergies Seasonal Allergies: Yes Current Status Advance Directives: No Communicates: Verbally Primary Language: Malay Preferred Spoken Language: Malay Is interpretation needed?: No Implanted or Applied Medical D: None Past Medical History Surgeries: Appendectomy, Gallbladder, Orthopedic, Tonsillectomy Atrial Fibrillation, Hypertension Sexually Transmitted Disease: No HIV/AIDS: No Gall Bladder Disease Anxiety Blood Disorders: No Adverse Reaction/Blood Tranf: No (N/A) Family Medical History Cardiovascular disease 19 FATHER 19 MOTHER Heart Disease, Hypertension All Other Systems Reviewed Negative Unless Noted: Yes (ROS as noted in HPI) Physical Exam Vital Signs Vital Signs - First Documented 05/01/21 05/01/21 15:23 16:17 Temp 36.7 Pulse 81 Resp 20 B/P (MAP) 150/85 (106) Pulse Ox 97 O2 Delivery Room Air Capillary Refill : Height, Weight, BMI Height: 6'0" Weight: 318lbs. 0.0oz. [id number]; 44.80 BMI Method:Stated General Appearance: No Apparent Distress, WD/WN, Obese Respiratory: Chest Non Tender, Lungs Clear, Normal Breath Sounds Cardiovascular: Regular Rate, Rhythm, Normal Peripheral Pulses Extremity: Normal Capillary Refill Neurologic/Psychiatric: Alert, Oriented x3 Skin: Erythema (RLE diffuse swelling) Assessment/Plan Assessment and Plan Problems: (1) Cellulitis of right leg without foot Status: Acute Assessment & Plan: -04/29: Onset of diffuse RLE cellulits. ED admission. DC w/ po abx -04/30: Worsening symptoms. Febrile (104). -05/01: Admission. Began empiric abx Plan: -Continue Vanc and meropenem -Surgery consulted -Monitor cultures (2) Atrial fibrillation Assessment & Plan: -H/O Afib managed w/ Metoprolol and Eliquis Plan: -Continue [employer] meds -Continue to monitor (3) Hypertension Status: Acute Assessment & Plan: Plan: -Continue [employer] meds YAZMIN BAKER DO 05/03/21 0606: History of Present Illness History of Present Illness Reason for visit/HPI CC: Right Leg Cellulitis HPI: This is a 40yoWM with a hx of recurrent right leg cellulitis and hx of AF on Eliquis who presents from a direct admission from Dr. Velasquez due to right leg cellulitis failed oral antibiotics. 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 Dr. Schmidt has been consulted he was placed on Vancomycin and Meropenem for fever of 104 so will monitor him closely and restarted all his home medications. Allergies and Home Medications Allergies Coded Allergies: morphine (Verified Allergy, Severe, SYNCOPE, 08/17/20) penicillin G (Verified Allergy, Unknown, FROM CHILDHOOD, 08/17/20) Home Medications Apixaban 5 Mg Tablet, 5 MG PO BID, (Reported) LAST FILLED 02-10-2021 #60/30 DAY SUPPLY Last Action: Continued Clindamycin HCl 300 Mg Capsule, 300 MG PO QID, (Reported) FILLED 04-29-2021 #28/7 DAY SUPPLY Last Action: Held Hydrocodone/Acetaminophen 1 Each Tablet, 1 TAB PO Q6H PRN for PAIN-MODERATE (5- 7), (Reported) Last Action: Continued Ibuprofen 200 Mg Tablet, 400-600 MG PO Q8H PRN for PAIN-MILD (1-4) OR TEMPATURE, (Reported) Last Action: Held Metoprolol Succinate 100 Mg Tab.er.24h, 100 MG PO HS, (Reported) Last Action: Continued Patient Home Medication List Home Medication List Reviewed: Yes Past Cvmghrl-[id number]-[id number] Hx Patient Social History Marrital Status: Employed/Student: employed Past Medical History Atrial Fibrillation, High Cholesterol, Hypertension Family Medical History Cardiovascular disease 19 FATHER 19 MOTHER Review of Systems Constitutional: see HPI, dizziness, fever, malaise, weakness EENTM: no symptoms reported Respiratory: no symptoms reported Cardiovascular: no symptoms reported Gastrointestinal: no symptoms reported Genitourinary: no symptoms reported Musculoskeletal: back pain, joint pain Skin: see HPI Psychiatric/Neurological: No Symptoms Reported All Other Systems Reviewed Negative Unless Noted: Yes (ROS as noted in HPI) Physical Exam General Appearance: No Apparent Distress, WD/WN, Chronically ill, Obese Eyes: Bilateral Eye Normal Inspection, Bilateral Eye PERRL, Bilateral Eye EOMI HEENT: PERRL/EOMI, Normal ENT Inspection, Pharynx Normal Neck: Full Range of Motion, Normal Inspection, Non Tender, Supple, Carotid Bruit Respiratory: Chest Non Tender, Lungs Clear, Normal Breath Sounds, No Accessory Muscle Use, No Respiratory Distress Cardiovascular: Regular Rate, Rhythm, No Gallop, No JVD, No Murmur, Normal Peripheral Pulses Gastrointestinal: Normal Bowel Sounds, No Organomegaly, No Pulsatile Mass, Non Tender, Soft Back: Normal Inspection, No CVA Tenderness, No Vertebral Tenderness Extremity: Normal Capillary Refill, Normal Inspection, Normal Range of Motion, Non Tender, No Calf Tenderness, Pedal Edema Neurologic/Psychiatric: Alert, Oriented x3, No Motor/Sensory Deficits, Normal Mood/Affect Skin: Normal Color, Warm/Dry, Erythema (RLE diffuse swelling) Lymphatic: No Adenopathy Assessment/Plan Assessment and Plan Assessment: Acute on chronic right leg cellulitis severe in nature failed oral antibiotics Morbid obesity BMI 44 Atrial fibrillation Oral anticoagulation maintenance Plan: IV antibiotics Pain control Arterial ultrasound Dr. Schmidt evthiago Admission Diagnosis Admission Status: Inpatient Order (span 2 midnights) Reason for Inpatient Admission: Failed oral antibiotics and severe cellulitis Supervisory-Addendum Brief Verification & Attestation Participated in pt care: history, MDM, physical Personally performed: exam, history, MDM, supervision of care Care discussed with: Medical Student Procedures: n/a Results interpretation: Verified all documentation Verification and Attestation of Medical Student E/M Service A medical student performed and documented this service in my presence. I reviewed and verified all information documented by the medical student and made modifications to such information, when appropriate. I personally performed the physical exam and medical decision making. Yazmin Baker, May 03, 2021,06:07 GUSTAVO PEARL May 02, 2021 12:14 YAZMIN BAKER DO May 03, 2021 06:06
[2021-05-02] MEDS ORDERED: TROUGH ORDER-PHARMACY XX NR (15:00)
[2021-05-02 16:00] VITALS: BP 135/61
--- NOTE | 2021-05-02 16:44 | Diagnostic Imaging Report ---
INDICATION: Right lower extremity pain and swelling. Cellulitis. COMPARISON: None available. TECHNIQUE: Grayscale, color Doppler and spectral Doppler imaging of the right lower extremity arteries was performed. FINDINGS: Examination is somewhat limited due to patient's body habitus resulting in suboptimal visualization of multiple lower extremity arteries. Where visualized, the common femoral, superficial femoral, popliteal, peroneal, posterior tibial and dorsalis pedis arteries are patent. Monophasic waveforms are present throughout the right lower extremity. No elevated peak systolic velocity. IMPRESSION: 1. Limited examination due to patient's body habitus. 2. No arterial occlusion or focal high-grade stenosis in the right lower extremity arteries. Dictated by: Dictated on workstation # [id number]
[2021-05-02 19:55] VITALS: BP 132/72
[2021-05-02] MEDS: APIXABAN 5 MG (ELIQUIS) TABLET PO SCH (19:55)
[2021-05-02] MEDS: meTOprolol SUCCINATE 100 MG (TOPROL XL) TAB PO SCH (19:55)
[2021-05-03] VITALS (7 sets, daily range): BP systolic 126–153; BP diastolic 70–76
[2021-05-03] MEDS: HYDROcodone/APAP 5 MG/325 MG (LORTAB) TAB PO PRN ×2 (03:05→08:29)
[2021-05-03] MEDS: KCL 8 MEQ (MICRO K) TABLET PO SCH (05:04)
[2021-05-03] MEDS: MEROPENEM 500 MG/SWFI 10 ML IV PUSH IV SCH ×8 (05:04→23:29)
[2021-05-03 06:24] LABS: BASOPHILS # (AUTO) 0.1 10^3/uL (0.0-0.1); BASOPHILS % (AUTO) 1 % (0-10); EOSINOPHILS # (AUTO) 0.1 10^3/uL (0.0-0.3); EOSINOPHILS % (AUTO) 1 % (0-10); HEMATOCRIT 37 % (40-54); HEMOGLOBIN 12.5 g/dL (13.3-17.7); LYMPHOCYTES # (AUTO) 1.1 10^3/uL (1.0-4.0); LYMPHOCYTES % (AUTO) 7 % (12-44); MEAN CORPUSCULAR HEMOGLOBIN 29 pg (25-34); MEAN CORPUSCULAR HGB CONC 34 g/dL (32-36); MEAN CORPUSCULAR VOLUME 86 fL (80-99); MEAN PLATELET VOLUME 10.6 fL (9.0-12.2); MONOCYTES # (AUTO) 1.8 10^3/uL (0.0-1.0); MONOCYTES % (AUTO) 12 % (0-12); NEUTROPHILS # (AUTO) 11.9 10^3/uL (1.8-7.8); NEUTROPHILS % (AUTO) 79 % (42-75); PLATELET COUNT 188 10^3/uL (130-400); WHITE BLOOD COUNT 15.1 10^3/uL (4.3-11.0)
[2021-05-03 06:39] LABS: POTASSIUM 3.1 MMOL/L (3.6-5.0)
[2021-05-03 06:40] LABS: CALCIUM 8.8 MG/DL (8.5-10.1)
[2021-05-03 06:41] LABS: TOTAL PROTEIN 6.8 GM/DL (6.4-8.2)
[2021-05-03 06:43] LABS: BILIRUBIN,TOTAL 0.7 MG/DL (0.1-1.0)
[2021-05-03 06:45] LABS: CREATININE SERUM 0.78 MG/DL (0.60-1.30)
--- NOTE | 2021-05-03 07:15 | Progress Note - Surgery ---
BRENT PINEDA 05/03/21 0715: Subjective Date Seen by a Provider: May 03, 2021 Time Seen by a Provider: 06:00 Subjective/Events-last exam Pt was awake this morning and states he feels better. His leg pain is improving, all though he has some breakthrough pain 30min-1hr before he receives his next dose of pain meds. R leg is itchy in area of cellulitis. He has a new rash on his upper medial R thigh which he noticed last night at 7pm and describes it as feeling "hard". He was able to get up and walk around with the assistance of a walker. Review of Systems General: No Chills, No Fatigue HEENT: Head Aches; No Sore Throat Pulmonary: No Dyspnea, No Cough Cardiovascular: No: Chest Pain, Palpitations Gastrointestinal: No: Nausea, Vomiting Musculoskeletal: leg pain Neurological: No: Weakness, Numbness Focused Exam Lactate Level 05/01/21 15:00: Lactic Acid Level 1.50 Objective Exam Vital Signs Date Time Temp Pulse Resp B/P (MAP) Pulse Ox O2 Delivery O2 Flow Rate FiO2 05/03/21 04:16 36.6 79 18 139/74 (95) 97 Room Air 05/03/21 00:20 36.9 88 18 149/76 (100) 98 Room Air 05/02/21 19:55 36.3 84 18 132/72 (92) 98 Room Air 05/02/21 19:45 Room Air 05/02/21 16:00 36.2 88 20 135/61 (85) 98 Room Air 05/02/21 12:00 36.1 69 22 143/79 (100) 100 Room Air 05/02/21 08:00 36.6 80 20 125/64 (84) 97 Room Air 05/02/21 08:00 Room Air I & O 05/03/21 07:00 Intake Total 4052 ml Output Total 2400 ml Balance 1652 ml Capillary Refill : General Appearance: No Apparent Distress, WD/WN, Chronically ill, Obese Respiratory: Lungs Clear, Normal Breath Sounds, No Accessory Muscle Use, No Respiratory Distress Cardiovascular: Regular Rate, Rhythm Extremity: Pedal Edema Neurologic/Psychiatric: Alert, Oriented x3, No Motor/Sensory Deficits, Normal Mood/Affect Skin: Normal Color, Warm/Dry, Erythema (RLE diffuse swelling. R medial UE erythema, hard) Results Lab Laboratory Tests 05/02/21 15:33: Vancomycin Level Trough 15.5 05/03/21 05:18: White Blood Count 15.1H, Red Blood Count 4.31, Hemoglobin 12.5L, Hematocrit 37L, Mean Corpuscular Volume 86, Mean Corpuscular Hemoglobin 29, Mean Corpuscular Hemoglobin Concent 34, Red Cell Distribution Width 14.3, Platelet Count 188, Mean Platelet Volume 10.6, Immature Granulocyte % (Auto) 1, Neutrophils (%) (Auto) 79H, Lymphocytes (%) (Auto) 7L, Monocytes (%) (Auto) 12, Eosinophils (%) (Auto) 1, Basophils (%) (Auto) 1, Neutrophils # (Auto) 11.9H, Lymphocytes # (Auto) 1.1, Monocytes # (Auto) 1.8H, Eosinophils # (Auto) 0.1, Basophils # (Auto) 0.1, Immature Granulocyte # (Auto) 0.2H 05/03/21 05:57: Sodium Level 129L, Potassium Level 3.1L, Chloride Level 96L, Carbon Dioxide Level 23, Anion Gap 10, Blood Urea Nitrogen 8, Creatinine 0.78, Estimat Glomerular Filtration Rate 111, BUN/Creatinine Ratio 10, Glucose Level 139H, Calcium Level 8.8, Corrected Calcium 9.6, Total Bilirubin 0.7, Aspartate Amino Transf (AST/SGOT) 98H, Alanine Aminotransferase (ALT/SGPT) 71H, Alkaline Phosphatase 84, Total Protein 6.8, Albumin 3.0L Assessment/Plan Assessment/Plan Assessment/Plan Assessment: Cellulitis RLE Plan: Continue Vancomycin Culture from RLE - make switch to appropriate Abx after results Monitor extremity for increased swelling/migration erythema Continue pain management Continue medical management IV fluids BHARGAV SANTIAGO DO 05/03/21 2213: Subjective Subjective/Events-last exam Patient states his right lower extremity started to feel better. Less pain. There is less intensity of the redness he states. It has not gone outside of the markings he states. Patient has no new complaints. Denies any nausea vomiting fever sweats chills shortness of breath or chest pain. Right lower extremity ultrasound demonstrating arterial occlusion or stenosis. Objective Exam General Appearance: No Apparent Distress, Obese HEENT: PERRL/EOMI, Normal ENT Inspection Neck: Non Tender, Supple Respiratory: Chest Non Tender, No Accessory Muscle Use, No Respiratory Distress Cardiovascular: Regular Rate, Rhythm, No JVD Gastrointestinal: non tender, soft Extremity: Swelling, Other (Erythema intensity less right lower extremity) Neurologic/Psychiatric: Oriented x3, No Motor/Sensory Deficits, Normal Mood/Affect Skin: Warm/Dry, Erythema (RLE diffuse swelling. R medial UE erythema) Assessment/Plan Assessment/Plan Assessment/Plan Cellulitis RLE A. fib Long-term anticoagulation Continue antibiotics Monitor extremity for increased swelling/migration erythema Continue pain management Continue medical management IV fluids Supervisory-Addendum Brief Verification & Attestation Participated in pt care: history, MDM, physical Personally performed: exam, history, MDM, supervision of care Care discussed with: Medical Student Procedures: n/a Results interpretation: Verified all documentation Verification and Attestation of Medical Student E/M Service A medical student performed and documented this service in my presence. I reviewed and verified all information documented by the medical student and made modifications to such information, when appropriate. I personally performed the physical exam and medical decision making. Bhargav Santiago, May 03, 2021,22:13 YAZMIN BAKER DO 05/04/21 0521: Subjective Subjective/Events-last exam Pt doing really well Heplocking IV fluids Right leg still remains red but improving Maintain on broad spectrum antibiotics Review of Systems General: Fatigue Objective Exam General Appearance: No Apparent Distress, Chronically ill, Obese Respiratory: Lungs Clear, Normal Breath Sounds Skin: Erythema (RLE diffuse swelling. R medial UE erythema) Assessment/Plan Assessment/Plan Assessment/Plan Supportive care IV antibiotics Hep-Lock IV fluid Supervisory-Addendum Brief Verification & Attestation Participated in pt care: history, MDM, physical Personally performed: exam, history, MDM, supervision of care Care discussed with: Medical Student Procedures: n/a Results interpretation: Verified all documentation Verification and Attestation of Medical Student E/M Service A medical student performed and documented this service in my presence. I reviewed and verified all information documented by the medical student and made modifications to such information, when appropriate. I personally performed the physical exam and medical decision making. Yazmin Baker, May 04, 2021,05:21 BRENT PINEDA May 03, 2021 07:15 BHARGAV SANTIAGO DO May 03, 2021 22:13 YAZMIN BAKER DO May 04, 2021 05:21
[2021-05-03] MEDS: APIXABAN 5 MG (ELIQUIS) TABLET PO SCH ×2 (08:26→19:36)
[2021-05-03] MEDS: VANCOMYCIN 1 GM/NS 250 ML IVPB IV SCH ×6 (08:26→23:29)
[2021-05-03] MEDS: LACTATED RINGERS 1,000 ML IV SCH (08:26)
--- NOTE | 2021-05-03 10:43 | Progress Note ---
GUSTAVO PEARL 05/03/21 1043: Subjective Date Seen by a Provider: May 03, 2021 Time Seen by a Provider: 10:00 Subjective/Events-last exam Today Mr. Shields reports improvement of symptoms but has persistent pain. Endorses decreased swelling and erythema. However, pt reports that current pain management is not adequate. Is in severe pain an hour before the next hydrocodone administration. Pt is requesting more pain relief for breakthrough pain. Is able to tolerate ambulation with walker. Denies fevers, chills, SOB. Denies weakness, fatigue. Denies dysuria, constipation, diarrhea, n/v. Focused Exam Lactate Level 05/01/21 15:00: Lactic Acid Level 1.50 Objective Exam Last Set of Vital Signs Vital Signs Date Time Temp Pulse Resp B/P (MAP) Pulse Ox O2 Delivery O2 Flow Rate FiO2 05/03/21 08:00 36.0 77 20 129/72 (91) 99 Room Air Capillary Refill : I&O Intake and Output 05/03/21 00:00 Intake Total 3920 ml Output Total 1200 ml Balance 2720 ml Intake Oral 2380 ml IV Total 1540 ml Output Urine Total 1200 ml # Voids 4 General: Alert, Oriented X3, No Acute Distress Lungs: Clear to Auscultation, Normal Air Movement Heart: Regular Rate, Normal S1, Normal S2 Extremities: Normal Pulses, Other (lymphedma) Skin: Other (Diffuse r. leg cellulitis) Results Lab Laboratory Tests 05/02/21 15:33: Vancomycin Level Trough 15.5 05/03/21 05:18: White Blood Count 15.1H, Red Blood Count 4.31, Hemoglobin 12.5L, Hematocrit 37L, Mean Corpuscular Volume 86, Mean Corpuscular Hemoglobin 29, Mean Corpuscular Hemoglobin Concent 34, Red Cell Distribution Width 14.3, Platelet Count 188, Mean Platelet Volume 10.6, Immature Granulocyte % (Auto) 1, Neutrophils (%) (Auto) 79H, Lymphocytes (%) (Auto) 7L, Monocytes (%) (Auto) 12, Eosinophils (%) (Auto) 1, Basophils (%) (Auto) 1, Neutrophils # (Auto) 11.9H, Lymphocytes # (Auto) 1.1, Monocytes # (Auto) 1.8H, Eosinophils # (Auto) 0.1, Basophils # (Auto) 0.1, Immature Granulocyte # (Auto) 0.2H 05/03/21 05:57: Sodium Level 129L, Potassium Level 3.1L, Chloride Level 96L, Carbon Dioxide Level 23, Anion Gap 10, Blood Urea Nitrogen 8, Creatinine 0.78, Estimat Glomerular Filtration Rate 111, BUN/Creatinine Ratio 10, Glucose Level 139H, Calcium Level 8.8, Corrected Calcium 9.6, Total Bilirubin 0.7, Aspartate Amino Transf (AST/SGOT) 98H, Alanine Aminotransferase (ALT/SGPT) 71H, Alkaline Phosphatase 84, Total Protein 6.8, Albumin 3.0L Assessment/Plan Assessment/Plan Assess & Plan/Chief Complaint Dorian Shields is a 40 w/ pmh of recurrent r. leg cellulitis, morbid obesity (BMI 44), Afib who is currently being treated for superficial cellulitis of the right leg -Continue Vancomycin and Meropenem (day 2) -Continue [employer] meds for afib: Metoprolol XL and Eliquis -Continue potassium supplement: K+ 3.1 (05/03) Diagnosis/Problems Diagnosis/Problems (1) Cellulitis of right leg without foot Status: Acute Assessment & Plan: -04/29: Onset of diffuse RLE cellulits. ED admission. DC w/ po abx -04/30: Worsening symptoms. Febrile (104). -05/01: Admission. Began empiric abx Plan: -Continue Vanc and meropenem -Surgery consulted -Monitor cultures (2) Atrial fibrillation Assessment & Plan: -H/O Afib managed w/ Metoprolol and Eliquis Plan: -Continue [employer] meds -Continue to monitor (3) Hypertension Status: Acute Assessment & Plan: Plan: -Continue [employer] meds YAZMIN BAKER DO 05/04/21 0523: Subjective Subjective/Events-last exam Pt doing really well Heplocking IV fluids Right leg still remains red but improving Maintain on broad spectrum antibiotics Review of Systems Musculoskeletal: leg pain Objective Exam General: Alert, Oriented X3, Cooperative, No Acute Distress Lungs: Clear to Auscultation, Normal Air Movement Skin: Other (Diffuse r. leg cellulitis) Neuro: Normal Gait Assessment/Plan Assessment/Plan Assess & Plan/Chief Complaint IV antibiotics Elevate leg Needs compression therapy after cellulitis resolved Supervisory-Addendum Brief Verification & Attestation Participated in pt care: history, MDM, physical Personally performed: exam, history, MDM, supervision of care Care discussed with: Medical Student Procedures: n/a Results interpretation: Verified all documentation Verification and Attestation of Medical Student E/M Service A medical student performed and documented this service in my presence. I reviewed and verified all information documented by the medical student and made modifications to such information, when appropriate. I personally performed the physical exam and medical decision making. Yazmin Baker, May 04, 2021,05:22 GUSTAVO PEARL May 03, 2021 10:43 YAZMIN BAKER DO May 04, 2021 05:23
[2021-05-03] MEDS: meTOprolol SUCCINATE 100 MG (TOPROL XL) TAB PO SCH (19:36)
[2021-05-04 04:19] VITALS: BP 147/76
[2021-05-04] MEDS: MEROPENEM 500 MG/SWFI 10 ML IV PUSH IV SCH ×8 (05:39→23:43)
[2021-05-04] MEDS: KCL 8 MEQ (MICRO K) TABLET PO SCH (05:39)
[2021-05-04 06:33] LABS: BASOPHILS # (AUTO) 0.1 10^3/uL (0.0-0.1); BASOPHILS % (AUTO) 1 % (0-10); EOSINOPHILS # (AUTO) 0.2 10^3/uL (0.0-0.3); EOSINOPHILS % (AUTO) 1 % (0-10); HEMATOCRIT 37 % (40-54); HEMOGLOBIN 12.2 g/dL (13.3-17.7); LYMPHOCYTES # (AUTO) 1.2 10^3/uL (1.0-4.0); LYMPHOCYTES % (AUTO) 8 % (12-44); MEAN CORPUSCULAR HEMOGLOBIN 29 pg (25-34); MEAN CORPUSCULAR HGB CONC 33 g/dL (32-36); MEAN CORPUSCULAR VOLUME 86 fL (80-99); MEAN PLATELET VOLUME 10.1 fL (9.0-12.2); MONOCYTES % (AUTO) 14 % (0-12); NEUTROPHILS % (AUTO) 72 % (42-75); PLATELET COUNT 272 10^3/uL (130-400)
[2021-05-04 06:40] LABS: ALBUMIN 2.9 GM/DL (3.2-4.5); BILIRUBIN,TOTAL 0.8 MG/DL (0.1-1.0); CREATININE SERUM 0.76 MG/DL (0.60-1.30); POTASSIUM 3.6 MMOL/L (3.6-5.0); TOTAL PROTEIN 6.8 GM/DL (6.4-8.2)
--- NOTE | 2021-05-04 07:33 | Progress Note - Surgery ---
BRENT PINEDA 05/04/21 0733: Subjective Date Seen by a Provider: May 04, 2021 Time Seen by a Provider: 06:45 Subjective/Events-last exam Patient is feeling well. He has noticed the cellulitis on his R leg expanding down to his ankle and up his R thigh. His pain is under better control today. Denies any SOB, headache, N/V, diarrhea. Normal bowel movements. He is able to walk around on his own. Review of Systems General: No Chills, No Night Sweats HEENT: No Head Aches, No Visual Changes Pulmonary: No Dyspnea, No Cough Cardiovascular: No: Chest Pain, Palpitations Gastrointestinal: No: Nausea, Vomiting, Diarrhea, Constipation Genitourinary: No Dysuria, No Incontinence, No Hematuria Neurological: No: Weakness, Numbness Focused Exam Lactate Level 05/01/21 15:00: Lactic Acid Level 1.50 Objective Exam Vital Signs Date Time Temp Pulse Resp B/P (MAP) Pulse Ox O2 Delivery O2 Flow Rate FiO2 05/04/21 04:19 36.9 92 20 147/76 (99) 98 Room Air 05/03/21 23:54 36.7 82 20 127/73 (91) 97 Room Air 05/03/21 19:38 36.0 87 20 153/74 (100) 99 Room Air 05/03/21 19:20 Room Air 05/03/21 15:53 34.9 81 20 140/70 (93) 98 Room Air 05/03/21 12:00 35.9 81 20 126/72 (90) 98 Room Air 05/03/21 08:00 36.0 77 20 129/72 (91) 99 Room Air 05/03/21 08:00 Room Air I & O 05/04/21 07:00 Intake Total 6275 ml Output Total 2975 ml Balance 3300 ml Capillary Refill : General Appearance: No Apparent Distress, Chronically ill, Obese Neck: Non Tender, Supple Respiratory: Lungs Clear, Normal Breath Sounds Cardiovascular: Regular Rate, Rhythm Gastrointestinal: non tender, soft Extremity: Swelling, Other (Erythema intensity less right lower extremity) Neurologic/Psychiatric: Oriented x3, No Motor/Sensory Deficits, Normal Mood/Affect Skin: Erythema (RLE diffuse swelling. R medial UE erythema) Results Lab Laboratory Tests 05/04/21 06:00: White Blood Count 14.0H, Red Blood Count 4.26L, Hemoglobin 12.2L, Hematocrit 37L , Mean Corpuscular Volume 86, Mean Corpuscular Hemoglobin 29, Mean Corpuscular Hemoglobin Concent 33, Red Cell Distribution Width 14.5, Platelet Count 272, Mean Platelet Volume 10.1, Immature Granulocyte % (Auto) 4, Neutrophils (%) (Auto) 72, Lymphocytes (%) (Auto) 8L, Monocytes (%) (Auto) 14H, Eosinophils (%) (Auto) 1, Basophils (%) (Auto) 1, Neutrophils # (Auto) 10.0H, Lymphocytes # (Auto) 1.2, Monocytes # (Auto) 2.0H, Eosinophils # (Auto) 0.2, Basophils # (Auto) 0.1, Immature Granulocyte # (Auto) 0.6H, Sodium Level 131L, Potassium Level 3.6, Chloride Level 94L, Carbon Dioxide Level 28, Anion Gap 9, Blood Urea Nitrogen 6L, Creatinine 0.76, Estimat Glomerular Filtration Rate 115, BUN/Creatinine Ratio 8, Glucose Level 128H, Calcium Level 9.0, Corrected Calcium 9.9, Total Bilirubin 0.8, Aspartate Amino Transf (AST/SGOT) 44H, Alanine Aminotransferase (ALT/SGPT) 66H, Alkaline Phosphatase 76, Total Protein 6.8, Albumin 2.9L Assessment/Plan Assessment/Plan Assessment/Plan IV antibiotics Elevate leg Needs compression therapy after cellulitis resolved BHARGAV SCHMIDT DO 05/04/21 2019: Subjective Subjective/Events-last exam Patient with expanding cellulitis of the right lower extremity now up to the thigh and onto the foot. This is outside of the markings. Pain is still under control. Patient is able to ambulate and is trying to do so regularly. Patient with no new complaints denies nausea vomiting fever sweats chills shortness of breath or chest pain. Objective Exam General Appearance: No Apparent Distress, Chronically ill, Obese HEENT: PERRL/EOMI Neck: Non Tender, Supple Respiratory: Chest Non Tender, No Accessory Muscle Use, No Respiratory Distress Cardiovascular: Regular Rate, Rhythm, No JVD Gastrointestinal: non tender, soft Extremity: Swelling, Other (Erythema intensity less right lower extremity, now increasing though on the right thigh and foot) Skin: No Normal Color; Erythema (RLE diffuse swelling. ), Other (Warmth to erythema) Lymphatic: No Adenopathy Assessment/Plan Assessment/Plan Assessment/Plan Right lower extremity cellulitisexpanding Atrial fibrillation Morbid obesity Patient continue on antibiotics. Clindamycin and IV fluconazole added. There is no areas of fluctuance or need for incision and drainage. No surgical intervention at this time. We will continue to monitor the area. Supervisory-Addendum Brief Verification & Attestation Participated in pt care: history, MDM, physical Personally performed: exam, history, MDM, supervision of care Care discussed with: Medical Student Procedures: n/a Results interpretation: Verified all documentation Verification and Attestation of Medical Student E/M Service A medical student performed and documented this service in my presence. I reviewed and verified all information documented by the medical student and made modifications to such information, when appropriate. I personally performed the physical exam and medical decision making. Bhargav Schmidt, May 04, 2021,20:19 BRENT PINEDA May 04, 2021 07:33 BHARGAV SCHMIDT DO May 04, 2021 20:19
[2021-05-04 08:00] VITALS: BP 171/81
[2021-05-04] MEDS: VANCOMYCIN 1 GM/NS 250 ML IVPB IV SCH ×6 (08:38→23:44)
[2021-05-04] MEDS: APIXABAN 5 MG (ELIQUIS) TABLET PO SCH ×2 (08:38→20:14)
--- NOTE | 2021-05-04 10:08 | Progress Note ---
GUSTAVO PEARL 05/04/21 1008: Subjective Date Seen by a Provider: May 04, 2021 Time Seen by a Provider: 10:45 Subjective/Events-last exam Today Mr. Shields reports that he is feeling well. However, he reports that the erythema of his right leg has spread, involving parts of his upper leg and foot. Reports keeping it elevated most of the day yesterday, and intermittent walking. Believes current pain management is adequate, and was not experiencing much pain during our conversation. Is continuing to use incentive spirometry Review of Systems General: No Chills, No Night Sweats, No Fatigue, No Malaise, No Appetite, No Other HEENT: No Head Aches; Dysphasia Pulmonary: No Dyspnea, No Cough, No Pleuritic Chest Pain, No Other Cardiovascular: No: Chest Pain, Palpitations Gastrointestinal: No: Nausea, Vomiting, Abdominal Pain, Diarrhea, Constipation Genitourinary: No Dysuria, No Incontinence, No Retention Musculoskeletal: leg pain Focused Exam Lactate Level 05/01/21 15:00: Lactic Acid Level 1.50 Objective Exam Last Set of Vital Signs Vital Signs Date Time Temp Pulse Resp B/P (MAP) Pulse Ox O2 Delivery O2 Flow Rate FiO2 05/04/21 04:19 36.9 92 20 147/76 (99) 98 Room Air Capillary Refill : I&O Intake and Output 05/04/21 00:00 Intake Total 6047 ml Output Total 3150 ml Balance 2897 ml Intake Oral 2782 ml IV Total 3265 ml Output Urine Total 3150 ml General: Alert, Oriented X3, Cooperative, No Acute Distress Lungs: Clear to Auscultation, Normal Air Movement Heart: Regular Rate, Normal S2 Abdomen: Normal Bowel Sounds Extremities: Normal Pulses, Other (Spreading superficial cellulitis of the right leg: swollen and erythematous) Results Lab Laboratory Tests 05/04/21 06:00: White Blood Count 14.0H, Red Blood Count 4.26L, Hemoglobin 12.2L, Hematocrit 37L , Mean Corpuscular Volume 86, Mean Corpuscular Hemoglobin 29, Mean Corpuscular Hemoglobin Concent 33, Red Cell Distribution Width 14.5, Platelet Count 272, Mean Platelet Volume 10.1, Immature Granulocyte % (Auto) 4, Neutrophils (%) (Auto) 72, Lymphocytes (%) (Auto) 8L, Monocytes (%) (Auto) 14H, Eosinophils (%) (Auto) 1, Basophils (%) (Auto) 1, Neutrophils # (Auto) 10.0H, Lymphocytes # (Auto) 1.2, Monocytes # (Auto) 2.0H, Eosinophils # (Auto) 0.2, Basophils # (Auto) 0.1, Immature Granulocyte # (Auto) 0.6H, Sodium Level 131L, Potassium Level 3.6, Chloride Level 94L, Carbon Dioxide Level 28, Anion Gap 9, Blood Urea Nitrogen 6L, Creatinine 0.76, Estimat Glomerular Filtration Rate 115, BUN/Creatinine Ratio 8, Glucose Level 128H, Calcium Level 9.0, Corrected Calcium 9.9, Total Bilirubin 0.8, Aspartate Amino Transf (AST/SGOT) 44H, Alanine Am inotransferase (ALT/SGPT) 66H, Alkaline Phosphatase 76, Total Protein 6.8, Albumin 2.9L Assessment/Plan Assessment/Plan Assess & Plan/Chief Complaint Dorian Shields is a 40 w/ pmh of recurrent r. 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 ED admission. DC w/ po abx -04/30: Worsening symptoms. Febrile (104). -05/01: Admission. Began empiric abx -05/04: Worsening spread of cellulitis - now above knee and feet Plan: -Continue Vanc and meropenem (Day 4) -Begin Clindamycin. Acidophilus added. -Begin antifungal coverage Nystatin cream IV fluconazole -Begin Triamcinolone acetonide -Surgery consulted: No intervention indicated (2) Atrial fibrillation Assessment & Plan: -H/O Afib managed w/ Metoprolol and Eliquis Plan: -Continue [employer] meds -Continue to monitor (3) Hypertension Status: Acute Assessment & Plan: Plan: -Continue D[employer] HOU[employer] meds (4) Lymphedema Status: Chronic Assessment & Plan: -Chronic lymphedema of both legs -Lower doppler US 05/02: No occlusion Plan -OT consulted -Will plan compression following resolution of cellulitis. YAZMIN BAKER DO 05/05/21 0553: Subjective Subjective/Events-last exam Spreading of cellulitis Supportive care will continue Add Diflucan Add clindamycin Review of Systems Musculoskeletal: leg pain Objective Exam General: Alert, Oriented X3, Cooperative, No Acute Distress Lungs: Clear to Auscultation, Normal Air Movement Heart: Regular Rate, Normal S1, Normal S2, No Murmurs Extremities: Other (Spreading superficial cellulitis of the right leg: swollen and erythematous) Assessment/Plan Assessment/Plan Assess & Plan/Chief Complaint Add Clinda Add Diflucan Supervisory-Addendum Brief Verification & Attestation Participated in pt care: history, MDM, physical Personally performed: exam, history, MDM, supervision of care Care discussed with: Medical Student Procedures: n/a Results interpretation: Verified all documentation Verification and Attestation of Medical Student E/M Service A medical student performed and documented this service in my presence. I reviewed and verified all information documented by the medical student and made modifications to such information, when appropriate. I personally performed the physical exam and medical decision making. Yazmin Baker, May 05, 2021,05:53 GUSTAVO PEARL May 04, 2021 10:08 YAZMIN BAKER DO May 05, 2021 05:53
[2021-05-04] MEDS ORDERED: ANIDULAFUNGIN INJECTION 200 MG in NS (IVPB) 250 ML IV ONE (11:00)
[2021-05-04] MEDS ORDERED: LACTOBACILLUS Acidoph/Bulgar 1 GM (LACTINEX) PACKET PO NR (11:15)
[2021-05-04] MEDS: CLINDAMYCIN 900 MG/50 ML IVPB 50 ML IV SCH ×2 (11:37→20:27)
--- NOTE | 2021-05-04 11:48 | Physical Therapy Progress Note ---
Therapy Progress Note Patient seen for education regarding UE lymphedema. Patient current diagnosis of cellulitis is a contraindication for lymphedema wrapping at this time, however patient educated in appropriate care post cellulitis to improve lymphedema. Patient informed that currently, lymph therapist is unavailable and the closest facilities to receive treatment are in [place], [place] or [place], [place]. Patient educated to contact primary care physician and have them contact lymphedema therapist with an updated order for treatment once appropriate. Patient had no questions and verbalized understanding of education provided. MORALES ADAMS PT May 04, 2021 11:48
[2021-05-04 12:00] VITALS: BP 146/83
[2021-05-04] MEDS: FLUCONAZOLE 200 MG/100 ML 50 ML, EMPTY IV BAG (PVC) 1 EA IV SCH ×2 (12:34)
[2021-05-04] MEDS: NYSTATIN CREAM (MYCOSTATIN) 30 GM TUBE TP SCH ×3 (12:35→20:15)
[2021-05-04] MEDS: TRIAMCINOLONE 0.1% CR (KENALOG) 15 GM TUBE TOP SCH ×2 (12:35→20:15)
--- NOTE | 2021-05-04 14:48 | Occupational Therapy Eval ---
OT Evaluation-General/PLF Medical Diagnosis Admission Date May 01, 2021 at 14:18 Medical Diagnosis: Cellulitis Onset Date: Apr 30, 2021 Therapy Diagnosis Therapy Diagnosis: Cellulitis Height/Weight Height (Feet): 6 Height (Inches): 0 Weight (Pounds): 318 Weight (Ounces): 0.0 Precautions Precautions/Isolations: Fall Prevention, Standard Precautions Medical History Reviewed History: Yes Social History Home: Single Level Current Living Status: Alone Entry Into Home: Stairs With Railing Direct admit from PCP Dr. Velasquez due to RLE cellulitis. Pt has history of recurrent cellulites. He reports multilevel home,no difficulty with stairs. He has both a walk in and a tub shower, stands for 100% of shower. Indep with all ADLs and IADLs. Still drives. No AD DIRECTOR OF STUDENT LIFE. 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. ADL-Prior Level of Function SCALE: Activities may be completed with or without assistive devices. 1-Wwgqeubllh-uqicuyp completes the activity by him/herself with no assistance from a helper. 5-Set-up or Clean-up Assistance-helper sets up or cleans up; patient completes activity. [place] assists only prior to or following the activity. 4-Supervision or Touching Assistance-helper provides verbal cues and/or touching/steadying and/or contact guard assistance as patient completes activity. Assistance may be provided throughout the activity or intermittently. 3-Partial/Moderate Assistance-helper does LESS THAN HALF the effort. [place] lifts, holds or supports trunk or limbs, but provides less than half the effort. 2-Substantial/Maximal Assistance-helper does MORE THAN HALF the effort. [place] lifts or holds trunk or limbs and provides more than half the effort. 4-Bxborldkg-lvmytu does ALL the effort. Patient does none of the effort to complete the activity. Or, the assistance of 2 or more helpers is required for the patient to complete the activity. If activity was not attempted, code reason: 7-Patient Refused. 9-Not Applicable-not attempted and the patient did not perform the activity before the current illness, exacerbation or injury. 10-Not Attempted due to Environmental Limitations-(lack of equipment, weather restraints, etc.). 88-Not Attempted due to Medical Conditions or Safety Concerns. Self Care: Independent Functional Cognition: Independent Drive Self: Yes OT Current Status Subjective Pt reports pain as 3/10. He reports inability to recall time of last pain meds secondary to not paying attention. Mental Status/Objective Patient Orientation: Person, Place, Time, Situation Current Upper Extremity ROM WFL Other Treatments Pt laying in bed at OT arrival. He refuses any OOB or EOB activities despite education and encouragement from therapist. He frequently asks therapist to just "come back later to see what you need to see." Education provided on energy conservation and cellulites. Education Teaching Recipient: Patient Teaching Methods: Discussion Response to Teaching: Verbalize Understanding, Reinforcement Needed OT Concession Attendant Goals Usp Goals Oral Hygiene (QC): 6 Toileting Hygiene (QC): 6 Lower Body Dressing (QC): 6 On/Off Footwear (QC): 6 1=Demonstrate adherence to instructed precautions during ADL tasks. 2=Patient will verbalize/demonstrate understanding of assistive devices/modifications for ADL. 3=Patient will improve strength/tolerance for activity to enable patient to perform ADL's. OT Education/Plan Problem List/Assessment Assessment: Decreased Activ Tolerance Unable to fully assess secondary to refusal to get out of bed. Will continue to assess during next session. Discharge Recommendations Plan/Recommendations: Continue POC Comment Continue to assess. Treatment Plan/Plan of Care Treatment,Training & Education: Yes Patient would benefit from OT for education, treatment and training to promote independence in ADL's, mobility, safety and/or upper extremity function for ADL's. Plan of Care: Functional Mobility, UE Funct Exercise/Act Treatment Duration: May 08, 2021 Frequency: 5 times per week Estimated Hrs Per Day: .25 hour per day Agreement: Yes Time/GCodes Start Time: 14:14 Stop Time: 14:22 Total Time Billed (hr/min): 8 Billed Treatment Time 1 Kaity Ramon OT May 04, 2021 14:48
[2021-05-04 15:25] VITALS: BP 157/87
[2021-05-04] MEDS: LACTOBACILLUS Acidoph/Bulgar 1 GM (LACTINEX) PACKET PO SCH ×2 (16:17→20:25)
[2021-05-04 19:00] VITALS: BP 167/97
[2021-05-04] MEDS: meTOprolol SUCCINATE 100 MG (TOPROL XL) TAB PO SCH (20:15)
[2021-05-04 23:36] VITALS: BP 147/87
[2021-05-05] MEDS: MEROPENEM 500 MG/SWFI 10 ML IV PUSH IV SCH ×10 (04:24→23:55)
[2021-05-05] MEDS: CLINDAMYCIN 900 MG/50 ML IVPB 50 ML IV SCH ×4 (04:24→19:44)
[2021-05-05 04:26] VITALS: BP 144/78
[2021-05-05] MEDS ORDERED: MEROPENEM 500 MG VIAL (MERREM) IV ONE (04:36)
[2021-05-05] MEDS: KCL 8 MEQ (MICRO K) TABLET PO SCH (05:59)
[2021-05-05] MEDS: LACTOBACILLUS Acidoph/Bulgar 1 GM (LACTINEX) PACKET PO SCH ×4 (05:59→20:14)
[2021-05-05 07:32] LABS: BASOPHILS # (AUTO) 0.1 10^3/uL (0.0-0.1); BASOPHILS % (AUTO) 1 % (0-10); EOSINOPHILS # (AUTO) 0.2 10^3/uL (0.0-0.3); EOSINOPHILS % (AUTO) 2 % (0-10); HEMATOCRIT 37 % (40-54); HEMOGLOBIN 12.3 g/dL (13.3-17.7); LYMPHOCYTES # (AUTO) 1.4 10^3/uL (1.0-4.0); LYMPHOCYTES % (AUTO) 10 % (12-44); MEAN CORPUSCULAR HEMOGLOBIN 28 pg (25-34); MEAN CORPUSCULAR HGB CONC 33 g/dL (32-36); MEAN CORPUSCULAR VOLUME 85 fL (80-99); MEAN PLATELET VOLUME 9.8 fL (9.0-12.2); MONOCYTES # (AUTO) 1.9 10^3/uL (0.0-1.0); MONOCYTES % (AUTO) 14 % (0-12); NEUTROPHILS # (AUTO) 9.2 10^3/uL (1.8-7.8); NEUTROPHILS % (AUTO) 69 % (42-75); PLATELET COUNT 397 10^3/uL (130-400); WHITE BLOOD COUNT 13.4 10^3/uL (4.3-11.0)
--- NOTE | 2021-05-05 07:39 | Progress Note - Surgery ---
BRENT PINEDA 05/05/21 0739: Subjective Date Seen by a Provider: May 05, 2021 Time Seen by a Provider: 06:30 Subjective/Events-last exam Patient feels well this morning. He is still having a headache occasionally. He believes his leg is improving. Review of Systems General: No Chills, No Night Sweats HEENT: Head Aches; No Visual Changes Pulmonary: No Dyspnea, No Cough Cardiovascular: No: Chest Pain, Palpitations Gastrointestinal: No: Nausea, Vomiting, Diarrhea, Constipation Genitourinary: No Dysuria, No Hematuria Neurological: No: Weakness, Numbness Objective Exam Vital Signs Date Time Temp Pulse Resp B/P (MAP) Pulse Ox O2 Delivery O2 Flow Rate FiO2 05/05/21 04:26 36.2 70 20 144/78 (100) 94 Room Air 05/04/21 23:36 37.9 83 22 147/87 (107) 98 Room Air 05/04/21 20:30 Room Air 05/04/21 19:00 36.0 81 24 167/97 (120) 95 Room Air 05/04/21 15:25 35.6 82 24 157/87 (110) 98 Room Air 05/04/21 12:00 37.0 81 18 146/83 (104) 96 Room Air 05/04/21 08:00 36.4 84 18 171/81 (111) 98 Room Air 05/04/21 08:00 Room Air I & O 05/05/21 07:00 Intake Total 3257 ml Output Total 2800 ml Balance 457 ml Capillary Refill : General Appearance: No Apparent Distress, Chronically ill, Obese Neck: Non Tender, Supple Respiratory: Lungs Clear, Normal Breath Sounds Cardiovascular: Regular Rate, Rhythm, No Gallop, No Murmur Gastrointestinal: non tender, soft Extremity: Swelling, Other (Erythema intensity less right lower extremity.) Neurologic/Psychiatric: Oriented x3, No Motor/Sensory Deficits, Normal Mood/Affect Skin: Normal Color, Erythema (RLE diffuse swelling. R medial UE erythema - both improving) Lymphatic: No Adenopathy Results Lab Laboratory Tests 05/05/21 07:09: White Blood Count 13.4H, Red Blood Count 4.38, Hemoglobin 12.3L, Hematocrit 37L, Mean Corpuscular Volume 85, Mean Corpuscular Hemoglobin 28, Mean Corpuscular Hemoglobin Concent 33, Red Cell Distribution Width 14.2, Platelet Count 397, Mean Platelet Volume 9.8, Immature Granulocyte % (Auto) 5, Neutrophils (%) (Auto) 69, Lymphocytes (%) (Auto) 10L, Monocytes (%) (Auto) 14H, Eosinophils (%) (Auto) 2, Basophils (%) (Auto) 1, Neutrophils # (Auto) 9.2H, Lymphocytes # (Auto) 1.4, Monocytes # (Auto) 1.9H, Eosinophils # (Auto) 0.2, Basophils # (Auto) 0.1, Immature Granulocyte # (Auto) 0.6H Assessment/Plan Assessment/Plan Assessment/Plan Continue Abx BHARGAV SCHMIDT DO 05/05/212105: Subjective Subjective/Events-last exam Patiently feeling better today. Patient states redness slightly gone down and pain and discomfort slightly decreased today as well. Patient states a lot of warmth to it still. No new complaints. Denies nausea vomiting fever sweats chills shortness of breath or chest pain. WBC slightly down Objective Exam General Appearance: No Apparent Distress, Obese HEENT: PERRL/EOMI, Normal ENT Inspection Neck: Non Tender, Supple Respiratory: Chest Non Tender, No Accessory Muscle Use, No Respiratory Distress Cardiovascular: Regular Rate, Rhythm, No JVD Gastrointestinal: non tender, soft Extremity: Swelling, Other (Erythema intensity less right lower extremity.) Neurologic/Psychiatric: Oriented x3, No Motor/Sensory Deficits, Normal Mood/Affect Skin: Erythema (RLE diffuse swelling. R medial UE erythema - both improving) Lymphatic: No Adenopathy Assessment/Plan Assessment/Plan Assessment/Plan Right lower extremity cellulitis Right lower extremity pain. Long-term anticoagulation Atrial fibrillation Patient continue on current regimen. Has had slight improvement in white blood cell count decreasing. No surgical intervention at this time needed. Will sign off please call if needed. Supervisory-Addendum Brief Verification & Attestation Participated in pt care: history, MDM, physical Personally performed: exam, history, MDM, supervision of care Care discussed with: Medical Student Procedures: n/a Results interpretation: Verified all documentation Verification and Attestation of Medical Student E/M Service A medical student performed and documented this service in my presence. I reviewed and verified all information documented by the medical student and made modifications to such information, when appropriate. I personally performed the physical exam and medical decision making. Bhargav Schmidt, May 05, 2021,21:06 BRENT PINEDA May 05, 2021 07:39 BHARGAV SCHMIDT DO May 05, 2021 21:06
[2021-05-05 07:54] LABS: ALBUMIN 2.8 GM/DL (3.2-4.5); CALCIUM 9.2 MG/DL (8.5-10.1); CREATININE SERUM 0.7 MG/DL (0.60-1.30); POTASSIUM 3.5 MMOL/L (3.6-5.0); TOTAL PROTEIN 6.7 GM/DL (6.4-8.2)
[2021-05-05 08:00] VITALS: BP 137/78
[2021-05-05] MEDS ORDERED: ANIDULAFUNGIN INJECTION 100 MG in NS (IVPB) 100 ML IV SCH (09:00)
[2021-05-05] MEDS: NYSTATIN CREAM (MYCOSTATIN) 30 GM TUBE TP SCH ×3 (09:34→20:16)
[2021-05-05] MEDS: APIXABAN 5 MG (ELIQUIS) TABLET PO SCH ×2 (09:34→20:14)
[2021-05-05] MEDS: VANCOMYCIN 1 GM/NS 250 ML IVPB IV SCH ×8 (09:34→23:55)
[2021-05-05] MEDS: TRIAMCINOLONE 0.1% CR (KENALOG) 15 GM TUBE TOP SCH ×2 (09:34→20:15)
[2021-05-05] MEDS: FLUCONAZOLE 200 MG/100 ML 50 ML, EMPTY IV BAG (PVC) 1 EA IV SCH ×2 (10:42)
--- NOTE | 2021-05-05 11:45 | Occupational Ther Daily Note ---
OT Current Status-Daily Note Subjective Pt alert, lying in bed. Pt agrees to therapy. Pt c/o pain in R LE, does not rate. Mental Status/Objective Patient Orientation: Person, Place, Time, Situation Attachments: IV ADL-Treatment Pt states that he does not need OT services though does agree to demonstrate ability to complete ADLs independently. Supine <--> EOB, independently. Is up ad yue in room using FWW. Pt demonstrates ability to don/doff socks independently. Per nrsg, pt completes own toileting and bathing independently. Pt reiterates that he does not want or need OT services. Discharge OT services at this time. After session, pt lying in bed with call light/phone in reach. All needs met in room. Therapy Code Descriptions/Definitions Functional [place] Measure: 0=Not Assessed/NA 4=Minimal Assistance 1=Total Assistance 5=Supervision or Setup 2=Maximal Assistance 6=Modified [place] 3=Moderate Assistance 7=Complete IndependenceSCALE: Activities may be completed with or without assistive devices. 4-Gbpudbmwsk-oecthqn completes the activity by him/herself with no assistance from a helper. 5-Set-up or Clean-up Assistance-helper sets up or cleans up; patient completes activity. [place] assists only prior to or following the activity. 4-Supervision or Touching Assistance-helper provides verbal cues and/or touching/steadying and/or contact guard assistance as patient completes activity. Assistance may be provided throughout the activity or intermittently. 3-Partial/Moderate Assistance-helper does LESS THAN HALF the effort. [place] lifts, holds or supports trunk or limbs, but provides less than half the effort. 2-Substantial/Maximal Assistance-helper does MORE THAN HALF the effort. [place] lifts or holds trunk or limbs and provides more than half the effort. 5-Lajkthgwg-sqqtyv does ALL the effort. Patient does none of the effort to complete the activity. Or, the assistance of 2 or more helpers is required for the patient to complete the activity. If activity was not attempted, code reason: 7-Patient Refused. 9-Not Applicable-not attempted and the patient did not perform the activity before the current illness, exacerbation or injury. 10-Not Attempted due to Environmental Limitations-(lack of equipment, weather restraints, etc.). 88-Not Attempted due to Medical Conditions or Safety Concerns. Eating (QC): 6 (per clinical judgment) Oral Hygiene (QC): 6 (Per clinical judgment) Shower/Bathe Self (QC): 6 (per nrsg report) Upper Body Dressing (QC): 6 (per clinical judgment) Lower Body Dressing (QC): 6 On/Off Footwear: 6 Toileting Hygiene (QC): 6 (per nrsg report and pt report) OT Infection Control Coordinator Goals Skilled Nursing Goals Oral Hygiene (QC): 6 Toileting Hygiene (QC): 6 Lower Body Dressing (QC): 6 On/Off Footwear (QC): 6 1=Demonstrate adherence to instructed precautions during ADL tasks. 2=Patient will verbalize/demonstrate understanding of assistive devices/modifications for ADL. 3=Patient will improve strength/tolerance for activity to enable patient to perform ADL's. OT Education/Plan Problem List/Assessment Unable to fully assess secondary to refusal to get out of bed. Will continue to assess during next session. Discharge Recommendations Plan/Recommendations: Discharge/Goals Met Treatment Plan/Plan of Care Patient would benefit from OT for education, treatment and training to promote independence in ADL's, mobility, safety and/or upper extremity function for ADL's. Plan of Care: Functional Mobility, UE Funct Exercise/Act Treatment Duration: May 08, 2021 Frequency: 5 times per week Estimated Hrs Per Day: .25 hour per day Agreement: Yes Time/GCodes Start Time: 10:48 Stop Time: 10:58 Total Time Billed (hr/min): 10 Billed Treatment Time 1 visit-FA 1 (10 min) INDY TRAN May 05, 2021 11:45
--- NOTE | 2021-05-05 11:49 | Progress Note ---
GUSTAVO PEARL 05/05/21 1149: Subjective Date Seen by a Provider: May 05, 2021 Time Seen by a Provider: 11:15 Subjective/Events-last exam Today Mr. Shields is feeling better. Reports better pain management. Endorses further spread of the erythema, but does not feel any symptoms from it. Believes that his leg is feeling better. Reports brief febrile episode last night, but has resolved. Review of Systems General: No Chills, No Night Sweats, No Fatigue, No Malaise HEENT: No Head Aches Pulmonary: No Dyspnea, No Cough, No Pleuritic Chest Pain Cardiovascular: Edema; No: Chest Pain, Palpitations Gastrointestinal: No: Nausea, Vomiting, Abdominal Pain, Diarrhea, Constipation Genitourinary: No Dysuria, No Frequency, No Incontinence Musculoskeletal: leg pain Objective Exam Last Set of Vital Signs Vital Signs Date Time Temp Pulse Resp B/P (MAP) Pulse Ox O2 Delivery O2 Flow Rate FiO2 05/05/21 08:00 Room Air 05/05/21 08:00 36.1 72 20 137/78 (97) 98 Capillary Refill : I&O Intake and Output 05/05/21 00:00 Intake Total 3067 ml Output Total 2975 ml Balance 92 ml Intake Oral 2687 ml IV Total 380 ml Output Urine Total 2975 ml # Bowel Movements 2 General: Alert, Oriented X3, Cooperative, No Acute Distress Lungs: Clear to Auscultation, Normal Air Movement Heart: Regular Rate, Normal S1, Normal S2 Abdomen: Normal Bowel Sounds, Soft, No Tenderness Skin: Other (Lesion of right leg now encompassing inner thigh, above knee. ) Results Lab Laboratory Tests 05/05/21 07:09: White Blood Count 13.4H, Red Blood Count 4.38, Hemoglobin 12.3L, Hematocrit 37L, Mean Corpuscular Volume 85, Mean Corpuscular Hemoglobin 28, Mean Corpuscular Hemoglobin Concent 33, Red Cell Distribution Width 14.2, Platelet Count 397, Mean Platelet Volume 9.8, Immature Granulocyte % (Auto) 5, Neutrophils (%) (Auto) 69, Lymphocytes (%) (Auto) 10L, Monocytes (%) (Auto) 14H, Eosinophils (%) (Auto) 2, Basophils (%) (Auto) 1, Neutrophils # (Auto) 9.2H, Lymphocytes # (Auto) 1.4, Monocytes # (Auto) 1.9H, Eosinophils # (Auto) 0.2, Basophils # (Auto) 0.1, Immature Granulocyte # (Auto) 0.6H, Sodium Level 132L, Potassium Level 3.5L, Chloride Level 93L, Carbon Dioxide Level 28, Anion Gap 11, Blood Urea Nitrogen 7, Creatinine 0.70, Estimat Glomerular Filtration Rate 126, BUN/Creatinine Ratio 10, Glucose Level 115H, Calcium Level 9.2, Corrected Calcium 10.2H, Total Bilirubin 1.0, Aspartate Amino Transf (AST/SGOT) 34, Alanine Aminotransferase (ALT/SGPT) 60H, Alkaline Phosphatase 84, Total Protein 6.7, Albumin 2.8L Assessment/Plan Assessment/Plan Assess & Plan/Chief Complaint Dorian Shields is a 40 w/ pmh of recurrent r. leg cellulitis, morbid obesity (BMI 44), Afib who is currently being treated for superficial cellulitis of the right leg -Continue Vancomycin and Meropenem (day 5) -Continue clindamycin (Day 2) -Continue antifungal regimen (Day 2) (see below) Diagnosis/Problems Diagnosis/Problems (1) Cellulitis of right leg without foot Status: Acute Assessment & Plan: -04/29: Onset of diffuse RLE cellulits. ED admission. DC w/ po abx -04/30: Worsening symptoms. Febrile (104). -05/01: Admission. Began empiric abx -05/04: Worsening spread of cellulitis - now above knee and feet -05/05: Now encompassing mid thigh Plan: -Continue Vanc and meropenem (Day 5) -Continue Clindamycin (Day 2) -Continue antifungal coverage (Day 2) Nystatin cream IV fluconazole -Continue Triamcinolone acetonide -Surgery consulted: No intervention indicated (2) Atrial fibrillation Status: Chronic Assessment & Plan: -H/O Afib managed w/ Metoprolol and Eliquis Plan: -Continue B[employer] meds -Continue to monitor (3) Hypertension Status: Chronic Assessment & Plan: Plan: -Continue BARK [employer]TER meds (4) Lymphedema Status: Chronic Assessment & Plan: -Chronic lymphedema of both legs -Lower doppler US 05/02: No occlusion Plan -OT consulted: Pt declined visit -Will plan compression following resolution of cellulitis. -Plan for outpatient management YAZMIN BAKER DO 05/06/21 0553: Subjective Subjective/Events-last exam Leg is improved Noncompliant with elevation Prefers to lay in bed and take pain medication Objective Exam General: Alert, Oriented X3, Cooperative, No Acute Distress Skin: Other (Lesion of right leg now encompassing inner thigh, above knee. Improved today) Assessment/Plan Assessment/Plan Assess & Plan/Chief Complaint Improved status Long process due to lymphedema Supervisory-Addendum Brief Verification & Attestation Participated in pt care: history, MDM, physical Personally performed: exam, history, MDM, supervision of care Care discussed with: Medical Student Procedures: n/a Results interpretation: Verified all documentation Verification and Attestation of Medical Student E/M Service A medical student performed and documented this service in my presence. I reviewed and verified all information documented by the medical student and made modifications to such information, when appropriate. I personally performed the physical exam and medical decision making. Yazmin Baker, May 06, 2021,05:52 GUSTAVO PEARL May 05, 2021 11:49 YAZMIN BAKER DO May 06, 2021 05:53
[2021-05-05 12:00] VITALS: BP 143/76
[2021-05-05 15:50] VITALS: BP 151/72
[2021-05-05 19:25] VITALS: BP 125/77
[2021-05-05] MEDS: meTOprolol SUCCINATE 100 MG (TOPROL XL) TAB PO SCH (20:14)
[2021-05-06] VITALS: BP 117/71
[2021-05-06] MEDS: CLINDAMYCIN 900 MG/50 ML IVPB 50 ML IV SCH ×3 (03:49→19:39)
[2021-05-06 04:18] VITALS: BP 137/70
[2021-05-06 05:39] LABS: BASOPHILS # (AUTO) 0.1 10^3/uL (0.0-0.1); BASOPHILS % (AUTO) 1 % (0-10); EOSINOPHILS # (AUTO) 0.2 10^3/uL (0.0-0.3); EOSINOPHILS % (AUTO) 2 % (0-10); HEMATOCRIT 38 % (40-54); HEMOGLOBIN 12.4 g/dL (13.3-17.7); LYMPHOCYTES # (AUTO) 1.4 10^3/uL (1.0-4.0); LYMPHOCYTES % (AUTO) 9 % (12-44); MEAN CORPUSCULAR HEMOGLOBIN 28 pg (25-34); MEAN CORPUSCULAR HGB CONC 33 g/dL (32-36); MEAN CORPUSCULAR VOLUME 86 fL (80-99); MEAN PLATELET VOLUME 9.4 fL (9.0-12.2); MONOCYTES # (AUTO) 1.7 10^3/uL (0.0-1.0); MONOCYTES % (AUTO) 11 % (0-12); NEUTROPHILS # (AUTO) 11.5 10^3/uL (1.8-7.8); NEUTROPHILS % (AUTO) 74 % (42-75); PLATELET COUNT 479 10^3/uL (130-400); WHITE BLOOD COUNT 15.6 10^3/uL (4.3-11.0)
[2021-05-06] MEDS: MEROPENEM 500 MG/SWFI 10 ML IV PUSH IV SCH ×4 (05:49→12:47)
[2021-05-06] MEDS: LACTOBACILLUS Acidoph/Bulgar 1 GM (LACTINEX) PACKET PO SCH ×4 (05:49→20:10)
[2021-05-06] MEDS: KCL 8 MEQ (MICRO K) TABLET PO SCH (05:49)
[2021-05-06 05:52] LABS: ALBUMIN 2.9 GM/DL (3.2-4.5); POTASSIUM 3.5 MMOL/L (3.6-5.0)
[2021-05-06 05:53] LABS: CALCIUM 8.9 MG/DL (8.5-10.1)
[2021-05-06 05:55] LABS: TOTAL PROTEIN 7.3 GM/DL (6.4-8.2)
[2021-05-06 05:56] LABS: BILIRUBIN,TOTAL 1.2 MG/DL (0.1-1.0)
[2021-05-06 05:58] LABS: CREATININE SERUM 0.73 MG/DL (0.60-1.30)
[2021-05-06 07:30] VITALS: BP 145/86
--- NOTE | 2021-05-06 07:41 | Progress Note ---
Subjective Date Seen by a Provider: May 06, 2021 Time Seen by a Provider: 10:30 Subjective/Events-last exam Patient still with a lot of pain Procalcitonin 0.31 Multiple antibiotics and antifungals on board Triamcinolone salve Lengthy process with severe cellulitis with lymphedema Have instructed him he must keep the leg elevated Very complex issue Talked about compression wraps Review of Systems Musculoskeletal: leg pain Objective Exam Last Set of Vital Signs Vital Signs Date Time Temp Pulse Resp B/P (MAP) Pulse Ox O2 Delivery O2 Flow Rate FiO2 05/06/21 04:18 36.6 74 16 137/70 (92) 95 Room Air Capillary Refill : I&O Intake and Output 05/06/21 00:00 Intake Total 2830 ml Output Total 1800 ml Balance 1030 ml Intake Oral 2240 ml IV Total 590 ml Output Urine Total 1800 ml # Voids 3 # Bowel Movements 3 General: Alert, Oriented X3, Cooperative, No Acute Distress Lungs: Clear to Auscultation Heart: Regular Rate, Normal S1, Normal S2, No Murmurs Skin: Other (Right leg with edema and erythema darker red today less heat) Psych/Mental Status: Mental Status NL, Mood NL Results Lab Laboratory Tests 05/06/21 05:30: White Blood Count 15.6H, Red Blood Count 4.43, Hemoglobin 12.4L, Hematocrit 38L, Mean Corpuscular Volume 86, Mean Corpuscular Hemoglobin 28, Mean Corpuscular Hemoglobin Concent 33, Red Cell Distribution Width 14.4, Platelet Count 479H, Mean Platelet Volume 9.4, Immature Granulocyte % (Auto) 5, Neutrophils (%) (Auto) 74, Lymphocytes (%) (Auto) 9L, Monocytes (%) (Auto) 11, Eosinophils (%) (Auto) 2, Basophils (%) (Auto) 1, Neutrophils # (Auto) 11.5H, Lymphocytes # (Auto) 1.4, Monocytes # (Auto) 1.7H, Eosinophils # (Auto) 0.2, Basophils # (Auto) 0.1, Immature Granulocyte # (Auto) 0.7H, Sodium Level 130L, Potassium Level 3.5L, Chloride Level 91L, Carbon Dioxide Level 25, Anion Gap 14, Blood Urea Nitrogen 8, Creatinine 0.73, Estimat Glomerular Filtration Rate 120, BUN/Creatinine Ratio 11, Glucose Level 109H, Calcium Level 8.9, Corrected Calcium 9.8, Total Bilirubin 1.2H, Aspartate Amino Transf (AST/SGOT) 40H, Alanine Aminotransferase (ALT/SGPT) 58H, Alkaline Phosphatase 83, Total Protein 7.3, Albumin 2.9L Assessment/Plan Assessment/Plan Assess & Plan/Chief Complaint Assessment: Severe right-sided lower extremity cellulitis Complicated lymphedema Morbid obesity BMI 45 Suspicion for ODALYS Atrial fibrillation Hypertension IV antibiotics Antifungal Triamcinolone staff Keep leg elevated Clinical Quality Measures Admission Status Admission Dx Assessment: Acute on chronic right leg cellulitis severe in nature failed oral antibiotics Morbid obesity BMI 44 Atrial fibrillation Oral anticoagulation maintenance Plan: IV antibiotics Pain control Arterial ultrasound ALBERTO Alexis DO May 06, 2021 07:41
[2021-05-06] MEDS: VANCOMYCIN 1 GM/NS 250 ML IVPB IV SCH ×2 (08:53)
[2021-05-06] MEDS: FLUCONAZOLE 200 MG/100 ML 50 ML, EMPTY IV BAG (PVC) 1 EA IV SCH ×2 (08:53)
[2021-05-06] MEDS: NYSTATIN CREAM (MYCOSTATIN) 30 GM TUBE TP SCH ×3 (08:54→20:11)
[2021-05-06] MEDS: APIXABAN 5 MG (ELIQUIS) TABLET PO SCH ×2 (08:54→20:10)
[2021-05-06] MEDS: TRIAMCINOLONE 0.1% CR (KENALOG) 15 GM TUBE TOP SCH ×2 (08:54→20:12)
[2021-05-06 11:25] VITALS: BP 120/66
[2021-05-06] MEDS ORDERED: MEROPENEM 500 MG/SWFI 10 ML IV PUSH IV SCH ×2 (12:45)
[2021-05-06 16:07] VITALS: BP_SYST 114; BP_SYST 133; BP_DIAS 74; BP_DIAS 80
[2021-05-06 20:04] VITALS: BP 155/93
[2021-05-06] MEDS: meTOprolol SUCCINATE 100 MG (TOPROL XL) TAB PO SCH (20:10)
[2021-05-07] VITALS: BP 134/81
[2021-05-07] MEDS: CLINDAMYCIN 900 MG/50 ML IVPB 50 ML IV SCH ×3 (03:31→19:32)
[2021-05-07 04:21] VITALS: BP 120/77
[2021-05-07] MEDS: LACTOBACILLUS Acidoph/Bulgar 1 GM (LACTINEX) PACKET PO SCH ×4 (06:06→20:42)
[2021-05-07] MEDS: KCL 8 MEQ (MICRO K) TABLET PO SCH (06:06)
[2021-05-07 06:15] LABS: BASOPHILS # (AUTO) 0.1 10^3/uL (0.0-0.1); BASOPHILS % (AUTO) 1 % (0-10); EOSINOPHILS # (AUTO) 0.2 10^3/uL (0.0-0.3); EOSINOPHILS % (AUTO) 1 % (0-10); HEMATOCRIT 34 % (40-54); HEMOGLOBIN 11.4 g/dL (13.3-17.7); LYMPHOCYTES # (AUTO) 1.3 10^3/uL (1.0-4.0); LYMPHOCYTES % (AUTO) 9 % (12-44); MEAN CORPUSCULAR HEMOGLOBIN 29 pg (25-34); MEAN CORPUSCULAR HGB CONC 34 g/dL (32-36); MEAN CORPUSCULAR VOLUME 84 fL (80-99); MEAN PLATELET VOLUME 9.2 fL (9.0-12.2); MONOCYTES # (AUTO) 1.6 10^3/uL (0.0-1.0); MONOCYTES % (AUTO) 12 % (0-12); NEUTROPHILS # (AUTO) 10.3 10^3/uL (1.8-7.8); NEUTROPHILS % (AUTO) 74 % (42-75); PLATELET COUNT 533 10^3/uL (130-400); WHITE BLOOD COUNT 13.9 10^3/uL (4.3-11.0)
[2021-05-07 06:24] LABS: ALBUMIN 2.5 GM/DL (3.2-4.5); CHLORIDE 95 MMOL/L (98-107); POTASSIUM 3.6 MMOL/L (3.6-5.0); SODIUM 133 MMOL/L (135-145)
[2021-05-07 06:25] LABS: CALCIUM 8.5 MG/DL (8.5-10.1)
[2021-05-07 06:26] LABS: GLUCOSE 110 MG/DL (70-105); TOTAL PROTEIN 6.7 GM/DL (6.4-8.2)
[2021-05-07 06:27] LABS: CARBON DIOXIDE 27 MMOL/L (21-32)
[2021-05-07 06:28] LABS: BILIRUBIN,TOTAL 1.2 MG/DL (0.1-1.0)
[2021-05-07 06:30] LABS: ALKALINE PHOSPHATASE 75 U/L (40-136); CREATININE SERUM 0.71 MG/DL (0.60-1.30); GFR ESTIMATED 124
[2021-05-07 06:31] LABS: BUN/CREATININE RATIO 11
[2021-05-07 06:33] LABS: ALANINE AMINOTRANSFERASE 45 U/L (0-55); CREATINE KINASE < 7 U/L (30-200)
[2021-05-07 07:55] VITALS: BP 126/74
--- NOTE | 2021-05-07 08:20 | Progress Note ---
Subjective Date Seen by a Provider: May 07, 2021 Time Seen by a Provider: 12:00 Subjective/Events-last exam Leg is dramatically improved IV antibiotics will be restarted since they automatically discontinued last night Patient is actually keeping leg elevated which is helping tremendously No constipation Pain meds given Talk to him about compression therapy and compression wraps more in depth Review of Systems General: Fatigue, Malaise Musculoskeletal: leg pain Objective Exam Last Set of Vital Signs Vital Signs Date Time Temp Pulse Resp B/P (MAP) Pulse Ox O2 Delivery O2 Flow Rate FiO2 05/07/21 07:55 36.0 67 20 126/74 (91) 97 Room Air Capillary Refill : I&O Intake and Output 05/07/21 00:00 Intake Total 2965 ml Output Total 4400 ml Balance -1435 ml Intake Oral 2595 ml IV Total 370 ml Output Urine Total 4400 ml General: Alert, Oriented X3, Cooperative, No Acute Distress Lungs: Clear to Auscultation, Normal Air Movement Heart: Regular Rate, Normal S1, Normal S2, No Murmurs Skin: Other (Much improved erythema right leg) Psych/Mental Status: Mental Status NL, Mood NL Results Lab Laboratory Tests 05/07/21 06:09: White Blood Count 13.9H, Red Blood Count 3.98L, Hemoglobin 11.4L, Hematocrit 34L , Mean Corpuscular Volume 84, Mean Corpuscular Hemoglobin 29, Mean Corpuscular Hemoglobin Concent 34, Red Cell Distribution Width 14.2, Platelet Count 533H, Mean Platelet Volume 9.2, Immature Granulocyte % (Auto) 3, Neutrophils (%) (Auto) 74, Lymphocytes (%) (Auto) 9L, Monocytes (%) (Auto) 12, Eosinophils (%) (Auto) 1, Basophils (%) (Auto) 1, Neutrophils # (Auto) 10.3H, Lymphocytes # (Auto) 1.3, Monocytes # (Auto) 1.6H, Eosinophils # (Auto) 0.2, Basophils # (Auto) 0.1, Immature Granulocyte # (Auto) 0.4H, Sodium Level 133L, Potassium Level 3.6, Chloride Level 95L, Carbon Dioxide Level 27, Anion Gap 11, Blood Urea Nitrogen 8, Creatinine 0.71, Estimat Glomerular Filtration Rate 124, BUN/Creatinine Ratio 11, Glucose Level 110H, Calcium Level 8.5, Corrected Calcium 9.7, Total Bilirubin 1.2H, Aspartate Amino Transf (AST/SGOT) 30, Alanine Aminotransferase (ALT/SGPT) 45, Alkaline Phosphatase 75, Total Creatine Kinase < 7L, Total Protein 6.7, Albumin 2.5L, Procalcitonin 0.21H Assessment/Plan Assessment/Plan Assess & Plan/Chief Complaint Assessment: Severe right-sided lower extremity cellulitis Complicated lymphedema Morbid obesity BMI 45 Suspicion for ODALYS Atrial fibrillation Hypertension IV antibiotics Antifungal Triamcinolone staff Keep leg elevated 05/07/2021: Dramatic improvement Continue IV antibiotics Keep leg elevated Clinical Quality Measures Admission Status Admission Dx Assessment: Acute on chronic right leg cellulitis severe in nature failed oral antibiotics Morbid obesity BMI 44 Atrial fibrillation Oral anticoagulation maintenance Plan: IV antibiotics Pain control Arterial ultrasound ALBERTO Alexis DO May 07, 2021 08:20
[2021-05-07] MEDS: NYSTATIN CREAM (MYCOSTATIN) 30 GM TUBE TP SCH ×3 (09:13→20:42)
[2021-05-07] MEDS: APIXABAN 5 MG (ELIQUIS) TABLET PO SCH ×2 (09:13→20:42)
[2021-05-07] MEDS: FLUCONAZOLE 200 MG/100 ML 50 ML, EMPTY IV BAG (PVC) 1 EA IV SCH ×2 (09:13)
[2021-05-07] MEDS: TRIAMCINOLONE 0.1% CR (KENALOG) 15 GM TUBE TOP SCH ×2 (09:13→20:42)
[2021-05-07] MEDS ORDERED: VANCOMYCIN INJECTION 1,000 MG in NS (IVPB) 250 ML IV SCH (14:00)
[2021-05-07] MEDS ORDERED: VANCOMYCIN 2000 MG/NS 500 ML IVPB IV NR ×2 (14:00)
[2021-05-07] MEDS: MEROPENEM 500 MG in WATER (STERILE) FOR INJECTION 10 ML IV SCH ×2 (14:00→19:32)
[2021-05-07] MEDS: VANCOMYCIN INJECTION 1,000 MG in NS (IVPB) 250 ML IV SCH ×2 (15:56→22:34)
[2021-05-07 16:02] VITALS: BP 129/87
[2021-05-07] MEDS: meTOprolol SUCCINATE 100 MG (TOPROL XL) TAB PO SCH (20:42)
[2021-05-07] MEDS ORDERED: VANCOMYCIN 1250 MG/NS 250 ML IVPB IV SCH ×2 (22:00)
[2021-05-08] VITALS: BP 126/74
[2021-05-08] MEDS: MEROPENEM 500 MG in WATER (STERILE) FOR INJECTION 10 ML IV SCH ×4 (01:11→19:57)
[2021-05-08] MEDS: CLINDAMYCIN 900 MG/50 ML IVPB 50 ML IV SCH ×3 (03:37→19:57)
[2021-05-08 05:12] LABS: BASOPHILS # (AUTO) 0.1 10^3/uL (0.0-0.1); BASOPHILS % (AUTO) 1 % (0-10); EOSINOPHILS # (AUTO) 0.2 10^3/uL (0.0-0.3); EOSINOPHILS % (AUTO) 1 % (0-10); HEMATOCRIT 34 % (40-54); HEMOGLOBIN 11.5 g/dL (13.3-17.7); LYMPHOCYTES # (AUTO) 1.4 10^3/uL (1.0-4.0); LYMPHOCYTES % (AUTO) 10 % (12-44); MEAN CORPUSCULAR HEMOGLOBIN 29 pg (25-34); MEAN CORPUSCULAR HGB CONC 34 g/dL (32-36); MEAN CORPUSCULAR VOLUME 84 fL (80-99); MONOCYTES # (AUTO) 1.6 10^3/uL (0.0-1.0); MONOCYTES % (AUTO) 12 % (0-12); NEUTROPHILS # (AUTO) 9.9 10^3/uL (1.8-7.8); NEUTROPHILS % (AUTO) 73 % (42-75); PLATELET COUNT 566 10^3/uL (130-400); WHITE BLOOD COUNT 13.5 10^3/uL (4.3-11.0)
[2021-05-08 05:20] LABS: ALBUMIN 2.5 GM/DL (3.2-4.5)
[2021-05-08 05:21] LABS: POTASSIUM 3.9 MMOL/L (3.6-5.0)
[2021-05-08 05:22] LABS: CALCIUM 8.5 MG/DL (8.5-10.1)
[2021-05-08 05:23] LABS: TOTAL PROTEIN 7.1 GM/DL (6.4-8.2)
[2021-05-08 05:25] LABS: BILIRUBIN,TOTAL 1.3 MG/DL (0.1-1.0)
[2021-05-08 05:26] LABS: CREATININE SERUM 0.72 MG/DL (0.60-1.30)
[2021-05-08] MEDS: KCL 8 MEQ (MICRO K) TABLET PO SCH (06:13)
[2021-05-08] MEDS: LACTOBACILLUS Acidoph/Bulgar 1 GM (LACTINEX) PACKET PO SCH ×4 (06:13→19:56)
[2021-05-08] MEDS: VANCOMYCIN INJECTION 1,000 MG in NS (IVPB) 250 ML IV SCH ×3 (06:13→21:25)
--- NOTE | 2021-05-08 07:11 | Progress Note ---
Subjective Date Seen by a Provider: May 08, 2021 Time Seen by a Provider: 12:00 Subjective/Events-last exam Right leg is much improved Keeping it elevated Father at the bedside Bowels are moving Compression wraps discussed again Denies any new issues Cannot really bear weight on it too much so will initiate stretching exercises with therapy strap Review of Systems General: Fatigue, Malaise Musculoskeletal: leg pain Objective Exam Last Set of Vital Signs Vital Signs Date Time Temp Pulse Resp B/P (MAP) Pulse Ox O2 Delivery O2 Flow Rate FiO2 05/08/21 00:00 36.8 71 18 126/74 (91) 96 Room Air Capillary Refill : I&O Intake and Output 05/08/21 00:00 Intake Total 1190 ml Output Total 3200 ml Balance -2010 ml Intake Oral 1140 ml IV Total 50 ml Output Urine Total 3200 ml # Bowel Movements 1 General: Alert, Oriented X3, Cooperative, No Acute Distress Lungs: Clear to Auscultation, Normal Air Movement Heart: Regular Rate, Normal S1, Normal S2, No Murmurs Skin: Other (Dramatically improved right leg) Psych/Mental Status: Mental Status NL, Mood NL Results Lab Laboratory Tests 05/08/21 05:07: White Blood Count 13.5H, Red Blood Count 4.04L, Hemoglobin 11.5L, Hematocrit 34L , Mean Corpuscular Volume 84, Mean Corpuscular Hemoglobin 29, Mean Corpuscular Hemoglobin Concent 34, Red Cell Distribution Width 14.3, Platelet Count 566H, Mean Platelet Volume 9.0, Immature Granulocyte % (Auto) 3, Neutrophils (%) (Auto) 73, Lymphocytes (%) (Auto) 10L, Monocytes (%) (Auto) 12, Eosinophils (%) (Auto) 1, Basophils (%) (Auto) 1, Neutrophils # (Auto) 9.9H, Lymphocytes # (Auto) 1.4, Monocytes # (Auto) 1.6H, Eosinophils # (Auto) 0.2, Basophils # (Auto) 0.1, Immature Granulocyte # (Auto) 0.4H, Sodium Level 131L, Potassium Level 3.9, Chloride Level 96L, Carbon Dioxide Level 28, Anion Gap 7, Blood Urea Nitrogen 9, Creatinine 0.72, Estimat Glomerular Filtration Rate 122, BUN/Creatinine Ratio 13, Glucose Level 113H, Calcium Level 8.5, Corrected Calcium 9.7, Total Bilirubin 1.3H, Aspartate Amino Transf (AST/SGOT) 25, Alanine Aminotransferase (ALT/SGPT) 35, Alkaline Phosphatase 72, Total Protein 7.1, Albumin 2.5L Assessment/Plan Assessment/Plan Assess & Plan/Chief Complaint Assessment: Severe right-sided lower extremity cellulitis Complicated lymphedema Morbid obesity BMI 45 Suspicion for ODALYS Atrial fibrillation Hypertension IV antibiotics Antifungal Triamcinolone staff Keep leg elevated 05/07/2021: Dramatic improvement Continue IV antibiotics Keep leg elevated 05/08/2021: Keep leg elevated Compression wraps IV antibiotics Diflucan Creams Clinical Quality Measures Admission Status Admission Dx Assessment: Acute on chronic right leg cellulitis severe in nature failed oral antibiotics Morbid obesity BMI 44 Atrial fibrillation Oral anticoagulation maintenance Plan: IV antibiotics Pain control Arterial ultrasound ALBERTO Alexis DO May 08, 2021 07:11
[2021-05-08 08:00] VITALS: BP 132/80
[2021-05-08] MEDS: TRIAMCINOLONE 0.1% CR (KENALOG) 15 GM TUBE TOP SCH ×2 (09:17→20:01)
[2021-05-08] MEDS: FLUCONAZOLE 200 MG/100 ML 50 ML, EMPTY IV BAG (PVC) 1 EA IV SCH ×2 (09:17)
[2021-05-08] MEDS: APIXABAN 5 MG (ELIQUIS) TABLET PO SCH ×2 (09:17→19:56)
[2021-05-08] MEDS: NYSTATIN CREAM (MYCOSTATIN) 30 GM TUBE TP SCH ×3 (09:17→20:01)
[2021-05-08] MEDS ORDERED: TROUGH ORDER-PHARMACY XX NR (13:00)
[2021-05-08 16:00] VITALS: BP 138/68
[2021-05-08] MEDS: meTOprolol SUCCINATE 100 MG (TOPROL XL) TAB PO SCH (20:28)
[2021-05-09] VITALS: BP 133/79
[2021-05-09] MEDS: CLINDAMYCIN 900 MG/50 ML IVPB 50 ML IV SCH (03:36)
[2021-05-09] MEDS: MEROPENEM 500 MG in WATER (STERILE) FOR INJECTION 10 ML IV SCH ×5 (03:36→23:10)
[2021-05-09] MEDS: VANCOMYCIN INJECTION 1,000 MG in NS (IVPB) 250 ML IV SCH ×3 (03:37→23:10)
[2021-05-09 04:09] LABS: BASOPHILS # (AUTO) 0.1 10^3/uL (0.0-0.1); BASOPHILS % (AUTO) 1 % (0-10); EOSINOPHILS # (AUTO) 0.2 10^3/uL (0.0-0.3); EOSINOPHILS % (AUTO) 2 % (0-10); HEMATOCRIT 34 % (40-54); HEMOGLOBIN 11.3 g/dL (13.3-17.7); LYMPHOCYTES # (AUTO) 1.3 10^3/uL (1.0-4.0); LYMPHOCYTES % (AUTO) 14 % (12-44); MEAN CORPUSCULAR HEMOGLOBIN 28 pg (25-34); MEAN CORPUSCULAR HGB CONC 34 g/dL (32-36); MEAN CORPUSCULAR VOLUME 84 fL (80-99); MEAN PLATELET VOLUME 9.6 fL (9.0-12.2); MONOCYTES # (AUTO) 1.2 10^3/uL (0.0-1.0); MONOCYTES % (AUTO) 13 % (0-12); NEUTROPHILS % (AUTO) 67 % (42-75); PLATELET COUNT 336 10^3/uL (130-400)
[2021-05-09 04:22] LABS: ALBUMIN 2.4 GM/DL (3.2-4.5)
[2021-05-09 04:24] LABS: CALCIUM 8.3 MG/DL (8.5-10.1)
[2021-05-09 04:25] LABS: TOTAL PROTEIN 7.7 GM/DL (6.4-8.2)
[2021-05-09 04:27] LABS: BILIRUBIN,TOTAL 1.2 MG/DL (0.1-1.0)
[2021-05-09 04:29] LABS: CREATININE SERUM 0.7 MG/DL (0.60-1.30)
[2021-05-09] MEDS: KCL 8 MEQ (MICRO K) TABLET PO SCH (04:53)
[2021-05-09] MEDS: LACTOBACILLUS Acidoph/Bulgar 1 GM (LACTINEX) PACKET PO SCH ×4 (04:54→20:04)
[2021-05-09 05:58] LABS: POTASSIUM 4.2 MMOL/L (3.6-5.0)
--- NOTE | 2021-05-09 07:24 | Progress Note - Surgery ---
BRENT PINEDA 05/09/21 0724: Subjective Date Seen by a Provider: May 09, 2021 Time Seen by a Provider: 06:45 Subjective/Events-last exam Patient reports feeling well this morning. He denies any N/V, diarrhea or constipation. His leg is feeling much better. He has not had any recent night sweats/chills or headaches. Review of Systems General: No Chills, No Night Sweats HEENT: No Head Aches, No Visual Changes Pulmonary: No Dyspnea, No Cough Cardiovascular: No: Chest Pain, Palpitations Gastrointestinal: No: Nausea, Vomiting, Diarrhea, Constipation Genitourinary: No Dysuria, No Hematuria Neurological: No: Weakness, Numbness Objective Exam Vital Signs Date Time Temp Pulse Resp B/P (MAP) Pulse Ox O2 Delivery O2 Flow Rate FiO2 05/09/21 00:00 36.1 63 19 133/79 (97) 92 Room Air 05/08/21 20:00 Room Air 05/08/21 16:00 36.4 84 20 138/68 (91) 97 Room Air 05/08/21 08:00 Room Air 05/08/21 08:00 35.2 62 20 132/80 (97) 98 Room Air I & O 05/09/21 06:59 Intake Total 2130 ml Output Total 3075 ml Balance -945 ml Capillary Refill : General Appearance: No Apparent Distress, WD/WN, Obese Neck: Normal Inspection, Supple Respiratory: Chest Non Tender, No Accessory Muscle Use, No Respiratory Distress Cardiovascular: Regular Rate, Rhythm Gastrointestinal: normal bowel sounds, non tender Extremity: Swelling, Other (Erythema intensity less right lower extremity.) Neurologic/Psychiatric: Oriented x3, No Motor/Sensory Deficits, Normal Mood/Affect Skin: Normal Color, Warm/Dry, Erythema (RLE swelling. R medial UE erythema - significantly improved.) Lymphatic: No Adenopathy Results Lab Laboratory Tests 05/08/21 12:56: Vancomycin Level Trough 11.9 05/09/21 04:00: White Blood Count 9.0, Red Blood Count 3.98L, Hemoglobin 11.3L, Hematocrit 34L, Mean Corpuscular Volume 84, Mean Corpuscular Hemoglobin 28, Mean Corpuscular Hemoglobin Concent 34, Red Cell Distribution Width 14.4, Platelet Count 336, Mean Platelet Volume 9.6, Immature Granulocyte % (Auto) 2, Neutrophils (%) (Auto) 67, Lymphocytes (%) (Auto) 14, Monocytes (%) (Auto) 13H, Eosinophils (%) (Auto) 2, Basophils (%) (Auto) 1, Neutrophils # (Auto) 6.0, Lymphocytes # (Auto) 1.3, Monocytes # (Auto) 1.2H, Eosinophils # (Auto) 0.2, Basophils # (Auto) 0.1, Immature Granulocyte # (Auto) 0.2H, Percent Immature Platelet Fraction 3.8, Sodium Level 129L, Potassium Level 4.2, Chloride Level 96L, Carbon Dioxide Level 25, Anion Gap 8, Blood Urea Nitrogen 9, Creatinine 0.70, Estimat Glomerular Filtration Rate 126, BUN/Creatinine Ratio 13, Glucose Level 112H, Calcium Level 8.3L, Corrected Calcium 9.6, Total Bilirubin 1.2H, Aspartate Amino Transf (AST/SGOT) 45H, Alanine Aminotransferase (ALT/SGPT) 40, Alkaline Phosphatase 69, Total Protein 7.7, Albumin 2.4L Assessment/Plan Assessment/Plan Assessment/Plan Assessment: Severe right-sided lower extremity cellulitis Complicated lymphedema Morbid obesity BMI 45 Suspicion for ODALYS Atrial fibrillation Hypertension Keep leg elevated Compression wraps IV antibiotics Diflucan Creams BHARGAV SCHMIDT DO 05/09/211923: Subjective Subjective/Events-last exam Patient is legs feeling well. The swelling and erythema have gone down drastically he states. Pain is better. He has no other complaints. Denies nausea vomiting fever sweats chills shortness of breath or chest pain Objective Exam General Appearance: No Apparent Distress, Obese HEENT: PERRL/EOMI Neck: Normal Inspection, Supple Respiratory: Chest Non Tender, No Accessory Muscle Use, No Respiratory Distress Cardiovascular: Regular Rate, Rhythm, No JVD Gastrointestinal: normal bowel sounds, non tender, soft Extremity: Normal Capillary Refill, Swelling (Minimal right lower extremity), Other (Erythema intensity less right lower extremity. Only in calf now which is very dull and colored normal temperature) Neurologic/Psychiatric: Alert, Oriented x3 Skin: Warm/Dry, Erythema (RLE swelling. significantly improved.) Lymphatic: No Adenopathy Assessment/Plan Assessment/Plan Assessment/Plan Severe right-sided lower extremity cellulitis Complicated lymphedema Morbid obesity BMI 45 Suspicion for ODALYS Atrial fibrillation Hypertension Right lower extremity significantly improved since last visit. This is continue to improve there is no surgical intervention needed at this time and should resolve on its own. If changes patient understands he needs to have it looked at. Will sign off at this time please call if needed. Supervisory-Addendum Brief Verification & Attestation Participated in pt care: history, MDM, physical Personally performed: exam, history, MDM, supervision of care Care discussed with: Medical Student Procedures: n/a Results interpretation: Verified all documentation Verification and Attestation of Medical Student E/M Service A medical student performed and documented this service in my presence. I reviewed and verified all information documented by the medical student and made modifications to such information, when appropriate. I personally performed the physical exam and medical decision making. Bhargav Schmidt, May 09, 2021,19:23 BRENT PINEDA May 09, 2021 07:24 BHARGAV SCHMIDT DO May 09, 2021 19:24
[2021-05-09 08:00] VITALS: BP 128/79
[2021-05-09] MEDS: APIXABAN 5 MG (ELIQUIS) TABLET PO SCH ×2 (09:21→20:00)
[2021-05-09] MEDS: HYDROcodone/APAP 5 MG/325 MG (LORTAB) TAB PO PRN ×2 (09:21→17:25)
[2021-05-09] MEDS: FLUCONAZOLE 200 MG/100 ML 50 ML, EMPTY IV BAG (PVC) 1 EA IV SCH ×2 (09:22)
[2021-05-09] MEDS: TRIAMCINOLONE 0.1% CR (KENALOG) 15 GM TUBE TOP SCH ×2 (09:26→20:01)
[2021-05-09] MEDS: NYSTATIN CREAM (MYCOSTATIN) 30 GM TUBE TP SCH ×3 (09:26→20:01)
--- NOTE | 2021-05-09 11:43 | Progress Note ---
GUSTAVO PEARL 05/09/21 1143: Subjective Date Seen by a Provider: May 09, 2021 Time Seen by a Provider: 10:00 Subjective/Events-last exam Today Mr. Shields reports that his leg continues to feel better. Pain has significantly improved. Continues to elevate leg and walk. Father will buy compression wraps. Denies fevers, chills, SOB. Denies n/v, constipation, diarrhea. Review of Systems General: No Chills, No Night Sweats, No Fatigue, No Malaise; Appetite Pulmonary: No Dyspnea, No Cough Cardiovascular: Edema; No: Chest Pain, Palpitations Gastrointestinal: No: Nausea, Vomiting, Abdominal Pain, Diarrhea Genitourinary: No Dysuria, No Incontinence Neurological: No: Weakness, Numbness Objective Exam Last Set of Vital Signs Vital Signs Date Time Temp Pulse Resp B/P (MAP) Pulse Ox O2 Delivery O2 Flow Rate FiO2 05/09/21 08:00 35.6 57 20 128/79 (95) 100 Room Air Capillary Refill : I&O Intake and Output 05/09/21 00:00 Intake Total 2380 ml Output Total 3100 ml Balance -720 ml Intake Oral 2380 ml Output Urine Total 3100 ml # Voids 3 General: Alert, Oriented X3, Cooperative, No Acute Distress Heart: Regular Rate, Normal S1, Normal S2 Abdomen: Normal Bowel Sounds Extremities: No Cyanosis, No Tenderness/Swelling Skin: Other (Healing cellulitis of right leg. No erythema) Results Lab Laboratory Tests 05/08/21 12:56: Vancomycin Level Trough 11.9 05/09/21 04:00: White Blood Count 9.0, Red Blood Count 3.98L, Hemoglobin 11.3L, Hematocrit 34L, Mean Corpuscular Volume 84, Mean Corpuscular Hemoglobin 28, Mean Corpuscular Hemoglobin Concent 34, Red Cell Distribution Width 14.4, Platelet Count 336, Mean Platelet Volume 9.6, Immature Granulocyte % (Auto) 2, Neutrophils (%) (Auto) 67, Lymphocytes (%) (Auto) 14, Monocytes (%) (Auto) 13H, Eosinophils (%) (Auto) 2, Basophils (%) (Auto) 1, Neutrophils # (Auto) 6.0, Lymphocytes # (Auto) 1.3, Monocytes # (Auto) 1.2H, Eosinophils # (Auto) 0.2, Basophils # (Auto) 0.1, Immature Granulocyte # (Auto) 0.2H, Percent Immature Platelet Fraction 3.8, Sodium Level 129L, Potassium Level 4.2, Chloride Level 96L, Carbon Dioxide Level 25, Anion Gap 8, Blood Urea Nitrogen 9, Creatinine 0.70, Estimat Glomerular Filtration Rate 126, BUN/Creatinine Ratio 13, Glucose Level 112H, Calcium Level 8.3L, Corrected Calcium 9.6, Total Bilirubin 1.2H, Aspartate Amino Transf (AST/SGOT) 45H, Alanine Aminotransferase (ALT/SGPT) 40, Alkaline Phosphatase 69, Total Protein 7.7, Albumin 2.4L Assessment/Plan Assessment/Plan Assess & Plan/Chief Complaint Dorian Shields is a 40 w/ pmh of recurrent r. leg cellulitis, morbid obesity (BMI 44), Afib who is currently being treated for superficial cellulitis of the right leg -Continue Vancomycin and Meropenem (day 8) -Continue clindamycin (Day 6) -Continue antifungal regimen (Day 6) (see below) Diagnosis/Problems Diagnosis/Problems (1) Cellulitis of right leg without foot Status: Acute Assessment & Plan: -04/29: Onset of diffuse RLE cellulits. ED admission. DC w/ po abx -04/30: Worsening symptoms. Febrile (104). -05/01: Admission. Began empiric abx -05/04: Worsening spread of cellulitis - now above knee and feet -05/09: Cellulitis resolving. Plan: -Likely DC 05/10 with PO Abx -Continue Vanc and meropenem (Day 9) -Continue Clindamycin (Day 6) -Continue antifungal coverage (Day 6) Nystatin cream IV fluconazole -Continue Triamcinolone acetonide -Surgery consulted: No intervention indicated (2) Atrial fibrillation Status: Chronic Assessment & Plan: -H/O Afib managed w/ Metoprolol and Eliquis Plan: -Continue [employer] meds -Continue to monitor (3) Hypertension Status: Chronic Assessment & Plan: Plan: -Continue [employer] meds (4) Lymphedema Status: Chronic Assessment & Plan: -Chronic lymphedema of both legs -Lower doppler US 05/02: No occlusion Plan -OT consulted: Pt declined visit -Will plan compression following resolution of cellulitis. -Plan for outpatient management YAZMIN BAKER DO 05/10/21 0516: Subjective Subjective/Events-last exam Much improved right leg Keeps it elevated Will get a compression wrap to help retrain the tissue Discharge hopefully tomorrow Review of Systems Musculoskeletal: leg pain Objective Exam General: Alert, Oriented X3, Cooperative, No Acute Distress Skin: Other (Healing cellulitis of right leg. No erythema) Assessment/Plan Assessment/Plan Assess & Plan/Chief Complaint Compression wrap in 2 days Discharge home tomorrow Supervisory-Addendum Brief Verification & Attestation Participated in pt care: history, MDM, physical Personally performed: exam, history, MDM, supervision of care Care discussed with: Medical Student Procedures: n/a Results interpretation: Verified all documentation Verification and Attestation of Medical Student E/M Service A medical student performed and documented this service in my presence. I reviewed and verified all information documented by the medical student and made modifications to such information, when appropriate. I personally performed the physical exam and medical decision making. Yazmin Baker, May 10, 2021,05:15 GUSTAVO PEARL May 09, 2021 11:43 YAZMIN BAKER DO May 10, 2021 05:16
[2021-05-09] MEDS ORDERED: TROUGH ORDER-PHARMACY XX NR (13:00)
[2021-05-09 15:30] VITALS: BP 121/74
[2021-05-09] MEDS: meTOprolol SUCCINATE 100 MG (TOPROL XL) TAB PO SCH (20:00)
[2021-05-09 23:08] VITALS: BP 120/68
[2021-05-10 05:16] LABS: BASOPHILS # (AUTO) 0.1 10^3/uL (0.0-0.1); BASOPHILS % (AUTO) 2 % (0-10); EOSINOPHILS # (AUTO) 0.2 10^3/uL (0.0-0.3); EOSINOPHILS % (AUTO) 3 % (0-10); HEMATOCRIT 35 % (40-54); HEMOGLOBIN 11.4 g/dL (13.3-17.7); LYMPHOCYTES # (AUTO) 1.3 10^3/uL (1.0-4.0); LYMPHOCYTES % (AUTO) 16 % (12-44); MEAN CORPUSCULAR HEMOGLOBIN 28 pg (25-34); MEAN CORPUSCULAR HGB CONC 33 g/dL (32-36); MEAN CORPUSCULAR VOLUME 87 fL (80-99); MEAN PLATELET VOLUME 8.8 fL (9.0-12.2); MONOCYTES # (AUTO) 1.3 10^3/uL (0.0-1.0); MONOCYTES % (AUTO) 16 % (0-12); NEUTROPHILS # (AUTO) 4.9 10^3/uL (1.8-7.8); NEUTROPHILS % (AUTO) 62 % (42-75); PLATELET COUNT 594 10^3/uL (130-400)
[2021-05-10] MEDS: MEROPENEM 500 MG in WATER (STERILE) FOR INJECTION 10 ML IV SCH (05:37)
[2021-05-10] MEDS: LACTOBACILLUS Acidoph/Bulgar 1 GM (LACTINEX) PACKET PO SCH (05:38)
[2021-05-10] MEDS: VANCOMYCIN INJECTION 1,000 MG in NS (IVPB) 250 ML IV SCH (05:38)
[2021-05-10] MEDS: KCL 8 MEQ (MICRO K) TABLET PO SCH (05:38)
[2021-05-10 05:46] LABS: ALBUMIN 2.6 GM/DL (3.2-4.5); POTASSIUM 4.3 MMOL/L (3.6-5.0)
[2021-05-10 05:47] LABS: CALCIUM 8.6 MG/DL (8.5-10.1)
[2021-05-10 05:49] LABS: TOTAL PROTEIN 7.3 GM/DL (6.4-8.2)
[2021-05-10 05:50] LABS: BILIRUBIN,TOTAL 0.9 MG/DL (0.1-1.0)
[2021-05-10 05:52] LABS: CREATININE SERUM 0.68 MG/DL (0.60-1.30)
[2021-05-10 07:47] VITALS: BP 134/83
[2021-05-10] MEDS: APIXABAN 5 MG (ELIQUIS) TABLET PO SCH (08:14)
[2021-05-10] MEDS: FLUCONAZOLE 200 MG/100 ML 50 ML, EMPTY IV BAG (PVC) 1 EA IV SCH ×2 (08:15)
[2021-05-10] MEDS: NYSTATIN CREAM (MYCOSTATIN) 30 GM TUBE TP SCH (09:38)
[2021-05-10] MEDS: TRIAMCINOLONE 0.1% CR (KENALOG) 15 GM TUBE TOP SCH (09:38)
[2021-05-10] MEDS ORDERED: ACID1GRA2 PO (10:03)
[2021-05-10] MEDS ORDERED: FLUC100T PO (10:03)
[2021-05-10] MEDS ORDERED: LINE600T12 PO (10:03)
[2021-05-10] MEDS ORDERED: OXC5T PO (10:03)
[2021-05-10] MEDS ORDERED: TR1C15 TOP (10:03)
[2021-05-10] MEDS ORDERED: NYST15CR TP (10:03)
[2021-05-10] MEDS ORDERED: CLIN300C12 PO (10:03)
--- NOTE | 2021-05-10 10:04 | Discharge Summary ---
Diagnosis/Chief Complaint Date of Admission May 01, 2021 at 14:18 Date of Discharge Discharge Date: May 10, 2021 Discharge Diagnosis Assessment: Severe right-sided lower extremity cellulitis Complicated lymphedema Morbid obesity BMI 45 Suspicion for ODALYS Atrial fibrillation Hypertension Reason Hospital Visit CC: Right Leg Cellulitis HPI: This is a 40yoWM with a hx of recurrent right leg cellulitis and hx of AF on Eliquis who presents from a direct admission from Dr. Velasquez due to right leg cellulitis failed oral antibiotics. 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 Dr. Schmidt has been consulted he was placed on Vancomycin and Gabi openem for fever of 104 so will monitor him closely and restarted all his home medications. Discharge Summary Discharge Physical Examination Allergies: Coded Allergies: morphine (Verified Allergy, Severe, SYNCOPE, 08/17/20) penicillin G (Verified Allergy, Unknown, FROM CHILDHOOD, 08/17/20) Vitals & I&Os Vital Signs Date Time Temp Pulse Resp B/P (MAP) Pulse Ox O2 Delivery O2 Flow Rate FiO2 05/10/21 11:55 05/10/21 08:00 Room Air 05/10/21 07:47 36.2 54 18 98 General Appearance: Alert, Oriented X3, Cooperative Skin: Other (Resolved erythema right leg) Hospital Course Was the Problem List Reviewed?: Yes Pt had a lengthy hospital course for ten days after being admitted for severe right lower extremity edema complicated with lymphedema and morbid obesity. He was maintained on all his home medication including anticoagulation due to AFIB for stroke prophylaxis. Arterial ultrasound showed no evidence of any large vessel obstruction, Pt was placed on an aggressive antibiotic regimen including Meropenem and Vancymycin with the addition of Clindamycin and Diflucan in addition to Nystatin Cream and Triamcinolone Cream to the lower extremities, he ultimately finally had some improvement with the elevation of the leg and he was ultimately discharged on Zyvox and Clindamycin, pain medication and Triamcinolone Cream and Nystatin Cream. Labs (last 24 hrs) Laboratory Tests 05/01/21 15:00: White Blood Count 10.6, Red Blood Count 4.88, Hemoglobin 14.0, Hematocrit 41, Mean Corpuscular Volume 85, Mean Corpuscular Hemoglobin 29, Mean Corpuscular Hemoglobin Concent 34, Red Cell Distribution Width 14.1, Platelet Count 171, Mean Platelet Volume 10.1, Immature Granulocyte % (Auto) 1, Neutrophils (%) (Auto) 88H, Lymphocytes (%) (Auto) 6L, Monocytes (%) (Auto) 4, Eosinophils (%) (Auto) 0, Basophils (%) (Auto) 0, Neutrophils # (Auto) 9.3H, Lymphocytes # (Auto) 0.7L, Monocytes # (Auto) 0.4, Eosinophils # (Auto) 0.0, Basophils # (Auto) 0.0, Immature Granulocyte # (Auto) 0.1, Sodium Level 128L, Potassium Level 3.3L, Chloride Level 97L, Carbon Dioxide Level 22, Anion Gap 9, Blood Urea Nitrogen 14, Creatinine 0.93, Estimat Glomerular Filtration Rate 91, BUN/Creatinine Ratio 15, Glucose Level 116H, Lactic Acid Level 1.50, Calcium Level 9.3, Corrected Calcium 9.7, Total Bilirubin 0.8, Aspartate Amino Transf (AST/SGOT) 44H, Alanine Aminotransferase (ALT/SGPT) 46, Alkaline Phosphatase 45, Total Protein 7.7, Albumin 3.5 05/02/21 06:24: White Blood Count 10.9, Red Blood Count 4.43, Hemoglobin 12.6L, Hematocrit 38L, Mean Corpuscular Volume 85, Mean Corpuscular Hemoglobin 28, Mean Corpuscular Hemoglobin Concent 34, Red Cell Distribution Width 14.3, Platelet Count 165, Mean Platelet Volume 10.5, Immature Granulocyte % (Auto) 1, Neutrophils (%) (Auto) 83H, Lymphocytes (%) (Auto) 6L, Monocytes (%) (Auto) 9, Eosinophils (%) (Auto) 1, Basophils (%) (Auto) 0, Neutrophils # (Auto) 9.0H, Lymphocytes # (Auto) 0.6L, Monocytes # (Auto) 1.0, Eosinophils # (Auto) 0.1, Basophils # (Auto) 0.0, Immature Granulocyte # (Auto) 0.1, Sodium Level 132L, Potassium Level 3.2L, Chloride Level 100, Carbon Dioxide Level 21, Anion Gap 11, Blood Urea Nitrogen 10, Creatinine 0.79, Estimat Glomerular Filtration Rate 110, BUN/Creatinine Ratio 13, Glucose Level 127H, Calcium Level 8.8, Corrected Calcium 9.6, Total Bilirubin 0.6, Aspartate Amino Transf (AST/SGOT) 38H, Alanine Aminotransferase (ALT/SGPT) 43, Alkaline Phosphatase 48, Total Protein 6.5, Albumin 3.0L 05/02/21 15:33: Vancomycin Level Trough 15.5 05/03/21 05:18: White Blood Count 15.1H, Red Blood Count 4.31, Hemoglobin 12.5L, Hematocrit 37L, Mean Corpuscular Volume 86, Mean Corpuscular Hemoglobin 29, Mean Corpuscular Hemoglobin Concent 34, Red Cell Distribution Width 14.3, Platelet Count 188, Mean Platelet Volume 10.6, Immature Granulocyte % (Auto) 1, Neutrophils (%) (Auto) 79H, Lymphocytes (%) (Auto) 7L, Monocytes (%) (Auto) 12, Eosinophils (%) (Auto) 1, Basophils (%) (Auto) 1, Neutrophils # (Auto) 11.9H, Lymphocytes # (Auto) 1.1, Monocytes # (Auto) 1.8H, Eosinophils # (Auto) 0.1, Basophils # (Auto) 0.1, Immature Granulocyte # (Auto) 0.2H 05/03/21 05:57: Sodium Level 129L, Potassium Level 3.1L, Chloride Level 96L, Carbon Dioxide Level 23, Anion Gap 10, Blood Urea Nitrogen 8, Creatinine 0.78, Estimat Glomerular Filtration Rate 111, BUN/Creatinine Ratio 10, Glucose Level 139H, Calcium Level 8.8, Corrected Calcium 9.6, Total Bilirubin 0.7, Aspartate Amino Transf (AST/SGOT) 98H, Alanine Aminotransferase (ALT/SGPT) 71H, Alkaline Phosphatase 84, Total Protein 6.8, Albumin 3.0L 05/04/21 06:00: Sodium Level 131L, Potassium Level 3.6, Chloride Level 94L, Carbon Dioxide Level 28, Anion Gap 9, Blood Urea Nitrogen 6L, Creatinine 0.76, Estimat Glomerular Filtration Rate 115, BUN/Creatinine Ratio 8, Glucose Level 128H, Calcium Level 9.0, Corrected Calcium 9.9, Total Bilirubin 0.8, Aspartate Amino Transf (AST/SGOT) 44H, Alanine Aminotransferase (ALT/SGPT) 66H, Alkaline Phosphatase 76, Total Protein 6.8, Albumin 2.9L, White Blood Count 14.0H, Red Blood Count 4.26L, Hemoglobin 12.2L, Hematocrit 37L, Mean Corpuscular Volume 86, Mean Corpuscular Hemoglobin 29, Mean Corpuscular Hemoglobin Concent 33, Red Cell Distribution Width 14.5, Platelet Count 272, Mean Platelet Volume 10.1, Immature Granulocyte % (Auto) 4, Neutrophils (%) (Auto) 72, Lymphocytes (%) (Auto) 8L, Monocytes (%) (Auto) 14H, Eosinophils (%) (Auto) 1, Basophils (%) (Auto) 1, Neutrophils # (Auto) 10.0H, Lymphocytes # (Auto) 1.2, Monocytes # (Auto) 2.0H, Eosinophils # (Auto) 0.2, Basophils # (Auto) 0.1, Immature Granulocyte # (Auto) 0.6H 05/05/21 07:09: Sodium Level 132L, Potassium Level 3.5L, Chloride Level 93L, Carbon Dioxide Level 28, Anion Gap 11, Blood Urea Nitrogen 7, Creatinine 0.70, Estimat Glomerular Filtration Rate 126, BUN/Creatinine Ratio 10, Glucose Level 115H, Calcium Level 9.2, Corrected Calcium 10.2H, Total Bilirubin 1.0, Aspartate Amino Transf (AST/SGOT) 34, Alanine Aminotransferase (ALT/SGPT) 60H, Alkaline Phosphatase 84, Total Protein 6.7, Albumin 2.8L, White Blood Count 13.4H, Red Blood Count 4.38, Hemoglobin 12.3L, Hematocrit 37L, Mean Corpuscular Volume 85, Mean Corpuscular Hemoglobin 28, Mean Corpuscular Hemoglobin Concent 33, Red Cell Distribution Width 14.2, Platelet Count 397, Mean Platelet Volume 9.8, Immature Granulocyte % (Auto) 5, Neutrophils (%) (Auto) 69, Lymphocytes (%) (Auto) 10L, Monocytes (%) (Auto) 14H, Eosinophils (%) (Auto) 2, Basophils (%) (Auto) 1, Neutrophils # (Auto) 9.2H, Lymphocytes # (Auto) 1.4, Monocytes # (Auto) 1.9H, Eosinophils # (Auto) 0.2, Basophils # (Auto) 0.1, Immature Granulocyte # (Auto) 0.6H 05/06/21 05:30: Sodium Level 130L, Potassium Level 3.5L, Chloride Level 91L, Carbon Dioxide Level 25, Anion Gap 14, Blood Urea Nitrogen 8, Creatinine 0.73, Estimat Glomerular Filtration Rate 120, BUN/Creatinine Ratio 11, Glucose Level 109H, Calcium Level 8.9, Corrected Calcium 9.8, Total Bilirubin 1.2H, Aspartate Amino Transf (AST/SGOT) 40H, Alanine Aminotransferase (ALT/SGPT) 58H, Alkaline Phosphatase 83, Total Protein 7.3, Albumin 2.9L, White Blood Count 15.6H, Red Blood Count 4.43, Hemoglobin 12.4L, Hematocrit 38L, Mean Corpuscular Volume 86, Mean Corpuscular Hemoglobin 28, Mean Corpuscular Hemoglobin Concent 33, Red Cell Distribution Width 14.4, Platelet Count 479H, Mean Platelet Volume 9.4, Immature Granulocyte % (Auto) 5, Neutrophils (%) (Auto) 74, Lymphocytes (%) (Auto) 9L, Monocytes (%) (Auto) 11, Eosinophils (%) (Auto) 2, Basophils (%) (Auto) 1, Neutrophils # (Auto) 11.5H, Lymphocytes # (Auto) 1.4, Monocytes # (Auto) 1.7H, Eosinophils # (Auto) 0.2, Basophils # (Auto) 0.1, Immature Granulocyte # (Auto) 0.7H 05/06/21 05:40: Procalcitonin 0.31H 05/07/21 06:09: Procalcitonin 0.21H, White Blood Count 13.9H, Red Blood Count 3.98L, Hemoglobin 11.4L, Hematocrit 34L, Mean Corpuscular Volume 84, Mean Corpuscular Hemoglobin 29, Mean Corpuscular Hemoglobin Concent 34, Red Cell Distribution Width 14.2, Platelet Count 533H, Mean Platelet Volume 9.2, Immature Granulocyte % (Auto) 3, Neutrophils (%) (Auto) 74, Lymphocytes (%) (Auto) 9L, Monocytes (%) (Auto) 12, Eosinophils (%) (Auto) 1, Basophils (%) (Auto) 1, Neutrophils # (Auto) 10.3H, Lymphocytes # (Auto) 1.3, Monocytes # (Auto) 1.6H, Eosinophils # (Auto) 0.2, Basophils # (Auto) 0.1, Immature Granulocyte # (Auto) 0.4H, Sodium Level 133L, Potassium Level 3.6, Chloride Level 95L, Carbon Dioxide Level 27, Anion Gap 11, Blood Urea Nitrogen 8, Creatinine 0.71, Estimat Glomerular Filtration Rate 124, BUN/Creatinine Ratio 11, Glucose Level 110H, Calcium Level 8.5, Corrected Calcium 9.7, Total Bilirubin 1.2H, Aspartate Amino Transf (AST/SGOT) 30, Alanine Aminotransferase (ALT/SGPT) 45, Alkaline Phosphatase 75, Total Creatine Kinase < 7L, Total Protein 6.7, Albumin 2.5L 05/08/21 05:07: White Blood Count 13.5H, Red Blood Count 4.04L, Hemoglobin 11.5L, Hematocrit 34L , Mean Corpuscular Volume 84, Mean Corpuscular Hemoglobin 29, Mean Corpuscular Hemoglobin Concent 34, Red Cell Distribution Width 14.3, Platelet Count 566H, Mean Platelet Volume 9.0, Immature Granulocyte % (Auto) 3, Neutrophils (%) (Auto) 73, Lymphocytes (%) (Auto) 10L, Monocytes (%) (Auto) 12, Eosinophils (%) (Auto) 1, Basophils (%) (Auto) 1, Neutrophils # (Auto) 9.9H, Lymphocytes # (Auto) 1.4, Monocytes # (Auto) 1.6H, Eosinophils # (Auto) 0.2, Basophils # (Auto) 0.1, Immature Granulocyte # (Auto) 0.4H, Sodium Level 131L, Potassium Level 3.9, Chloride Level 96L, Carbon Dioxide Level 28, Anion Gap 7, Blood Urea Nitrogen 9, Creatinine 0.72, Estimat Glomerular Filtration Rate 122, BUN/Creatinine Ratio 13, Glucose Level 113H, Calcium Level 8.5, Corrected Calcium 9.7, Total Bilirubin 1.3H, Aspartate Amino Transf (AST/SGOT) 25, Alanine Aminotransferase (ALT/SGPT) 35, Alkaline Phosphatase 72, Total Protein 7.1, Albumin 2.5L 05/08/21 12:56: Vancomycin Level Trough 11.9 05/09/21 04:00: White Blood Count 9.0, Red Blood Count 3.98L, Hemoglobin 11.3L, Hematocrit 34L, Mean Corpuscular Volume 84, Mean Corpuscular Hemoglobin 28, Mean Corpuscular Hemoglobin Concent 34, Red Cell Distribution Width 14.4, Platelet Count 336, Mean Platelet Volume 9.6, Immature Granulocyte % (Auto) 2, Neutrophils (%) (Auto) 67, Lymphocytes (%) (Auto) 14, Monocytes (%) (Auto) 13H, Eosinophils (%) (Auto) 2, Basophils (%) (Auto) 1, Neutrophils # (Auto) 6.0, Lymphocytes # (Auto) 1.3, Monocytes # (Auto) 1.2H, Eosinophils # (Auto) 0.2, Basophils # (Auto) 0.1, Immature Granulocyte # (Auto) 0.2H, Percent Immature Platelet Fraction 3.8, Sodium Level 129L, Potassium Level 4.2, Chloride Level 96L, Carbon Dioxide Level 25, Anion Gap 8, Blood Urea Nitrogen 9, Creatinine 0.70, Estimat Glomerular Filtration Rate 126, BUN/Creatinine Ratio 13, Glucose Level 112H, Calcium Level 8.3L, Corrected Calcium 9.6, Total Bilirubin 1.2H, Aspartate Amino Transf (AST/SGOT) 45H, Alanine Aminotransferase (ALT/SGPT) 40, Alkaline Phosphatase 69, Total Protein 7.7, Albumin 2.4L 05/10/21 05:10: White Blood Count 8.0, Red Blood Count 4.05L, Hemoglobin 11.4L, Hematocrit 35L, Mean Corpuscular Volume 87, Mean Corpuscular Hemoglobin 28, Mean Corpuscular Hemoglobin Concent 33, Red Cell Distribution Width 14.6H, Platelet Count 594H, Mean Platelet Volume 8.8L, Immature Granulocyte % (Auto) 2, Neutrophils (%) (Auto) 62, Lymphocytes (%) (Auto) 16, Monocytes (%) (Auto) 16H, Eosinophils (%) (Auto) 3, Basophils (%) (Auto) 2, Neutrophils # (Auto) 4.9, Lymphocytes # (Auto) 1.3, Monocytes # (Auto) 1.3H, Eosinophils # (Auto) 0.2, Basophils # (Auto) 0.1, Immature Granulocyte # (Auto) 0.1, Sodium Level 131L, Potassium Level 4.3, Chloride Level 97L, Carbon Dioxide Level 26, Anion Gap 8, Blood Urea Nitrogen 8, Creatinine 0.68, Estimat Glomerular Filtration Rate 131, BUN/Creatinine Ratio 12, Glucose Level 112H, Calcium Level 8.6, Corrected Calcium 9.7, Total Bilirubin 0.9, Aspartate Amino Transf (AST/SGOT) 35H, Alanine Aminotransferase (ALT/SGPT) 39, Alkaline Phosphatase 66, Total Protein 7.3, Albumin 2.6L Pending Labs Laboratory Tests 05/01/21 15:00: White Blood Count 10.6, Red Blood Count 4.88, Hemoglobin 14.0, Hematocrit 41, Mean Corpuscular Volume 85, Mean Corpuscular Hemoglobin 29, Mean Corpuscular Hemoglobin Concent 34, Red Cell Distribution Width 14.1, Platelet Count 171, Mean Platelet Volume 10.1, Immature Granulocyte % (Auto) 1, Neutrophils (%) (Auto) 88, Lymphocytes (%) (Auto) 6, Monocytes (%) (Auto) 4, Eosinophils (%) (Auto) 0, Basophils (%) (Auto) 0, Neutrophils # (Auto) 9.3, Lymphocytes # (Auto) 0.7, Monocytes # (Auto) 0.4, Eosinophils # (Auto) 0.0, Basophils # (Auto) 0.0, Immature Granulocyte # (Auto) 0.1, Sodium Level 128, Potassium Level 3.3, Chloride Level 97, Carbon Dioxide Level 22, Anion Gap 9, Blood Urea Nitrogen 14, Creatinine 0.93, Estimat Glomerular Filtration Rate 91, BUN/Creatinine Ratio 15, Glucose Level 116, Lactic Acid Level 1.50, Calcium Level 9.3, Corrected Calcium 9.7, Total Bilirubin 0.8, Aspartate Amino Transf (AST/SGOT) 44, Alanine Aminotransferase (ALT/SGPT) 46, Alkaline Phosphatase 45, Total Protein 7.7, Albumin 3.5 05/02/21 06:24: White Blood Count 10.9, Red Blood Count 4.43, Hemoglobin 12.6, Hematocrit 38, Mean Corpuscular Volume 85, Mean Corpuscular Hemoglobin 28, Mean Corpuscular Hemoglobin Concent 34, Red Cell Distribution Width 14.3, Platelet Count 165, Mean Platelet Volume 10.5, Immature Granulocyte % (Auto) 1, Neutrophils (%) (Auto) 83, Lymphocytes (%) (Auto) 6, Monocytes (%) (Auto) 9, Eosinophils (%) (Auto) 1, Basophils (%) (Auto) 0, Neutrophils # (Auto) 9.0, Lymphocytes # (Auto) 0.6, Monocytes # (Auto) 1.0, Eosinophils # (Auto) 0.1, Basophils # (Auto) 0.0, Immature Granulocyte # (Auto) 0.1, Sodium Level 132, Potassium Level 3.2, Chloride Level 100, Carbon Dioxide Level 21, Anion Gap 11, Blood Urea Nitrogen 10, Creatinine 0.79, Estimat Glomerular Filtration Rate 110, BUN/Creatinine Ratio 13, Glucose Level 127, Calcium Level 8.8, Corrected Calcium 9.6, Total Bilirubin 0.6, Aspartate Amino Transf (AST/SGOT) 38, Alanine Aminotransferase (ALT/SGPT) 43, Alkaline Phosphatase 48, Total Protein 6.5, Albumin 3.0 05/02/21 15:33: Vancomycin Level Trough 15.5 05/03/21 05:18: White Blood Count 15.1, Red Blood Count 4.31, Hemoglobin 12.5, Hematocrit 37, Mean Corpuscular Volume 86, Mean Corpuscular Hemoglobin 29, Mean Corpuscular Hemoglobin Concent 34, Red Cell Distribution Width 14.3, Platelet Count 188, Mean Platelet Volume 10.6, Immature Granulocyte % (Auto) 1, Neutrophils (%) (Auto) 79, Lymphocytes (%) (Auto) 7, Monocytes (%) (Auto) 12, Eosinophils (%) (Auto) 1, Basophils (%) (Auto) 1, Neutrophils # (Auto) 11.9, Lymphocytes # (Auto) 1.1, Monocytes # (Auto) 1.8, Eosinophils # (Auto) 0.1, Basophils # (Auto) 0.1, Immature Granulocyte # (Auto) 0.2 05/03/21 05:57: Sodium Level 129, Potassium Level 3.1, Chloride Level 96, Carbon Dioxide Level 23, Anion Gap 10, Blood Urea Nitrogen 8, Creatinine 0.78, Estimat Glomerular Filtration Rate 111, BUN/Creatinine Ratio 10, Glucose Level 139, Calcium Level 8.8, Corrected Calcium 9.6, Total Bilirubin 0.7, Aspartate Amino Transf (AST/SGOT) 98, Alanine Aminotransferase (ALT/SGPT) 71, Alkaline Phosphatase 84, Total Protein 6.8, Albumin 3.0 05/04/21 06:00: Sodium Level 131, Potassium Level 3.6, Chloride Level 94, Carbon Dioxide Level 28, Anion Gap 9, Blood Urea Nitrogen 6, Creatinine 0.76, Estimat Glomerular Filtration Rate 115, BUN/Creatinine Ratio 8, Glucose Level 128, Calcium Level 9.0, Corrected Calcium 9.9, Total Bilirubin 0.8, Aspartate Amino Transf (AST/ SGOT) 44, Alanine Aminotransferase (ALT/SGPT) 66, Alkaline Phosphatase 76, Total Protein 6.8, Albumin 2.9, White Blood Count 14.0, Red Blood Count 4.26, Hemoglobin 12.2, Hematocrit 37, Mean Corpuscular Volume 86, Mean Corpuscular Hemoglobin 29, Mean Corpuscular Hemoglobin Concent 33, Red Cell Distribution Width 14.5, Platelet Count 272, Mean Platelet Volume 10.1, Immature Granulocyte % (Auto) 4, Neutrophils (%) (Auto) 72, Lymphocytes (%) (Auto) 8, Monocytes (%) (Auto) 14, Eosinophils (%) (Auto) 1, Basophils (%) (Auto) 1, Neutrophils # (Auto) 10.0, Lymphocytes # (Auto) 1.2, Monocytes # (Auto) 2.0, Eosinophils # (Auto) 0.2, Basophils # (Auto) 0.1, Immature Granulocyte # (Auto) 0.6 05/05/21 07:09: Sodium Level 132, Potassium Level 3.5, Chloride Level 93, Carbon Dioxide Level 28, Anion Gap 11, Blood Urea Nitrogen 7, Creatinine 0.70, Estimat Glomerular Filtration Rate 126, BUN/Creatinine Ratio 10, Glucose Level 115, Calcium Level 9.2, Corrected Calcium 10.2, Total Bilirubin 1.0, Aspartate Amino Transf (AST/SGOT) 34, Alanine Aminotransferase (ALT/SGPT) 60, Alkaline Phosphatase 84, Total Protein 6.7, Albumin 2.8, White Blood Count 13.4, Red Blood Count 4.38, Hemoglobin 12.3, Hematocrit 37, Mean Corpuscular Volume 85, Mean Corpuscular Hemoglobin 28, Mean Corpuscular Hemoglobin Concent 33, Red Cell Distribution Width 14.2, Platelet Count 397, Mean Platelet Volume 9.8, Immature Granulocyte % (Auto) 5, Neutrophils (%) (Auto) 69, Lymphocytes (%) (Auto) 10, Monocytes (%) (Auto) 14, Eosinophils (%) (Auto) 2, Basophils (%) (Auto) 1, Neutrophils # (Auto) 9.2, Lymphocytes # (Auto) 1.4, Monocytes # (Auto) 1.9, Eosinophils # (Auto) 0.2, Basophils # (Auto) 0.1, Immature Granulocyte # (Auto) 0.6 05/06/21 05:30: Sodium Level 130, Potassium Level 3.5, Chloride Level 91, Carbon Dioxide Level 25, Anion Gap 14, Blood Urea Nitrogen 8, Creatinine 0.73, Estimat Glomerular Filtration Rate 120, BUN/Creatinine Ratio 11, Glucose Level 109, Calcium Level 8.9, Corrected Calcium 9.8, Total Bilirubin 1.2, Aspartate Amino Transf (AST/SGOT) 40, Alanine Aminotransferase (ALT/SGPT) 58, Alkaline Phosphatase 83, Total Protein 7.3, Albumin 2.9, White Blood Count 15.6, Red Blood Count 4.43, Hemoglobin 12.4, Hematocrit 38, Mean Corpuscular Volume 86, Mean Corpuscular He moglobin 28, Mean Corpuscular Hemoglobin Concent 33, Red Cell Distribution Width 14.4, Platelet Count 479, Mean Platelet Volume 9.4, Immature Granulocyte % (Auto) 5, Neutrophils (%) (Auto) 74, Lymphocytes (%) (Auto) 9, Monocytes (%) (Auto) 11, Eosinophils (%) (Auto) 2, Basophils (%) (Auto) 1, Neutrophils # (Auto) 11.5, Lymphocytes # (Auto) 1.4, Monocytes # (Auto) 1.7, Eosinophils # (Auto) 0.2, Basophils # (Auto) 0.1, Immature Granulocyte # (Auto) 0.7 05/06/21 05:40: Procalcitonin 0.31 05/07/21 06:09: Procalcitonin 0.21, White Blood Count 13.9, Red Blood Count 3.98, Hemoglobin 11.4, Hematocrit 34, Mean Corpuscular Volume 84, Mean Corpuscular Hemoglobin 29, Mean Corpuscular Hemoglobin Concent 34, Red Cell Distribution Width 14.2, Platelet Count 533, Mean Platelet Volume 9.2, Immature Granulocyte % (Auto) 3, Neutrophils (%) (Auto) 74, Lymphocytes (%) (Auto) 9, Monocytes (%) (Auto) 12, Eosinophils (%) (Auto) 1, Basophils (%) (Auto) 1, Neutrophils # (Auto) 10.3, Lymphocytes # (Auto) 1.3, Monocytes # (Auto) 1.6, Eosinophils # (Auto) 0.2, Basophils # (Auto) 0.1, Immature Granulocyte # (Auto) 0.4, Sodium Level 133, Potassium Level 3.6, Chloride Level 95, Carbon Dioxide Level 27, Anion Gap 11, Blood Urea Nitrogen 8, Creatinine 0.71, Estimat Glomerular Filtration Rate 124, BUN/Creatinine Ratio 11, Glucose Level 110, Calcium Level 8.5, Corrected Calcium 9.7, Total Bilirubin 1.2, Aspartate Amino Transf (AST/SGOT) 30, Alanine Aminotransferase (ALT/SGPT) 45, Alkaline Phosphatase 75, Total Creatine Kinase < 7, Total Protein 6.7, Albumin 2.5 05/08/21 05:07: White Blood Count 13.5, Red Blood Count 4.04, Hemoglobin 11.5, Hematocrit 34, Mean Corpuscular Volume 84, Mean Corpuscular Hemoglobin 29, Mean Corpuscular Hemoglobin Concent 34, Red Cell Distribution Width 14.3, Platelet Count 566, Mean Platelet Volume 9.0, Immature Granulocyte % (Auto) 3, Neutrophils (%) (Auto) 73, Lymphocytes (%) (Auto) 10, Monocytes (%) (Auto) 12, Eosinophils (%) (Auto) 1, Basophils (%) (Auto) 1, Neutrophils # (Auto) 9.9, Lymphocytes # (Auto) 1.4, Monocytes # (Auto) 1.6, Eosinophils # (Auto) 0.2, Basophils # (Auto) 0.1, Immature Granulocyte # (Auto) 0.4, Sodium Level 131, Potassium Level 3.9, Chloride Level 96, Carbon Dioxide Level 28, Anion Gap 7, Blood Urea Nitrogen 9, Creatinine 0.72, Estimat Glomerular Filtration Rate 122, BUN/Creatinine Ratio 13, Glucose Level 113, Calcium Level 8.5, Corrected Calcium 9.7, Total Bilirubin 1.3, Aspartate Amino Transf (AST/SGOT) 25, Alanine Aminotransferase (ALT/SGPT) 35, Alkaline Phosphatase 72, Total Protein 7.1, Albumin 2.5 05/08/21 12:56: Vancomycin Level Trough 11.9 05/09/21 04:00: White Blood Count 9.0, Red Blood Count 3.98, Hemoglobin 11.3, Hematocrit 34, Mean Corpuscular Volume 84, Mean Corpuscular Hemoglobin 28, Mean Corpuscular Hemoglobin Concent 34, Red Cell Distribution Width 14.4, Platelet Count 336, Mean Platelet Volume 9.6, Immature Granulocyte % (Auto) 2, Neutrophils (%) (Auto) 67, Lymphocytes (%) (Auto) 14, Monocytes (%) (Auto) 13, Eosinophils (%) (Auto) 2, Basophils (%) (Auto) 1, Neutrophils # (Auto) 6.0, Lymphocytes # (Auto) 1.3, Monocytes # (Auto) 1.2, Eosinophils # (Auto) 0.2, Basophils # (Auto) 0.1, Immature Granulocyte # (Auto) 0.2, Percent Immature Platelet Fraction 3.8, Sodium Level 129, Potassium Level 4.2, Chloride Level 96, Carbon Dioxide Level 25, Anion Gap 8, Blood Urea Nitrogen 9, Creatinine 0.70, Estimat Glomerular Filtration Rate 126, BUN/Creatinine Ratio 13, Glucose Level 112, Calcium Level 8.3, Corrected Calcium 9.6, Total Bilirubin 1.2, Aspartate Amino Transf (AST/SGOT) 45, Alanine Aminotransferase (ALT/SGPT) 40, Alkaline Phosphatase 69, Total Protein 7.7, Albumin 2.4 05/10/21 05:10: White Blood Count 8.0, Red Blood Count 4.05, Hemoglobin 11.4, Hematocrit 35, Mean Corpuscular Volume 87, Mean Corpuscular Hemoglobin 28, Mean Corpuscular Hemoglobin Concent 33, Red Cell Distribution Width 14.6, Platelet Count 594, Mean Platelet Volume 8.8, Immature Granulocyte % (Auto) 2, Neutrophils (%) (Auto) 62, Lymphocytes (%) (Auto) 16, Monocytes (%) (Auto) 16, Eosinophils (%) (Auto) 3, Basophils (%) (Auto) 2, Neutrophils # (Auto) 4.9, Lymphocytes # (Auto) 1.3, Monocytes # (Auto) 1.3, Eosinophils # (Auto) 0.2, Basophils # (Auto) 0.1, Immature Granulocyte # (Auto) 0.1, Sodium Level 131, Potassium Level 4.3, Chloride Level 97, Carbon Dioxide Level 26, Anion Gap 8, Blood Urea Nitrogen 8, Creatinine 0.68, Estimat Glomerular Filtration Rate 131, BUN/Creatinine Ratio 12, Glucose Level 112, Calcium Level 8.6, Corrected Calcium 9.7, Total Bilirubin 0.9, Aspartate Amino Transf (AST/SGOT) 35, Alanine Aminotransferase (ALT/SGPT) 3 9, Alkaline Phosphatase 66, Total Protein 7.3, Albumin 2.6 Discharge Home Medications: Active Scripts Active Diflucan (Fluconazole) 100 Mg Tablet 100 Mg PO DAILY Zyvox (Linezolid) 600 Mg Tablet 600 Mg PO BID Clindamycin HCl 300 Mg Capsule 300 Mg PO TID Triamcinolone Acetonide 0.1% Cream (Triamcinolone Acet) 15 Gm Cr 0 Gm TOP BID Nystatin 15 Gm Cream..g. 0 Gm TP TID Floranex Granules Packet (L. Acidophilus/Bulgaricus) 1 Each Gran.pack 1 Gm PO ACHS Oxyir Tablet (Oxycodone HCl) 5 Mg Tab 5 Mg PO Q4H PRN Reported Ibuprofen 200 Mg Tablet 400-600 Mg PO Q8H PRN Eliquis (Apixaban) 5 Mg Tablet 5 Mg PO BID LAST FILLED 02-10-2021 #60/30 DAY SUPPLY Metoprolol Succinate 100 Mg Tab.er.24h 100 Mg PO HS Instructions to patient/family Please see electronic discharge instructions given to patient. ALBERTO BAKER DO May 10, 2021 10:04
--- NOTE | 2021-05-10 13:24 | Progress Note ---
GUSTAVO PEARL 05/10/21 1324: Progress Note Jos Shields is a 40yo male with past medical history of atrial fibrillation, HTN, tobacco and alcohol use, gastric bypass, obesity, lymphedema and ODALYS who was admitted 05/01 for right leg cellulits. Patient has had 3-4 episodes of right leg cellulitis in the past 4 years, normally much smaller and managed outpatient. On 04/29 he had an episode more diffuse and 8/10 in severity. Patient went to ED but was discharged that day with antibiotics. On 04/30, pt reported fever of 104 and severe worsening of pain. He was then admitted to [facility] 05/01 for management. Given history of recent infection, patient was started on Vancomycin and meropenem On 05/04 patient's swelling and erythema extended to right foot and above knee. He was started on IV clindamycin, Nystatin cream and V fluconazole in addition to vancomycin and meropenem. By 05/09 cellulitis was adequately healed. Patient was transitioned to PO antibiotics (Zivox, Clindamycin) and antifungals (diflucan). In addition, patient was also seen for lymphedema, atrial fibrillation and hypertension. Patient refused to manage lymphedema inpatient, but will use compression following discharge. 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 Patient was discharged 05/10. All questions and concerns were addressed. YAZMIN BAKER DO 05/11/21 0514: Supervisory-Addendum Brief Verification & Attestation Participated in pt care: history, MDM, physical Personally performed: exam, history, MDM, supervision of care Care discussed with: Medical Student Procedures: n/a Results interpretation: Verified all documentation Verification and Attestation of Medical Student E/M Service A medical student performed and documented this service in my presence. I reviewed and verified all information documented by the medical student and made modifications to such information, when appropriate. I personally performed the physical exam and medical decision making. Yazmin Baker, May 11, 2021,05:14 GUSTAVO PEARL May 10, 2021 13:24 YAZMIN BAKER DO May 11, 2021 05:14
== END 2021-05-10 11:55 | disposition home or self-care (01) | DRG 603 ==
LOC: 4TH 14:18
PROVIDERS: ADMIT Internal Medicine; ATTEND Internal Medicine
DX: L03.115 Cellulitis of right lower limb (principal); Z68.42 Body mass index [BMI] 45.0-49.9, adult; E66.01 Morbid (severe) obesity due to excess calories; G47.33 Obstructive sleep apnea (adult) (pediatric); I10 Essential (primary) hypertension; I48.91 Unspecified atrial fibrillation; F41.9 Anxiety disorder, unspecified; I89.0 Lymphedema, not elsewhere classified; Z79.01 Long term (current) use of anticoagulants; Z87.891 Personal history of nicotine dependence; Z98.84 Bariatric surgery status; Z88.6 Allergy status to analgesic agent; Z88.0 Allergy status to penicillin
CPT/HCPCS: 36415; 36569; 71046; 76937; 80053; 80202; 82550; 83605; 84145; 85025; 93926

== ENCOUNTER 2021-07-07 03:42 | Emergency (ER) | payer BC ==
[~2021-07-07] VITALS: Ht 183 cm; Wt 154.0 kg
[~2021-07-07 03:42] MED LIST changes: +ACID1GRA2 PO; +CLIN-144 PO; -CLIN150C18 PO; +CLIN150C20 PO; -CLIN300C12 PO; +FLUC100T PO; +IBUP-2473 PO; +LINE600T12 PO; +NYST15CR TP; +OXC5T PO; +TR1C15 TOP
[2021-07-07 04:04] VITALS: BP 187/91
[2021-07-07] MEDS ORDERED: TORS20TA3 (04:10)
--- NOTE | 2021-07-07 04:11 | ED EENT ---
History of Present Illness General Stated Complaint: TEETH & GUMS SENSITIVE Source: patient Exam Limitations: no limitations History of Present Illness Date Seen by Provider: Jul 07, 2021 Time Seen by Provider: 04:06 Initial Comments Patient is a 40-year-old male who presents to the emergency department today with a chief complaint of "wisdom tooth pain". Patient states that he is scheduled to have them removed at the end of the month and he states over the last week he has had increasing pain. He has been taking Tylenol, extra strength without any relief of symptoms. He also states that he has been using some gxfm-mub-khlmoin Anbesol but the last time he used it was yesterday. He denies any fevers or chills. No facial swelling or redness. Patient states the only thing that seems to help improve his pain is having "water on his teeth". Denies any complaints of chest pain or shortness of breath, nausea or vomiting. He is not a diabetic. He has a history of atrial fibrillation. All other review of systems reviewed and negative except as stated. Timing/Duration: gradual Severity: moderate Location: dental Prearrival Treatment: over the counter meds (tylenol) Associated Symptoms: tooth pain Allergies and Home Medications Allergies Coded Allergies: morphine (Verified Allergy, Severe, SYNCOPE, 08/17/20) penicillin G (Verified Allergy, Unknown, FROM CHILDHOOD, 08/17/20) Patient Home Medication List Home Medication List Reviewed: Yes Apixaban (Eliquis) 5 Mg Tablet, 5 MG PO BID, (Reported) Entered as Reported by: ROSE HAIR on 12/03/17 0723 Clindamycin HCl (Clindamycin HCl) 300 Mg Capsule, 300 MG PO TID Prescribed by: ALBERTO BAKER on 05/10/21 1003 Fluconazole (Diflucan) 100 Mg Tablet, 100 MG PO DAILY Prescribed by: ALBERTO BAKER on 05/10/21 1003 Ibuprofen (Ibuprofen) 200 Mg Tablet, 400-600 MG PO Q8H PRN for PAIN-MILD (1-4) OR TEMPATURE, (Reported) Entered as Reported by: RAJ GALLAGHER on 05/01/21 1505 L. Acidophilus/Bulgaricus (Floranex Granules Packet) 1 Each Gran.pack, 1 GM PO ACHS Prescribed by: ALBERTO BAKER on 05/10/21 1003 Linezolid (Zyvox) 600 Mg Tablet, 600 MG PO BID Prescribed by: ALBERTO BAKER on 05/10/21 100 Metoprolol Succinate (Metoprolol Succinate) 100 Mg Tab.er.24h, 100 MG PO HS, (Reported) Entered as Reported by: ROSE HAIR on 12/03/17 0723 Nystatin (Nystatin) 15 Gm Cream..g., 0 GM TP TID Prescribed by: ALBERTO BAKER on 05/10/21 100 Oxycodone Hcl (Oxyir Tablet) 5 Mg Tab, 5 MG PO Q4H PRN for PAIN-SEVERE (8-10) Prescribed by: ALBERTO BAKER on 05/10/21 100 Torsemide (Torsemide) 20 Mg Tablet, (Reported) Entered as Reported by: SOLEDAD VILLANUEVA on 07/07/21 0410 Last Action: New Order Triamcinolone Acet (Triamcinolone Acetonide 0.1% Cream) 15 Gm Cr, 0 GM TOP BID Prescribed by: ALBERTO BAKER on 05/10/21 100 Review of Systems Review of Systems Constitutional: see HPI Eyes: No Symptoms Reported Ears: No Symptoms Reported Nose: no symptoms reported Mouth: other (dental pain; bilateral lower molars) Throat: no symptoms reported Respiratory: no symptoms reported Cardiovascular: no symptoms reported Gastrointestinal: no symptoms reported All Other Systems Reviewed Negative Unless Noted: Yes Past Yiecggn-Rsthnb-Kmxjox Hx Immunizations Up To Date Tetanus Booster (TDap): Unknown First/Initial COVID19 Vaccinat: October COVID19 Vaccination Sai: December COVID19 Vaccination Date: OCTOBER Seasonal Allergies Seasonal Allergies: Yes Past Medical History Surgery/Hospitalization HX: KNEE SCOPE Surgeries: Yes (LAP BAND, MINI GASTRIC BYPASS, PELLET REMOVED FROM LEFT HAND AGE 12) Appendectomy, Gallbladder, Orthopedic, Tonsillectomy Respiratory: No Cardiac: Yes (ONSET A FIB 05/08/17; HEART CATH-NO INTERVENTIONS) Atrial Fibrillation, High Cholesterol, Hypertension Neurological: No Reproductive Disorders: No Sexually Transmitted Disease: No HIV/AIDS: No Genitourinary: No Gastrointestinal: No Gall Bladder Disease Musculoskeletal: No Endocrine: No HEENT: No Cancer: No Psychosocial: Yes Anxiety Integumentary: Yes (CELLULITIS--LEGS) Blood Disorders: No Adverse Reaction/Blood Tranf: No (N/A) Family Medical History Cardiovascular disease 19 FATHER 19 MOTHER No Pertinent Family Hx Physical Exam Vital Signs Vital Signs - First Documented 07/07/21 04:04 Temp 36.4 Pulse 71 Resp 18 B/P (MAP) 187/91 (123) Pulse Ox 97 O2 Delivery Room Air Height, Weight, BMI Height: 6'0" Weight: 318lbs. 0.0oz. 144.683151dn; 44.80 BMI Method:Stated General Appearance: WD/WN, no apparent distress Eyes: bilateral eye normal inspection, bilateral eye PERRL, bilateral eye EOMI Nose: normal inspection Mouth/Throat: pharynx normal, other (patient has erupting lower wisdom teeth bilaterally; some ginigival edema surrounding both and it appears there is carious change to the left lower wisdom tooth. tender to palpation around the gum line) Cardiovascular: regular rate, rhythm Respiratory: lungs clear, normal breath sounds, no respiratory distress Neurologic/Psychiatric: alert, normal mood/affect, oriented x 3 Skin: normal color, warm/dry Progress/Results/Core Measures Results/Orders Vital Signs/I&O 07/07/21 04:04 Temp 36.4 Pulse 71 Resp 18 B/P (MAP) 187/91 (123) Pulse Ox 97 O2 Delivery Room Air Departure Impression Primary Impression: Pain, dental Disposition: HOME, SELF-CARE Condition: Stable Departure-Patient Inst. Decision time for Depature: 04:23 Referrals: SANTI KOO MD (PCP/Family) Primary Care Physician Patient Instructions: Dental Pain Add. Discharge Instructions: Keep your appointment with your dental provider. Take over the counter Ibuprofen 3 tablets, which is 600mg, every 8 hours with food as needed for pain. I have sent a prescription for tramadol to your pharmacy. You can also take this medication every 6 hours as needed for pain, Return to the ER for any new, concerning or emergent symptoms. Scripts Tramadol HCl (Tramadol HCl) 50 Mg Tablet 50 MG PO Q6H PRN for PAIN, #12 TAB 0 Refills Prov: RODRIGUEZ MENDOZA MD 07/07/21 RODRIGUEZ MENDOZA MD Jul 07, 2021 04:11
[2021-07-07] MEDS ORDERED: TRM50T PO (04:24)
[2021-07-07] MEDS ORDERED: IBUPROFEN 600 MG (MOTRIN) TAB PO ONE (04:30)
== END 2021-07-07 04:30 | disposition home or self-care (01) ==
LOC: EDUNIT# 03:42 → ER 03:46
DX: K08.89 Other specified disorders of teeth and supporting structures (principal); I10 Essential (primary) hypertension; I48.91 Unspecified atrial fibrillation; Z79.01 Long term (current) use of anticoagulants; Z79.899 Other long term (current) drug therapy
CPT/HCPCS: 99283

== ENCOUNTER 2021-12-03 20:19 | Observation (INO) | payer BC ==
[~2021-12-03] VITALS: Ht 182.9 cm; Wt 168.4 kg
[~2021-12-03 20:19] MED LIST changes: +TORS20TA3 PO
[2021-12-03] MEDS ORDERED: ONDANSETRON 4 MG/2 ML (SDV) Z0FRAN IVP ONE (20:30)
[2021-12-03] MEDS ORDERED: ASPIRIN 81 MG CHEW (CHILDREN'S ASA) PO ONE (20:30)
--- NOTE | 2021-12-03 20:40 | ED General ---
General Stated Complaint: CHILLS/CP/NAUSEA/SORES Source of Information: Patient History of Present Illness Date Seen by Provider: Dec 03, 2021 Time Seen by Provider: 20:30 Initial Comments PT ARRIVES VIA POV FROM HOME MULTIPLE COMPLAINTS--ALL STARTED THIS MORNING C/O PAIN IN CENTER OF CHEST-PINPOINT AREA--RATES PAIN 6/10. NO RADIATION OF PAIN NOTHING WORSENS OR IMPROVES PAIN C/O CHILLS--TEMP WAS 97.7 AT HOME C/O NAUSEA, VOMITED X 3. DIARRHEA X 1. NO ABDOMINAL PAIN HAS HAD "A LITTLE BIT OF SHORTNESS OF BREATH OFF AND ON TODAY" --NOT NOW NO COUGH OR URI SYMPTOMS STATES HE HAS HAD "SORES" ON HIS BACK AND HIS ARMS FOR THE LAST COUPLE OF DAYS--ARE VERY ITCHY AND IS GETTING WORSE--HAS BEEN SCRATCHING WITH HIS FINGERS, AGAINST A DOOR FRAME, ETC. PT WITH CHRONIC ATRIAL FIB AND HTN--IS ON ELIQUIS AND METOPROLOL PT WITH CHRONIC LYMPHEDEMA OF LEGS, AND HAS LEGS WRAPPED WITH ANGELIKA WRAPS. STATES HE GOES TO THE LYMPHED[place] CLINIC [place]--WAS LAST THERE 3-4 WEEKS AGO, HAS NOT HAD HIS LEGS WRAPPED SINCE THEN, HAD A FRIEND WRAP THEM TODAY PT SMOKES 1-2 PPD PT DRINKS ALCOHOL DAILY--HAS HAD 8 BEERS TODAY PT ALSO SMOKES MARIJUANA--LAST SMOKED A COUPLE OF WEEKS AGO. HAS HAD COVID-19 VACCINE X 3, AND FLU VACCINE. PT LIVES ALONE, NO SICK CONTACTS. PCP: DR. KOO/ DR. ARANDA'S OFFICE. Allergies and Home Medications Allergies Coded Allergies: morphine (Verified Allergy, Severe, SYNCOPE, 08/17/20) penicillin G (Verified Allergy, Unknown, FROM CHILDHOOD, 08/17/20) Patient Home Medication List Home Medication List Reviewed: Yes Apixaban (Eliquis) 5 Mg Tablet, 5 MG PO BID, (Reported) Entered as Reported by: ROSE HAIR on 12/03/17 0723 Clindamycin HCl (Clindamycin HCl) 300 Mg Capsule, 300 MG PO TID Prescribed by: ALBERTO BAKER on 05/10/21 1003 Fluconazole (Diflucan) 100 Mg Tablet, 100 MG PO DAILY Prescribed by: ALBERTO BAKER on 05/10/21 1003 Ibuprofen (Ibuprofen) 200 Mg Tablet, 400-600 MG PO Q8H PRN for PAIN-MILD (1-4) OR TEMPATURE, (Reported) Entered as Reported by: RAJ GALLAGHER on 05/01/21 1505 L. Acidophilus/Bulgaricus (Floranex Granules Packet) 1 Each Gran.pack, 1 GM PO ACHS Prescribed by: ALBERTO BAKER on 05/10/21 1003 Linezolid (Zyvox) 600 Mg Tablet, 600 MG PO BID Prescribed by: ALBERTO BAKER on 05/10/21 100 Metoprolol Succinate (Metoprolol Succinate) 100 Mg Tab.er.24h, 100 MG PO HS, (Reported) Entered as Reported by: ROSE HAIR on 12/03/17 0723 Nystatin (Nystatin) 15 Gm Cream..g., 0 GM TP TID Prescribed by: ALBERTO BAKER on 05/10/21 100 Oxycodone Hcl (Oxyir Tablet) 5 Mg Tab, 5 MG PO Q4H PRN for PAIN-SEVERE (8-10) Prescribed by: ALBERTO BAKER on 05/10/21 100 Torsemide (Torsemide) 20 Mg Tablet, (Reported) Entered as Reported by: SOLEDAD VILLANUEVA on 07/07/21 0410 Tramadol HCl (Tramadol HCl) 50 Mg Tablet, 50 MG PO Q6H PRN for PAIN Prescribed by: RODRIGUEZ MENDOZA on 07/07/21 0425 Triamcinolone Acet (Triamcinolone Acetonide 0.1% Cream) 15 Gm Cr, 0 GM TOP BID Prescribed by: ALBERTO BAKER on 05/10/21 1003 Review of Systems Review of Systems Constitutional: see HPI, chills EENTM: no symptoms reported Respiratory: see HPI; No cough; short of breath Cardiovascular: see HPI, chest pain Gastrointestinal: see HPI; No abdominal pain, No diarrhea, No loss of appetite; nausea; No vomiting Genitourinary: no symptoms reported Musculoskeletal: see HPI Skin: see HPI, pruritus, rash Psychiatric/Neurological: No Symptoms Reported Hematologic/Lymphatic: No Symptoms Reported Immunological/Allergic: no symptoms reported Past Ynquswj-Xrztxy-Kzlxjz Hx Patient Social History Tobacco Use?: Yes Smoking Status: Current Everyday Smoker Substance use?: Yes Substance type: Marijuana Alcohol Use?: Yes Alcohol type: Beer Alcohol Frequency: Daily Immunizations Up To Date Tetanus Booster (TDap): Unknown First/Initial COVID19 Vaccinat: 11/20 Second COVID19 Vaccination Sai: 11/20 Third COVID19 Vaccination Date: OCTOBER Seasonal Allergies Seasonal Allergies: Yes Past Medical History Surgery/Hospitalization HX: GASTRIC BYPASS, APPY,RAS, KNEE, HTN Surgeries: Yes (LAP BAND, MINI GASTRIC BYPASS, PELLET REMOVED FROM LEFT HAND AGE 12) Abdominal, Appendectomy, Gallbladder, Orthopedic, Tonsillectomy Respiratory: No Cardiac: Yes (ONSET A FIB 05/08/17; HEART CATH-NO INTERVENTIONS) Atrial Fibrillation, High Cholesterol, Hypertension Neurological: No Reproductive Disorders: No Sexually Transmitted Disease: No HIV/AIDS: No Genitourinary: No Gastrointestinal: Yes (S/P LAP BAND AND MINI GASTRIC BYPASS) Gall Bladder Disease Musculoskeletal: Yes (RIGHT KNEE SCOPE 08/2020 DR. THOMAS; CHRONIC LYMPHEDEMA) Endocrine: No (MORBID OBESITY) HEENT: Yes (DENTAL ISSUES) Cancer: No Psychosocial: Yes Anxiety Integumentary: Yes (CELLULITIS--LEGS) Blood Disorders: No Adverse Reaction/Blood Tranf: No (N/A) Family Medical History Cardiovascular disease 19 FATHER 19 MOTHER No Pertinent Family Hx SOCIAL HISTORY: -SMOKES 1-2 PPD -DRINKS LARGE AMOUNT OF ALCOHOL DAILY--MORE THAN A 6 PACK OF BEER/DAY -SMOKES MARIJUANA ON REGULAR BASIS, DAILY AT TIMES. Physical Exam Vital Signs Vital Signs - First Documented 12/03/21 20:23 Temp 36.8 Pulse 82 Resp 20 B/P (MAP) 153/89 (110) Pulse Ox 99 O2 Delivery Room Air Capillary Refill : Height, Weight, BMI Height: 6'0" Weight: 318lbs. 0.0oz. 144.592492gy; 45.00 BMI Method:Stated General Appearance: No Apparent Distress, WD/WN, Obese (MORBIDLY OBESE), Other (DOES NOT APPEAR ILL OR TO BE IN ANY DISCOMFORT OR DISTRESS; BOTH LEGS WRAPPED WITH LYMPHEDEMA DRESSINGS AND ANGELIKA WRAPS.) Neck: Normal Inspection Respiratory: Chest Non Tender, Normal Breath Sounds, No Accessory Muscle Use, No Respiratory Distress Cardiovascular: Regular Rate, Rhythm, No Murmur Gastrointestinal: Non Tender, Soft Back: No CVA Tenderness, No Vertebral Tenderness Extremity: Normal Capillary Refill, Normal Range of Motion, Non Tender, No Calf Tenderness, Other (UNABLE TO DETERMINE DEGREE OF EDEMA DUE TO BODY HABITUS. MOTOR/SENSORY/VASCULAR INTACT. 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 HAS VERY EXTENSIVE EXCORIATED AREAS OVER ENTIRE BACK. ALL THESE AREAS ARE BLEEDING/MACERATED. NO SIGNS OF SECONDARY INFECTION AT THIS TIME. ON UPPER AND MID BACK THERE DOES APPEAR TO BE SOME AREAS OF WELL DEMARCATED SCALY PLAQUES, THAT APPEAR TO BE CHRONIC. ) Progress/Results/Core Measures Suspected Sepsis SIRS Temperature: Pulse: Respiratory Rate: Laboratory Tests 12/03/21 20:33: White Blood Count 5.3 Blood Pressure / Mean: Laboratory Tests 12/03/21 20:33: Creatinine 0.78, INR Comment 1.1, Platelet Count 176, Total Bilirubin 1.6H Results/Orders Lab Results Laboratory Tests Test 12/03/21 19:31 12/03/21 20:33 12/03/21 20:36 12/03/21 20:38 Range/Units Serum Alcohol 181 H <10 MG/DL White Blood Count 5.3 4.3-11.0 10^3/uL Red Blood Count 4.18 L 4.30-5.52 10^6/uL Hemoglobin 11.8 L 13.3-17.7 g/dL Hematocrit 35 L 40-54 % Mean Corpuscular Volume 83 80-99 fL Mean Corpuscular Hemoglobin 28 25-34 pg Mean Corpuscular Hemoglobin Concent 34 32-36 g/dL Red Cell Distribution Width 16.5 H 10.0-14.5 % Platelet Count 176 130-400 10^3/uL Mean Platelet Volume 9.6 9.0-12.2 fL Immature Granulocyte % (Auto) 0 % Neutrophils (%) (Auto) 59 42-75 % Lymphocytes (%) (Auto) 20 12-44 % Monocytes (%) (Auto) 13 H 0-12 % Eosinophils (%) (Auto) 7 0-10 % Basophils (%) (Auto) 1 0-10 % Neutrophils # (Auto) 3.1 1.8-7.8 10^3/uL Lymphocytes # (Auto) 1.1 1.0-4.0 10^3/uL Monocytes # (Auto) 0.7 0.0-1.0 10^3/uL Eosinophils # (Auto) 0.4 H 0.0-0.3 10^3/uL Basophils # (Auto) 0.1 0.0-0.1 10^3/uL Immature Granulocyte # (Auto) 0.0 0.0-0.1 10^3/uL Erythrocyte Sedimentation Rate 9 0-15 MM/HR Prothrombin Time 14.3 12.2-14.7 SEC INR Comment 1.1 0.8-1.4 Activated Partial Thromboplast Time 35 24-35 SEC Sodium Level 127 L 135-145 MMOL/L Potassium Level 3.3 L 3.6-5.0 MMOL/L Chloride Level 89 L 98-107 MMOL/L Carbon Dioxide Level 21 21-32 MMOL/L Anion Gap 17 H 5-14 MMOL/L Blood Urea Nitrogen 6 L 7-18 MG/DL Creatinine 0.78 0.60-1.30 MG/DL Estimat Glomerular Filtration Rate 116 BUN/Creatinine Ratio 8 Glucose Level 55 *L 70-105 MG/DL Calcium Level 8.6 8.5-10.1 MG/DL Corrected Calcium 8.8 8.5-10.1 MG/DL Magnesium Level 1.9 1.6-2.4 MG/DL Total Bilirubin 1.6 H 0.1-1.0 MG/DL Aspartate Amino Transf (AST/SGOT) 182 H 5-34 U/L Alanine Aminotransferase (ALT/SGPT) 138 H 0-55 U/L Alkaline Phosphatase 84 40-136 U/L Total Creatine Kinase 81 30-200 U/L Creatine Kinase MB 0.6 <6.6 NG/ML Myoglobin 30.7 10.0-92.0 NG/ML Troponin I < 0.028 <0.028 NG/ML C-Reactive Protein High Sensitivity 0.14 0.00-0.50 MG/DL B-Type Natriuretic Peptide 105.1 H <100.0 PG/ML Total Protein 7.7 6.4-8.2 GM/DL Albumin 3.8 3.2-4.5 GM/DL Amylase Level 51 25-125 U/L Lipase 152 H 8-78 U/L Influenza Type A (RT-PCR) Not Detected Not Detecte Influenza Type B (RT-PCR) Not Detected Not Detecte SARS-CoV-2 RNA (RT-PCR) Not Detected Not Detecte Urine Color YELLOW Urine Clarity CLEAR Urine pH 6.0 5-9 Urine Specific [place] 1.010 L 1.016-1.022 Urine Protein NEGATIVE NEGATIVE Urine Glucose (UA) NEGATIVE NEGATIVE Urine Ketones NEGATIVE NEGATIVE Urine Nitrite NEGATIVE NEGATIVE Urine Bilirubin NEGATIVE NEGATIVE Urine Urobilinogen 0.2 < = 1.0 MG/DL Urine Leukocyte Esterase NEGATIVE NEGATIVE Urine RBC (Auto) NEGATIVE NEGATIVE Urine RBC NONE /HPF Urine WBC NONE /HPF Urine Squamous Epithelial Cells 0-2 /HPF Urine Renal Epithelial Cells NONE /HPF Urine Crystals NONE /LPF Urine Bacteria NEGATIVE /HPF Urine Casts NONE /LPF Urine Mucus NEGATIVE /LPF Urine Culture Indicated NO Urine Opiates Screen POSITIVE H NEGATIVE Urine Oxycodone Screen NEGATIVE NEGATIVE Urine Methadone Screen NEGATIVE NEGATIVE Urine Propoxyphene Screen NEGATIVE NEGATIVE Urine Barbiturates Screen NEGATIVE NEGATIVE Ur Tricyclic Antidepressants Screen NEGATIVE NEGATIVE Urine Phencyclidine Screen NEGATIVE NEGATIVE Urine Amphetamines Screen NEGATIVE NEGATIVE Urine Methamphetamines Screen NEGATIVE NEGATIVE Urine Benzodiazepines Screen NEGATIVE NEGATIVE Urine Cocaine Screen NEGATIVE NEGATIVE Urine Cannabinoids Screen NEGATIVE NEGATIVE My Orders Orders - LAURIE SANTIAGO DO Ed Iv/Invasive Line Start (12/03/21 20:28) Ekg Tracing (12/03/21 20:28) O2 (12/03/21 20:28) Monitor-Rhythm Ecg Trace Only (12/03/21 20:28) Amylase (12/03/21 20:28) Bnp [place] (12/03/21 20:28) Cbc With Automated Diff (12/03/21 20:28) Comprehensive Metabolic Panel (12/03/21 20:28) Creatine Kinase (12/03/21 20:28) Creatine Kinase Mb (12/03/21 20:28) Hs C Reactive Protein (12/03/21 20:28) Drug Screen Stat (Urine) (12/03/21 20:28) Lipase (12/03/21 20:28) Magnesium (12/03/21 20:28) Protime With Inr (12/03/21 20:28) Partial Thromboplastin Time (12/03/21 20:28) Ua Culture If Indicated (12/03/21 20:28) Erythrocyte Sedimentation Rate (12/03/21 20:28) Myoglobin Serum (12/03/21 20:28) Troponin I Di (12/03/21 20:28) Chest 1 View, Ap/Pa Only (12/03/21 20:28) Aspirin Chewable Tablet (Baby Aspirin Ch (12/03/21 20:30) Covid 19 Inhouse Test (12/03/21 20:28) Influenza A And B By Pcr (12/03/21 20:28) Isolation Central Supply Req (12/03/21 20:28) Ondansetron Injection (Zofran Injectio (12/03/21 20:30) Medications Given in ED Current Medications Medications Dose Ordered Sig/Elijah Route Start Time Stop Time Status Last Admin Dose Admin Aspirin 324 mg ONCE ONCE PO 12/03/21 20:30 12/03/21 20:31 DC 12/03/21 20:41 324 MG Ondansetron HCl 4 mg ONCE ONCE IVP 12/03/21 20:30 12/03/21 20:31 DC 12/03/21 20:44 4 MG Vital Signs/I&O 12/03/21 20:23 Temp 36.8 Pulse 82 Resp 20 B/P (MAP) 153/89 (110) Pulse Ox 99 O2 Delivery Room Air Capillary Refill : Progress Note : Progress Note GIVEN ASPIRIN AND NITROPASTE GIVEN VISTARIL FOR ITCHING--PT CONSTANTLY ITCHING ALL OVER HIS BODY THROUGHOUT ER STAY NO COMPLAINTS DURING REMAINDER OF ER STAY ECG Initial ECG Impression Date: Dec 03, 2021 Initial ECG Impression Time: 20:33 Initial ECG Rate: 75 Initial ECG Rhythm: Normal Sinus Diagnostic Imaging Comments CXR--PER RADIOLOGIST REPORT AT 2119 FINDINGS: Lung volumes are normal. No consolidation is seen. There is no pleural effusion or pneumothorax. The cardiac silhouette is normal in size. Findings appear stable since prior examinations. IMPRESSION: No acute pulmonary abnormality. Reviewed: Reviewed by Me Departure Communication (Admissions) 2119--SPOKE WITH DR. MILLER, HOSPITALIST, ACCEPTS PT FOR ADMIT Impression Primary Impression: Chest pain Additional Impressions: Lymphedema Obesity Alcohol dependence Electrolyte imbalance Elevated liver enzymes PRURITIS WITH EXTENSIVE EXCORATIONS OVER MOST OF BODY HTN (hypertension) History of atrial fibrillation MILDLY ELEVATED AMMONIA LEVEL Disposition: ADMITTED INPATIENT Condition: Stable Admissions Decision to Admit/Date: Dec 03, 2021 Time/Decision to Admit Time: 21:20 Departure-Patient Inst. Referrals: SANTI KOO MD (PCP/Family) Primary Care Physician LAURIE SANTIAGO DO Dec 03, 2021 20:40
[2021-12-03 20:45] LABS: BASOPHILS # (AUTO) 0.1 10^3/uL (0.0-0.1); BASOPHILS % (AUTO) 1 % (0-10); EOSINOPHILS # (AUTO) 0.4 10^3/uL (0.0-0.3); EOSINOPHILS % (AUTO) 7 % (0-10); HEMATOCRIT 35 % (40-54); HEMOGLOBIN 11.8 g/dL (13.3-17.7); LYMPHOCYTES # (AUTO) 1.1 10^3/uL (1.0-4.0); LYMPHOCYTES % (AUTO) 20 % (12-44); MEAN CORPUSCULAR HEMOGLOBIN 28 pg (25-34); MEAN CORPUSCULAR HGB CONC 34 g/dL (32-36); MEAN CORPUSCULAR VOLUME 83 fL (80-99); MEAN PLATELET VOLUME 9.6 fL (9.0-12.2); MONOCYTES # (AUTO) 0.7 10^3/uL (0.0-1.0); MONOCYTES % (AUTO) 13 % (0-12); NEUTROPHILS # (AUTO) 3.1 10^3/uL (1.8-7.8); NEUTROPHILS % (AUTO) 59 % (42-75); PLATELET COUNT 176 10^3/uL (130-400); WHITE BLOOD COUNT 5.3 10^3/uL (4.3-11.0)
[2021-12-03 20:51] LABS: INR 1.1 (0.8-1.4); PROTHROMBIN TIME PATIENT 14.3 SEC (12.2-14.7)
[2021-12-03 20:55] LABS: BILIRUBIN,URINE NEGATIVE (NEGATIVE); CLARITY,URINE CLEAR; COLOR,URINE YELLOW; GLUCOSE, URINE (UA) NEGATIVE (NEGATIVE); KETONES,URINE NEGATIVE (NEGATIVE); LEUKOCYTE ESTERASE ,URINE NEGATIVE (NEGATIVE); NITRITE,URINE NEGATIVE (NEGATIVE); PROTEIN,URINE NEGATIVE (NEGATIVE)
[2021-12-03 20:55] LABS: ALBUMIN 3.8 GM/DL (3.2-4.5); CHLORIDE 89 MMOL/L (98-107); POTASSIUM 3.3 MMOL/L (3.6-5.0); SODIUM 127 MMOL/L (135-145)
[2021-12-03 20:56] LABS: AMYLASE 51 U/L (25-125); CALCIUM 8.6 MG/DL (8.5-10.1)
[2021-12-03 20:58] LABS: TOTAL PROTEIN 7.7 GM/DL (6.4-8.2)
[2021-12-03 20:59] LABS: BILIRUBIN,TOTAL 1.6 MG/DL (0.1-1.0); CARBON DIOXIDE 21 MMOL/L (21-32)
[2021-12-03 21:01] LABS: BACTERIA,URINE NEGATIVE /HPF; SQUAMOUS EPITHELIAL CELL,UR 0-2 /HPF
[2021-12-03 21:01] LABS: ALKALINE PHOSPHATASE 84 U/L (40-136); CREATININE SERUM 0.78 MG/DL (0.60-1.30); GFR ESTIMATED 116
[2021-12-03 21:02] LABS: BUN/CREATININE RATIO 8
[2021-12-03 21:04] LABS: ALANINE AMINOTRANSFERASE 138 U/L (0-55); MAGNESIUM 1.9 MG/DL (1.6-2.4)
[2021-12-03 21:05] LABS: CREATINE KINASE 81 U/L (30-200); LIPASE 152 U/L (8-78)
[2021-12-03 21:08] LABS: ERYTHROCYTE SEDIMENTATION RATE 9 MM/HR (0-15)
[2021-12-03 21:09] LABS: AMPHETAMINE SCREEN, URINE NEGATIVE (NEGATIVE); BARBITURATE SCREEN URINE NEGATIVE (NEGATIVE); BENZODIAZEPINES SCREEN URINE NEGATIVE (NEGATIVE); CANNABINOID SCREEN, URINE NEGATIVE (NEGATIVE); COCAINE SCREEN URINE NEGATIVE (NEGATIVE); METHADONE STAT NEGATIVE (NEGATIVE); METHAMPHETAMINE SCREEN URINE S NEGATIVE (NEGATIVE); OPIATE SCREEN URINE POSITIVE (NEGATIVE); OXYCODONE STAT NEGATIVE (NEGATIVE); PROPOXYPHENE STAT NEGATIVE (NEGATIVE); TRICYCLIC ANTIDEPRESSANTS SCRE NEGATIVE (NEGATIVE)
[2021-12-03 21:11] LABS: CREATINE KINASE MB 0.6 NG/ML (<6.6)
--- NOTE | 2021-12-03 21:13 | Diagnostic Imaging Report ---
HISTORY: Chest pain. COMPARISON: 09/30/2020. TECHNIQUE: Frontal view of the chest. FINDINGS: Lung volumes are normal. No consolidation is seen. There is no pleural effusion or pneumothorax. The cardiac silhouette is normal in size. Findings appear stable since prior examinations. IMPRESSION: No acute pulmonary abnormality. Dictated by: Dictated on workstation # [id number]
[2021-12-03 21:15] LABS: GLUCOSE 55 MG/DL (70-105)
[2021-12-03] MEDS ORDERED: NITROGLYCERIN 2% OINT 1 GM UNIT DOSE PACKET TOP ONE (21:30)
[2021-12-03] MEDS ORDERED: POTASSIUM CHLORIDE INJ 20 MEQ in D5 NS 1000 ML IV SOLUTION 1,000 ML IV SCH (21:30)
[2021-12-03] MEDS ORDERED: hydrOXYzine (VISTARIL/ATARAX) 25 MG capsule/tablet PO ONE (21:30)
[2021-12-03] MEDS ORDERED: D5 NS W/KCL 20 MEQ/L 1,000 ML IV ONE (21:33)
[2021-12-03 22:26] LABS: AMMONIA 42 UMOL/L (11-32)
[2021-12-03] MEDS ORDERED: ANTACID SUSP 30 ML UDC (MYLANTA) PO PRN (22:45)
[2021-12-03] MEDS ORDERED: SENNA W/DOCUSATE (SENOKOT S) TABLET PO PRN (22:45)
[2021-12-03] MEDS ORDERED: fentaNYL INJ 100 MCG/2 ML AMP IV PRN (22:45)
[2021-12-03] MEDS ORDERED: ONDANSETRON 4 MG/2 ML (SDV) Z0FRAN IV PRN (22:45)
[2021-12-03] MEDS ORDERED: ONDANSETRON 4 MG (ZOFRAN) ORAL DISSOLVE TAB SL PRN (22:45)
[2021-12-03] MEDS ORDERED: LORazepam 1 MG (ATIVAN) TAB PO PRN (22:45)
[2021-12-03] MEDS ORDERED: LORazepam INJ 2 MG/ML (ATIVAN) VIAL IM/IV PRN (22:45)
[2021-12-03] MEDS: D5 NS W/KCL 20 MEQ/L 1,000 ML IV SCH (22:48)
[2021-12-03 22:50] VITALS: BP 140/78
[2021-12-03 23:20] VITALS: BP 140/48
[2021-12-03 23:22] VITALS: BP 116/68
[2021-12-04] VITALS (11 sets, daily range): BP systolic 113–142; BP diastolic 57–82
[2021-12-04] MEDS: NITROGLYCERIN 2% OINT 1 GM UNIT DOSE PACKET TOP SCH ×4 (04:54→21:41)
[2021-12-04] MEDS: D5 NS W/KCL 20 MEQ/L 1,000 ML IV SCH ×3 (04:54→17:16)
[2021-12-04 05:58] LABS: BASOPHILS % (AUTO) 1 % (0-10); EOSINOPHILS # (AUTO) 0.4 10^3/uL (0.0-0.3); EOSINOPHILS % (AUTO) 11 % (0-10); HEMATOCRIT 31 % (40-54); HEMOGLOBIN 10.8 g/dL (13.3-17.7); LYMPHOCYTES # (AUTO) 0.8 10^3/uL (1.0-4.0); LYMPHOCYTES % (AUTO) 24 % (12-44); MEAN CORPUSCULAR HEMOGLOBIN 29 pg (25-34); MEAN CORPUSCULAR HGB CONC 35 g/dL (32-36); MEAN CORPUSCULAR VOLUME 82 fL (80-99); MEAN PLATELET VOLUME 10.1 fL (9.0-12.2); MONOCYTES # (AUTO) 0.4 10^3/uL (0.0-1.0); MONOCYTES % (AUTO) 12 % (0-12); NEUTROPHILS # (AUTO) 1.8 10^3/uL (1.8-7.8); NEUTROPHILS % (AUTO) 52 % (42-75); PLATELET COUNT 162 10^3/uL (130-400); WHITE BLOOD COUNT 3.4 10^3/uL (4.3-11.0)
[2021-12-04 06:06] LABS: POTASSIUM 3.4 MMOL/L (3.6-5.0)
[2021-12-04 06:07] LABS: ALBUMIN 3.4 GM/DL (3.2-4.5)
[2021-12-04 06:08] LABS: CALCIUM 8.6 MG/DL (8.5-10.1)
[2021-12-04 06:09] LABS: TOTAL PROTEIN 6.7 GM/DL (6.4-8.2)
[2021-12-04 06:11] LABS: BILIRUBIN,TOTAL 1.9 MG/DL (0.1-1.0)
[2021-12-04 06:13] LABS: CREATININE SERUM 0.72 MG/DL (0.60-1.30)
--- NOTE | 2021-12-04 08:34 | Diagnostic Imaging Report ---
INDICATION: Chest pain and elevated liver function tests. PROCEDURE: Ultrasound abdomen complete. TECHNIQUE: Multiple Real-time grayscale images were obtained of the abdomen in various projections. FINDINGS: The liver is enlarged at 22 cm. There is increased echogenicity throughout the liver, consistent with hepatic steatosis. No discrete liver mass is detected. Portal vein is patent and shows normal direction of flow. Gallbladder is surgically absent. No definite biliary ductal dilatation is seen. Pancreas was obscured by overlying bowel gas. Spleen is normal in size at 9 cm. Aorta and IVC are obscured. Right and left kidneys are unremarkable. No calculus or hydronephrosis is seen. There is no ascites. IMPRESSION: 1. Hepatomegaly and hepatic steatosis. 2. Status post cholecystectomy. Dictated by: Dictated on workstation # [id number]
--- NOTE | 2021-12-04 08:47 | Consultation-Cardiology ---
HPI-Cardiology Cardiology Consultation: Date of Consultation 12/04/21 Date of Admission Attending Physician Gerardo Miller MD Admitting Physician Adi Pham MD Consulting Physician SARBJIT RICHMOND GBU-Qodugs-Zjzfbs Hx Patient Social History Smoking Status: Heavy Tobacco Smoker 2nd Hand Smoke Exposure: Yes Have you traveled recently?: No Alcohol Use?: Yes Substance type: Marijuana Pt feels they are or have been: No Tobacco type used: Cigarettes Immunizations Up To Date Tetanus Booster (TDap): Unknown Date of Influenza Vaccine: Jun 06, 2020 Past Medical History PMH As described under Assessment. Family Medical History Family History: Cardiovascular disease 19 FATHER 19 MOTHER Allergies and Home Medications Allergies Coded Allergies: morphine (Verified Allergy, Severe, SYNCOPE, 08/17/20) penicillin G (Verified Allergy, Unknown, FROM CHILDHOOD, 08/17/20) Patient Home Medication List Apixaban (Eliquis) 5 Mg Tablet, 5 MG PO BID, (Reported) Entered as Reported by: ROSE HAIR on 12/03/17722 Clindamycin HCl (Clindamycin HCl) 300 Mg Capsule, 300 MG PO TID Prescribed by: ALBERTO BAKER on 05/10/21 100 Fluconazole (Diflucan) 100 Mg Tablet, 100 MG PO DAILY Prescribed by: ALBERTO BAKER on 05/10/21 100 Ibuprofen (Ibuprofen) 200 Mg Tablet, 400-600 MG PO Q8H PRN for PAIN-MILD (1-4) OR TEMPATURE, (Reported) Entered as Reported by: RAJ GALLAGHER on 05/01/21 1505 L. Acidophilus/Bulgaricus (Floranex Granules Packet) 1 Each Gran.pack, 1 GM PO ACHS Prescribed by: ALBERTO BAKER on 05/10/21 100 Linezolid (Zyvox) 600 Mg Tablet, 600 MG PO BID Prescribed by: ALBERTO BAKER on 05/10/21 100 Metoprolol Succinate (Metoprolol Succinate) 100 Mg Tab.er.24h, 100 MG PO HS, (Reported) Entered as Reported by: ROSE HAIR on 12/03/17722 Nystatin (Nystatin) 15 Gm Cream..g., 0 GM TP TID Prescribed by: ALBERTO BAKER on 05/10/21 100 Oxycodone Hcl (Oxyir Tablet) 5 Mg Tab, 5 MG PO Q4H PRN for PAIN-SEVERE (8-10) Prescribed by: ALBERTO BAKER on 05/10/21 1003 Torsemide (Torsemide) 20 Mg Tablet, (Reported) Entered as Reported by: SOLEDAD VILLANUEVA on 07/07/21 0410 Tramadol HCl (Tramadol HCl) 50 Mg Tablet, 50 MG PO Q6H PRN for PAIN Prescribed by: RODRIGUEZ MENDOZA on 07/07/21 0425 Triamcinolone Acet (Triamcinolone Acetonide 0.1% Cream) 15 Gm Cr, 0 GM TOP BID Prescribed by: ALBERTO BAKER on 05/10/21 100 Physical Exam-Cardiology Physical Exam Vital Signs/I&O 12/03/21 12/03/21 12/03/21 12/03/21 22:14 22:28 22:30 22:50 Temp 36.8 36.6 Pulse 74 77 77 Resp 18 20 B/P (MAP) 128/75 140/78 (98) Pulse Ox 99 100 100 O2 Delivery Room Air Room Air Room Air 12/03/21 12/03/21 12/04/21 12/04/21 23:20 23:22 00:02 00:15 Pulse 76 77 77 75 Resp 39 22 12 21 B/P (MAP) 140/48 (78) 116/68 (84) 135/71 (95) 120/78 (97) Pulse Ox 98 89 97 97 O2 Delivery Room Air Nasal Cannula Nasal Cannula Nasal Cannula O2 Flow Rate 2.00 2.00 2.00 12/04/21 12/04/21 12/04/21 12/04/21 00:30 00:45 01:00 01:00 Pulse 79 40 73 73 Resp 18 19 19 B/P (MAP) 126/73 (97) 137/82 (95) 142/81 (100) Pulse Ox 96 97 97 O2 Delivery Nasal Cannula Nasal Cannula Nasal Cannula O2 Flow Rate 2.00 2.00 2.00 12/04/21 12/04/21 12/04/21 12/04/21 02:00 03:00 04:47 07:00 Pulse 74 70 65 74 Resp 24 16 25 B/P (MAP) 128/60 (80) 136/69 (91) 113/57 (75) Pulse Ox 92 95 97 O2 Delivery Nasal Cannula Nasal Cannula Nasal Cannula O2 Flow Rate 2.00 2.00 2.00 12/04/21 12/04/21 07:41 08:00 Temp 36.9 Pulse 77 90 Resp 20 28 B/P (MAP) 138/78 (98) 139/73 (95) Pulse Ox 93 94 O2 Delivery Nasal Cannula Nasal Cannula O2 Flow Rate 2.00 2.00 Capillary Refill : Less Than 3 Seconds Data Review Labs Laboratory Tests 12/03/21 19:31: Ammonia 42H, Serum Alcohol 181H 12/03/21 20:33: White Blood Count 5.3, Red Blood Count 4.18L, Hemoglobin 11.8L, Hematocrit 35L, Mean Corpuscular Volume 83, Mean Corpuscular Hemoglobin 28, Mean Corpuscular Hemoglobin Concent 34, Red Cell Distribution Width 16.5H, Platelet Count 176, Mean Platelet Volume 9.6, Immature Granulocyte % (Auto) 0, Neutrophils (%) (Auto) 59, Lymphocytes (%) (Auto) 20, Monocytes (%) (Auto) 13H, Eosinophils (%) (Auto) 7, Basophils (%) (Auto) 1, Neutrophils # (Auto) 3.1, Lymphocytes # (Auto) 1.1, Monocytes # (Auto) 0.7, Eosinophils # (Auto) 0.4H, Basophils # (Auto) 0.1, Immature Granulocyte # (Auto) 0.0, Erythrocyte Sedimentation Rate 9, Prothrombin Time 14.3, INR Comment 1.1, Activated Partial Thromboplast Time 35, Sodium Level 127L, Potassium Level 3.3L, Chloride Level 89L, Carbon Dioxide Level 21, Anion Gap 17H, Blood Urea Nitrogen 6L, Creatinine 0.78, Estimat Glomerular Filtration Rate 116, BUN/Creatinine Ratio 8, Glucose Level 55*L, Calcium Level 8.6, Corrected Calcium 8.8, Magnesium Level 1.9, Total Bilirubin 1.6H, Aspartate Amino Transf (AST/SGOT) 182H, Alanine Aminotransferase (ALT/SGPT) 138H, Alkaline Phosphatase 84, Total Creatine Kinase 81, Creatine Kinase MB 0.6, Myoglobin 30.7, Troponin I < 0.028, C-Reactive Protein High Sensitivity 0.14, B-Type Natriuretic Peptide 105.1H, Total Protein 7.7, Albumin 3.8, Amylase Level 51, Lipase 152H 12/03/21 20:36: Influenza Type A (RT-PCR) Not Detected, Influenza Type B (RT-PCR) Not Detected, SARS-CoV-2 RNA (RT-PCR) Not Detected 12/03/21 20:38: Urine Color YELLOW, Urine Clarity CLEAR, Urine pH 6.0, Urine Specific [place] 1.010L, Urine Protein NEGATIVE, Urine Glucose (UA) NEGATIVE, Urine Ketones NEGATIVE, Urine Nitrite NEGATIVE, Urine Bilirubin NEGATIVE, Urine Urobilinogen 0.2, Urine Leukocyte Esterase NEGATIVE, Urine RBC (Auto) NEGATIVE, Urine RBC NONE, Urine WBC NONE, Urine Squamous Epithelial Cells 0-2, Urine Renal Epithelial Cells NONE, Urine Crystals NONE, Urine Bacteria NEGATIVE, Urine Casts NONE, Urine Mucus NEGATIVE, Urine Culture Indicated NO, Urine Opiates Screen POSITIVEH, Urine Oxycodone Screen NEGATIVE, Urine Methadone Screen NEGATIVE, Urine Propoxyphene Screen NEGATIVE, Urine Barbiturates Screen NEGATIVE, Ur Tricyclic Antidepressants Screen NEGATIVE, Urine Phencyclidine Screen NEGATIVE, Urine Amphetamines Screen NEGATIVE, Urine Methamphetamines Screen NEGATIVE, Urine Benzodiazepines Screen NEGATIVE, Urine Cocaine Screen NEGATIVE, Urine Cannabinoids Screen NEGATIVE 12/03/21 21:44: 12/03/21 22:25: Glucometer 95 12/04/21 04:56: White Blood Count 3.4L, Red Blood Count 3.78L, Hemoglobin 10.8L, Hematocrit 31L, Mean Corpuscular Volume 82, Mean Corpuscular Hemoglobin 29, Mean Corpuscular Hemoglobin Concent 35, Red Cell Distribution Width 16.3H, Platelet Count 162, Mean Platelet Volume 10.1, Immature Granulocyte % (Auto) 0, Neutrophils (%) (Auto) 52, Lymphocytes (%) (Auto) 24, Monocytes (%) (Auto) 12, Eosinophils (%) (Auto) 11H, Basophils (%) (Auto) 1, Neutrophils # (Auto) 1.8, Lymphocytes # (Auto) 0.8L, Monocytes # (Auto) 0.4, Eosinophils # (Auto) 0.4H, Basophils # (Auto) 0.0, Immature Granulocyte # (Auto) 0.0, Sodium Level 133L, Potassium Level 3.4L, Chloride Level 96L, Carbon Dioxide Level 21, Anion Gap 16H, Blood Urea Nitrogen 5L, Creatinine 0.72, Estimat Glomerular Filtration Rate 119, BUN/Creatinine Ratio 7, Glucose Level 85, Calcium Level 8.6, Corrected Calcium 9.1, Total Bilirubin 1.9H, Aspartate Amino Transf (AST/SGOT) 113H, Alanine Aminotransferase (ALT/SGPT) 111H, Alkaline Phosphatase 70, Troponin I < 0.028, Total Protein 6.7, Albumin 3.4, Triglycerides Level 46, Cholesterol Level 117, LDL Cholesterol Direct 28, VLDL Cholesterol 9, HDL Cholesterol 73H 12/04/21 08:00: Glucometer 103 Laboratory Tests 12/03/21 20:33 12/04/21 04:56 Radiology NAME: SHARATH PORRAS [facility] REC#: [id number] PT STATUS: ADM Leida : 1980 PHYSICIAN: GERARDO MILLRE MD ADMIT DATE: 12/03/21/[facility] Draft Date of Exam:12/04/21 US ABDOMEN COMPLETE [id number] INDICATION: Chest pain and elevated liver function tests. PROCEDURE: Ultrasound abdomen complete. TECHNIQUE: Multiple Real-time grayscale images were obtained of the abdomen in various projections. FINDINGS: The liver is enlarged at 22 cm. There is increased echogenicity throughout the liver, consistent with hepatic steatosis. No discrete liver mass is detected. Portal vein is patent and shows normal direction of flow. Gallbladder is surgically absent. No definite biliary ductal dilatation is seen. Pancreas was obscured by overlying bowel gas. Spleen is normal in size at 9 cm. Aorta and IVC are obscured. Right and left kidneys are unremarkable. No calculus or hydronephrosis is seen. There is no ascites. IMPRESSION: 1. Hepatomegaly and hepatic steatosis. 2. Status post cholecystectomy. Dictated on workstation # [id number] Dict: 12/04/21 0826 Trans: 12/04/21 0833 [id number] Interpreted by: DARIO CHIU MD Electronically signed by: NAME: SHARATH PORRAS [facility] REC#: [id number] PT STATUS: REG ER : 1980 PHYSICIAN: LAURIE SANTIAGO DO ADMIT DATE: 12/03/21/ER Signed Date of Exam:12/03/21 CHEST 1 VIEW, AP/PA ONLY HISTORY: Chest pain. COMPARISON: 09/30/2020. TECHNIQUE: Frontal view of the chest. FINDINGS: Lung volumes are normal. No consolidation is seen. There is no pleural effusion or pneumothorax. The cardiac silhouette is normal in size. Findings appear stable since prior examinations. IMPRESSION: No acute pulmonary abnormality. Dictated by: Dictated on workstation # [id number] Dict: 12/03/212109 Trans: 12/03/212112 [facility] [id number] Interpreted by: ALETHEA BORDEN MD Electronically signed by: ALETHEA BORDEN MD 12/03/212112 A/P-Cardiology Assessment/Admission Diagnosis PAF - OAC with Eliquis - Card cath of 12/03/17: No significant CAD, LVEF 50-55%, LVEDP 21 mmHg - Echocardiogram of May 2017: LVEF 60-65%; the LA is mildly dilated; PASP 35-40mmHg; trivial TR Chronic tobacco use - cessation advised Obesity. - S/p gastric bypass in 2008 ([facility]). Initially lost wgt, but has recently started to gain wgt Hypertension - controlled Bilat leg swelling - more on the R, chronic but currently well controlled - Bilat varicose veins of the legs Suspected sleep apnea - refuses sleep study referral Clinical Quality Measures AMI/AHF: ASA po Prior to arrival: SARBJIT Burgos Dec 04, 2021 08:47
--- NOTE | 2021-12-04 09:03 | Short Stay Summary-Hospitalist ---
History of Present Illness Source: patient Date Seen 12/04/21 Time Seen by a Provider: 08:56 Attending Physician Nicolette Anglin MD PCP Adi Pham MD Referring Physician Date of Admission Dec 03, 2021 at 21:20 Home Medications & Allergies Home Medications Reviewed patient Home Medication Reconciliation performed by pharmacy medication reconciliations greenhouse technician and/or nursing. Patients Allergies have been reviewed. Allergies Allergies Coded Allergies morphine (Verified Allergy, Severe, SYNCOPE, 08/17/20) penicillin G (Verified Allergy, Unknown, FROM CHILDHOOD, 08/17/20) Past Fpewjog-Yzvuyp-Mvtrks Hx Patient Social History Tobacco Use?: Yes Tobacco type used: Cigarettes Smoking Status: Heavy Tobacco Smoker Smokeless Tobacco Frequency: Never a User Use of E-Cig and/or Vaping dev: No Substance use?: No Substance type: Marijuana Additional substance use comme: states used marijuana in highschool Alcohol Use?: Yes Alcohol type: Beer Alcohol Frequency: Daily Additional Alcohol Comments: 12pack daily Pt feels they are or have been: No Immunizations Up To Date Date of Influenza Vaccine: Jun 06, 2020 First/Initial COVID19 Vaccinat: 11/20 Second COVID19 Vaccination Sai: 11/20 Tetanus Booster (TDap): Unknown Hepatitis A: No Hepatitis B: No Seasonal Allergies Seasonal Allergies: Yes Current Status Advance Directives: No Communicates: Verbally Primary Language: Syriac Preferred Spoken Language: Syriac Is interpretation needed?: No Past Medical History Surgeries: Abdominal, Appendectomy, Gallbladder, Orthopedic, Tonsillectomy Atrial Fibrillation, High Cholesterol, Hypertension Sexually Transmitted Disease: No HIV/AIDS: No Gall Bladder Disease Anxiety Blood Disorders: No Adverse Reaction/Blood Tranf: No (N/A) Family Medical History Cardiovascular disease 19 FATHER 19 MOTHER No Pertinent Family Hx SOCIAL HISTORY: -SMOKES 1-2 PPD -DRINKS LARGE AMOUNT OF ALCOHOL DAILY--MORE THAN A 6 PACK OF BEER/DAY -SMOKES MARIJUANA ON REGULAR BASIS, DAILY AT TIMES. Physical Exam Physical Exam Vital Signs Vital Signs - First Documented 12/03/21 12/03/21 20:23 23:22 Temp 36.8 Pulse 82 Resp 20 B/P (MAP) 153/89 (110) Pulse Ox 99 O2 Delivery Room Air O2 Flow Rate 2.00 Capillary Refill : Less Than 3 Seconds Height, Weight, BMI Height: 6'0" Weight: 318lbs. 0.0oz. 144.733648gd; 50.34 BMI Method:Stated General Appearance: No Apparent Distress, WD/WN, Obese (MORBIDLY OBESE), Other (DOES NOT APPEAR ILL OR TO BE IN ANY DISCOMFORT OR DISTRESS; BOTH LEGS WRAPPED WITH LYMPHEDEMA DRESSINGS AND ANGELIKA WRAPS.) Neck: Normal Inspection Respiratory: Chest Non Tender, Normal Breath Sounds, No Accessory Muscle Use, No Respiratory Distress Cardiovascular: Regular Rate, Rhythm, No Murmur Gastrointestinal: Non Tender, Soft Back: No CVA Tenderness, No Vertebral Tenderness Extremity: Normal Capillary Refill, Normal Range of Motion, Non Tender, No Calf Tenderness, Other (UNABLE TO DETERMINE DEGREE OF EDEMA DUE TO BODY HABITUS. MOTOR/SENSORY/VASCULAR INTACT. ) Neurologic/Psychiatric: Alert, Oriented x3, No Motor/Sensory Deficits, Normal Mood/Affect, stogie packer II-XII Norm as Tested Skin: Normal Color, Warm/Dry, Other (HAS VERY EXTENSIVE EXCORIATED SORES TO DORSAL ASPECT OF BOTH ARMS, TO CHEST AND ABDOMEN AND SOME TO LOWER LEGS. HAS VERY EXTENSIVE EXCORIATED AREAS OVER ENTIRE BACK. ALL THESE AREAS ARE BLEEDING/MACERATED. NO SIGNS OF SECONDARY INFECTION AT THIS TIME. ON UPPER AND MID BACK THERE DOES APPEAR TO BE SOME AREAS OF WELL DEMARCATED SCALY PLAQUES, THAT APPEAR TO BE CHRONIC. ) Results Results/Procedures Labs Patient resulted labs reviewed. Clinical Quality Measures AMI/AHF: ASA po Prior to arrival: LEIA Mahoney MD Dec 04, 2021 09:03
[2021-12-04] MEDS: THIAMINE INJECTION 100 MG, FOLIC ACID INJECTION 1 MG, MAGNESIUM SULFATE 2 GM, VITAMIN M... IV SCH ×5 (09:08)
[2021-12-04] MEDS: ASPIRIN E.C. 81 MG (ECOTRIN) TAB PO SCH (09:09)
[2021-12-04] MEDS: LORazepam INJ 2 MG/ML (ATIVAN) VIAL IV PRN ×4 (09:09→22:03)
--- NOTE | 2021-12-04 09:19 | Consultation-Cardiology ---
HPI-Cardiology Cardiology Consultation Date of Consultation 12/04/21 Date of Admission Time Seen by Provider: 08:56 HPI Patient is a 41 year old male with pmh of HTN, atrial fibrillation, obesity, tobaccoism, and alcohol use disorder who presents to the ED on 12/03/21 with complaints of substernal chest pain, nausea, and vomiting x 3 episodes. Patient reports that the chest pain started at 1000 yesterday while sitting on the couch watching TV. Reports the pain was substernal and didn't radiate anywhere. The pain was described as a "tightening and releasing" sensation that never comple tely went away. Reports that nothing made the chest pain worse. The chest pain was constant and lasted until patient presented to the ED around 1999 and was given nitropaste and ASA per patient report. The chest pain was associated with nausea and vomiting x3 episodes prior to presenting to the ED. He also reports that the onset of chest pain was associated with sweating and chills. Reports t hat he's never had chest pain like this before. Home Medications & Allergies Allergies: Coded Allergies: morphine (Verified Allergy, Severe, SYNCOPE, 08/17/20) penicillin G (Verified Allergy, Unknown, FROM CHILDHOOD, 08/17/20) Home Medication List Reviewed: Yes RNA-Vpioxj-Eeotdb Hx Patient Social History Marital Status: single Recreational Drug Use: No Drug of Choice: DENIES Smoking Status: Heavy Tobacco Smoker (1 PPD x 20 year) Type Used: Cigarettes 2nd Hand Smoke Exposure: Yes Recent Hopitalizations: No Have you traveled recently?: No Alcohol Use?: Yes Substance type: Marijuana (Reports hasn't used in years) Immunizations Up To Date Tetanus Booster (TDap): Unknown Date of Influenza Vaccine: Jun 06, 2020 Family Medical History Significant Family History: No Pertinent Family Hx Family History: Cardiovascular disease 19 FATHER 19 MOTHER Review of Systems-General Review of Systems Constitutional: see HPI, chills; No fever, No malaise EENTM: no symptoms reported; No blurred vision, No double vision Respiratory: no symptoms reported; No cough, No short of breath Cardiovascular: see HPI, chest pain, edema; No palpitations, No syncope Gastrointestinal: No abdominal pain, No constipation, No diarrhea, No loss of appetite; nausea, vomiting Genitourinary: no symptoms reported; No discharge, No dysuria Musculoskeletal: no symptoms reported; No back pain, No joint pain, No joint swelling Skin: see HPI, lesions (scattered abrasions that are in various stages on healing on ear lobe, trunk, abdomen, and extremities. ), pruritus Psychiatric/Neurological: No Symptoms Reported; Denies Anxiety, Denies Depressed, Denies Headache All Other Systems Reviewed Negative Unless Noted: Yes Reviewed Test Results Reviewed Test Results Lab Laboratory Tests 12/03/21 20:33 12/04/21 04:56 Radiology NAME: SHARATH PORRAS [facility] REC#: [id number] PT STATUS: ADM Leida : 1980 PHYSICIAN: GERARDO MILLER MD ADMIT DATE: 12/03/21/[facility] Draft Date of Exam:12/04/21 US ABDOMEN COMPLETE [id number] INDICATION: Chest pain and elevated liver function tests. PROCEDURE: Ultrasound abdomen complete. TECHNIQUE: Multiple Real-time grayscale images were obtained of the abdomen in various projections. FINDINGS: The liver is enlarged at 22 cm. There is increased echogenicity throughout the liver, consistent with hepatic steatosis. No discrete liver mass is detected. Portal vein is patent and shows normal direction of flow. Gallbladder is surgically absent. No definite biliary ductal dilatation is seen. Pancreas was obscured by overlying bowel gas. Spleen is normal in size at 9 cm. Aorta and IVC are obscured. Right and left kidneys are unremarkable. No calculus or hydronephrosis is seen. There is no ascites. IMPRESSION: 1. Hepatomegaly and hepatic steatosis. 2. Status post cholecystectomy. Dictated on workstation # [id number] Dict: 12/04/2126 Trans: 12/04/21 33 [id number] Interpreted by: DARIO CHIU MD Electronically signed by: NAME: SHARATH PORRAS [facility] REC#: [id number] PT STATUS: REG ER : 1980 PHYSICIAN: LAURIE SANTIAGO DO ADMIT DATE: 12/03/21/ER Signed Date of Exam:12/03/21 CHEST 1 VIEW, AP/PA ONLY HISTORY: Chest pain. COMPARISON: 09/30/2020. TECHNIQUE: Frontal view of the chest. FINDINGS: Lung volumes are normal. No consolidation is seen. There is no pleural effusion or pneumothorax. The cardiac silhouette is normal in size. Findings appear stable since prior examinations. IMPRESSION: No acute pulmonary abnormality. Dictated by: Dictated on workstation # [id number] Dict: 12/03/212109 Trans: 12/03/212112 [facility] [id number] Interpreted by: ALETHEA BORDEN MD Electronically signed by: ALETHEA BORDEN MD 12/03/212112 Physical Exam Physical Exam Vital Signs Vital Signs - First Documented 12/03/21 12/03/21 20:23 23:22 Temp 36.8 Pulse 82 Resp 20 B/P (MAP) 153/89 (110) Pulse Ox 99 O2 Delivery Room Air O2 Flow Rate 2.00 Capillary Refill : Less Than 3 Seconds Height, Weight, BMI Height: 6'0" Weight: 318lbs. 0.0oz. 144.733587ys; 50.34 BMI Method:Stated General Appearance: No Apparent Distress, WD/WN, Obese (MORBIDLY OBESE) Eyes: Bilateral Eye Normal Inspection, Bilateral Eye PERRL, Bilateral Eye EOMI HEENT: PERRL/EOMI, Pharynx Normal, Moist Mucous Membranes Neck: Full Range of Motion, Normal Inspection, Non Tender, Supple Respiratory: Chest Non Tender, Lungs Clear, Normal Breath Sounds, No Accessory Muscle Use Cardiovascular: Regular Rate, Rhythm, No Murmur, Normal Peripheral Pulses, Other (BLE nonpitting edema) Gastrointestinal: Normal Bowel Sounds, Non Tender, Soft; No Distended, No Guarding Rectal: Deferred Back: No CVA Tenderness, No Vertebral Tenderness Extremity: Normal Capillary Refill, Normal Range of Motion, Non Tender, No Calf Tenderness, Swelling (BLE nonpitting edema) Neurologic/Psychiatric: Alert, Oriented x3, No Motor/Sensory Deficits, Normal Mood/Affect Skin: Normal Color, Warm/Dry, Other (Superficial scattered scabbed sores over anterior and posterior trunk, abdomen, ear lobes, and extremities. Sores seem to be in various stages of healing with some open to air and others scabbed over. No overt erythema, drainage, or pus noted. ) Lymphatic: No Adenopathy (Head and Neck) A/P-Cardiology Assessment/Plan Chest pain without any evidence of acute cor syndrome, etiology undetermined -negative troponin x 2 and negative myoglobin -EKG NSR without evidence of coronary ischemia -patient can be discharged from cardiac standpoint -continue current medical management -outpatient stress test tomorrow -follow up with PCP on outpatient basis to further evaluate source of non- cardiac chest pain -continue to engage in risk reduction of known cardiac risk factors Urine drug screen positive for opiates and ETOH -educated patient regarding alcohol and opiate use PAF - OAC with Eliquis - Card cath of 12/03/17: No significant CAD, LVEF 50-55%, LVEDP 21 mmHg - Echocardiogram of May 2017: LVEF 60-65%; the LA is mildly dilated; PASP 35-40mmHg; trivial TR Chronic tobacco use - cessation advised Alcohol Use Disorder -patient educated on cessation and availability of treatment programs Obesity. - S/p gastric bypass in 2008 ([facility]). Initially lost wgt, but has recently started to gain wgt Hypertension - controlled Bilat leg swelling - more on the R, chronic but currently well controlled - Bilat varicose veins of the legs Suspected sleep apnea - sleep studies advised - refuses sleep study referral Clinical Quality Measures AMI/AHF: ASA po Prior to arrival: No Supervisory-Addendum Brief Verification & Attestation Participated in pt care: history, MDM, physical Personally performed: exam, history, MDM, supervision of care Care discussed with: Medical Student Procedures: n/a I personally interviewed and examined the patient and his records. I answered patient's questions. I discussed the case with the medical student and I agree with the findings, assessment and plan noted above. Some changes were made that are shown in italics Nunu Tsang MD, MA, FACP, FACC, [facility], CCDS [employer] Dec 04, 2021 09:19 NUNU TSANG MD FACP FACC CCDS Dec 04, 2021 12:57
[2021-12-04] MEDS ORDERED: meTOprolol SUCCINATE 100 MG (TOPROL XL) TAB PO SCH (09:30)
[2021-12-04] MEDS ORDERED: REGADENOSON 0.4 MG/5 ML SYR (LEXISCAN) IV ONE (09:45)
[2021-12-04] MEDS: APIXABAN 5 MG (ELIQUIS) TABLET PO SCH ×2 (11:06→21:41)
[2021-12-04] MEDS ORDERED: ALPR0.254 PO (11:17)
--- NOTE | 2021-12-04 12:16 | History & Physical-Hospitalist ---
History of Present Illness HPI/Chief Complaint Patient is a 41-year-old male with past medical history of atrial fibrillation, hypertension who presented to the emergency department due to chest pain. He states that it started out of the blue and he was nauseous and vomited 3 times. He was also intermittently short of breath. Given his cardiac history he came in for evaluation. Incidentally he complained to the ER of itching and has excoriations all over his body. He did not complain about this to me. He denies any further chest pain. Though does have some persistent nausea. Source: patient Date Seen 12/04/21 Time Seen by a Provider: 08:15 Attending Physician Gerardo Miller MD PCP Adi Pham MD Referring Physician Date of Admission Dec 03, 2021 at 21:20 Home Medications & Allergies Home Medications Reviewed patient Home Medication Reconciliation performed by pharmacy medication reconciliations architecture technician and/or nursing. Patients Allergies have been reviewed. Allergies Allergies Coded Allergies morphine (Verified Allergy, Severe, SYNCOPE, 08/17/20) penicillin G (Verified Allergy, Unknown, FROM CHILDHOOD, 08/17/20) Past Ppcwtdp-Yxcsvf-Wbfzoz Hx Patient Social History Marrital Status: single Tobacco Use?: Yes Tobacco type used: Cigarettes Smoking Status: Heavy Tobacco Smoker (1 PPD x 20 year) Smokeless Tobacco Frequency: Never a User Use of E-Cig and/or Vaping dev: No Substance use?: No Substance type: Marijuana (Reports hasn't used in years) Additional substance use comme: states used marijuana in highschool Alcohol Use?: Yes Alcohol type: Beer Alcohol Frequency: Daily Additional Alcohol Comments: 12pack daily Pt feels they are or have been: No Immunizations Up To Date Date of Influenza Vaccine: Jun 06, 2020 First/Initial COVID19 Vaccinat: 11/20 Second COVID19 Vaccination Sai: 11/20 Tetanus Booster (TDap): Unknown Hepatitis A: No Hepatitis B: No Seasonal Allergies Seasonal Allergies: Yes Current Status Advance Directives: No Communicates: Verbally Primary Language: Gibraltarian Preferred Spoken Language: Gibraltarian Is interpretation needed?: No Past Medical History Surgeries: Abdominal, Appendectomy, Gallbladder, Orthopedic, Tonsillectomy Atrial Fibrillation, High Cholesterol, Hypertension Sexually Transmitted Disease: No HIV/AIDS: No Gall Bladder Disease Anxiety Blood Disorders: No Adverse Reaction/Blood Tranf: No (N/A) Family Medical History Cardiovascular disease 19 FATHER 19 MOTHER No Pertinent Family Hx SOCIAL HISTORY: -SMOKES 1-2 PPD -DRINKS LARGE AMOUNT OF ALCOHOL DAILY--MORE THAN A 6 PACK OF BEER/DAY -SMOKES MARIJUANA ON REGULAR BASIS, DAILY AT TIMES. Review of Systems Constitutional: No chills, No diaphoresis, No fever EENTM: no symptoms reported Respiratory: No cough; short of breath Cardiovascular: chest pain, edema, Hx of Intervention Gastrointestinal: nausea, vomiting Genitourinary: no symptoms reported Musculoskeletal: no symptoms reported Skin: see HPI Psychiatric/Neurological: No Symptoms Reported Physical Exam Physical Exam Vital Signs Vital Signs - First Documented 12/03/21 12/03/21 20:23 23:22 Temp 36.8 Pulse 82 Resp 20 B/P (MAP) 153/89 (110) Pulse Ox 99 O2 Delivery Room Air O2 Flow Rate 2.00 Capillary Refill : Less Than 3 Seconds Height, Weight, BMI Height: 6'0" Weight: 318lbs. 0.0oz. 144.812874kg; 50.34 BMI Method:Stated General Appearance: No Apparent Distress, Chronically ill, Obese HEENT: PERRL/EOMI, Moist Mucous Membranes; No Scleral Icterus (L), No Scleral Icterus (R) Neck: Normal Inspection, Supple Respiratory: Lungs Clear, No Accessory Muscle Use, No Respiratory Distress Cardiovascular: Regular Rate, Rhythm, No Murmur Gastrointestinal: Normal Bowel Sounds, Non Tender, Soft Extremity: No Calf Tenderness, Swelling Neurologic/Psychiatric: Alert, Oriented x3 Skin: Normal Color, Warm/Dry Results Results/Procedures Labs Laboratory Tests 12/03/21 20:33 12/04/21 04:56 Patient resulted labs reviewed. Imaging: Reviewed Imaging Report Imaging [facility]. [place], [place] NAME: SHARATH PORRAS [facility] REC#: [id number] PT STATUS: REG ER : 1980 PHYSICIAN: LAURIE SANTIAGO DO ADMIT DATE: 12/03/21/ER Signed Date of Exam:12/03/21 CHEST 1 VIEW, AP/PA ONLY HISTORY: Chest pain. COMPARISON: 09/30/2020. TECHNIQUE: Frontal view of the chest. FINDINGS: Lung volumes are normal. No consolidation is seen. There is no pleural effusion or pneumothorax. The cardiac silhouette is normal in size. Findings appear stable since prior examinations. IMPRESSION: No acute pulmonary abnormality. Dictated by: Dictated on workstation # [id number] Dict: 12/03/212109 Trans: 12/03/212112 [facility] [id number] Interpreted by: ALETHEA BORDEN MD Electronically signed by: ALETHEA BODREN MD 12/03/212112 [facility]. [place], [place] NAME: HSARATH PORRAS [facility] REC#: [id number] PT STATUS: ADM Leida : 1980 PHYSICIAN: GERARDO MILLER MD ADMIT DATE: 12/03/21/[facility] Draft Date of Exam:12/04/21 US ABDOMEN COMPLETE [id number] INDICATION: Chest pain and elevated liver function tests. PROCEDURE: Ultrasound abdomen complete. TECHNIQUE: Multiple Real-time grayscale images were obtained of the abdomen in various projections. FINDINGS: The liver is enlarged at 22 cm. There is increased echogenicity throughout the liver, consistent with hepatic steatosis. No discrete liver mass is detected. Portal vein is patent and shows normal direction of flow. Gallbladder is surgically absent. No definite biliary ductal dilatation is seen. Pancreas was obscured by overlying bowel gas. Spleen is normal in size at 9 cm. Aorta and IVC are obscured. Right and left kidneys are unremarkable. No calculus or hydronephrosis is seen. There is no ascites. IMPRESSION: 1. Hepatomegaly and hepatic steatosis. 2. Status post cholecystectomy. Dictated on workstation # [id number] Dict: 12/04/21825 Trans: 12/04/21 08 [id number] Interpreted by: DARIO CHIU MD Electronically signed by: Assessment/Plan Admission Diagnosis Chest pain Admission Status: Observation Assessment and Plan Chest pain Afib HTN Tobacco abuse Cardiology consulted, appreciate recs Echo done, read pending Serial troponins ordered, first was negative awaiting second Stress test in AM Continue home metoprolol and eliquis Lymphedema Morbid Obesity Follows with rehab center in [place] for treatment but has not been Alcohol abuse Transaminitis Liver enzymes up and drinks roughly 8 beers per day per ER note Also may have component of fatty liver disease Monitor for withdrawal symptoms though unlikely if discharged in the next day given intoxicated on admission last night Needs outpatient monitoring and follow up DVT ppx: Already on eliquis Clinical Quality Measures AMI/AHF: ASA po Prior to arrival: LEIA Mahoney MD Dec 04, 2021 12:16
[2021-12-04] MEDS ORDERED: KCL 20 MEQ TAB (K-DUR) PO ONE (13:15)
[2021-12-04 22:11] LABS: HEPATITIS C ANTIBODY C Non-Reactive (Non-Reactive)
[2021-12-05] MEDS: hydrOXYzine (VISTARIL/ATARAX) 25 MG capsule/tablet PO PRN ×2 (00:38→08:05)
[2021-12-05] MEDS: D5 NS W/KCL 20 MEQ/L 1,000 ML IV SCH ×2 (02:11→09:44)
[2021-12-05] MEDS: LORazepam INJ 2 MG/ML (ATIVAN) VIAL IV PRN ×5 (02:11→10:52)
[2021-12-05] MEDS: NITROGLYCERIN 2% OINT 1 GM UNIT DOSE PACKET TOP SCH (03:07)
[2021-12-05] MEDS ORDERED: CATHETER FLUSH 10 ML SYR IVP PRN (07:30)
[2021-12-05] MEDS: APIXABAN 5 MG (ELIQUIS) TABLET PO SCH (08:05)
[2021-12-05] MEDS: THIAMINE INJECTION 100 MG, FOLIC ACID INJECTION 1 MG, MAGNESIUM SULFATE 2 GM, VITAMIN M... IV SCH ×5 (08:05)
[2021-12-05] MEDS: ASPIRIN E.C. 81 MG (ECOTRIN) TAB PO SCH (08:05)
[2021-12-05] MEDS ORDERED: REGADENOSON 0.4 MG/5 ML SYR (LEXISCAN) IV ONE (08:53)
[2021-12-05] MEDS ORDERED: LORATADINE (CLARITIN) 10 MG TAB PO ONE (13:30)
--- NOTE | 2021-12-05 13:59 | Progress Note - Cardiology ---
Cardiology SOAP Progress Note Subjective: No cp or palp or syncope or shortness of breath Does not report any symptoms Objective: I&O/Vital Signs 12/05/21 12/05/21 12/05/21 12/05/21 04:00 07:00 08:00 10:45 Pulse 81 86 89 Resp 14 22 B/P (MAP) 140/81 147/83 Pulse Ox 95 97 O2 Delivery Nasal Cannula Room Air Room Air O2 Flow Rate 4.00 12/05/21 12/05/21 12:00 13:13 Temp 36.6 Pulse 81 74 Pulse Ox 95 O2 Delivery Room Air 12/05/21 00:00 Intake Total 700 ml Output Total 1450 ml Balance -750 ml Weight (Pounds): 318 Weight (Ounces): 0.0 Weight (Calculated Kilograms): 144.266649 Constitutional: AAO x 3, well-developed, well-nourished, other (mildly restless) Respiratory: No accessory muscle use; other (good air entry) Cardiovascular: regular rate-rhythm, S1 and S2 Gastrointestional: No tender; audible bowel sounds Extremities: No clubbing, No cyanosis, No significant edema Neurologic/Psychiatric: other (moves all limbs equally) Skin: No rash on exposed areas, No ulcerations on exposed areas Results/Procedures: Labs Laboratory Tests 12/03/21 20:33 12/04/21 04:56 A/P: Assessment: Chest pain without any evidence of acute cor syndrome, etiology undetermined -negative troponin x 2 and negative myoglobin -EKG NSR without evidence of coronary ischemia - MPI on 12/05/21 did not indicate any significant ischemia or infarction and LVEF was normal Urine drug screen positive for opiates and ETOH -has had some withdrawal that has been managed by Dr Bailey PAF - OAC with Eliquis - Card cath of 12/03/17: No significant CAD, LVEF 50-55%, LVEDP 21 mmHg - Echocardiogram of May 2017: LVEF 60-65%; the LA is mildly dilated; PASP 35-40mmHg; trivial TR Chronic tobacco use - cessation advised Obesity. - S/p gastric bypass in 2008 ([facility]). Initially lost wgt, but has recently started to gain wgt Hypertension - under fair to good control Bilat leg swelling - chronic, due to venous insuff Suspected sleep apnea - refuses sleep study referral Plan: * Cardiac status remains stable * There is no evidence of ACS * MPI has not shown any significant ischemia * Discussed with Dr Bailey who is his attending during this hosp * Risk factor modification has been advised * Ok to d/c from cardiac standpoint Clinical Quality Measures AMI/AHF: ASA po Prior to arrival: DAISY Mondragon MD [facility] Dec 05, 2021 13:59
--- NOTE | 2021-12-05 14:30 | Discharge Summary ---
Diagnosis/Chief Complaint Date of Admission Dec 03, 2021 at 21:20 Date of Discharge Admission Diagnosis Chest pain Primary Care Adi Pham MD Discharge Summary Discharge Physical Exam Allergies: Coded Allergies: morphine (Verified Allergy, Severe, SYNCOPE, 08/17/20) penicillin G (Verified Allergy, Unknown, FROM CHILDHOOD, 08/17/20) Vitals & I&Os Vital Signs Date Time Temp Pulse Resp B/P (MAP) Pulse Ox O2 Delivery O2 Flow Rate FiO2 12/05/21 13:13 74 12/05/21 12:00 36.6 95 Room Air 12/05/21 10:45 22 147/83 12/05/21 04:00 4.00 General Appearance: No Apparent Distress, Chronically ill, Obese Cardiovascular: Regular Rate, Rhythm, No Murmur Skin: Rash Neurologic/Psychiatric: Alert, Oriented x3 Hospital Course Patient was admitted to the hospital secondary to chest pain. He has known atrial fibrillation and follows with Dr. Hardwick. He had negative troponins but given risk factors he was kept overnight for a stress test. I discussed the case with Dr. Hardwick who would just read the stress test and stated it was negative for ischemia. He was discharged home in stable and improved condition to follow-up with Dr. Hardwick for his cardiac issues. He incidentally was found to have a diffuse rash on his arms and the back. He had no mucosal involvement no fevers no new medications were used. I advised follow-up with his primary ca re physician, Dr. Pham. I did call and update Dr. Pham regarding this hospitalization. Labs (last 24 hrs) Patient resulted labs reviewed. Imaging: Reviewed Imaging Report Discussion & Recommendations Discharge Planning: >30 minutes discharge planning Discharge Home Medications: Active Scripts Active Aspirin EC (Aspirin) 81 Mg Tablet.dr 81 Mg PO DAILY Reported ALPRAZolam 0.25 Mg Tablet 0.25 Mg PO DAILY PRN Torsemide 20 Mg Tablet 20 Mg PO DAILY Eliquis (Apixaban) 5 Mg Tablet 5 Mg PO BID Metoprolol Succinate 100 Mg Tab.er.24h 100 Mg PO DAILY Instructions to patient/family Please see electronic discharge instructions given to patient. Clinical Quality Measures AMI/AHF: ASA po Prior to arrival: LEIA Mahoney MD Dec 05, 2021 14:29
[2021-12-05] MEDS ORDERED: ASPI-1238 PO (14:32)
--- NOTE | 2021-12-05 14:32 | STRESS TEST ---
DATE OF SERVICE: 12/05/2021 RESTING AND POST REGADENOSON TECHNETIUM-99M TETROFOSMIN SPECT CT IMAGING ORDERING PHYSICIAN: Phuong Richter APRN PRIMARY PHYSICIAN: Dr. Pham. ATTENDING PHYSICIAN: Dr. Vo. CLINICAL DIAGNOSIS: Chest discomfort. Baseline images were carried out after injection of 10.34 mCi of technetium-99m Tetrofosmin. This was followed by 0.4 mg Regadenoson and 30.1 mCi of technetium-99m Tetrofosmin for stress imaging. The electrocardiogram showed sinus rhythm at baseline. It did not change significantly with the Regadenoson infusion. Review of images at rest and following stress does not indicate any distinct evidence of significant myocardial ischemia or infarction. This is a technically difficult study because of considerable patient motion during image acquisition. Gated images show normal global left ventricular systolic function with normal regional wall motion. Left ventricular ejection fraction is calculated to be 69%. CONCLUSIONS: 1. Technically difficult study. 2. No evidence of significant myocardial ischemia or infarction on this study. 3. Normal regional wall motion. 4. Normal global left ventricular systolic function with a calculated ejection fraction of 69%. Job ID: [id number] DocumentID: [id number] Dictated Date: 12/05/2021 13:32:15 Brokerage Clerk Date: 12/05/2021 14:31:34 Dictated By: DAISY DUMONT MD, MA, FACP, FACC, MTDD
--- NOTE | 2021-12-05 14:36 | Discharge Inst-Simple/Standard ---
Discharge Inst-Standard Patient Instructions/Follow Up Plan of Care/Instructions/FU: Please continue take your medications as written. Please follow-up with your primary care doctor, Dr. Pham and your bible reader Dr. Hardwick to follow-up this hospital stay Activity as Tolerated: Yes Discharge Diet: Cardiac Diet Return to The Hospital For: Chest pain, shortness of breath, weakness, confusion, if you feel you are getting worse. LEIA CHAPMAN MD Dec 05, 2021 14:36
[2021-12-05 15:25] VITALS: BP 147/83
[2021-12-06] MEDS ORDERED: LORATADINE (CLARITIN) 10 MG TAB PO SCH (09:00)
== END 2021-12-05 15:25 | disposition home or self-care (01) ==
LOC: EDUNIT# 20:19 → ER 20:20 → CSD 21:20
PROVIDERS: ADMIT Internal Medicine; ATTEND Internal Medicine
DX: R07.89 Other chest pain (principal); I48.0 Paroxysmal atrial fibrillation; I48.20 Chronic atrial fibrillation, unspecified; I89.0 Lymphedema, not elsewhere classified; E66.9 Obesity, unspecified; E87.8 Other disorders of electrolyte and fluid balance, not elsewhere classified; R74.01 Elevation of levels of liver transaminase levels; L29.8 Other pruritus; I10 Essential (primary) hypertension; E72.20 Disorder of urea cycle metabolism, unspecified; F17.210 Nicotine dependence, cigarettes, uncomplicated; F12.90 Cannabis use, unspecified, uncomplicated; Z79.899 Other long term (current) drug therapy; Z79.01 Long term (current) use of anticoagulants; Z68.43 Body mass index [BMI] 50.0-59.9, adult
CPT/HCPCS: 71045; 76700; 78452; 80053 ×2; 80061; 80074; 80306; 81000; 82140; 82150; 82550; 82553; 82947 ×2; 83690; 83735; 83874; 83880; 84484 ×2; 85025 ×2; 85610; 85652; 85730; 86141; 86703; 87636; 93005 ×3; 93017; 93041; 96374; 96375; 96376; 99284; A9502; G0378; G0480; 36415; 80320

== ENCOUNTER 2023-04-02 19:38 | Emergency (ER) | payer BC ==
[~2023-04-02 19:38] MED LIST changes: +ALPR0.254 PO; +ASPI-1238 PO; -NYST15CR TP; +NYST15CR35 TP
--- NOTE | 2023-04-02 19:56 | ED Cough/URI ---
General Chief Complaint: Cough/Cold/Flu Symptoms Stated Complaint: DIZZY/FEVER/HEADACHE/NECK STIFF/COLD CHILLS Source: patient Exam Limitations: no limitations History of Present Illness Date Seen by Provider: Apr 02, 2023 Time Seen by Provider: 19:54 Initial Comments Patient is a 42-year-old male with a history of A-fib has not taken his anticoagulant for the past week, history of cellulitis, gastric bypass who presents ED with flulike symptoms. Symptoms started yesterday morning. Started having chills, shakes, headache, sweating chest pain and shortness of breath. The symptoms have been intermittent since yesterday. Started feeling little bit better yesterday evening and then continued again today. Reports a mild cough with subtle chest pain. Intermittent shortness of breath. No nausea or vomiting. States he feels feverish. Generalized head pressure with neck stiffness, body pains and aches. Patient denies taking thing for pain. Reports he has been urinating. Patient has been working outside and states he feels dehydrated. History of prediabetes. Denies of any current chest pain. Denies any recent travels or surgeries. No change in mental status, severe head pain, unilateral muscle weakness or sensory changes. Denies any sore throat, ear pain, abdominal pain Allergies and Home Medications Allergies Coded Allergies: morphine (Verified Allergy, Severe, SYNCOPE, 08/17/20) penicillin G (Verified Allergy, Unknown, FROM CHILDHOOD, 08/17/20) Patient Home Medication List Home Medication List Reviewed: Yes ALPRAZolam (ALPRAZolam) 0.25 Mg Tablet, 0.25 MG PO DAILY PRN for ANXIETY, (Rep orted) Entered as Reported by: RAJ GALLAGHER on 12/04/21 1117 Apixaban (Eliquis) 5 Mg Tablet, 5 MG PO BID, (Reported) Entered as Reported by: ROSE HAIR on 12/03/17722 Aspirin (Aspirin EC) 81 Mg Tablet.dr, 81 MG PO DAILY Prescribed by: LEIA CHAPMAN on 12/05/21 1432 Metoprolol Succinate (Metoprolol Succinate) 100 Mg Tab.er.24h, 100 MG PO DAILY, (Reported) Entered as Reported by: ROSE HAIR on 12/03/17722 Torsemide (Torsemide) 20 Mg Tablet, 20 MG PO DAILY, (Reported) Entered as Reported by: SOLEDAD VILLANUEVA on 07/07/21 0410 Review of Systems Review of Systems Constitutional: chills; No diaphoresis; dizziness, fever, malaise, weakness EENTM: No blurred vision, No double vision Respiratory: cough Cardiovascular: chest pain Gastrointestinal: No abdominal pain, No diarrhea, No nausea, No vomiting Genitourinary: No decreased output, No discharge, No dysuria, No frequency Musculoskeletal: No back pain, No joint pain, No joint swelling; muscle pain Skin: No change in color, No change in hair/nails All Other Systems Reviewed Negative Unless Noted: Yes Past Jsuooke-Hgrvam-Zkvcys Hx Patient Social History Tobacco Use?: Yes Tobacco type used: Cigarettes Substance use?: Yes Substance type: Marijuana Alcohol Use?: Yes Pt feels they are or have been: No Immunizations Up To Date Tetanus Booster (TDap): Unknown First/Initial COVID19 Vaccinat: 11/20 Second COVID19 Vaccination Sai: 11/20 Third COVID19 Vaccination Date: 11/20 Seasonal Allergies Seasonal Allergies: Yes Past Medical History Surgery/Hospitalization HX: GASTRIC BYPASS, APPY,RAS, KNEE, HTN, AFIB Surgeries: Yes (LAP BAND, MINI GASTRIC BYPASS, PELLET REMOVED FROM LEFT HAND AGE 12) Abdominal, Appendectomy, Gallbladder, Orthopedic, Tonsillectomy Respiratory: No Cardiac: Yes (ONSET A FIB 05/08/17; HEART CATH-NO INTERVENTIONS) Atrial Fibrillation, High Cholesterol, Hypertension Neurological: No Reproductive Disorders: No Sexually Transmitted Disease: No HIV/AIDS: No Genitourinary: No Gastrointestinal: Yes (S/P LAP BAND AND MINI GASTRIC BYPASS) Gall Bladder Disease Musculoskeletal: Yes (RIGHT KNEE SCOPE 08/2020 DR. THOMAS; CHRONIC LYMPHEDEMA) Endocrine: No (MORBID OBESITY) HEENT: Yes (DENTAL ISSUES) Cancer: No Psychosocial: Yes Anxiety Integumentary: Yes (CELLULITIS--LEGS) Blood Disorders: No Adverse Reaction/Blood Tranf: No (N/A) Family Medical History Cardiovascular disease 19 FATHER 19 MOTHER No Pertinent Family Hx SOCIAL HISTORY: -SMOKES 1-2 PPD -DRINKS LARGE AMOUNT OF ALCOHOL DAILY--MORE THAN A 6 PACK OF BEER/DAY -SMOKES MARIJUANA ON REGULAR BASIS, DAILY AT TIMES. Physical Exam Vital Signs - First Documented 04/02/23 19:45 Temp 39.2 Pulse 89 Resp 25 B/P (MAP) 167/77 (107) Pulse Ox 97 O2 Delivery Room Air Capillary Refill : Height: 6'0" Weight: 318lbs. 0.0oz. 144.099176ca; 50.34 BMI Method:Stated General Appearance: WD/WN, no apparent distress Eyes: Bilateral Eye Normal Inspection, Bilateral Eye PERRL, Bilateral Eye EOMI HEENT: PERRL/EOMI, normal ENT inspection, TMs normal, pharynx normal Neck: non-tender, full range of motion, supple, normal inspection, other (No meningeal signs) Respiratory: chest non-tender, lungs clear, normal breath sounds, no respiratory distress, no accessory muscle use Cardiovascular: regular rate, rhythm, no edema, no gallop, no JVD Gastrointestinal: normal bowel sounds, non tender, soft, no organomegaly Extremities: normal range of motion, non-tender, normal inspection, no pedal edema Neurologic/Psychiatric: cardiac care unit nurse II-XII nml as tested, no motor/sensory deficits, alert, normal mood/affect, oriented x 3 Skin: normal color, warm/dry Progress/Results/Core Measures Suspected Sepsis SIRS Temperature: Pulse: Respiratory Rate: Laboratory Tests 04/02/23 20:01: White Blood Count 9.8 Blood Pressure / Mean: Laboratory Tests 04/02/23 20:01: Creatinine 0.73, Platelet Count 237, Total Bilirubin 1.0 Results/Orders Lab Results Laboratory Tests Test 04/02/23 19:47 04/02/23 20:01 04/02/23 20:40 Range/Units Influenza Type A (RT-PCR) Not Detected Not Detecte Influenza Type B (RT-PCR) Not Detected Not Detecte SARS-CoV-2 RNA (RT-PCR) Not Detected Not Detecte White Blood Count 9.8 4.3-11.0 10^3/uL Red Blood Count 4.08 L 4.30-5.52 10^6/uL Hemoglobin 10.7 L 13.3-17.7 g/dL Hematocrit 33 L 40-54 % Mean Corpuscular Volume 80 80-99 fL Mean Corpuscular Hemoglobin 26 25-34 pg Mean Corpuscular Hemoglobin Concent 33 32-36 g/dL Red Cell Distribution Width 19.2 H 10.0-14.5 % Platelet Count 237 130-400 10^3/uL Mean Platelet Volume 9.2 9.0-12.2 fL Immature Granulocyte % (Auto) 1 % Neutrophils (%) (Auto) 85 H 42-75 % Lymphocytes (%) (Auto) 5 L 12-44 % Monocytes (%) (Auto) 9 0-12 % Eosinophils (%) (Auto) 1 0-10 % Basophils (%) (Auto) 1 0-10 % Neutrophils # (Auto) 8.3 H 1.8-7.8 10^3/uL Lymphocytes # (Auto) 0.5 L 1.0-4.0 10^3/uL Monocytes # (Auto) 0.8 0.0-1.0 10^3/uL Eosinophils # (Auto) 0.1 0.0-0.3 10^3/uL Basophils # (Auto) 0.1 0.0-0.1 10^3/uL Immature Granulocyte # (Auto) 0.1 0.0-0.1 10^3/uL Neutrophils % (Manual) 82 % Lymphocytes % (Manual) 4 % Monocytes % (Manual) 5 % Eosinophils % (Manual) 1 % Basophils % (Manual) 1 % Band Neutrophils 7 % Platelet Estimate ADEQUATE Hypochromasia SLIGHT Poikilocytosis SLIGHT Anisocytosis SLIGHT Target Cells MODERATE Sodium Level 130 L 135-145 MMOL/L Potassium Level 4.2 3.6-5.0 MMOL/L Chloride Level 96 L 98-107 MMOL/L Carbon Dioxide Level 20 L 21-32 MMOL/L Anion Gap 14 5-14 MMOL/L Blood Urea Nitrogen 6 L 7-18 MG/DL Creatinine 0.73 0.60-1.30 MG/DL Estimat Glomerular Filtration Rate 118 BUN/Creatinine Ratio 8 Glucose Level 107 H 70-105 MG/DL Calcium Level 8.8 8.5-10.1 MG/DL Corrected Calcium 9.0 8.5-10.1 MG/DL Total Bilirubin 1.0 0.1-1.0 MG/DL Aspartate Amino Transf (AST/SGOT) 75 H 5-34 U/L Alanine Aminotransferase (ALT/SGPT) 41 0-55 U/L Alkaline Phosphatase 77 40-136 U/L Troponin I < 0.028 <0.028 NG/ML C-Reactive Protein High Sensitivity 2.68 H 0.00-0.50 MG/DL B-Type Natriuretic Peptide 41.7 <100.0 PG/ML Total Protein 8.1 6.4-8.2 GM/DL Albumin 3.7 3.2-4.5 GM/DL Urine Color YELLOW Urine Clarity CLEAR Urine pH 6.5 5-9 Urine Specific [place] 1.010 L 1.016-1.022 Urine Protein NEGATIVE NEGATIVE Urine Glucose (UA) NEGATIVE NEGATIVE Urine Ketones NEGATIVE NEGATIVE Urine Nitrite NEGATIVE NEGATIVE Urine Bilirubin NEGATIVE NEGATIVE Urine Urobilinogen 1.0 < = 1.0 MG/DL Urine Leukocyte Esterase NEGATIVE NEGATIVE Urine RBC (Auto) NEGATIVE NEGATIVE Urine RBC NONE /HPF Urine WBC NONE /HPF Urine Squamous Epithelial Cells 5-10 /HPF Urine Crystals NONE /LPF Urine Bacteria TRACE /HPF Urine Casts NONE /LPF Urine Mucus NEGATIVE /LPF Urine Culture Indicated NO My Orders Orders - SANA ELIZABETH Covid 19 Inhouse Test (04/02/23 19:47) Influenza A And B By Pcr (04/02/23 19:47) Ns Iv 1000 Ml (Sodium Chloride 0.9%) (04/02/23 20:00) Cbc With Automated Diff (04/02/23 19:53) Comprehensive Metabolic Panel (04/02/23 19:53) Troponin I [place] (04/02/23 19:53) Chest 1 View, Ap/Pa Only (04/02/23 19:53) Hs C Reactive Protein (04/02/23 19:53) Acetaminophen Tablet (Acetaminophen Ta (04/02/23 20:00) Manual Differential (04/02/23 20:01) Bnp Di (04/02/23 20:35) Ekg Tracing (04/02/23 20:35) Ua Culture If Indicated (04/02/23 20:35) Apixaban Tablet (Apixaban Tablet) (04/02/23 20:45) Ns Iv 1000 Ml (Sodium Chloride 0.9%) (04/02/23 20:37) Medications Given in ED Current Medications Medications Dose Ordered Sig/Elijah Route Start Time Stop Time Status Last Admin Dose Admin Acetaminophen 1,000 mg ONCE ONCE PO 04/02/23 20:00 04/02/23 20:01 DC 04/02/23 20:06 1,000 MG Apixaban 5 mg ONCE ONCE PO 04/02/23 20:45 04/02/23 20:46 DC 04/02/23 20:46 5 MG Vital Signs/I&O 04/02/23 04/02/23 19:45 21:23 Temp 39.2 38.0 Pulse 89 81 Resp 25 20 B/P (MAP) 167/77 (107) 152/83 Pulse Ox 97 97 O2 Delivery Room Air Room Air Capillary Refill : ECG Comment Sinus rhythm, 80 bpm, QRS duration 96 MS, QTc 382 MS Departure Communication (PCP) Reviewed previous ER visits, H&P, lab testing. Differential diagnosis viral syndrome, ACS, pneumonia. Patient presents to ED with flulike symptoms with chest pain. History of A-fib currently on Eliquis. Has not taken his Eliquis for 1 week. Denies history of coronary artery disease, COPD or asthma. Patient states symptoms started yesterday with body aches, chills, body pain, cough, shortness of breath with chest pain, headache and neck pain. Patient denies taking medication. On arrival he is not tachycardic but is febrile. No evidence of wheezing but slightly tachypneic. Denies abdominal pain, vomiting or diarrhea. Due to current complaints COVID, influenza and generalized lab work. Patient had a cardiac stress test performed December 2021 which did not show any significant ischemic changes. Ejection fraction 69%. Patient did report the chest pain which she states could be result from the cough. Did add EKG and troponin. Patient with cardiac risk factors. EKG showed normal sinus rhythm. Normal troponin. Chest x-ray without strong evidence of pneumonia potential mild cardiomegaly. Added a BNP which was unremarkable. Chronic lower extremity edema. Patient COVID influenza was negative. Patient states he feels dehydrated. Patient did receive a liter of fluid initially. Did receive 1000 mg of Tylenol for the fever. CBC, CMP, CRP was ordered. CBC was grossly unremarkable with a normal white blood count, hemoglobin of 10.7 chronically stable. Chemistry showed a sodium of 130, chloride 96, carbon dioxide of 20 with normal kidney function. CRP slightly elevated at 2 and non specific. Patient did receive a second liter of fluid. Temperature improved to 37.6 Celsius. Patient states he was feeling a little better. Remain normotensive. Heart rate did not increase over 100. No meningeal signs. No pain to palpate the neck with normal range of motion and without pain. Improvement of his headache. Likely viral in nature with his symptoms. No evidence of rash. Oropharynx patent without erythema, swelling or. Bilateral TMs clear. No abdominal tenderness. Due to reassuring lab work and improvement of symptoms patient will be discharged. Continue monitoring symptoms at home. Provided work note for 2 days. Discussed hydration with Pedialyte and water. Continue with Tylenol. Did receive a dose of his Eliquis 5 mg here. Continue with your Eliquis. Recommend follow-up your PCP in 2 to 3 days for reevaluation. Reass uring cardiac work-up. If any worsening chest pain short of breath fever, neck stiffness or severe headache with change in mental status and vomiting to return back to ED. Impression Primary Impression: Viral syndrome Disposition: HOME, SELF-CARE Condition: Stable Departure-Patient Inst. Decision time for Depature: 21:15 Referrals: SANTI KOO MD (PCP/Family) Primary Care Physician Patient Instructions: Viral Syndrome (DC) Add. Discharge Instructions: Recommend taking Tylenol every 4-6 hours. Recommend staying hydrated with water and Pedialyte. Recommend rest for the next few days. Avoid the heat. If increasing head pain, stiff neck, vomiting, confusion, high fever, to return back to ED. Follow-up your PCP in 2 to 3 days for reevaluation All discharge instructions reviewed with patient and/or family. Voiced understanding. Work/School Note: Work Release Form Date Seen in the Emergency Department: Apr 02, 2023 Return to Work: Apr 05, 2023 SANA ELIZABETH Apr 02, 2023 19:56
[2023-04-02] MEDS ORDERED: ACETAMINOPHEN 500 MG TABLET PO ONE (20:00)
[2023-04-02] MEDS ORDERED: NS IV 1000 ML 1,000 ML IV SCH (20:00)
[2023-04-02 20:10] LABS: BASOPHILS # (AUTO) 0.1 10^3/uL (0.0-0.1); BASOPHILS % (AUTO) 1 % (0-10); EOSINOPHILS # (AUTO) 0.1 10^3/uL (0.0-0.3); EOSINOPHILS % (AUTO) 1 % (0-10); HEMATOCRIT 33 % (40-54); HEMOGLOBIN 10.7 g/dL (13.3-17.7); LYMPHOCYTES # (AUTO) 0.5 10^3/uL (1.0-4.0); LYMPHOCYTES % (AUTO) 5 % (12-44); MEAN CORPUSCULAR HEMOGLOBIN 26 pg (25-34); MEAN CORPUSCULAR HGB CONC 33 g/dL (32-36); MEAN CORPUSCULAR VOLUME 80 fL (80-99); MEAN PLATELET VOLUME 9.2 fL (9.0-12.2); MONOCYTES # (AUTO) 0.8 10^3/uL (0.0-1.0); MONOCYTES % (AUTO) 9 % (0-12); NEUTROPHILS # (AUTO) 8.3 10^3/uL (1.8-7.8); NEUTROPHILS % (AUTO) 85 % (42-75); PLATELET COUNT 237 10^3/uL (130-400); WHITE BLOOD COUNT 9.8 10^3/uL (4.3-11.0)
--- NOTE | 2023-04-02 20:22 | Diagnostic Imaging Report ---
HISTORY: Cough COMPARISON: 12/03/2021 TECHNIQUE: Frontal view of the chest FINDINGS: Lung volumes are mildly low. The cardiac silhouette and central vasculature appears somewhat prominent. There is no pleural effusion or pneumothorax. The right costophrenic angle is incompletely included. No consolidation is seen otherwise. IMPRESSION: 1. Mild cardiomegaly with mild central vascular congestion, which could be accentuated by the low lung volumes. Dictated by: Dictated on workstation # [id number]
[2023-04-02 20:29] LABS: ALANINE AMINOTRANSFERASE 41 U/L (0-55); ALBUMIN 3.7 GM/DL (3.2-4.5); ALKALINE PHOSPHATASE 77 U/L (40-136); BUN/CREATININE RATIO 8; CALCIUM 8.8 MG/DL (8.5-10.1); CARBON DIOXIDE 20 MMOL/L (21-32); CHLORIDE 96 MMOL/L (98-107); CREATININE SERUM 0.73 MG/DL (0.60-1.30); GFR ESTIMATED 118; GLUCOSE 107 MG/DL (70-105); POTASSIUM 4.2 MMOL/L (3.6-5.0); SODIUM 130 MMOL/L (135-145); TOTAL PROTEIN 8.1 GM/DL (6.4-8.2)
[2023-04-02] MEDS ORDERED: NS IV 1000 ML 1,000 ML IV STA (20:37)
[2023-04-02] MEDS ORDERED: APIXABAN 5 MG TABLET PO ONE (20:45)
[2023-04-02 20:49] LABS: BILIRUBIN,URINE NEGATIVE (NEGATIVE); CLARITY,URINE CLEAR; COLOR,URINE YELLOW; GLUCOSE, URINE (UA) NEGATIVE (NEGATIVE); KETONES,URINE NEGATIVE (NEGATIVE); LEUKOCYTE ESTERASE ,URINE NEGATIVE (NEGATIVE); NITRITE,URINE NEGATIVE (NEGATIVE); PH,URINE 6.5 (5-9); PROTEIN,URINE NEGATIVE (NEGATIVE)
[2023-04-02 20:55] LABS: ANISOCYTOSIS SLIGHT; BAND NEUTROPHILS 7 %; BASOPHILS % (MANUAL) 1 %; EOSINOPHILS % (MANUAL) 1 %; HYPOCHROMASIA SLIGHT; LYMPHOCYTES % (MANUAL) 4 %; MONOCYTES % (MANUAL) 5 %; NEUTROPHILS % (MANUAL) 82 %; PLATELET ESTIMATE ADEQUATE; POIKILOCYTOSIS SLIGHT; TARGET CELLS MODERATE
[2023-04-02 20:59] LABS: BACTERIA,URINE TRACE /HPF
[2023-04-02 21:23] VITALS: BP 152/83
== END 2023-04-02 21:23 | disposition home or self-care (01) ==
LOC: EDUNIT# 19:38 → ER 19:40
DX: B34.9 Viral infection, unspecified (principal); R05.9 Cough, unspecified; R51.9 Headache, unspecified; R07.89 Other chest pain; R50.9 Fever, unspecified; R42 Dizziness and giddiness; I48.91 Unspecified atrial fibrillation; T45.516A Underdosing of anticoagulants, initial encounter; E66.01 Morbid (severe) obesity due to excess calories; F17.210 Nicotine dependence, cigarettes, uncomplicated; Z79.01 Long term (current) use of anticoagulants; Z91.128 Patient's intentional underdosing of medication regimen for other reason; Z20.822 Contact with and (suspected) exposure to COVID-19; Z68.43 Body mass index [BMI] 50.0-59.9, adult
CPT/HCPCS: 36415; 71045; 80053; 81000; 83880; 84484; 85007; 85027; 86141; 87636; 93005; 96360

== ENCOUNTER 2023-06-12 05:39 | Outpatient (CLI) | payer BC ==
[~2023-06-12] VITALS: Ht 182.9 cm; Wt 195.5 kg
[2023-06-12] MEDS ORDERED: METO200T48 PO (10:40)
== END 2023-06-12 11:07 | disposition home or self-care (01) ==
LOC: PREOP 05:39
PROVIDERS: ATTEND Surgery
DX: Z01.818 Encounter for other preprocedural examination (principal)

== ENCOUNTER 2023-06-24 08:18 | Day surgery (SDC) | payer BC ==
[~2023-06-24] VITALS: Ht 182 cm; Wt 195.5 kg
[~2023-06-24 08:18] MED LIST changes: +METO200T48 PO
[2023-06-24] MEDS ORDERED: LACTATED RINGERS 1,000 ML 1,000 ML IV STA (08:19)
[2023-06-24 08:32] VITALS: BP 170/94
--- NOTE | 2023-06-24 08:58 | Progress Note-Pre Operative ---
Pre-Operative Progress Note Date of Available H&P: Jun 06, 2023 Date H&P Reviewed: Jun 24, 2023 Time H&P Reviewed: 08:56 History & Physical: H&P Reviewed, Patient Examed, No changes noted Pre-Operative Diagnosis: Rectal bleed AMRTÍNEZ QUINTERO DO Jun 24, 2023 08:58
[2023-06-24] MEDS ORDERED: MIDAZOLAM INJ 2 MG/2 ML VIAL ONE (09:58)
[2023-06-24] MEDS ORDERED: KETAMINE 50 MG/5 ML SYRINGE ONE (09:59)
[2023-06-24 10:35] VITALS: BP 164/77
--- NOTE | 2023-06-24 10:36 | Progress Note-Post Operative ---
Post-Operative Progess Note Surgeon (s)/Crown Presser (s) Surgeon MARTÍNEZ QUINTERO DO Crown Presser: none Pre-Operative Diagnosis Rectal bleed Post-Operative Diagnosis Polyps int hemorrhoids Anal fissure Procedure & Operative Findings Date of Procedure 06/24/23 Procedure Performed/Findings Colonoscopy with snare polypectomy Colonoscopy with hot biopsy PROCEDURE NOTE: After informed consent was obtained, the patient was brought to the endoscopy suite, placed in bed in left lateral decubitus position. He was administered IV sedation by the SHEET METAL WORKER SUPERVISOR who then monitored his vitals the entire time, heart rate, blood pressure and pulse ox and the scope was inserted, pushed all the way to about 160 cm and pushed into the cecum, took a picture of appendiceal orifice and noted the ileocecal valve. Then slowly withdrew the scope insufflating to look circumferentially at the fontaenz starting in the cecum and up the ascending colon. Found a small flat polyp and elected to do a hot biopsy of it. Then up to the hepatic flexure, down the transverse colon to the splenic flexure and into the descending colon. I found a larger polyp here, took a picture and then removed it with the snare. Continued down into the sigmoid and then into the rectal vault. I retroflexed the scope and took picture of the internal hemorrhoids. As I pulled the scope out I took another picture and noted an anal fissure. The patient tolerated the procedure. He was recovered in endoscopy suite. Recommended for repeat colonoscopy in 5 years. Anesthesia Type IV sedation by SHEET METAL WORKER SUPERVISOR Estimated Blood Loss Estimated blood loss (mL): scant Specimens/Packing Specimens Removed asc colon polyp Desc colon polyp MARTÍNEZ QUINTERO DO Jun 24, 2023 10:36
--- NOTE | 2023-06-24 10:37 | Endoscopy Discharge Instruct ---
Endo Procedure/Findings Findings 1.: Polyp 2.: Internal Hemorrhoids 3.: Other Findings (anal fissure) Discharge Instructions - Activity: You might feel a little sleepy until tomorrow. This is due to the medicine you received to relax you. Until tomorrow, you should: NOT drive a car, operate machinery or power tools. NOT drink any alcoholic beverages. NOT make any important decisions or sign importortant papers. Do not return to work until tomorrow, unless otherwise instructed. Resume previous activities tomorrow. Diet: Start by taking liquids. If you tolerate liquids, advance to solid food. 1.: Colonscopy in 5 years Notify Physician - If you experience excessive bleeding, unusual abdominal pain, fever, or chest pain, contact your doctor immediately. Follow-Up: Other Follow up in my office in a week MARTÍNEZ QUINTERO DO Jun 24, 2023 10:37
[2023-06-24 10:45] VITALS: BP 164/77
[2023-06-24 11:15] VITALS: BP 165/68
[2023-06-24 11:35] VITALS: BP 165/68
--- NOTE | 2023-06-24 13:31 | Anesthesia-General Post-Op ---
MAC Patient Condition Mental Status/LOC: Same as Preop Cardiovascular: Satisfactory Nausea/Vomiting: Absent Respiratory: Satisfactory Pain: Controlled Complications: Absent Post Op Complications Complications None Follow Up Care/Instructions Patient Instructions None needed. Anesthesiology Discharge Order Discharge Order Patient is doing well, no complaints, stable vital signs, no apparent adverse anesthesia problems. No complications reported per nursing. KVNG FAM CRNA Jun 24, 2023 13:31
== END 2023-06-24 11:35 | disposition home or self-care (01) ==
LOC: ENDO 08:18
PROVIDERS: ATTEND Surgery
DX: K63.5 Polyp of colon (principal); K64.8 Other hemorrhoids; K60.2 Anal fissure, unspecified; F17.210 Nicotine dependence, cigarettes, uncomplicated; E66.9 Obesity, unspecified; Z79.01 Long term (current) use of anticoagulants; Z68.43 Body mass index [BMI] 50.0-59.9, adult
CPT/HCPCS: 88305